=== PATIENT | female | born 1945 | race Caucasian/White ===

== ENCOUNTER → 2016-10-27 | Outpatient (CLI) | payer MEDICARE, OTHER ==
--- NOTE | 2016-10-27 09:18 | CT ---
EXAMINATION TYPE: CT brain wo/w con DATE OF EXAM: 10/27/2016 9:01 AM COMPARISON: NONE HISTORY: TIA CT DLP: 1999.6 mGycm, Automated exposure control for dose reduction was used. CONTRAST: Patient injected with 100 mL of Omnipaque 300. CT of the brain is performed utilizing 3 mm thick sections through the posterior fossa and 3 mm thick sections through the remaining calvarium. Study is performed within 24 hours of arrival to the hospital. No abnormal hyperdensity is present to suggest an acute intracranial hemorrhage. No mass lesion is evident. No acute infarcts are evident. Ventricles and sulci are appropriate for the patient age. No abnormal enhancement is evident. Paranasal sinuses and mastoid air cells within the [id number] are clear. IMPRESSIONS: 1. Normal pre and postcontrast CT brain.
--- NOTE | 2016-10-27 11:25 | US ---
EXAMINATION TYPE: US carotid duplex BILAT DATE OF EXAM: 10/27/2016 9:08 AM COMPARISON: NONE CLINICAL HISTORY: G45.9 TIA. Stiff neck, TIA, headache EXAM MEASUREMENTS: RIGHT: Peak Systolic Velocity (PSV) cm/sec ----- Right CCA: 97.3 ----- Right ICA: 110.4 ----- Right ECA: 92.9 ICA/CCA ratio: 1.1 RIGHT: End Diastole cm/sec ----- Right CCA: 33.3 ----- Right ICA: 52.2 ----- Right ECA: 12.9 LEFT: Peak Systolic Velocity (PSV) cm/sec ----- Left CCA: 83.8 ----- Left ICA: 121.0 ----- Left ECA: 82.7 ICA/CCA ratio: 1.4 LEFT: End Diastole cm/sec ----- Left CCA: 28.9 ----- Left ICA: 53.1 ----- Left ECA: 10.2 VERTEBRALS (direction of flow): Right Vertebral: Antegrade Left Vertebral: Antegrade No evidence of significant stenosis Grayscale images show no significant plaque at carotid bulb level bilaterally. Velocity measurements and ratios remain within normal limits in visualized portion of both internal carotid arteries. IMPRESSION: No hemodynamically significant stenosis is seen in either internal carotid artery.
== END | disposition home or self-care (01) ==
LOC: RADCTMAIN 08:07
PROVIDERS: ATTEND Family Medicine
DX: G45.9 Transient cerebral ischemic attack, unspecified (principal)
CPT/HCPCS: 93880; 70470; Q9967

== ENCOUNTER 2016-11-13 01:22 | Inpatient (IN) | payer MEDICARE, OTHER ==
--- NOTE | 2016-11-13 02:08 | XR ---
INDICATION: Dyspnea COMPARISON: CXR 12/20/14 FINDINGS: Single frontal view of the chest is provided. Heart size and pulmonary vascularity are normal. There are stable chronically increased interstitial lung markings most pronounced toward the lung bases. No confluent airspace consolidation, pleural effusion, or pneumothorax is evident. Limited skeletal evaluation demonstrates no acute findings. IMPRESSION: No radiographic evidence of acute cardiopulmonary disease.
[2016-11-13 02:10] LABS: Basophils % (A) 0 %; CH 32.5; CHCM 31.1; Eosinophils # (A) 0.1 k/uL (0-0.7); Eosinophils % (A) 1 %; HCT 42.5 % (34.0-46.0); HDW 2.92; HGB 13.5 gm/dL (11.4-16.0); Hypochromasia Moderate; Luc # (Auto) 0.15; Luc % (Auto) 1; Lymphocytes # (A) 1.3 k/uL (1.0-4.8); Lymphocytes % (A) 11 %; MCH 33.3 pg (25.0-35.0); MCHC 31.7 g/dL (31.0-37.0); MCV 105.2 fL (80.0-100.0); Macrocytosis Moderate; Mean Platelet Volume 6.8; Monocytes # (A) 0.7 k/uL (0-1.0); Monocytes % (A) 6 %; Neutrophils # (A) 9.5 k/uL (1.3-7.7); Neutrophils % (A) 80 %; RBC 4.04 m/uL (3.80-5.40); RDW 15.4 % (11.5-15.5); WBC 11.8 k/uL (3.8-10.6); WBC (Perox) 12.03
[2016-11-13 02:11] LABS: ALT 57 U/L (9-52); AST 47 U/L (14-36); Alkaline Phosphatase 56 U/L (38-126); Anion Gap 9 mmol/L; Blood Urea Nitrogen 23 mg/dL (7-17); Calcium 7.2 mg/dL (8.4-10.2); Carbon Dioxide 30 mmol/L (22-30); Chloride 104 mmol/L (98-107); Glucose 100 mg/dL (74-99); Non-African American GFR(MDRD) >60 (>60 ml/min/1.73 sqM); Sodium 143 mmol/L (137-145); Total Bilirubin 0.4 mg/dL (0.2-1.3); Total Protein 5.7 g/dL (6.3-8.2)
[2016-11-13 02:12] LABS: INR 1.3 (<1.1); Partial Thromboplastin Time 25.3 sec (22.0-30.0); Prothrombin Time 12.4 sec (9.0-12.0)
[2016-11-13] MEDS ORDERED: POTASSIUM BICARB-CITRIC ACID 25 MEQ TABLET.EFF PO STA (02:19)
[2016-11-13 02:20] LABS: Magnesium 0.9 mg/dL (1.6-2.3)
[2016-11-13 02:21] LABS: Creatine Kinase 116 U/L (30-135)
[2016-11-13] MEDS ORDERED: MAGNESIUM SULFATE-D5W PMX 1 GM in DEXTROSE/WATER 1 100ML.BAG IVPB ONE ×2 (02:24→03:28)
[2016-11-13 02:34] LABS: Troponin I <0.012 ng/mL (0.000-0.034)
[2016-11-13 02:50] LABS: Creatine Kinase MB 4.1 ng/mL (0.0-2.4)
--- NOTE | 2016-11-13 04:49 | ED ---
SOB HPI - General Chief Complaint: Shortness of Breath Stated Complaint: SOB Time Seen by Provider: 11/13/16 01:29 Source: patient Mode of arrival: EMS Limitations: no limitations - History of Present Illness Initial Comments: This woman is a 71-year-old with history of COPD coming by ambulance to be evaluated for shortness of breath. Patient states that this is been getting worse over the past few days. She has had a nonproductive cough, wheezing, and shortness of breath. The patient states that she is no longer having any relief from use of her home respiratory medications. She has been trying the home albuterol without relief. The patient is also on home oxygen and states that she feels short of breath even using that. She is denying fevers or chills. Patient denies chest pain, diaphoresis, nausea or vomiting. Patient denies pain or swelling of the legs. She has not had any change in bowel movements including no dark or tarry stools. MD Complaint: shortness of breath, cough -: days(s) Severity: severe Consistency: constant Improves With: oxygen, bronchodilators Worsens With: nothing Known History Of: COPD Treatments Prior to Arrival: oxygen, bronchodilator - Related Data Home Oxygen Therapy: Yes Home Oxygen Amount: 2 Liters Home Medications Medication Instructions Recorded Confirmed ALPRAZolam [Xanax] 0.25 mg PO TID 11/13/16 11/13/16 Albuterol Inhaler [Ventolin Hfa 2 puff INHALATION RT-Q4H PRN 11/13/16 11/13/16 Inhaler] Albuterol Nebulized [Ventolin 2.5 mg INHALATION RT-TID 11/13/16 11/13/16 Nebulized] Biotin 5,000 mcg PO DAILY 11/13/16 11/13/16 Furosemide [Lasix] 20 mg PO DAILY 11/13/16 11/13/16 Levothyroxine Sodium [Synthroid] 175 mcg PO DAILY 11/13/16 11/13/16 Olodaterol HCl [Striverdi Respimat] 2 puff INHALATION RT-DAILY 11/13/16 11/13/16 Tiotropium 18 Mcg/Puff [Spiriva] 1 cap INHALATION RT-DAILY 11/13/16 11/13/16 Previous Rx's Medication Instructions Recorded Doxycycline [Vibramycin] 100 mg PO BID #10 cap 11/15/16 Allergies Allergy/AdvReac Type Severity Reaction Status Date / Time codeine Allergy Swelling Verified 11/13/16 01:52 steroids Allergy Swelling Uncoded 11/13/16 06:16 Review of Systems ROS Statement: Those systems with pertinent positive or pertinent negative responses have been documented in the HPI. ROS Other: All systems not noted in ROS Statement are negative. Constitutional: Denies: fever, chills Respiratory: Reports: cough, dyspnea, wheezes. Denies: hemoptysis Cardiovascular: Denies: chest pain, palpitations, edema, syncope Endocrine: Denies: other Gastrointestinal: Denies: abdominal pain, vomiting, diarrhea, melena Genitourinary: Denies: dysuria Musculoskeletal: Denies: back pain Skin: Denies: rash Neurological: Denies: headache, weakness, numbness Past Medical History Past Medical History: COPD History of Any Multi-Drug Resistant Organisms: None Reported Past Surgical History: Appendectomy, Coronary Bypass/CABG, Hysterectomy Past Psychological History: No Psychological Hx Reported Smoking Status: Current every day smoker Past Alcohol Use History: None Reported Past Drug Use History: None Reported - Past Family History Mother History Unknown: Yes Family Medical History: Unable to Obtain General Exam Limitations: no limitations General appearance: alert, in distress, cachectic Head exam: Present: atraumatic, normocephalic Eye exam: Present: normal appearance. Absent: scleral icterus, conjunctival injection ENT exam: Present: normal oropharynx Neck exam: Present: normal inspection, full ROM Respiratory exam: Present: respiratory distress, wheezes, accessory muscle use, decreased breath sounds, prolonged expiratory. Absent: rales, rhonchi, stridor , chest wall tenderness Cardiovascular Exam: Present: regular rate, normal rhythm, normal heart sounds. Absent: systolic murmur, diastolic murmur, rubs, gallop GI/Abdominal exam: Present: soft. Absent: distended, tenderness, guarding, rebound, mass Extremities exam: Present: normal inspection, normal capillary refill. Absent: pedal edema, calf tenderness Back exam: Absent: CVA tenderness (R), CVA tenderness (L) Neurological exam: Present: alert Psychiatric exam: Present: anxious Skin exam: Present: warm, dry, intact, normal color. Absent: rash, diaphoretic , petechiae, pallor, mottled Course Vital Signs 11/13/16 11/13/1617 01:48 02:42 03:42 Temperature 97.2 F L Pulse Rate 79 74 65 Respiratory 18 18 18 Rate Blood Pressure 109/55 99/57 109/53 O2 Sat by Pulse 94 L 95 95 Oximetry 11/13/16 11/13/16 11/13/16 05:03 05:20 05:27 Temperature 97.6 F Pulse Rate 67 68 Respiratory 18 Rate Blood Pressure 99/53 O2 Sat by Pulse 95 91 L Oximetry 11/13/16 11/13/16 11/13/16 05:37 05:48 05:56 Temperature Pulse Rate 62 65 70 Respiratory Rate Blood Pressure O2 Sat by Pulse Oximetry 11/13/16 06:30 Temperature 97.1 F L Pulse Rate 68 Respiratory 20 Rate Blood Pressure 95/53 O2 Sat by Pulse 95 Oximetry Medical Decision Making - Medical Decision Making Patient states that she is ALLERGIC to steroids and is refusing dose of these. States that she has had "swelling" and that steroids would "kill me" The patient had 2 nebulized treatments here, and continue to have some dyspnea. Blood gas performed and shows patient retaining. The patient's O2 turned down to barely maintaining 90 and patient will be placed on BiPAP. Patient admitted to [facility] care after discussions with Dr. 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 - Lab Data Result diagrams: 11/14/16 06:53 11/14/16 06:53 Lab Results 11/13/16 11/13/16 11/13/16 Range/Units 01:40 01:40 01:40 WBC 11.8 H (3.8-10.6) k/uL RBC 4.04 (3.80-5.40) m/uL Hgb 13.5 (11.4-16.0) gm/dL Hct 42.5 (34.0-46.0) % MCV 105.2 H (80.0-100.0) fL MCH 33.3 (25.0-35.0) pg MCHC 31.7 (31.0-37.0) g/dL RDW 15.4 (11.5-15.5) % Plt Count 288 (150-450) k/uL Neutrophils % 80 % Lymphocytes % 11 % Monocytes % 6 % Eosinophils % 1 % Basophils % 0 % Neutrophils # 9.5 H (1.3-7.7) k/uL Lymphocytes # 1.3 (1.0-4.8) k/uL Monocytes # 0.7 (0-1.0) k/uL Eosinophils # 0.1 (0-0.7) k/uL Basophils # 0.0 (0-0.2) k/uL Hypochromasia Moderate Macrocytosis Moderate PT (9.0-12.0) sec INR (<1.1) APTT (22.0-30.0) sec D-Dimer (<0.60) mg/L FEU Sodium 143 (137-145) mmol/L Potassium 3.0 L* (3.5-5.1) mmol/L Chloride 104 (98-107) mmol/L Carbon Dioxide 30 (22-30) mmol/L Anion Gap 9 mmol/L BUN 23 H (7-17) mg/dL Creatinine 0.90 (0.52-1.04) mg/dL Est GFR (MDRD) Af Amer >60 (>60 ml/min/1.73 sqM) Est GFR (MDRD) Non-Af >60 (>60 ml/min/1.73 sqM) Glucose 100 H (74-99) mg/dL Calcium 7.2 L (8.4-10.2) mg/dL Magnesium 0.9 L* (1.6-2.3) mg/dL Total Bilirubin 0.4 (0.2-1.3) mg/dL AST 47 H (14-36) U/L ALT 57 H (9-52) U/L Alkaline Phosphatase 56 (38-126) U/L Total Creatine Kinase 116 (30-135) U/L CK-MB (CK-2) 4.1 H* (0.0-2.4) ng/mL CK-MB (CK-2) Rel Index 3.5 Troponin I <0.012 (0.000-0.034) ng/mL NT-Pro-B Natriuret Pep pg/mL Total Protein 5.7 L (6.3-8.2) g/dL Albumin 3.1 L (3.5-5.0) g/dL 11/13/16 11/13/16 Range/Units 01:40 01:40 WBC (3.8-10.6) k/uL RBC (3.80-5.40) m/uL Hgb (11.4-16.0) gm/dL Hct (34.0-46.0) % MCV (80.0-100.0) fL MCH (25.0-35.0) pg MCHC (31.0-37.0) g/dL RDW (11.5-15.5) % Plt Count (150-450) k/uL Neutrophils % % Lymphocytes % % Monocytes % % Eosinophils % % Basophils % % Neutrophils # (1.3-7.7) k/uL Lymphocytes # (1.0-4.8) k/uL Monocytes # (0-1.0) k/uL Eosinophils # (0-0.7) k/uL Basophils # (0-0.2) k/uL Hypochromasia Macrocytosis PT 12.4 H (9.0-12.0) sec INR 1.3 (<1.1) APTT 25.3 (22.0-30.0) sec D-Dimer 0.20 (<0.60) mg/L FEU Sodium (137-145) mmol/L Potassium (3.5-5.1) mmol/L Chloride (98-107) mmol/L Carbon Dioxide (22-30) mmol/L Anion Gap mmol/L BUN (7-17) mg/dL Creatinine (0.52-1.04) mg/dL Est GFR (MDRD) Af Amer (>60 ml/min/1.73 sqM) Est GFR (MDRD) Non-Af (>60 ml/min/1.73 sqM) Glucose (74-99) mg/dL Calcium (8.4-10.2) mg/dL Magnesium (1.6-2.3) mg/dL Total Bilirubin (0.2-1.3) mg/dL AST (14-36) U/L ALT (9-52) U/L Alkaline Phosphatase (38-126) U/L Total Creatine Kinase (30-135) U/L CK-MB (CK-2) (0.0-2.4) ng/mL CK-MB (CK-2) Rel Index Troponin I (0.000-0.034) ng/mL NT-Pro-B Natriuret Pep 3750 pg/mL Total Protein (6.3-8.2) g/dL Albumin (3.5-5.0) g/dL - EKG Data -: EKG Interpreted by Me EKG shows normal: sinus rhythm, axis (Normal), intervals (Normal) Rate: normal (80 bpm) Interpretation: nonspecific ST-T wave changes, other (Possible RVH) Critical Care Time Critical Care Time: Yes (35 minutes) Disposition Clinical Impression: COPD exacerbation, CHF exacerbation Disposition: ADMITTED IP TO THIS HOSP Condition: Poor
[2016-11-13 05:13] LABS: ABG PH 7.23 (7.35-7.45)
[2016-11-13 05:14] LABS: ABG Base Excess 3.9 mmol/L; ABG HCO3 31 mmol/L (21-25); ABG PCO2 77 mmHg (35-45); ABG PO2 121 mmHg (83-108); ABG TCO2 33 mmol/L (19-24)
[2016-11-13] MEDS ORDERED: ALBUTEROL NEBULIZED 2.5 MG/3 ML INHALATION STA ×2 (05:22→05:23)
[2016-11-13] MEDS: IPRATROPIUM-ALBUTEROL 3 ML NEB INHALATION SCH ×5 (05:27→20:06)
[2016-11-13 06:55] LABS: Glucose,Whole Blood 112 mg/dL (75-99)
[2016-11-13 10:28] LABS: Magnesium 1.3 mg/dL (1.6-2.3); Potassium 3.3 mmol/L (3.5-5.1)
[2016-11-13] MEDS ORDERED: Potassium Replacement Protocol 1 EACH MISC MISCELLANE PRN (10:43)
[2016-11-13] MEDS ORDERED: Magnesium Replacement Protocol 1 EACH MISC MISCELLANE PRN (10:43)
--- NOTE | 2016-11-13 10:53 | P.CNPUL ---
History of Present Illness Consult date: 11/13/16 Requesting physician: Adryan Lopez Reason for consult: dyspnea, COPD Chief complaint: Shortness of breath History of present illness: This is a very pleasant 71-year-old female patient who follows with Dr. Adryan Lopez is her primary care physician. She has a history of coronary artery disease with previous coronary artery bypass grafting and hypothyroidism. She also has a history of end-stage oxygen-dependent chronic obstructive pulmonary disease and follows with Dr. Nava in our office for the same. Unfortunately the patient does continue to smoke. She's been maintained on Spiriva and albuterol. She presented here last night with complaints of increasing shortness of breath requiring her to call EMS. Her arterial blood gases on arrival revealed a PaO2 of 121, pCO2 of 77 and a pH of 7.23. This was on 36% FiO2. She was placed on BiPAP at 12/5 and is currently in the intensive care unit as a selective care unit overflow. Her BNP level was 3750. Echocardiogram is pending. She was hypokalemic at 3.0 with hypo-magnesium at 0.9 both being replaced. D-dimer 0.20. She is awake and alert in no acute distress. Her chest x-ray revealed no acute cardiopulmonary process. She is reluctant to wear the BiPAP at this point. She is asking to go home. She denies any cough or congestion. No chills or night sweats. No chest pain. She 's been afebrile. Hemodynamically stable. Review of Systems 14 point review of system was conducted. All negative other than as mentioned in HPI. Past Medical History Past Medical History: COPD History of Any Multi-Drug Resistant Organisms: None Reported Past Surgical History: Appendectomy, Coronary Bypass/CABG, Hysterectomy Past Psychological History: No Psychological Hx Reported Smoking Status: Current every day smoker Past Alcohol Use History: None Reported Past Drug Use History: None Reported Medications and Allergies Home Medications Medication Instructions Recorded Confirmed Type Biotin 5,000 mcg PO DAILY 11/13/16 11/13/16 History Furosemide [Lasix] 20 mg PO DAILY 11/13/16 11/13/16 History Levothyroxine Sodium [Synthroid] 175 mcg PO DAILY 11/13/16 11/13/16 History Tiotropium 18 Mcg/Puff [Spiriva] 1 cap INHALATION DAILY 11/13/16 11/13/16 History Allergies Allergy/AdvReac Type Severity Reaction Status Date / Time codeine Allergy Swelling Verified 11/13/16 01:52 steroids Allergy Swelling Uncoded 11/13/16 06:16 Physical Exam Vitals: Vital Signs Temp Pulse Resp BP Pulse Ox 11/13/16 08:27 74 11/13/16 08:10 72 11/13/16 06:30 97.1 F L 68 20 95/53 95 11/13/16 05:56 70 11/13/16 05:48 65 11/13/16 05:37 62 11/13/16 05:27 68 11/13/16 05:20 91 L 11/13/16 05:03 97.6 F 67 18 99/53 95 11/13/16 03:42 65 18 109/53 95 11/13/16 02:42 74 18 99/57 95 11/13/16 01:48 97.2 F L 79 18 109/55 94 L Intake and Output 11/12/16 11/13/16 11/13/16 22:59 06:59 14:59 Output Total 0 Balance 0 Output: Urine 0 Other: Weight 50.349 kg GENERAL EXAM: Frail, cachectic. Anxious. HEAD: Normocephalic. EYES: Normal reaction of pupils, equal size. NOSE: Clear with pink turbinates. THROAT: No erythema or exudates. NECK: No masses, no JVD. CHEST: No chest wall deformity. LUNGS: Equal air entry with bilateral end expiratory wheeze. Diminished throughout. CVS: S1 and S2 normal with no audible murmur, regular rhythm. ABDOMEN: No hepatosplenomegaly, normal bowel sounds, no guarding or rigidity. SPINE: No scoliosis or deformity SKIN: No rashes CENTRAL NERVOUS SYSTEM: No focal deficits, tone is normal in all 4 extremities. Extremities: There is no peripheral edema. No clubbing, no cyanosis. Peripheral pulses are intact. Results - Laboratory Findings CBC and BMP: 11/13/16 01:40 11/13/16 10:10 ABG ABG pH 7.23 (7.35-7.45) L 11/13/16 05:00 ABG pCO2 77 mmHg (35-45) H* 11/13/16 05:00 ABG pO2 121 mmHg (83-108) H 11/13/16 05:00 ABG O2 Saturation 98.0 % (94-97) H 11/13/16 05:00 PT/INR, D-dimer PT 12.4 sec (9.0-12.0) H 11/13/16 01:40 INR 1.3 (<1.1) 11/13/16 01:40 D-Dimer 0.20 mg/L FEU (<0.60) 11/13/16 01:40 Abnormal lab findings: Abnormal Labs 11/13/16 11/13/16 11/13/16 01:40 01:40 01:40 WBC 11.8 H MCV 105.2 H Neutrophils # 9.5 H PT ABG pH ABG pCO2 ABG pO2 ABG HCO3 ABG Total CO2 ABG O2 Saturation Potassium 3.0 L* BUN 23 H Glucose 100 H POC Glucose (mg/dL) Calcium 7.2 L Magnesium 0.9 L* AST 47 H ALT 57 H CK-MB (CK-2) 4.1 H* Total Protein 5.7 L Albumin 3.1 L 11/13/16 11/13/16 11/13/16 01:40 05:00 06:53 WBC MCV Neutrophils # PT 12.4 H ABG pH 7.23 L ABG pCO2 77 H* ABG pO2 121 H ABG HCO3 31 H ABG Total CO2 33 H ABG O2 Saturation 98.0 H Potassium BUN Glucose POC Glucose (mg/dL) 112 H Calcium Magnesium AST ALT CK-MB (CK-2) Total Protein Albumin 11/13/16 10:10 WBC MCV Neutrophils # PT ABG pH ABG pCO2 ABG pO2 ABG HCO3 ABG Total CO2 ABG O2 Saturation Potassium 3.3 L BUN Glucose POC Glucose (mg/dL) Calcium Magnesium 1.3 L AST ALT CK-MB (CK-2) Total Protein Albumin - Diagnostic Findings Chest x-ray: image reviewed Assessment and Plan Plan: Impression: #1 Acute exacerbation of severe oxygen dependent chronic obstructive pulmonary disease. #2 Acute on chronic hypercapnic respiratory failure secondary to above. #3 Chronic and ongoing tobacco dependence. #4 History of coronary artery disease with previous coronary artery bypass grafting. #5 Hypothyroidism. #6 Anxiety. Plan: The patient was seen and evaluated by Dr. Ennis. Her chest x-ray, ABGs and labs were reviewed. The patient is quite reluctant to wear the BiPAP. We'll try her on a Ventimask. She is a DO NOT RESUSCITATE/DO NOT INTUBATE CODE STATUS. Will continue with her current medications. The patient refuses steroids. She is again educated regarding the importance of complete smoking cessation. She was counseled for 5 minutes. We will continue to follow and make further recommendations based on her clinical status. Time with Patient: Greater than 30
[2016-11-13] MEDS: MAGNESIUM SULFATE-D5W PMX 1 GM in DEXTROSE/WATER 1 100ML.BAG IVPB SCH ×3 (11:30→14:18)
[2016-11-13] MEDS: POTASSIUM CHLORIDE ER 20 MEQ TAB.ER PO SCH ×2 (11:30→13:04)
--- NOTE | 2016-11-13 12:46 | ECHOF ---
Referral Reason:CHF exacerbation MEASUREMENTS -------- HEIGHT: 157.5 cm WEIGHT: 50.3 kg BP: 83/52 RVIDd: 4.3 cm (< 3.3) IVSd: 0.6 cm (0.6 - 1.1) LVIDd: 4.2 cm (3.9 - 5.3) LVPWd: 1.0 cm (0.6 - 1.1) IVSs: 1.1 cm LVIDs: 2.5 cm LVPWs: 1.2 cm Ao Diam: 3.2 cm (2.0 - 3.7) MV EXCURSION: 19.436 mm (> 18.000) MV EF SLOPE: 67 mm/s (70 - 150) EPSS: 0.3 cm MV E Scott: 0.72 m/s MV DecT: 319 ms MV A Scott: 0.84 m/s MV E/A Ratio: 0.86 RAP: 5.00 mmHg RVSP: 18.66 mmHg FINDINGS -------- Sinus rhythm. This was a technically adequate study. Left ventricular wall thickness is normal. Overall left ventricular systolic function is low-normal with, an EF between 50 - 55 %. The right ventricle is moderately enlarged. The left atrial size is normal. The right atrial size is normal. There is mild aortic valve sclerosis. There is no evidence of aortic regurgitation. Mild mitral annular calcification present. Mild mitral regurgitation is present. Mild tricuspid regurgitation present. There is no evidence of pulmonary hypertension. The right ventricular systolic pressure, as measured by Doppler, is 18.66mmHg. There is no pulmonic regurgitation present. The aortic root size is normal. There is no pericardial effusion. CONCLUSIONS -------- 1. Left ventricular wall thickness is normal. 2. There is no pericardial effusion. 3. Overall left ventricular systolic function is low-normal with, an EF between 50 - 55 %. 4. The right ventricle is moderately enlarged. 5. There is mild aortic valve sclerosis. 6. Mild mitral annular calcification present. 7. Mild mitral regurgitation is present. 8. Mild tricuspid regurgitation present. 9. There is no evidence of pulmonary hypertension. 10. The right ventricular systolic pressure, as measured by Doppler, is 18.66mmHg. INTENSIVE CARE UNIT REGISTERED NURSE: July Fuller RDCS
[2016-11-13 13:29] VITALS: BMI 16.8
[2016-11-13] MEDS: FAMOTIDINE 20 MG/2 ML VIAL IV SCH ×2 (14:18→21:02)
[2016-11-13] MEDS: HEPARIN SODIUM,PORCINE 5,000 UNIT/ML 1 ML VIAL SQ SCH ×2 (14:18→21:01)
[2016-11-13] MEDS: DOXYCYCLINE 50 MG CAP PO SCH ×2 (14:18→21:01)
[2016-11-13] MEDS: ALPRAZolam 0.25 MG TAB PO PRN (21:01)
--- NOTE | 2016-11-13 22:50 | HP ---
DATE OF ADMISSION: 11/13/2016 CHIEF COMPLAINT: Shortness of breath. HISTORY OF PRESENT ILLNESS: This is a 71-year-old female with history of chronic obstructive pulmonary disease. Ongoing tobacco use. CAD with a diagnosis of end stage COPD, who follows with Dr. Nava comes in the hospital with progressive worsening of dyspnea over the last 24 hours prior to admission. Patient stated that she usually uses nebulizers at home and is able to salvage her breathing. Patient apparently is unable to tolerate steroids, has had anaphylactic reaction according to her. Patient hypoxic chronically; however, has refused home O2 in the past. Patient was seen in the emergency room and was noted to have an acute on chronic hypercapnic hypoxic respiratory failure, was started on BiPAP initially and improved. Patient was seen in the ICU today. Refused to wear BiPAP. Has been currently on 3 liters of supplemental oxygen. States that her breathing is slightly improved since admission. Currently; however, has complains of significant vomiting. Patient states to have a description of what appears to be a ANJELICA from a previous evaluation. Fourteen point review of system was done; none pertinent other than what was mentioned above. Past medical history includes: 1. Chronic obstructive pulmonary disease. 2. Coronary artery disease. Surgical history includes appendectomy, hysterectomy and EGD and again, dilated esophagus with ANJELICA. SOCIAL HISTORY: Ongoing tobacco use and denies illicit drug use or alcohol use. Home medications include: 1. Lasix. 2. Synthroid. 3. Tiotropium. Doses were reviewed and appropriately reconciled. ALLERGIES: CODEINE AND STEROIDS. PHYSICAL EXAMINATION VITALS: Temperature 97.1, heart rate 74, respiratory rate 18, blood pressure 99/52. Saturating 95% on 3 liters supplemental oxygen. GENERAL APPEARANCE: Cachectic appears to be in distress. HEAD: Atraumatic, normocephalic. Pupils are equal, round, and reactive to light and accommodation. Neck is supple. No JVD. LUNGS: Air movement is appreciated. No significant wheezing, rhonchi or crackles; however, diminished diffusely. HEART EXAM: S1, S2 heard. No murmurs appreciated. Regular rate and rhythm. ABDOMEN: Soft, nontender, no organomegaly. LOWER EXTREMITIES: No edema noted. NEUROLOGICAL: No focal motor or sensory deficits noted. Cranial nerves 2 thru 12 grossly intact. Laboratory data include: Hemoglobin 13.1, hematocrit 42.5. White count 11.8, platelets 288, INR as discussed above. Sodium 143, potassium 3, chloride 104, bicarb 30, BUN 20, creatinine 0.90, magnesium of 0.9. ASSESSMENT AND PLAN: 1. Acute exacerbation of severe chronic obstructive pulmonary disease due to acute bronchitis. 2. Acute on chronic hypoxic hypercapnic respiratory failure secondary to above. 3. Hypokalemia. 4. Hypomagnesemia. 5. Severe protein calorie malnutrition with bitemporal wasting. 6. Hypothyroidism. 7. Ongoing tobacco use. 8. Advanced chronic obstructive pulmonary disease. 9. Coronary artery disease. 10. Gastroesophageal reflux disease. PLAN: Continue ongoing care. Patient is on breathing treatments. He is not able to tolerate steroids. Start the patient on Pepcid 20 mg IV q.12 hours. Will start patient on Vibramycin 100 mg p.o. b.i.d. as well. Magnesium and potassium have been appropriately replaced. The patient can be triaged out of the ICU. We will follow the patient on the floor. Appears to show some improvement. Is awake. Is refusing BiPAP at this time as well.
[2016-11-14] MEDS: IPRATROPIUM-ALBUTEROL 3 ML NEB INHALATION SCH ×7 (00:02→23:34)
[2016-11-14 08:05] LABS: Basophils % (A) 0 %; CHCM 29.7; Eosinophils # (A) 0.1 k/uL (0-0.7); Eosinophils % (A) 1 %; HCT 42.7 % (34.0-46.0); HDW 2.79; Hypochromasia Marked; Luc % (Auto) 1; Lymphocytes # (A) 0.8 k/uL (1.0-4.8); Lymphocytes % (A) 9 %; MCHC 30.4 g/dL (31.0-37.0); MCV 108.6 fL (80.0-100.0); Macrocytosis Marked; Mean Platelet Volume 6.8; Monocytes # (A) 0.5 k/uL (0-1.0); Monocytes % (A) 5 %; Neutrophils # (A) 7.6 k/uL (1.3-7.7); Neutrophils % (A) 84 %; RBC 3.93 m/uL (3.80-5.40); WBC (Perox) 9.37
[2016-11-14 08:14] LABS: ALT 55 U/L (9-52); AST 31 U/L (14-36); Alkaline Phosphatase 61 U/L (38-126); Anion Gap 8 mmol/L; Blood Urea Nitrogen 20 mg/dL (7-17); Calcium 7.5 mg/dL (8.4-10.2); Carbon Dioxide 32 mmol/L (22-30); Chloride 103 mmol/L (98-107); Glucose 92 mg/dL (74-99); Non-African American GFR(MDRD) >60 (>60 ml/min/1.73 sqM); Potassium 4.2 mmol/L (3.5-5.1); Sodium 143 mmol/L (137-145); Total Bilirubin 0.5 mg/dL (0.2-1.3); Total Protein 5.7 g/dL (6.3-8.2)
[2016-11-14] MEDS: DOXYCYCLINE 50 MG CAP PO SCH ×2 (09:01→21:49)
[2016-11-14] MEDS: FAMOTIDINE 20 MG/2 ML VIAL IV SCH ×2 (09:02→21:49)
[2016-11-14] MEDS: HEPARIN SODIUM,PORCINE 5,000 UNIT/ML 1 ML VIAL SQ SCH ×2 (09:02→21:49)
[2016-11-14 09:23] LABS: Manual Review Performed
--- NOTE | 2016-11-14 15:31 | PN ---
This is a 71-year-old female who was seen by our team yesterday in consultation. She sees Dr. Lopez as her primary doctor. She was actually seen by my nurse practitioner and myself. She presented with shortness of breath. She has a history of underlying CAD with previous bypass grafting as well as hypothyroidism. 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 She sees Dr. Nava in the office. She does continue to smoke. The patient presented to the emergency room complaining of increasing shortness of breath. EMS was called. Blood gases initially showed a pO2 121, pCO2 of 77, pH of 0.23. Placed on BiPAP. She was admitted to the ICU. Her BNP was 3750. The patient did not want to wear BiPAP. She was asking to go home. She made herself a DNR. She just did not want anything to be done at this point. Currently resting relatively comfortably on the floor. She was started on updrafts and other medications. A little lethargic. She does arouse. Certainly much less short of breath than she was yesterday here in the ICU. Current vital signs include a temperature which is 99.8, heart rate which is 84, respiratory rate 18, blood pressure, which is 93/51, mean 65 and at 3 liters saturation 92%. Appears in no acute distress. HEENT- examination is grossly unremarkable. Mucous membranes are moist. No oral lesions. Neck is supple. Full range of motion. No adenopathy or thyromegaly. Cardiovascular examination reveals regular rhythm and rate. S1, S2 normal. No S3, S4 or murmur. Lungs reveal diminished breath sounds. A few scattered rhonchi and wheezes. Breath sounds are diminished. They are equal, though. Slight prolongation. ABDOMEN: Soft. Bowel sounds are heard. EXTREMITIES: Intact. Mild peripheral edema. Skin without rash. NEUROLOGICAL: Difficult to perform, but appears to be nonfocal. She moves all 4 extremities. Labs are reviewed. White count 9, hemoglobin 13, hematocrit 42.7, platelet count 267,000. Sodium, potassium and chloride normal. CO2 of 32, BUN and creatinine were 20 and 0.74. The rest of her labs are reviewed. Chest x-ray from November 13 shows no evidence of cardiopulmonary disease. There is evidence of COPD. Microbiology is all negative. Medications are reviewed. From the pulmonary standpoint she is on: 1. Albuterol updrafts. 2. Doxycycline. 3. She refused all other treatments. 4. She is getting, DuoNeb as well. 5. She actually refuses corticosteroids. ASSESSMENT: 1. Chronic obstructive pulmonary disease exacerbation. 2. Acute hypoxemic respiratory failure. 3. Chronic hypercapnia. 4. Chronic and ongoing tobacco use. 5. History of coronary artery disease and previous bypass grafting. 6. Hypothyroidism. 7. Anxiety. PLAN: The patient refuses the BiPAP. She refuses steroids. She does not want to be intubated. She did not want to be resuscitated. She was moved out of the unit. She seemed to stabilize with a bit. No additional recommendations are made. Prognosis is poor, though.
--- NOTE | 2016-11-14 17:43 | P.PN ---
Subjective HISTORY OF PRESENT ILLNESS: This is a 71-year-old female with history of chronic obstructive pulmonary disease. Ongoing tobacco use. CAD with a diagnosis of end stage COPD, who follows with Dr. Nava comes in the hospital with progressive worsening of dyspnea over the last 24 hours prior to admission. Patient stated that she usually uses nebulizers at home and is able to salvage her breathing. Patient apparently is unable to tolerate steroids, has had anaphylactic reaction according to her. Patient hypoxic chronically; however, has refused home O2 in the past. Patient was seen in the emergency room and was noted to have an acute on chronic hypercapnic hypoxic respiratory failure, was started on BiPAP initially and improved. Patient was seen in the ICU today. Refused to wear BiPAP. Has been currently on 3 liters of supplemental oxygen. States that her breathing is slightly improved since admission. Currently; however, has complains of significant vomiting. Patient states to have a description of what appears to be a ANJELICA from a previous evaluation. Fourteen point review of system was done; none pertinent other than what was mentioned above. 11/14/16 states to be doing well off o2 during my eval SOB after short ambulation PHYSICAL EXAMINATION GENERAL APPEARANCE: Cachectic appears to be in distress. HEAD: Atraumatic, normocephalic. Pupils are equal, round, and reactive to light and accommodation. Neck is supple. No JVD. LUNGS: Air movement is appreciated. No significant wheezing, rhonchi or crackles; however, diminished diffusely. HEART EXAM: S1, S2 heard. No murmurs appreciated. Regular rate and rhythm. ABDOMEN: Soft, nontender, no organomegaly. LOWER EXTREMITIES: No edema noted. NEUROLOGICAL: No focal motor or sensory deficits noted. Cranial nerves 2 thru 12 grossly intact. Objective - Vital Signs Vital signs: Vital Signs Temp 98.7 F 11/14/16 15:00 Pulse 82 11/14/16 16:00 Resp 18 11/14/16 16:00 BP 90/52 11/14/16 15:00 Pulse Ox 91 L 11/14/16 15:00 Intake & Output 11/13/16 11/14/16 11/14/16 18:59 06:59 18:59 Intake Total 300 360 960 Output Total 450 Balance -150 360 960 Weight 50.3 kg Intake: Intake, IV Titration 300 Amount Magnesium Sulfate-D5w Pmx 300 1 gm In Dextrose/Water 1 100ml.bag @ 100 mls/hr IVPB Q1H [facility] Rx#: [id number] Oral 360 960 Output: Urine 450 Other: Voiding Method Bedpan Bedside Commode Bedside Commode # Voids 1 3 # Bowel Movements 1 - Labs CBC & Chem 7: 11/14/16 06:53 11/14/16 06:53 Labs: Abnormal Lab Results - Last 24 Hours (Table) 11/14/16 11/14/16 Range/Units 06:53 06:53 MCV 108.6 H (80.0-100.0) fL MCHC 30.4 L (31.0-37.0) g/dL Lymphocytes # 0.8 L (1.0-4.8) k/uL Carbon Dioxide 32 H (22-30) mmol/L BUN 20 H (7-17) mg/dL Calcium 7.5 L (8.4-10.2) mg/dL ALT 55 H (9-52) U/L Total Protein 5.7 L (6.3-8.2) g/dL Albumin 2.9 L (3.5-5.0) g/dL Assessment and Plan Plan: ASSESSMENT AND PLAN: 1. Acute exacerbation of severe chronic obstructive pulmonary disease due to acute bronchitis. 2. Acute on chronic hypoxic hypercapnic respiratory failure secondary to above. 3. Hypokalemia. 4. Hypomagnesemia. 5. Severe protein calorie malnutrition with bitemporal wasting. 6. Hypothyroidism. 7. Ongoing tobacco use. 8. Advanced chronic obstructive pulmonary disease. 9. Coronary artery disease. 10. Gastroesophageal reflux disease. PLAN: Continue ongoing care. Patient is on breathing treatments. He is not able to tolerate steroids. Pepcid 20 mg IV q.12 hours. Vibramycin 100 mg p.o. b.i.d. No code dc home levi with home o2 failed o2 saturation test hypoxic around 75 on room air with ambualtion.
[2016-11-14] MEDS: ALPRAZolam 0.25 MG TAB PO PRN (22:00)
[2016-11-15] MEDS: IPRATROPIUM-ALBUTEROL 3 ML NEB INHALATION SCH ×4 (03:22→15:54)
[2016-11-15] MEDS: ALPRAZolam 0.25 MG TAB PO PRN (06:11)
[2016-11-15] MEDS: HEPARIN SODIUM,PORCINE 5,000 UNIT/ML 1 ML VIAL SQ SCH (08:08)
[2016-11-15] MEDS: FAMOTIDINE 20 MG/2 ML VIAL IV SCH (08:08)
[2016-11-15] MEDS: DOXYCYCLINE 50 MG CAP PO SCH (08:09)
[2016-11-15 15:23] VITALS: BP 91/52; RESP 18; TEMP 97.8
[2016-11-15 16:05] VITALS: PULSE 96
--- NOTE | 2016-11-15 16:35 | P.PN ---
Subjective This is a very pleasant 71-year-old female patient who follows with Dr. Adryan Lopez is her primary care physician. She has a history of coronary artery disease with previous coronary artery bypass grafting and hypothyroidism. She also has a history of end-stage oxygen-dependent chronic obstructive pulmonary disease and follows with Dr. Nava in our office for the same. Unfortunately the patient does continue to smoke. She's been maintained on Spiriva and albuterol. She presented here last night with complaints of increasing shortness of breath requiring her to call EMS. Her arterial blood gases on arrival revealed a PaO2 of 121, pCO2 of 77 and a pH of 7.23. This was on 36% FiO2. She was placed on BiPAP at 12/ and is currently in the intensive care unit as a selective care unit overflow. Her BNP level was 3750. Echocardiogram is pending. She was hypokalemic at 3.0 with hypo-magnesium at 0.9 both being replaced. D-dimer 0.20. She is awake and alert in no acute distress. Her chest x-ray revealed no acute cardiopulmonary process. She is reluctant to wear the BiPAP at this point. She is asking to go home. She denies any cough or congestion. No chills or night sweats. No chest pain. She 's been afebrile. Hemodynamically stable. On 11/15/2016 the patient is being seen in follow-up. The patient is feeling better pH is less short of breath. No significant respiratory distress at this point. Chest that is so wheezing improved. The patient was initially utilizing the BiPAP and currently she is off the BiPAP for now and she is breathing comfortably. No chest pain. No sputum production. No hemoptysis. No other complaints otherwise for now. Objective - Vital Signs Vital signs: Vital Signs Temp 97.8 F 11/15/16 15:00 Pulse 96 11/15/16 16:05 Resp 18 11/15/16 15:00 BP 91/52 11/15/16 15:00 Pulse Ox 90 L 11/15/16 15:00 Intake & Output 11/14/16 11/15/16 11/15/16 18:59 06:59 18:59 Intake Total 960 250 480 Output Total 450 Balance 960 250 30 Intake: Oral 960 250 480 Output: Urine 450 Other: Voiding Method Bedside Commode Toilet Toilet # Voids 3 2 2 - Exam GENERAL EXAM: Frail, cachectic. The patient is not in acute respiratory distress and the patient is moving air without any limitation. HEAD: Normocephalic. EYES: Normal reaction of pupils, equal size. NOSE: Clear with pink turbinates. THROAT: No erythema or exudates. NECK: No masses, no JVD. CHEST: No chest wall deformity. LUNGS: Equal air entry with bilateral end expiratory wheeze. Diminished throughout. CVS: S1 and S2 normal with no audible murmur, regular rhythm. ABDOMEN: No hepatosplenomegaly, normal bowel sounds, no guarding or rigidity. SPINE: No scoliosis or deformity SKIN: No rashes CENTRAL NERVOUS SYSTEM: No focal deficits, tone is normal in all 4 extremities. Extremities: There is no peripheral edema. No clubbing, no cyanosis. Peripheral pulses are intact. - Labs CBC & Chem 7: 11/14/16 06:53 11/14/16 06:53 Assessment and Plan Plan: Impression: #1 Acute exacerbation of severe oxygen dependent chronic obstructive pulmonary disease, improving #2 Acute on chronic hypercapnic respiratory failure secondary to above. #3 Chronic and ongoing tobacco dependence. #4 History of coronary artery disease with previous coronary artery bypass grafting. #5 Hypothyroidism. #6 Anxiety. Plan Continue doxycycline. Prednisone burst taper. DuoNeb nebulized treatments [id number]. Discharge planning is in progress. Assess oxygenation on room air rest and with activity. We'll follow
--- NOTE | 2016-11-15 20:16 | P.DS ---
Providers Date of admission: 11/13/16 04:40 Attending physician: Adryan Lopez Consults: 11/13/16 04:40 Consult Physician Routine Consulting Provider: Narda Nava Consult Reason/Comments: COPD exacerbation. Do you want consulting provider notified?: Already Contacted Primary care physician: Adryan Lopez [facility] Course: HISTORY OF PRESENT ILLNESS: This is a 71-year-old female with history of chronic obstructive pulmonary disease. Ongoing tobacco use. CAD with a diagnosis of end stage COPD, who follows with Dr. Nava comes in the hospital with progressive worsening of dyspnea over the last 24 hours prior to admission. Patient stated that she usually uses nebulizers at home and is able to salvage her breathing. Patient apparently is unable to tolerate steroids, has had anaphylactic reaction according to her. Patient hypoxic chronically; however, has refused home O2 in the past. Patient was seen in the emergency room and was noted to have an acute on chronic hypercapnic hypoxic respiratory failure, was started on BiPAP initially and improved. Patient was seen in the ICU today. Refused to wear BiPAP. Has been currently on 3 liters of supplemental oxygen. States that her breathing is slightly improved since admission. Currently; however, has complains of significant vomiting. Patient states to have a description of what appears to be a ANJELICA from a previous evaluation. Fourteen point review of system was done; none pertinent other than what was mentioned above. 11/14/16 states to be doing well off o2 during my eval SOB after short ambulation 11/15/16 states to have cough, non productive no fevers, chills,nausea, vomiting PHYSICAL EXAMINATION GENERAL APPEARANCE: Cachectic appears to be in distress. HEAD: Atraumatic, normocephalic. Pupils are equal, round, and reactive to light and accommodation. Neck is supple. No JVD. LUNGS: Air movement is appreciated. No significant wheezing, rhonchi or crackles; however, diminished diffusely. HEART EXAM: S1, S2 heard. No murmurs appreciated. Regular rate and rhythm. ABDOMEN: Soft, nontender, no organomegaly. LOWER EXTREMITIES: No edema noted. NEUROLOGICAL: No focal motor or sensory deficits noted. Cranial nerves 2 thru 12 grossly intact. Diagnosis 1. Acute exacerbation of severe chronic obstructive pulmonary disease due to acute bronchitis. 2. Acute on chronic hypoxic hypercapnic respiratory failure secondary to above. 3. Hypokalemia. 4. Hypomagnesemia. 5. Severe protein calorie malnutrition with bitemporal wasting. 6. Hypothyroidism. 7. Ongoing tobacco use. 8. Advanced chronic obstructive pulmonary disease. 9. Coronary artery disease. 10. Gastroesophageal reflux disease. continue breathing tx Vibramycin 100 mg p.o. b.i.d. Home o2 Patient Condition at Discharge: Poor Plan - Discharge Summary New Discharge Prescriptions: New Doxycycline [Vibramycin] 100 mg PO BID #10 cap Continue Levothyroxine Sodium [Synthroid] 175 mcg PO DAILY Furosemide [Lasix] 20 mg PO DAILY Biotin 5,000 mcg PO DAILY Tiotropium 18 Mcg/Puff [Spiriva] 1 cap INHALATION RT-DAILY Albuterol Nebulized [Ventolin Nebulized] 2.5 mg INHALATION RT-TID Albuterol Inhaler [Ventolin Hfa Inhaler] 2 puff INHALATION RT-Q4H PRN PRN Reason: Shortness Of Breath Olodaterol HCl [Striverdi Respimat] 2 puff INHALATION RT-DAILY ALPRAZolam [Xanax] 0.25 mg PO TID Discharge Medication List ALPRAZolam [Xanax] 0.25 mg PO TID 11/13/16 [History] Albuterol Inhaler [Ventolin Hfa Inhaler] 2 puff INHALATION RT-Q4H PRN 11/13/16 [ History] Albuterol Nebulized [Ventolin Nebulized] 2.5 mg INHALATION RT-TID 11/13/16 [ History] Biotin 5,000 mcg PO DAILY 11/13/16 [History] Furosemide [Lasix] 20 mg PO DAILY 11/13/16 [History] Levothyroxine Sodium [Synthroid] 175 mcg PO DAILY 11/13/16 [History] Olodaterol HCl [Striverdi Respimat] 2 puff INHALATION RT-DAILY 11/13/16 [History ] Tiotropium 18 Mcg/Puff [Spiriva] 1 cap INHALATION RT-DAILY 11/13/16 [History] Doxycycline [Vibramycin] 100 mg PO BID #10 cap 11/15/16 [Rx] Follow up Appointment(s)/Referral(s): Adryan Lopez MD [Primary Care Provider] - 11/18/16 11:40 am Narda Nava MD [STAFF PHYSICIAN] - 11/29/16 10:30 am Patient Instructions/Handouts: Doxycycline (By mouth), COPD (Chronic Obstructive Pulmonary Disease) (DC) Activity/Diet/Wound Care/Special Instructions: Home oxygen 2L/min via n/c from [facility] Discharge Disposition: HOME SELF-CARE
[2016-11-15] MEDS ORDERED: FAMOTIDINE 20 MG TAB PO SCH (21:00)
== END 2016-11-15 17:21 | disposition home or self-care (01) | DRG 190 ==
LOC: EC 01:22 → 5MS5E 04:40 → 6ICU 06:13 → 5MS5E 15:39
PROVIDERS: ADMIT Internal Medicine; ATTEND Family Medicine
DX: J44.0 Chronic obstructive pulmonary disease with (acute) lower respiratory infection (principal); J96.21 Acute and chronic respiratory failure with hypoxia; E43 Unspecified severe protein-calorie malnutrition; J96.22 Acute and chronic respiratory failure with hypercapnia; J20.9 Acute bronchitis, unspecified; E83.42 Hypomagnesemia; J44.1 Chronic obstructive pulmonary disease with (acute) exacerbation; Z66 Do not resuscitate; F41.9 Anxiety disorder, unspecified; E87.6 Hypokalemia; E03.9 Hypothyroidism, unspecified; I25.10 Atherosclerotic heart disease of native coronary artery without angina pectoris; K21.9 Gastro-esophageal reflux disease without esophagitis; F17.200 Nicotine dependence, unspecified, uncomplicated; Z53.20 Procedure and treatment not carried out because of patient's decision for unspecified reasons; Z90.710 Acquired absence of both cervix and uterus; Z88.5 Allergy status to narcotic agent; Z95.1 Presence of aortocoronary bypass graft; Z88.8 Allergy status to other drugs, medicaments and biological substances; Z79.899 Other long term (current) drug therapy
CPT/HCPCS: 36415; 36600; 71010; 80053; 82550; 82553; 82805; 83735; 83880; 84132; 84484; 85025; 85379; 85610; 85730; 93005; 93306; 94640; 94660; 94760; 96365; 99285

== ENCOUNTER → 2017-08-08 | Outpatient (CLI) | payer MEDICARE, OTHER ==
--- NOTE | 2017-08-09 11:47 | ECHOF ---
Referral Reason:I10 Hypertension MEASUREMENTS -------- HEIGHT: 175.3 cm WEIGHT: 56.2 kg BP: 120/71 RVIDd: 3.3 cm (< 3.3) IVSd: 1.1 cm (0.6 - 1.1) LVIDd: 3.9 cm (3.9 - 5.3) LVPWd: 1.1 cm (0.6 - 1.1) IVSs: 1.3 cm LVIDs: 2.5 cm LVPWs: 1.4 cm LAESV Index (A-L): 8.36 ml/m Ao Diam: 2.9 cm (2.0 - 3.7) AV Cusp: 1.6 cm (1.5 - 2.6) LA Diam: 1.9 cm (2.7 - 3.8) MV E Scott: 0.57 m/s MV DecT: 310 ms MV A Scott: 0.85 m/s MV E/A Ratio: 0.67 RAP: 5.00 mmHg RVSP: 24.52 mmHg FINDINGS -------- Sinus rhythm. This was a technically adequate study. The left ventricular size is normal. There is borderline concentric left ventricular hypertrophy. Overall left ventricular systolic function is normal with, an EF between 55 - 60 %. The right ventricle is mildly enlarged. Normal LA size by volume 22+/-6 ml/m2. The right atrium is normal in size. Aortic valve is trileaflet and is mildly thickened. There is no evidence of aortic regurgitation. There is no evidence of aortic stenosis. The mitral valve leaflets are mildly thickened. There is trace mitral regurgitation. Trace tricuspid regurgitation present. Right ventricular systolic pressure is normal at < 35 mmHg. There is no evidence of pulmonary hypertension. The pulmonic valve is normal. The aortic root size is normal. Normal inferior vena cava with normal inspiratory collapse consistent with estimated right atrial pre ssure of 5 mmHg. The pericardium is normal. There is a trivial pericardial effusion present. CONCLUSIONS -------- 1. Sinus rhythm. 2. This was a technically adequate study. 3. The left ventricular size is normal. 4. There is borderline concentric left ventricular hypertrophy. 5. Overall left ventricular systolic function is normal with, an EF between 55 - 60 %. 6. The right ventricle is mildly enlarged. 7. Normal LA size by volume 22+/-6 ml/m2. 8. Aortic valve is trileaflet and is mildly thickened. 9. The mitral valve leaflets are mildly thickened. 10. There is trace mitral regurgitation. 11. Trace tricuspid regurgitation present. 12. Right ventricular systolic pressure is normal at < 35 mmHg. 13. There is no evidence of pulmonary hypertension. 14. The aortic root size is normal. 15. There is a trivial pericardial effusion present. IMMUNOLOGIST: Rico Mcnally RDCS
== END | disposition home or self-care (01) ==
LOC: RADECHMAIN 15:17
PROVIDERS: ATTEND Family Medicine
DX: I08.0 Rheumatic disorders of both mitral and aortic valves (principal)
CPT/HCPCS: 93306

== ENCOUNTER 2017-08-10 20:51 | Inpatient (IN) | payer MEDICARE, OTHER ==
--- NOTE | 2017-08-10 21:09 | ED ---
General Adult HPI - General Chief complaint: Recheck/Abnormal Lab/Rx Stated complaint: abnormal labs Time Seen by Provider: 08/10/17 21:03 Source: patient, family, RN notes reviewed, old records reviewed Mode of arrival: ambulatory Limitations: no limitations - History of Present Illness Initial comments: This is a 71-year-old female the ER for evaluation of weakness. Patient's family doctor's office for further evaluation and management. History of severe COPD. No recent change in medications. Patient outpatient lab tests that were very abnormal. Patient states she still feels weak denies nausea vomiting or diarrhea. States her appetite has been decreased - Related Data Home Medications Medication Instructions Recorded Confirmed Albuterol Inhaler [Ventolin Hfa 2 puff INHALATION RT-Q4H PRN 11/13/16 08/10/17 Inhaler] Albuterol Nebulized [Ventolin 2.5 mg INHALATION RT-TID 11/13/16 08/10/17 Nebulized] Biotin 5,000 mcg PO DAILY 11/13/16 08/10/17 Furosemide [Lasix] 20 mg PO DAILY 11/13/16 08/10/17 Levothyroxine Sodium [Synthroid] 175 mcg PO DAILY 11/13/16 08/10/17 Ascorbic Acid [Vitamin C] 1,000 mg PO DAILY 08/10/17 08/10/17 Cholecalciferol [Vitamin D3] 5,000 unit PO WE 08/10/17 08/10/17 Cyanocobalamin [Vitamin B-12 1,000 mcg SQ WEEKLY 08/10/17 08/10/17 Injection] Glycopyrrolate/Formoterol Fum 2 puff INHALATION RT-BID 08/10/17 08/10/17 [Bevespi Aerosphere Inhaler] Levofloxacin [Levaquin] 500 mg PO DAILY 08/10/17 08/10/17 Potassium Chloride [Klor-Con 20] 20 meq PO DAILY 08/10/17 08/10/17 diphenhydrAMINE [Benadryl] 50 mg PO QAM 08/10/17 08/10/17 Allergies Allergy/AdvReac Type Severity Reaction Status Date / Time acetaminophen [From Tylenol] Allergy Swelling Verified 08/10/17 21:55 aspirin Allergy Swelling Verified 08/10/17 21:55 codeine Allergy Swelling Verified 08/10/17 21:55 hydrocodone [From Vicodin] Allergy Swelling Verified 08/10/17 21:55 steroids Allergy Swelling Uncoded 08/10/17 21:01 Review of Systems ROS Statement: Those systems with pertinent positive or pertinent negative responses have been documented in the HPI. ROS Other: All systems not noted in ROS Statement are negative. Past Medical History Past Medical History: COPD Additional Past Medical History / Comment(s): Hypothyroidism History of Any Multi-Drug Resistant Organisms: None Reported Past Surgical History: Appendectomy, Bowel Resection, Coronary Bypass/CABG, Hysterectomy Additional Past Surgical History / Comment(s): Prolapsed bowel with colostomy and reversal. Past Anesthesia/Blood Transfusion Reactions: No Reported Reaction Past Psychological History: No Psychological Hx Reported Smoking Status: Current every day smoker Past Alcohol Use History: None Reported Past Drug Use History: None Reported - Past Family History Mother History Unknown: Yes Family Medical History: Unable to Obtain General Exam Limitations: no limitations General appearance: alert, in no apparent distress Head exam: Present: atraumatic, normocephalic, normal inspection Eye exam: Present: normal appearance, PERRL, EOMI. Absent: scleral icterus, conjunctival injection, periorbital swelling ENT exam: Present: normal exam, mucous membranes moist Neck exam: Present: normal inspection. Absent: tenderness, meningismus, lymphadenopathy Respiratory exam: Present: normal lung sounds bilaterally. Absent: respiratory distress, wheezes, rales, rhonchi, stridor Cardiovascular Exam: Present: regular rate, normal rhythm, normal heart sounds. Absent: systolic murmur, diastolic murmur, rubs, gallop, clicks GI/Abdominal exam: Present: soft, normal bowel sounds. Absent: distended, tenderness, guarding, rebound, rigid Extremities exam: Present: normal inspection, full ROM, normal capillary refill. Absent: tenderness, pedal edema, joint swelling, calf tenderness Back exam: Present: normal inspection Neurological exam: Present: alert, oriented X3, CN II-XII intact Psychiatric exam: Present: normal affect, normal mood Skin exam: Present: warm, dry, intact, normal color. Absent: rash Course Vital Signs 08/10/17 08/10/17 08/10/17 20:56 21:30 21:34 Temperature 97.9 F Pulse Rate 89 86 Respiratory 20 20 20 Rate Blood Pressure 114/58 122/58 O2 Sat by Pulse 94 L 95 Oximetry - Reevaluation(s) Reevaluation #1: 08/10/17 22:12 Patient still clinically feeling weak, not well EKG Findings - EKG Comments: EKG Findings:: EKG shows normal sinus rhythm rate of 72, [place] 176, QRS 86, QTc 409 Medical Decision Making - Medical Decision Making 67 female the ER for evaluation. Patient has shortened tested secondary to multiple surgeries, significant electrolyte or male is, will be admitted for electronically replacement - Lab Data Result diagrams: 08/10/17 21:25 08/10/17 21:25 Lab Results 08/10/17 08/10/17 08/10/17 Range/Units 21:25 21:25 21:43 WBC 11.6 H (3.8-10.6) k/uL RBC 3.76 L (3.80-5.40) m/uL Hgb 11.8 (11.4-16.0) gm/dL Hct 37.9 (34.0-46.0) % MCV 100.7 H (80.0-100.0) fL MCH 31.4 (25.0-35.0) pg MCHC 31.2 (31.0-37.0) g/dL RDW 13.9 (11.5-15.5) % Plt Count 316 (150-450) k/uL Neutrophils % 74 % Lymphocytes % 18 % Monocytes % 5 % Eosinophils % 2 % Basophils % 0 % Neutrophils # 8.7 H (1.3-7.7) k/uL Lymphocytes # 2.0 (1.0-4.8) k/uL Monocytes # 0.6 (0-1.0) k/uL Eosinophils # 0.2 (0-0.7) k/uL Basophils # 0.0 (0-0.2) k/uL Hypochromasia Slight Macrocytosis Slight Sodium 142 (137-145) mmol/L Potassium 2.7 L* (3.5-5.1) mmol/L Chloride 103 (98-107) mmol/L Carbon Dioxide 28 (22-30) mmol/L Anion Gap 11 mmol/L BUN 23 H (7-17) mg/dL Creatinine 0.93 (0.52-1.04) mg/dL Est GFR (MDRD) Af Amer >60 (>60 ml/min/1.73 sqM) Est GFR (MDRD) Non-Af 60 (>60 ml/min/1.73 sqM) Glucose 94 (74-99) mg/dL Calcium 7.5 L (8.4-10.2) mg/dL Phosphorus 2.5 (2.5-4.5) mg/dL Magnesium 0.7 L* (1.6-2.3) mg/dL Total Bilirubin 0.4 (0.2-1.3) mg/dL AST 23 (14-36) U/L ALT 38 (9-52) U/L Alkaline Phosphatase 86 (38-126) U/L Total Protein 6.1 L (6.3-8.2) g/dL Albumin 3.6 (3.5-5.0) g/dL Urine Color Yellow Urine Appearance Clear (Clear) Urine pH 6.5 (5.0-8.0) Ur Specific [place] 1.014 (1.001-1.035) Urine Protein Trace H (Negative) Urine Glucose (UA) Negative (Negative) Urine Ketones Negative (Negative) Urine Blood Negative (Negative) Urine Nitrite Negative (Negative) Urine Bilirubin Negative (Negative) Urine Urobilinogen <2.0 (<2.0) mg/dL Ur Leukocyte Esterase Trace H (Negative) Urine RBC 1 (0-5) /hpf Urine WBC 1 (0-5) /hpf Ur Squamous Epith Cells 4 (0-4) /hpf Urine Mucus Rare H (None) /hpf Disposition Clinical Impression: Hypokalemia, Weakness, Hypomagnesemia Disposition: ADMITTED IP TO THIS [facility] Condition: Fair Referrals: Adryan Lopez MD [Primary Care Provider] - 1-2 days
[2017-08-10] MEDS ORDERED: SODIUM CHLORIDE 0.9% 1,000 ML IV STA (21:10)
[2017-08-10 21:38] LABS: Basophils % (A) 0 %; Eosinophils # (A) 0.2 k/uL (0-0.7); Eosinophils % (A) 2 %; HCT 37.9 % (34.0-46.0); HGB 11.8 gm/dL (11.4-16.0); Hypochromasia Slight; Lymphocytes % (A) 18 %; MCH 31.4 pg (25.0-35.0); MCHC 31.2 g/dL (31.0-37.0); MCV 100.7 fL (80.0-100.0); Macrocytosis Slight; Mean Platelet Volume 7.1; Monocytes # (A) 0.6 k/uL (0-1.0); Monocytes % (A) 5 %; Neutrophils # (A) 8.7 k/uL (1.3-7.7); Neutrophils % (A) 74 %; Platelet Count 316 k/uL (150-450); RBC 3.76 m/uL (3.80-5.40); RDW 13.9 % (11.5-15.5); WBC 11.6 k/uL (3.8-10.6)
[2017-08-10 21:50] LABS: ALT 38 U/L (9-52); AST 23 U/L (14-36); Albumin 3.6 g/dL (3.5-5.0); Alkaline Phosphatase 86 U/L (38-126); Anion Gap 11 mmol/L; Blood Urea Nitrogen 23 mg/dL (7-17); Calcium 7.5 mg/dL (8.4-10.2); Carbon Dioxide 28 mmol/L (22-30); Chloride 103 mmol/L (98-107); Glucose 94 mg/dL (74-99); Phosphorus 2.5 mg/dL (2.5-4.5); Sodium 142 mmol/L (137-145); Total Bilirubin 0.4 mg/dL (0.2-1.3); Total Protein 6.1 g/dL (6.3-8.2)
[2017-08-10 21:54] LABS: Potassium 2.7 mmol/L (3.5-5.1)
[2017-08-10 22:03] LABS: Appearance,Urine Clear (Clear); Bilirubin,Urine Negative (Negative); Blood,Urine Negative (Negative); Color,Urine Yellow; Glucose,Urine (UA) Negative (Negative); Ketones,Urine Negative (Negative); Leukocyte Esterase,Urine Trace (Negative); Mucus,Urine Rare /hpf; PH, Urine 6.5 (5.0-8.0); Protein,Urine Trace (Negative); RBC,Urine 1 /hpf (0-5); Specific Gravity,Urine 1.014 (1.001-1.035); Squamous Epithelial Cell,Urine 4 /hpf (0-4); Urobilinogen,Urine <2.0 mg/dL (<2.0); WBC,Urine 1 /hpf (0-5)
[2017-08-10] MEDS: MAGNESIUM SULFATE-D5W PMX 1 GM in DEXTROSE/WATER 1 100ML.BAG IVPB SCH (22:38)
[2017-08-10 22:47] VITALS: RESP 18
[2017-08-10] MEDS: POTASSIUM CHLORIDE 10 MEQ in WATER FOR INJECTION 1 100ML.BAG IVPB SCH (23:24)
[2017-08-10] MEDS ORDERED: ALPRAZolam 0.25 MG TAB PO STA (23:34)
[2017-08-11] MEDS ORDERED: POTASSIUM CHLORIDE 20 MEQ in WATER FOR INJECTION 1 100ML.BAG IVPB SCH
[2017-08-11 00:38] VITALS: BMI 19.9
[2017-08-11] MEDS: MAGNESIUM SULFATE-D5W PMX 1 GM in DEXTROSE/WATER 1 100ML.BAG IVPB SCH ×3 (01:00→05:04)
[2017-08-11] MEDS: POTASSIUM CHLORIDE 10 MEQ in WATER FOR INJECTION 1 100ML.BAG IVPB SCH ×3 (01:29→05:04)
[2017-08-11 07:35] LABS: Basophils % (A) 0 %; Eosinophils # (A) 0.2 k/uL (0-0.7); Eosinophils % (A) 2 %; HCT 36.7 % (34.0-46.0); HGB 10.6 gm/dL (11.4-16.0); Hypochromasia Moderate; Lymphocytes # (A) 1.6 k/uL (1.0-4.8); Lymphocytes % (A) 18 %; MCH 30.7 pg (25.0-35.0); MCHC 28.9 g/dL (31.0-37.0); Macrocytosis Moderate; Mean Platelet Volume 7.1; Monocytes # (A) 0.6 k/uL (0-1.0); Monocytes % (A) 7 %; Neutrophils # (A) 6.1 k/uL (1.3-7.7); Neutrophils % (A) 71 %; Platelet Count 304 k/uL (150-450); RBC 3.46 m/uL (3.80-5.40); RDW 13.8 % (11.5-15.5); WBC 8.6 k/uL (3.8-10.6)
[2017-08-11 07:38] LABS: Anion Gap 10 mmol/L; Blood Urea Nitrogen 21 mg/dL (7-17); Calcium 6.9 mg/dL (8.4-10.2); Carbon Dioxide 25 mmol/L (22-30); Chloride 109 mmol/L (98-107); Glucose 90 mg/dL (74-99); Sodium 144 mmol/L (137-145)
[2017-08-11 07:39] LABS: MCV 106.2 fL (80.0-100.0)
[2017-08-11 07:49] LABS: Potassium 2.9 mmol/L (3.5-5.1)
[2017-08-11] MEDS ORDERED: ALBUTEROL NEBULIZED 2.5 MG/3 ML INHALATION PRN (08:33)
[2017-08-11] MEDS: ASCORBIC ACID 500 MG TAB PO SCH ×2 (10:24→10:25)
[2017-08-11] MEDS: LEVOTHYROXINE 100 MCG TAB PO SCH (10:25)
[2017-08-11] MEDS: LEVOTHYROXINE 75 MCG TAB PO SCH (10:25)
[2017-08-11] MEDS: THIAMINE 100 MG/ML 2 ML VIAL IVP SCH (10:26)
[2017-08-11] MEDS ORDERED: Potassium Replacement Protocol 1 EACH MISC MISCELLANE PRN (10:39)
--- NOTE | 2017-08-11 11:01 | P.HPIM ---
History of Present Illness 71-year-old female was discovered to have low magnesium low potassium with routine labs. Labs were repeated and found to be continued a critical level. Patient sent to the emergency room for admission. Patient is severe COPD stable at this time. Patient states she's only been intermittently taking her potassium with the her Lasix Review of Systems Constitutional: Reports weakness Respiratory: Reports dyspnea Past Medical History Past Medical History: COPD Additional Past Medical History / Comment(s): Hypothyroidism History of Any Multi-Drug Resistant Organisms: None Reported Past Surgical History: Appendectomy, Bowel Resection, Hysterectomy Additional Past Surgical History / Comment(s): Prolapsed bowel with colostomy and reversal. Past Anesthesia/Blood Transfusion Reactions: No Reported Reaction Past Psychological History: No Psychological Hx Reported Smoking Status: Current every day smoker Past Alcohol Use History: None Reported Past Drug Use History: None Reported - Past Family History Mother History Unknown: Yes Family Medical History: Unable to Obtain Medications and Allergies Home Medications Medication Instructions Recorded Confirmed Type Albuterol Inhaler [Ventolin Hfa 2 puff INHALATION RT-Q4H PRN 11/13/16 08/10/17 History Inhaler] Albuterol Nebulized [Ventolin 2.5 mg INHALATION RT-TID 11/13/16 08/10/17 History Nebulized] Biotin 5,000 mcg PO DAILY 11/13/16 08/10/17 History Furosemide [Lasix] 20 mg PO DAILY 11/13/16 08/10/17 History Levothyroxine Sodium [Synthroid] 175 mcg PO DAILY 11/13/16 08/10/17 History Ascorbic Acid [Vitamin C] 1,000 mg PO DAILY 08/10/17 08/10/17 History Cholecalciferol [Vitamin D3] 5,000 unit PO WE 08/10/17 08/10/17 History Cyanocobalamin [Vitamin B-12 1,000 mcg SQ WEEKLY 08/10/17 08/10/17 History Injection] Glycopyrrolate/Formoterol Fum 2 puff INHALATION RT-BID 08/10/17 08/10/17 History [Bevespi Aerosphere Inhaler] Levofloxacin [Levaquin] 500 mg PO DAILY 08/10/17 08/10/17 History Potassium Chloride [Klor-Con 20] 20 meq PO DAILY 08/10/17 08/10/17 History diphenhydrAMINE [Benadryl] 50 mg PO QAM 08/10/17 08/10/17 History Allergies Allergy/AdvReac Type Severity Reaction Status Date / Time acetaminophen [From Tylenol] Allergy Swelling Verified 08/10/17 21:55 aspirin Allergy Swelling Verified 08/10/17 21:55 codeine Allergy Swelling Verified 08/10/17 21:55 hydrocodone [From Vicodin] Allergy Swelling Verified 08/10/17 21:55 steroids Allergy Swelling Uncoded 08/10/17 21:01 Physical Exam Vitals: Vital Signs Temp Pulse Pulse Resp BP BP Pulse Ox 08/11/17 10:11 78 08/11/17 10:04 78 08/11/17 07:00 98.3 F 78 18 136/78 93 L 08/10/17 23:53 98.1 F 75 18 108/54 90 L 08/10/17 23:26 97.3 F L 68 18 96/55 95 08/10/17 22:46 70 18 94/57 93 L 08/10/17 21:34 86 20 122/58 95 08/10/17 21:30 20 08/10/17 20:56 97.9 F 89 20 114/58 94 L Intake and Output 08/10/17 08/11/17 08/11/17 22:59 06:59 14:59 Other: Voiding Method Toilet # Voids 1 Weight 56.245 kg 59.5 kg - Constitutional General appearance: thin - EENT Eyes: PERRLA Ears: bilateral: normal - Neck Neck: normal ROM - Respiratory Respiratory: bilateral: diminished - Cardiovascular Rhythm: regular - Gastrointestinal General gastrointestinal: soft - Integumentary Integumentary: normal - Neurologic Neurologic: CNII-XII intact - Musculoskeletal Musculoskeletal: gait normal - Psychiatric Very anxious Psychiatric: A&O x's 3, appropriate affect, intact judgment & insight Results CBC & Chem 7: 08/11/17 06:53 08/11/17 09:03 Labs: Abnormal Lab Results - Last 24 Hours (Table) 08/10/17 08/10/17 08/10/17 Range/Units 21:25 21:25 21:43 WBC 11.6 H (3.8-10.6) k/uL RBC 3.76 L (3.80-5.40) m/uL Hgb (11.4-16.0) gm/dL MCV 100.7 H (80.0-100.0) fL MCHC (31.0-37.0) g/dL Neutrophils # 8.7 H (1.3-7.7) k/uL Potassium 2.7 L* (3.5-5.1) mmol/L Chloride (98-107) mmol/L BUN 23 H (7-17) mg/dL Calcium 7.5 L (8.4-10.2) mg/dL Magnesium 0.7 L* (1.6-2.3) mg/dL Total Protein 6.1 L (6.3-8.2) g/dL Urine Protein Trace H (Negative) Ur Leukocyte Esterase Trace H (Negative) Urine Mucus Rare H (None) /hpf 08/11/17 08/11/17 08/11/17 Range/Units 06:53 06:53 06:53 WBC (3.8-10.6) k/uL RBC 3.46 L (3.80-5.40) m/uL Hgb 10.6 L (11.4-16.0) gm/dL MCV 106.2 H D (80.0-100.0) fL MCHC 28.9 L (31.0-37.0) g/dL Neutrophils # (1.3-7.7) k/uL Potassium 2.9 L* (3.5-5.1) mmol/L Chloride 109 H (98-107) mmol/L BUN 21 H (7-17) mg/dL Calcium 6.9 L (8.4-10.2) mg/dL Magnesium 2.5 H (1.6-2.3) mg/dL Total Protein (6.3-8.2) g/dL Urine Protein (Negative) Ur Leukocyte Esterase (Negative) Urine Mucus (None) /hpf 08/11/17 Range/Units 09:03 WBC (3.8-10.6) k/uL RBC (3.80-5.40) m/uL Hgb (11.4-16.0) gm/dL MCV (80.0-100.0) fL MCHC (31.0-37.0) g/dL Neutrophils # (1.3-7.7) k/uL Potassium 2.7 L* (3.5-5.1) mmol/L Chloride (98-107) mmol/L BUN (7-17) mg/dL Calcium (8.4-10.2) mg/dL Magnesium (1.6-2.3) mg/dL Total Protein (6.3-8.2) g/dL Urine Protein (Negative) Ur Leukocyte Esterase (Negative) Urine Mucus (None) /hpf Microbiology - Last 24 Hours (Table) 08/10/17 21:43 Urine Culture - Preliminary Urine,Voided Thrombosis Risk Factor Assmnt - Choose All That Apply Any of the Below Risk Factors Present?: Yes Each Factor Represents 1 point: Abnormal pulmonary function (COPD) Other Risk Factors: Yes Each Risk Factor Represents 2 Points: Age 61-74 years Other congenital or acquired thrombophilia - If yes, enter type in comment: No Thrombosis Risk Factor Assessment Total Risk Factor Score: 3 Thrombosis Risk Factor Assessment Level: Moderate Risk Assessment and Plan Plan: Assessment Hypokalemia weakness Hypo-magnesium corrected Hypothyroidism TSH stable COPD severe and nicotine dependent baseline coronary disease with history of CABG Plan Continued potassium replacement
[2017-08-11] MEDS: POTASSIUM CHLORIDE ER 20 MEQ TAB.ER PO SCH ×6 (11:32→23:46)
[2017-08-11] MEDS: ALBUTEROL NEBULIZED 2.5 MG/3 ML INHALATION SCH ×2 (14:23→19:12)
[2017-08-11] MEDS ORDERED: ALPRAZolam 0.25 MG TAB PO PRN (22:28)
[2017-08-12] MEDS: BEVESPI INHALER INHALATION SCH ×2 (00:31→08:11)
[2017-08-12] MEDS: POTASSIUM CHLORIDE 10 MEQ in WATER FOR INJECTION 1 100ML.BAG IVPB SCH ×2 (02:35→04:57)
[2017-08-12] MEDS: LEVOTHYROXINE 100 MCG TAB PO SCH (06:05)
[2017-08-12] MEDS: LEVOTHYROXINE 75 MCG TAB PO SCH (06:05)
[2017-08-12] MEDS: THIAMINE 100 MG/ML 2 ML VIAL IVP SCH (08:14)
[2017-08-12 08:28] VITALS: BP 85/49; TEMP 97.9
[2017-08-12] MEDS: ALBUTEROL NEBULIZED 2.5 MG/3 ML INHALATION SCH ×2 (10:30→11:00)
[2017-08-12 11:14] VITALS: PULSE 65
--- NOTE | 2017-08-13 07:36 | DS ---
DISCHARGE SUMMARY DATE OF SERVICE: 08/12/2017. FINAL DIAGNOSES: 1. Hypokalemia and weakness. 2. Hypomagnesemia. 3. Hypothyroidism. 4. Chronic obstructive pulmonary disease, severe. 5. History of nicotine dependence. 6. History of coronary artery disease/coronary artery bypass grafting. DISCHARGE DISPOSITION: Patient is being discharged in stable condition with guarded prognosis. HISTORY OF PRESENT ILLNESS: This 71-year-old woman with a past medical history of multiple medical problems being followed by Dr. Adryan Lopez in the outpatient setting with severe hypomagnesemia and hypokalemia which was corrected. The patient improved significantly. On exam, vital signs are stable. Cardiovascular: S1, S2. Abdomen soft. Nervous system: No focal deficits. DISCHARGE ADVICE AND MEDICATIONS: 1. Diet is cardiac diet. 2. Activity limited until followup. 3. Follow up with Dr. Adryan Lopez in 2-3 days. 4. CBC and BMP. MEDICATIONS ARE: 1. Albuterol 2 puffs q.i.d. 2. Albuterol nebulized 2.5 q.i.d. and p.r.n. 3. Vitamin C 1000 mg daily. 4. Biotin 500 mcg p.o. daily. 5. Vitamin D3 5000 daily. 6. Vitamin B12 1000 mg daily. 7. Benadryl 50 mg. 8. Lasix 20 mg daily. 9. Glycopyrrolate 2 puffs b.i.d. 10.Synthroid 100 mcg p.o. daily. 11.Klor-Con 40 mEq p.o. daily. 12.Potassium dose was increased. . MMODL / IJN: [id number] /
[2017-08-17] MEDS ORDERED: CHOLECALCIFEROL 1,000 UNIT TAB PO SCH (09:00)
== END 2017-08-12 13:30 | disposition home or self-care (01) | DRG 641 ==
LOC: EC 20:51 → 5MS5E 22:43
PROVIDERS: ADMIT Family Medicine; ATTEND Family Medicine
DX: E87.6 Hypokalemia (principal); E83.42 Hypomagnesemia; J44.9 Chronic obstructive pulmonary disease, unspecified; E03.9 Hypothyroidism, unspecified; F17.200 Nicotine dependence, unspecified, uncomplicated; Z90.710 Acquired absence of both cervix and uterus; Z95.1 Presence of aortocoronary bypass graft; Z90.49 Acquired absence of other specified parts of digestive tract; Z79.899 Other long term (current) drug therapy; Z88.6 Allergy status to analgesic agent; Z88.5 Allergy status to narcotic agent
CPT/HCPCS: 36415; 80048; 80053; 81001; 82330; 83735; 83970; 84100; 84132; 85025; 87086; 93005; 93306; 94640; 94760; 96360; 96361; 96365; 99285

== ENCOUNTER 2017-09-02 19:11 | Emergency (ER) | payer MEDICARE, OTHER ==
[2017-09-02 19:29] VITALS: TEMP 99.4
[2017-09-02] MEDS ORDERED: fentaNYL (PF) 50 MCG/ML 2 ML AMP IV PRN ×2 (20:07→20:09)
[2017-09-02] MEDS ORDERED: SODIUM CHLORIDE 0.9% 1,000 ML IV STA (20:08)
[2017-09-02 20:26] LABS: Basophils % (A) 0 %; Eosinophils # (A) 0.1 k/uL (0-0.7); Eosinophils % (A) 1 %; HCT 40.2 % (34.0-46.0); HGB 12.7 gm/dL (11.4-16.0); Lymphocytes # (A) 0.8 k/uL (1.0-4.8); Lymphocytes % (A) 9 %; MCH 32.5 pg (25.0-35.0); MCHC 31.6 g/dL (31.0-37.0); MCV 102.8 fL (80.0-100.0); Macrocytosis Slight; Mean Platelet Volume 6.6; Monocytes # (A) 0.7 k/uL (0-1.0); Monocytes % (A) 7 %; Neutrophils % (A) 82 %; Platelet Count 368 k/uL (150-450); RBC 3.91 m/uL (3.80-5.40); RDW 13.5 % (11.5-15.5); WBC 9.9 k/uL (3.8-10.6)
--- NOTE | 2017-09-02 20:35 | ED ---
Extremity Problem HPI - General Source: EMS Mode of arrival: EMS Limitations: physical limitation <Octavio Maldonado - Last Filed: 09/02/17 21:20> <Soren Joiner - Last Filed: 09/03/17 00:16> - General Chief complaint: Extremity Problem,Nontraumatic Stated complaint: Groin pain Time Seen by Provider: 09/02/17 19:43 - History of Present Illness Initial comments: 71 years O female presents to the right leg pain and she said she has been on the Levaquin for a long time and it's causing her pain in her ligaments she is complaining about pain in the right groin area as well as right hip and then whole leg is very painful and 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 She does have a fever no chills no headache no neck stiffness no chest pain she does have a chronic shortness of breath she has a history of COPD review of system is unremarkable otherwise (Octavio Maldonado) - Related Data Home Medications Medication Instructions Recorded Confirmed Albuterol Inhaler [Ventolin Hfa 2 puff INHALATION RT-Q4H PRN 11/13/16 09/02/17 Inhaler] Albuterol Nebulized [Ventolin 2.5 mg INHALATION RT-TID 11/13/16 09/02/17 Nebulized] Biotin 5,000 mcg PO DAILY 11/13/16 09/02/17 Furosemide [Lasix] 20 mg PO DAILY 11/13/16 09/02/17 Levothyroxine Sodium [Synthroid] 175 mcg PO DAILY 11/13/16 09/02/17 Ascorbic Acid [Vitamin C] 1,000 mg PO DAILY 08/10/17 09/02/17 Cholecalciferol [Vitamin D3] 5,000 unit PO TUWE 08/10/17 09/02/17 Cyanocobalamin [Vitamin B-12 1,000 mcg SQ WE 08/10/17 09/02/17 Injection] Glycopyrrolate/Formoterol Fum 2 puff INHALATION RT-BID 08/10/17 09/02/17 [Bevespi Aerosphere Inhaler] diphenhydrAMINE [Benadryl] 50 mg PO QAM 08/10/17 09/02/17 ALPRAZolam [Xanax] 0.25 mg PO DAILY PRN 09/02/17 09/02/17 buPROPion HCL [Wellbutrin SR] 150 mg PO BID 09/02/17 09/02/17 Previous Rx's Medication Instructions Recorded Potassium Chloride [Klor-Con 20] 40 meq PO DAILY #60 tab.er.prt 08/12/17 traMADol HCl [Ultram] 50 mg PO Q6H PRN #20 tab 09/03/17 Allergies Allergy/AdvReac Type Severity Reaction Status Date / Time acetaminophen [From Tylenol] Allergy Swelling Verified 09/02/17 19:30 aspirin Allergy Swelling Verified 09/02/17 19:30 codeine Allergy Swelling Verified 09/02/17 19:30 hydrocodone [From Vicodin] Allergy Swelling Verified 09/02/17 19:30 steroids Allergy Swelling Uncoded 08/10/17 21:01 Review of Systems ROS Other: All systems not noted in ROS Statement are negative. <Octavio Maldonado - Last Filed: 09/02/17 21:20> ROS Other: All systems not noted in ROS Statement are negative. <Soren Joiner - Last Filed: 09/03/17 00:16> ROS Statement: Those systems with pertinent positive or pertinent negative responses have been documented in the HPI. Past Medical History Past Medical History: COPD Additional Past Medical History / Comment(s): Hypothyroidism History of Any Multi-Drug Resistant Organisms: None Reported Past Surgical History: Appendectomy, Bowel Resection, Hysterectomy Additional Past Surgical History / Comment(s): Prolapsed bowel with colostomy and reversal, intestinal bypass Past Anesthesia/Blood Transfusion Reactions: No Reported Reaction Past Psychological History: No Psychological Hx Reported Smoking Status: Current every day smoker Past Alcohol Use History: None Reported Past Drug Use History: None Reported - Past Family History Mother History Unknown: Yes Family Medical History: Unable to Obtain <Octavio Maldonado - Last Filed: 09/02/17 21:20> General Exam Limitations: physical limitation <Octavio Maldonado - Last Filed: 09/02/17 21:20> <Soren Joiner - Last Filed: 09/03/17 00:16> - General Exam Comments Initial Comments: General: The patient is awake and alert, in severe distress because of the right leg pain Skin: Skin is warm and dry and no rashes or lesions are noted. Eye: Pupils are equal, round and reactive to light, extra-ocular movements are intact; there is normal conjunctiva bilaterally. Ears, nose, mouth and throat: There are moist mucous membranes and no oral lesions. Neck: The neck is supple, there is no tenderness or JVD. Cardiovascular: There is a regular rate and rhythm. No murmur, rub or gallop is appreciated. Respiratory: To auscultation bilateral, no wheezing no rhonchi no distress respiratory healy noticed Gastrointestinal: Soft, non-distended, non-tender abdomen without masses or organomegaly noted. There is no rebound or guarding present. Bowel sounds are unremarkable. Back: There is no tenderness to palpation in the midline. There is no obvious deformity. Musculoskeletal: Normal ROM, no tenderness, There is no pedal edema. There is no calf tenderness or swelling. No cords were appreciated. Neurological: CN II-XII intact, Cranial nerves III through XII are intact. There are no obvious motor or sensory deficits. Coordination appears grossly intact. Speech is normal. Psychiatric: Cooperative, appropriate mood & affect, normal judgment. (Octavio Maldonado) Course <Octavio Maldonado - Last Filed: 09/02/17 21:20> <Soren Joiner - Last Filed: 09/03/17 00:16> Vital Signs 09/02/17 19:24 Temperature 99.4 F Pulse Rate 74 Respiratory 20 Rate Blood Pressure 119/55 O2 Sat by Pulse 95 Oximetry Patient endorsed to Dr Fisher at 2100 for further evaluation and management ( Octavio Maldonado) Medical Decision Making - Lab Data Result diagrams: 09/02/17 19:46 09/02/17 19:46 <Octavio Maldonado - Last Filed: 09/02/17 21:20> - Lab Data Result diagrams: 09/02/17 19:46 09/02/17 19:46 <Soren Joiner - Last Filed: 09/03/17 00:16> - Lab Data Lab Results 09/02/17 09/02/17 09/02/17 Range/Units 19:46 19:46 23:20 WBC 9.9 (3.8-10.6) k/uL RBC 3.91 (3.80-5.40) m/uL Hgb 12.7 (11.4-16.0) gm/dL Hct 40.2 (34.0-46.0) % MCV 102.8 H (80.0-100.0) fL MCH 32.5 (25.0-35.0) pg MCHC 31.6 (31.0-37.0) g/dL RDW 13.5 (11.5-15.5) % Plt Count 368 (150-450) k/uL Neutrophils % 82 % Lymphocytes % 9 % Monocytes % 7 % Eosinophils % 1 % Basophils % 0 % Neutrophils # 8.0 H (1.3-7.7) k/uL Lymphocytes # 0.8 L (1.0-4.8) k/uL Monocytes # 0.7 (0-1.0) k/uL Eosinophils # 0.1 (0-0.7) k/uL Basophils # 0.0 (0-0.2) k/uL Macrocytosis Slight Sodium 142 (137-145) mmol/L Potassium 3.8 (3.5-5.1) mmol/L Chloride 101 (98-107) mmol/L Carbon Dioxide 28 (22-30) mmol/L Anion Gap 13 mmol/L BUN 19 H (7-17) mg/dL Creatinine 0.70 (0.52-1.04) mg/dL Est GFR (CKD-EPI)AfAm >90 (>60 ml/min/1.73 sqM) Est GFR (CKD-EPI)NonAf 89 (>60 ml/min/1.73 sqM) Glucose 103 H (74-99) mg/dL Calcium 9.0 (8.4-10.2) mg/dL Total Bilirubin 0.6 (0.2-1.3) mg/dL AST 26 (14-36) U/L ALT 40 (9-52) U/L Alkaline Phosphatase 96 (38-126) U/L Total Protein 6.7 (6.3-8.2) g/dL Albumin 4.1 (3.5-5.0) g/dL Urine Color Yellow Urine Appearance Clear (Clear) Urine pH 6.0 (5.0-8.0) Ur Specific [place] 1.018 (1.001-1.035) Urine Protein Negative (Negative) Urine Glucose (UA) Negative (Negative) Urine Ketones Negative (Negative) Urine Blood Negative (Negative) Urine Nitrite Negative (Negative) Urine Bilirubin Negative (Negative) Urine Urobilinogen <2.0 (<2.0) mg/dL Ur Leukocyte Esterase Trace H (Negative) Urine RBC 1 (0-5) /hpf Urine WBC 1 (0-5) /hpf Ur Squamous Epith Cells 1 (0-4) /hpf Calcium Oxalate Crystal Occasional H (None) /hpf Urine Bacteria Rare H (None) /hpf Urine Mucus Rare H (None) /hpf Disposition <Octavio Maldonado - Last Filed: 09/02/17 21:20> <Soren Joiner - Last Filed: 09/03/17 00:16> Clinical Impression: Right leg pain Disposition: HOME SELF-CARE Condition: Good Instructions: Leg Pain (ED) Prescriptions: traMADol HCl [Ultram] 50 mg PO Q6H PRN #20 tab PRN Reason: Pain Referrals: Adryan Lopez MD [Primary Care Provider] - 1-2 days
[2017-09-02 20:40] LABS: ALT 40 U/L (9-52); AST 26 U/L (14-36); Albumin 4.1 g/dL (3.5-5.0); Alkaline Phosphatase 96 U/L (38-126); Blood Urea Nitrogen 19 mg/dL (7-17); Carbon Dioxide 28 mmol/L (22-30); Glucose 103 mg/dL (74-99); Potassium 3.8 mmol/L (3.5-5.1); Sodium 142 mmol/L (137-145); Total Protein 6.7 g/dL (6.3-8.2)
[2017-09-02 20:42] LABS: Anion Gap 13 mmol/L; Chloride 101 mmol/L (98-107); Total Bilirubin 0.6 mg/dL (0.2-1.3)
--- NOTE | 2017-09-02 21:18 | XR ---
PROCEDURE: XR Hip Complete RT - 2V DATE AND TIME: 09/02/2017 9:00 PM REFERRING PHYSICIAN: Octavio Maldonado MD CLINICAL INDICATION: PHH, Pain TECHNIQUE: Department protocol. COMPARISON: None FINDINGS: There is no fracture or malalignment. The soft tissues are unremarkable. IMPRESSION: NO ACUTE PROCESS.
[2017-09-02] MEDS ORDERED: fentaNYL (PF) 50 MCG/ML 2 ML AMP IV STA (21:27)
--- NOTE | 2017-09-02 22:20 | US ---
EXAMINATION TYPE: US venous doppler duplex LE RT DATE OF EXAM: 09/02/2017 10:11 PM COMPARISON: NONE CLINICAL HISTORY: Pain. Right leg pain x 1 day SIDE PERFORMED: Right TECHNIQUE: The lower extremity deep venous system is examined utilizing real time linear array sonog xavier with graded compression, doppler sonography and color-flow sonography. VESSELS IMAGED: External Iliac Vein (EIV) Common Femoral Vein Deep Femoral Vein Greater Saphenous Vein * Femoral Vein Popliteal Vein Small Saphenous Vein * Proximal Calf Veins (* superficial vessels) Right Leg: Appears negative for DVT IMPRESSION: Negative exam. No evidence of deep venous thrombosis in the right leg.
[2017-09-02] MEDS ORDERED: MORPHINE SULFATE/PF 10MG/10ML VL ONE (22:42)
[2017-09-02] MEDS: MORPHINE SULFATE/PF 10MG/10ML VL IVP STA ×5 (22:50→23:03)
[2017-09-02 23:31] LABS: Appearance,Urine Clear (Clear); Bacteria,Urine Rare /hpf; Bilirubin,Urine Negative (Negative); Blood,Urine Negative (Negative); Calcium Oxalate Crystals,Urine Occasional /hpf; Color,Urine Yellow; Glucose,Urine (UA) Negative (Negative); Ketones,Urine Negative (Negative); Leukocyte Esterase,Urine Trace (Negative); Mucus,Urine Rare /hpf; Nitrite,Urine Negative (Negative); Protein,Urine Negative (Negative); RBC,Urine 1 /hpf (0-5); Specific Gravity,Urine 1.018 (1.001-1.035); Squamous Epithelial Cell,Urine 1 /hpf (0-4); Urobilinogen,Urine <2.0 mg/dL (<2.0); WBC,Urine 1 /hpf (0-5)
[2017-09-03] MEDS ORDERED: MORPHINE SULFATE 4 MG/ML SYRINGE IV STA (00:14)
[2017-09-03] MEDS ORDERED: MORPHINE SULFATE/PF 10MG/10ML VL IV STA (00:19)
[2017-09-03 01:40] VITALS: BP 110/57; RESP 18
[2017-09-03 02:41] VITALS: PULSE 72
== END 2017-09-03 03:00 | disposition home or self-care (01) ==
LOC: EC 19:11
DX: M79.604 Pain in right leg (principal); R10.31 Right lower quadrant pain; R50.9 Fever, unspecified; J44.9 Chronic obstructive pulmonary disease, unspecified; E03.9 Hypothyroidism, unspecified; F17.200 Nicotine dependence, unspecified, uncomplicated; Z79.899 Other long term (current) drug therapy; Z88.5 Allergy status to narcotic agent; Z88.6 Allergy status to analgesic agent; Z88.8 Allergy status to other drugs, medicaments and biological substances; Z90.49 Acquired absence of other specified parts of digestive tract
CPT/HCPCS: 99285; 96374; 96375; 96376 ×2; 36415; 80053; 85025; 81001; 73502; 93971; J3010; J2270 ×2

== ENCOUNTER → 2017-11-23 | Outpatient (CLI) | payer MEDICARE, OTHER ==
--- NOTE | 2017-11-23 14:46 | US ---
EXAMINATION TYPE: US venous doppler duplex LE LT DATE OF EXAM: 11/23/2017 2:33 PM COMPARISON: NONE CLINICAL HISTORY: I82.532 DVT. Patient fell in September. Left calf pain SIDE PERFORMED: Left TECHNIQUE: The lower extremity deep venous system is examined utilizing real time linear array sonog xavier with graded compression, doppler sonography and color-flow sonography. VESSELS IMAGED: External Iliac Vein (EIV) Common Femoral Vein Deep Femoral Vein Greater Saphenous Vein * Femoral Vein Popliteal Vein Small Saphenous Vein * Proximal Calf Veins (* superficial vessels) Grayscale, color doppler, spectral doppler imaging performed of the deep veins of the left lower extr emity. There is normal flow, compressibility, vascular waveforms of the deep venous system. Left Leg: Negative for DVT. Positive for SVT in the Small saphenous vein behind the left knee. IMPRESSION: 1. Superficial venous thrombosis within the small saphenous vein. 2. No sonographic evidence of deep venous thrombosis within the left lower extremity.
== END | disposition home or self-care (01) ==
LOC: RADUSWWP 14:09
PROVIDERS: ATTEND Podiatrist Foot & Ankle Surgery
DX: I82.812 Embolism and thrombosis of superficial veins of left lower extremity (principal)

== ENCOUNTER → 2018-09-13 | Outpatient (CLI) | payer MEDICARE, OTHER ==
[2018-09-13 10:44] LABS: Blood Urea Nitrogen 22 mg/dL (7-17)
--- NOTE | 2018-09-13 10:53 | US ---
EXAMINATION TYPE: US duplex aorta DATE OF EXAM: 09/13/2018 COMPARISON: NONE CLINICAL HISTORY: Z01.818 encounter for screening. Screening EXAM MEASUREMENTS: Abdominal Aorta: Proximal: 2.3 x 2.2cm Mid: 1.8 x 1.6cm Distal: 1.7 x 1.4cm Bifurcation: RT: 0.8 x 0.8cm LT: 0.9 x 0.8cm No evidence of AAA at this time within visualized portions. Technical limitations due to large amount of overlying bowel content Aorta tapers normally through its visualized course. IMPRESSION: 1. Screening ultrasound negative for aneurysm of the aorta.
--- NOTE | 2018-09-13 12:44 | CT ---
"EXAMINATION TYPE: CT chest w con DATE OF EXAM: 09/13/2018 COMPARISON: Prior chest CT dated 04/22/2015 and chest x-ray 09/01/2017 HISTORY: Shortness of breath CT DLP: 164.3 mGycm Automated exposure control for dose reduction was used. CONTRAST: CT scan of the chest is performed with IV Contrast, patient injected with 80 mL of Isovue 300. FINDINGS: LUNGS: Emphysematous changes are present within the lungs. There is a soft tissue mass present within the left upper lobe medially which is pleural-based and extends to the level anterior to the heart a nd anterior epicardial fat. Lesion measures approximately 2.8 x 2.1 x 4.7 cm in greatest dimension an d shows lobular contour. There are also interstitial changes within the lungs. Some minimal subpleura l nodularity is present bilaterally. MEDIASTINUM: There are no greater than 1 cm hilar or mediastinal lymph nodes. No pericardial effusi on is seen. Pulmonary arteries enlarged, correlate for pulmonary artery hypertension. AORTA: No additional significant abnormality is seen. OTHER: Patient is post cholecystectomy. Colon somewhat distended, there is retained fecal material. Old right-sided rib fracture is present at right 10th rib IMPRESSION: Abnormal soft tissue density in the left upper lobe as described, bronchogenic carcinoma is within the differential diagnostic considerations. Correlate for pulmonary artery hypertension. E mphysema. Postop changes. Additional findings above. Consider pulmonary consult. A Yellow level critical message alert has been initiated for Adryan Lopez MD via the [facility] 0 | Critical Results System on 09/13/2018 12:41 PM. This message alert has been sent to Adryan Lopez MD via the preferences provided by the clinician for the receipt of Radiology Critical Findings. [facility] ID [id number]."
--- NOTE | 2018-09-14 13:33 | MM ---
Reason for exam: screening (asymptomatic). Last mammogram was performed 3 years and 9 months ago. History: Patient is postmenopausal. Family history of breast cancer in sister. Physical Findings: A clinical breast exam by your physician is recommended on an annual basis and results should be correlated with mammographic findings. MG 3D Screening Mammo W/Cad Bilateral CC and MLO view(s) were taken. Prior study comparison: December 20, 2014, bilateral MG screening mammo w CAD. October 23, 2008, mammogram, performed at [facility]. There are scattered fibroglandular densities. There is no discrete abnormality. ASSESSMENT: Negative, BI-RAD 1 RECOMMENDATION: Routine screening mammogram of both breasts in 1 year.
== END | disposition home or self-care (01) ==
LOC: RADCTMAIN 09:44
PROVIDERS: ATTEND Family Medicine
DX: Z12.31 Encounter for screening mammogram for malignant neoplasm of breast (principal); Z13.89 Encounter for screening for other disorder; R91.8 Other nonspecific abnormal finding of lung field; Z78.0 Asymptomatic menopausal state; J43.9 Emphysema, unspecified
CPT/HCPCS: 82565; 84520; 77067; 77063; 93979; 71260; Q9967

== ENCOUNTER → 2018-12-13 | Outpatient (CLI) | payer MEDICARE, OTHER | END | disposition home or self-care (01) | DX: I27.20 Pulmonary hypertension, unspecified (principal); I38 Endocarditis, valve unspecified; I05.9 Rheumatic mitral valve disease, unspecified ==

== ENCOUNTER → 2019-01-10 | Outpatient (CLI) | payer MEDICARE, OTHER ==
--- NOTE | 2019-01-10 16:30 | XR ---
EXAMINATION TYPE: XR chest 2V DATE OF EXAM: 01/10/2019 COMPARISON: 12/10/2016, 12/15/2018 HISTORY: 73-year-old female COPD, shortness of breath TECHNIQUE: Frontal and lateral views FINDINGS: Heart normal size. Aorta within normal limits. Hyperinflation. Bilateral hilar prominence similar. Th ere is nodular density left infrahilar region. Strandy atelectasis left base. Chronic ovoid density p erform right base. Post surgical changes right upper quadrant. IMPRESSION: 1. COPD with pulmonary arterial hypertension. 2. Persistent lingular mass. Lung cancer not excluded. Appropriate evaluation and management recommen ded.
== END | disposition home or self-care (01) ==
LOC: RADXRMAIN 12:53
PROVIDERS: ATTEND Family Medicine
DX: J44.9 Chronic obstructive pulmonary disease, unspecified (principal); I27.21 Secondary pulmonary arterial hypertension
CPT/HCPCS: 71046

== ENCOUNTER 2019-01-24 08:52 | Day surgery (SDC) | payer MEDICARE, OTHER ==
[2019-01-24 09:14] VITALS: TEMP 97.9
[2019-01-24 09:46] LABS: Platelet Count 288 k/uL (150-450)
[2019-01-24 10:01] LABS: INR 0.9 (<1.2)
--- NOTE | 2019-01-24 11:31 | XR ---
EXAMINATION TYPE: XR chest 1V portable DATE OF EXAM: 01/24/2019 COMPARISON: NONE HISTORY: Left lung biopsy TECHNIQUE: Single frontal view of the chest is obtained. FINDINGS: There is a nodule in the left upper lobe lingular segment and prominence of the left hilum suggestive of adenopathy. Underlying COPD noted subsegmental consolidation. There is a tiny approxim ately 5% left pneumothorax. Surgical clips in the right upper quadrant noted. IMPRESSION: 1. Approximate 5% left-sided pneumothorax. Underlying COPD and bibasilar consolidation noted.
--- NOTE | 2019-01-24 12:10 | CT ---
EXAMINATION TYPE: CT biopsy lung LT DATE OF EXAM: 01/24/2019 COMPARISON: 09/13/2018 HISTORY: Left upper lobe lung mass FINDINGS: The procedure is discussed with the patient, the risks, complications, benefits and alternatives, wer e discussed and any questions were answered. Informed consent was obtained. The patient is placed s upine on the CT table, prepped and draped in the usual sterile fashion. Utilizing a 22-gauge Chiba needle access into the left upper lobe lobe mass was achieved with a singl e FNA sample and a single 18-gauge core sample obtained. Pathology pending. All elements of maximal barrier and sterile technique were utilized. The patient remained stable throughout the procedure w ith no immediate postprocedural complication. IMPRESSION: 1. Successful CT guided fine needle aspiration and core biopsy of a left upper lobe lung mass
[2019-01-24 13:04] VITALS: BP 102/54
--- NOTE | 2019-01-24 13:48 | XR ---
EXAMINATION TYPE: XR chest 1V portable DATE OF EXAM: 01/24/2019 COMPARISON: 01/24/2019 HISTORY: Post left lung biopsy TECHNIQUE: Single frontal view of the chest is obtained. FINDINGS: Prominent pulmonary artery suggests pulmonary arterial hypertension there is a left sided lung mass which is stable. No sizable pneumothorax. Underlying COPD. No overt failure. IMPRESSION: No pneumothorax.
--- NOTE | 2019-01-24 15:34 | XR ---
EXAMINATION TYPE: XR chest 1V portable DATE OF EXAM: 01/24/2019 COMPARISON: Multiple exams of the same date HISTORY: Status post left-sided pneumothorax. TECHNIQUE: Single frontal view of the chest is obtained. FINDINGS: Left infrahilar lung mass and postbiopsy change are again seen. The previously seen pneumo thorax and apparent loculated on the exam earlier the same date has resolved, also resolved on the pr ior 1:19 PM. Strand-like bibasilar atelectasis is seen with underlying COPD and pulmonary hyperinflat ion. Cardiomediastinal silhouette is within normal limits. Postsurgical change of the upper abdomen. IMPRESSION: The previously seen left basilar loculated pleural effusion, status post left lung biops y has resolved. Postbiopsy change and known lung metastases are seen in the infrahilar region.
[2019-01-24 16:11] VITALS: PULSE 90; RESP 18
== END 2019-01-24 16:15 | disposition home or self-care (01) ==
LOC: RADPROMAIN 08:52
PROVIDERS: ATTEND Internal Medicine
DX: C34.12 Malignant neoplasm of upper lobe, left bronchus or lung (principal); J44.9 Chronic obstructive pulmonary disease, unspecified; J90 Pleural effusion, not elsewhere classified
CPT/HCPCS: 10010; 36415; 71045; 77012; 85049; 85610; 88173; 88305; 88341; 88342; 88360

== ENCOUNTER → 2019-02-10 | Outpatient (CLI) | payer MEDICARE, OTHER ==
--- NOTE | 2019-02-12 09:58 | PE ---
EXAMINATION TYPE: PET CT fusion skull to thigh DATE OF EXAM: 02/10/2019 COMPARISON: CT lung biopsy dated 01/24/2019, CT chest dated 09/13/2018, and CT chest abdomen pelvis date d 04/22/2015. HISTORY: Left lung biopsy on 02/02/2019 yielding a pathologic results of squamous cell lung cancer wit h oxygen dependent end-stage COPD and plan for radiation currently. TECHNIQUE: Following the intravenous administration of 12.873 mCi of F-18 FDG, whole body images are performed from the skull base to the midthigh. Images are reviewed on the computer in the coronal, axial, and sagittal planes. Reconstructed rotating images are created on independent workstation and reviewed on the computer. A localization and attenuation correction CT is performed in conjunction with the PET scan. SCAN: Initial staging FINDINGS: Mediastinal background: 1.8 Abdominal background: 2.29 SKULL BASE AND NECK: Slightly asymmetric uptake in the palatine tonsils, right greater than left alt neil this is of low suspicion. Focal hypermetabolic uptake is seen within the upper esophagus and po sterior pharynx at the level of the false focal cords with a maximum SUV of 3.45. Endoscopy is recomm ended. CHEST, MEDIASTINUM, AND HILAR REGION: The previously described soft tissue mass within the left upper lobe medially appearing pleural base extending to the mediastinum measured approximately 2.8 x 2.1 x 4.[address] dated 09/13/2018 and currently measures approximately 3.1 x 3.2 x 4.8 cm. This demons trates a maximum SUV of 11.62. This is known to represent biopsy-proven squamous cell lung carcinoma. Although this abuts the mediastinum there is no clear invasion into the epicardium. Surrounding hypo metabolic subsegmental atelectasis is seen. There are no clearly enlarged hypermetabolic lymph nodes seen. Some patchy uptake of the right hilum has a maximum SUV of 2.0 but may be vascular. No measurable lymph node is seen in the right hilum to correspond to this finding. A right paratracheal lymph node that is upper limits of normal size measu ring 1.0 cm in short axis on series 3 image 81 is hypometabolic with a maximum SUV of 1.26. ABDOMEN AND PELVIS: Although there is hypermetabolic multifocal uptake throughout the bowel, partiall y physiologic and related to excretion, there is most focal uptake within the ascending colon, cecum, and terminal ileum with a maximum SUV up to 7.3, a concerning finding. Endoscopy is recommended. OSSEOUS STRUCTURES: Old right rib fracture of the right 10th rib is noted. No suspicious hypermetabol ic uptake. OTHER CT: The main pulmonary artery is enlarged measuring 4.0 cm suggestive of underlying pulmonary a rterial hypertension. Mild atheromatous changes of the aorta and its branches. Very small hiatal adalgisa ia is seen. Punctate coronary artery calcifications are evident. Paranasal sinuses and mastoid air ce lls are well aerated. Mild degenerative changes of the spine. Cystic change of the left femur is like ly degenerative and is hypometabolic. There is air seen within the urinary bladder and urinary bladder is displaced to the right however a rounded lucent area within the urinary bladder is seen that has decreased uptake in comparison to the surrounding urinary bladder and catheter placement is possible although no radiopaque catheter tubin g is seen. Air could be attributable to this. Surgical clips are seen throughout the gallbladder lou a, right upper quadrant, pelvis, and ventral subcutaneous tissues. There are multiple nonobstructing punctate left renal calculi. Advanced emphysematous changes of the lungs are seen. Bibasilar subsegmental dependent atelectasis. N odular densities within the medial right middle lobe have a maximum SUV of 0.8 and may be infectious. Punctate sub-4 mm scattered pulmonary nodules are below the threshold of PET CT. IMPRESSION: 1. The approximately 4.8 cm mass of the medial left upper lobe compatible with biopsy-proven squamous cell carcinoma has hypermetabolic uptake with a maximum SUV currently 11.62. No enhancing pathologic mediastinal adenopathy nor supraclavicular adenopathy or infradiaphragmatic metastasis at this time. Although this mass abuts the mediastinum and is not clearly invade the mediastinum nor thickening of the pericardium. 2. Focal avid uptake of the ascending colon, cecum and terminal ileum with a maximum SUV of 7.3, conc erning for neoplasm. Colonoscopy is recommended. 3. Advanced emphysematous changes of the lungs with scattered sub-4 mm nodules that are below the thr eshold of PET CT. 4. What appears to be the urinary bladder is displaced to the right and contains air as well as a rou nded nodular density. Correlate with surgical history or nonradiopaque catheter placement. Otherwise cystoscopy and urinalysis would be recommended. 5. Enlargement main pulmonary artery suggesting pulmonary arterial hypertension. 6. Focal uptake within the proximal esophagus at the level of the false vocal cords. Esophagitis or n eoplasm are possible and upper endoscopy could be considered.
== END | disposition home or self-care (01) ==
LOC: RADPETMAIN 10:14
PROVIDERS: ATTEND Internal Medicine
DX: R93.3 Abnormal findings on diagnostic imaging of other parts of digestive tract (principal); R91.1 Solitary pulmonary nodule; I77.89 Other specified disorders of arteries and arterioles; I28.8 Other diseases of pulmonary vessels
CPT/HCPCS: 78815; A9552

== ENCOUNTER 2019-04-02 15:43 | Inpatient (IN) | payer MEDICARE, OTHER ==
[2019-04-02] MEDS ORDERED: IPRATROPIUM 0.5 MG/2.5 ML NEBU INHALATION STA (17:01)
[2019-04-02] MEDS ORDERED: ALBUTEROL NEBULIZED 2.5 MG/3 ML INHALATION STA (17:01)
--- NOTE | 2019-04-02 17:06 | ED ---
General Adult HPI - General Chief complaint: Shortness of Breath Stated complaint: SOB Time Seen by Provider: 04/02/19 16:00 Source: patient, RN notes reviewed Mode of arrival: ambulatory Limitations: no limitations - History of Present Illness Initial comments: This is a 73-year-old female presents emergency Department with a past medical history significant for anxiety and lung cancer. Patient states she received her last radiation treatment 2 weeks ago. Patient states over the last couple days she's had a harder time breathing coughing a lot more and more short of breath. Patient states she also has had some pain on the left lateral chest wa ll radiating around to her sternum. Patient denies any palpitations. Patient denies any fever chills. Patient states she does have more sputum production than normal. Patient denies any lightheadedness or dizziness. Patient denies numbness or weakness. Patient denies any vomiting or diarrhea. Patient states she has had swelling in her legs but it much improved today compared to Tuesday. - Related Data Home Medications Medication Instructions Recorded Confirmed Albuterol Inhaler [Ventolin Hfa 2 puff INHALATION RT-Q4H PRN 11/13/16 04/02/19 Inhaler] Albuterol Nebulized [Ventolin 2.5 mg INHALATION RT-TID 11/13/16 04/02/19 Nebulized] Biotin 5,000 mcg PO DAILY@29911/13/16 04/02/19 Furosemide [Lasix] 20 mg PO DAILY@29911/13/16 04/02/19 Levothyroxine Sodium [Synthroid] 175 mcg PO DAILY@29911/13/16 04/02/19 Cyanocobalamin [Vitamin B-12 1,000 mcg SQ TH 08/10/17 04/02/19 Injection] Glycopyrrolate/Formoterol Fum 2 puff INHALATION RT-BID@0500,1700 08/10/17 04/02/19 [Bevespi Aerosphere Inhaler] diphenhydrAMINE [Benadryl] 50 mg PO DAILY@29908/10/17 04/02/19 Ascorbic Acid [Vitamin C with Tarsha 500 mg PO DAILY@0300 04/02/19 04/02/19 Hips] Cholecalciferol (Vitamin D3) 6,000 unit PO WE 04/02/19 04/02/19 [Vitamin D3] Potassium Chloride [Klor-Con 20] 20 meq PO DAILY@0300 04/02/19 04/02/19 Allergies Allergy/AdvReac Type Severity Reaction Status Date / Time acetaminophen [From Tylenol] Allergy Swelling Verified 04/02/19 17:12 amoxicillin Allergy Swelling Verified 04/02/19 17:12 aspirin Allergy Swelling Verified 04/02/19 17:12 codeine Allergy Anaphylaxis Verified 04/02/19 17:12 hydrocodone [From Vicodin] Allergy Anaphylaxis Verified 04/02/19 17:12 Penicillins Allergy Swelling Verified 04/02/19 17:12 sulfamethoxazole Allergy Swelling Verified 04/02/19 17:12 [From Bactrim] trimethoprim [From Bactrim] Allergy Swelling Verified 04/02/19 17:12 tramadol AdvReac DOES NOT Verified 04/02/19 17:12 WORK steroids Allergy Swelling Uncoded 04/02/19 16:00 Review of Systems ROS Statement: Those systems with pertinent positive or pertinent negative responses have been documented in the HPI. ROS Other: All systems not noted in ROS Statement are negative. Past Medical History Past Medical History: COPD, Renal Disease Additional Past Medical History / Comment(s): Hypothyroidism, lung mass, patient has condition that she developes adhesions very easily. "kidney stones" lung cx. History of Any Multi-Drug Resistant Organisms: None Reported Past Surgical History: Appendectomy, Bariatric Surgery, Bowel Resection, Hysterectomy Additional Past Surgical History / Comment(s): Prolapsed bowel with colostomy and reversal, bariatric surgery Past Anesthesia/Blood Transfusion Reactions: No Reported Reaction Past Psychological History: No Psychological Hx Reported Smoking Status: Current every day smoker Past Alcohol Use History: None Reported Past Drug Use History: None Reported - Past Family History Mother History Unknown: Yes Family Medical History: Unable to Obtain General Exam - General Exam Comments Initial Comments: GENERAL: Patient is well-developed and well-nourished. Patient is nontoxic and well- hydrated and is in mild distress. ENT: Neck is soft and supple. No significant lymphadenopathy is noted. Oropharynx is clear. Moist mucous membranes. Neck has full range of motion without eliciting any pain. EYES: The sclera were anicteric and conjunctiva were pink and moist. Extraocular movements were intact and pupils were equal round and reactive to light. Eyelids were unremarkable. PULMONARY: Patient has expiratory wheezing. CARDIOVASCULAR: There is a regular rate and rhythm without any murmurs gallops or rubs. ABDOMEN: Soft and nontender with normal bowel sounds. No palpable organomegaly was noted. There is no palpable pulsatile mass. SKIN: Skin is clear with no lesions or rashes and otherwise unremarkable. NEUROLOGIC: Patient is alert and oriented x3. Cranial nerves II through XII are grossly intact. Motor and sensory are also intact. Normal speech, volume and content. Symmetrical smile. MUSCULOSKELETAL: Normal extremities with adequate strength and full range of motion. No lower extremity swelling or edema. No calf tenderness. LYMPHATICS: No significant lymphadenopathy is noted PSYCHIATRIC: Normal psychiatric evaluation. Limitations: no limitations Course Vital Signs 04/02/19 04/02/19 04/02/19 15:56 16:39 17:00 Temperature 99.5 F Pulse Rate 91 87 Respiratory 88 H 22 Rate Blood Pressure 77/49 103/67 O2 Sat by Pulse 89 L 89 L 96 Oximetry 04/02/19 04/02/19 04/02/19 17:30 17:49 18:00 Temperature Pulse Rate 78 80 79 Respiratory 8 L 20 16 Rate Blood Pressure 99/79 88/49 88/52 O2 Sat by Pulse 97 98 95 Oximetry 04/02/19 04/02/19 04/02/19 18:14 18:26 18:30 Temperature Pulse Rate 79 75 80 Respiratory 20 18 21 Rate Blood Pressure 95/58 O2 Sat by Pulse 98 Oximetry 04/02/19 19:00 Temperature Pulse Rate 78 Respiratory 26 H Rate Blood Pressure 87/72 O2 Sat by Pulse 94 L Oximetry Medical Decision Making - Medical Decision Making EKG shows sinus rhythm with occasional PAC at 89 bpm AR interval 240 QRS is 96 QT interval 352 QTC is 428. Patient's EKG shows no ST segment elevation or depression or T wave abnormalities are noted. Chest x-ray shows no acute abnormality. After the breathing. Patient did sound better she did get Solu-Medrol but she did not feel good enough to go home. I spoke with Dr. Lopez and he agreed to admit the patient admitted the patient wrote admitting orders. Consulted pulmonology - Lab Data Result diagrams: 04/02/19 17:53 04/02/19 17:53 Lab Results 04/02/19 04/02/19 04/02/19 Range/Units 17:53 17:53 17:53 WBC 9.2 (3.8-10.6) k/uL RBC 3.32 L (3.80-5.40) m/uL Hgb 10.4 L (11.4-16.0) gm/dL Hct 35.6 (34.0-46.0) % MCV 107.2 H (80.0-100.0) fL MCH 31.3 (25.0-35.0) pg MCHC 29.2 L (31.0-37.0) g/dL RDW 13.5 (11.5-15.5) % Plt Count 247 (150-450) k/uL Neutrophils % 82 % Lymphocytes % 10 % Monocytes % 5 % Eosinophils % 1 % Basophils % 1 % Neutrophils # 7.5 (1.3-7.7) k/uL Lymphocytes # 1.0 (1.0-4.8) k/uL Monocytes # 0.4 (0-1.0) k/uL Eosinophils # 0.1 (0-0.7) k/uL Basophils # 0.1 (0-0.2) k/uL Hypochromasia Moderate Macrocytosis Moderate PT 10.4 (9.0-12.0) sec INR 1.0 (<1.2) APTT 23.3 (22.0-30.0) sec D-Dimer 0.26 (<0.60) mg/L FEU Sodium 143 (137-145) mmol/L Potassium 3.3 L (3.5-5.1) mmol/L Chloride 102 (98-107) mmol/L Carbon Dioxide 36 H (22-30) mmol/L Anion Gap 5 mmol/L BUN 15 (7-17) mg/dL Creatinine 0.63 (0.52-1.04) mg/dL Est GFR (CKD-EPI)AfAm >90 (>60 ml/min/1.73 sqM) Est GFR (CKD-EPI)NonAf >90 (>60 ml/min/1.73 sqM) Glucose 91 (74-99) mg/dL Calcium 8.1 L (8.4-10.2) mg/dL Magnesium 0.7 L* (1.6-2.3) mg/dL Total Bilirubin 0.3 (0.2-1.3) mg/dL AST 19 (14-36) U/L ALT 48 (9-52) U/L Alkaline Phosphatase 48 (38-126) U/L Troponin I (0.000-0.034) ng/mL NT-Pro-B Natriuret Pep pg/mL Total Protein 5.7 L (6.3-8.2) g/dL Albumin 3.3 L (3.5-5.0) g/dL 04/02/19 04/02/19 Range/Units 17:53 17:53 WBC (3.8-10.6) k/uL RBC (3.80-5.40) m/uL Hgb (11.4-16.0) gm/dL Hct (34.0-46.0) % MCV (80.0-100.0) fL MCH (25.0-35.0) pg MCHC (31.0-37.0) g/dL RDW (11.5-15.5) % Plt Count (150-450) k/uL Neutrophils % % Lymphocytes % % Monocytes % % Eosinophils % % Basophils % % Neutrophils # (1.3-7.7) k/uL Lymphocytes # (1.0-4.8) k/uL Monocytes # (0-1.0) k/uL Eosinophils # (0-0.7) k/uL Basophils # (0-0.2) k/uL Hypochromasia Macrocytosis PT (9.0-12.0) sec INR (<1.2) APTT (22.0-30.0) sec D-Dimer (<0.60) mg/L FEU Sodium (137-145) mmol/L Potassium (3.5-5.1) mmol/L Chloride (98-107) mmol/L Carbon Dioxide (22-30) mmol/L Anion Gap mmol/L BUN (7-17) mg/dL Creatinine (0.52-1.04) mg/dL Est GFR (CKD-EPI)AfAm (>60 ml/min/1.73 sqM) Est GFR (CKD-EPI)NonAf (>60 ml/min/1.73 sqM) Glucose (74-99) mg/dL Calcium (8.4-10.2) mg/dL Magnesium (1.6-2.3) mg/dL Total Bilirubin (0.2-1.3) mg/dL AST (14-36) U/L ALT (9-52) U/L Alkaline Phosphatase (38-126) U/L Troponin I <0.012 (0.000-0.034) ng/mL NT-Pro-B Natriuret Pep 164 pg/mL Total Protein (6.3-8.2) g/dL Albumin (3.5-5.0) g/dL Disposition Clinical Impression: Hypomagnesemia, COPD exacerbation Disposition: ADMITTED IP TO THIS HOSP Referrals: Adryan Lopez MD [Primary Care Provider] - 1-2 days Time of Disposition: 20:36
[2019-04-02 18:06] LABS: Basophils # (A) 0.1 k/uL (0-0.2); Basophils % (A) 1 %; Eosinophils # (A) 0.1 k/uL (0-0.7); Eosinophils % (A) 1 %; HCT 35.6 % (34.0-46.0); HGB 10.4 gm/dL (11.4-16.0); Hypochromasia Moderate; Lymphocytes % (A) 10 %; MCH 31.3 pg (25.0-35.0); MCHC 29.2 g/dL (31.0-37.0); MCV 107.2 fL (80.0-100.0); Macrocytosis Moderate; Mean Platelet Volume 6.9; Monocytes # (A) 0.4 k/uL (0-1.0); Monocytes % (A) 5 %; Neutrophils # (A) 7.5 k/uL (1.3-7.7); Neutrophils % (A) 82 %; Platelet Count 247 k/uL (150-450); RBC 3.32 m/uL (3.80-5.40); RDW 13.5 % (11.5-15.5); WBC 9.2 k/uL (3.8-10.6)
[2019-04-02 18:23] LABS: D-Dimer 0.26 mg/L FEU (<0.60); Partial Thromboplastin Time 23.3 sec (22.0-30.0); Prothrombin Time 10.4 sec (9.0-12.0)
[2019-04-02 18:24] LABS: ALT 48 U/L (9-52); AST 19 U/L (14-36); African American GFR (CKD) >90 (>60 ml/min/1.73 sqM); Albumin 3.3 g/dL (3.5-5.0); Alkaline Phosphatase 48 U/L (38-126); Anion Gap 5 mmol/L; Blood Urea Nitrogen 15 mg/dL (7-17); Calcium 8.1 mg/dL (8.4-10.2); Carbon Dioxide 36 mmol/L (22-30); Chloride 102 mmol/L (98-107); Glucose 91 mg/dL (74-99); Potassium 3.3 mmol/L (3.5-5.1); Sodium 143 mmol/L (137-145); Total Bilirubin 0.3 mg/dL (0.2-1.3); Total Protein 5.7 g/dL (6.3-8.2)
[2019-04-02 18:43] LABS: Magnesium 0.7 mg/dL (1.6-2.3)
[2019-04-02] MEDS ORDERED: SODIUM CHLORIDE 0.9% 500 ML 500 ML IV ONE (19:01)
[2019-04-02] MEDS ORDERED: HYDROmorphone 0.5 MG/0.5 ML SYRINGE IVP STA (19:13)
--- NOTE | 2019-04-02 19:23 | XR ---
EXAMINATION TYPE: XR chest 2V DATE OF EXAM: 04/02/2019 COMPARISON: 01/24/2019 INDICATION: Difficulty breathing short of breath chest pain TECHNIQUE: Frontal and lateral views of the chest are obtained. FINDINGS: The heart size is normal. The pulmonary vasculature is normal. Some mild linear opacities at the left base. Correlate for atelectasis. Some mild blunting the right costophrenic angle is present. Correlate for small right pleural effusion. IMPRESSION: 1. Small right pleural effusion. 2. Mild plate atelectasis left base.
[2019-04-02] MEDS: MAGNESIUM SULFATE-D5W PMX 1 GM in DEXTROSE/WATER 1 100ML.BAG IVPB SCH ×2 (19:37→21:23)
[2019-04-02] MEDS ORDERED: methylPREDNISolone SOD SUCCI 125 MG/2 ML VIAL IV STA (20:36)
[2019-04-03] MEDS: methylPREDNISolone SOD SUCCI 125 MG/2 ML VIAL IV SCH ×3 (01:50→13:18)
[2019-04-03] MEDS ORDERED: ALPRAZolam 0.25 MG TAB PO STA (01:51)
[2019-04-03] MEDS: IPRATROPIUM-ALBUTEROL 3 ML NEB INHALATION SCH ×4 (07:49→21:01)
[2019-04-03] MEDS ORDERED: Magnesium Replacement Protocol 1 EACH MISC MISCELLANE PRN (09:26)
[2019-04-03] MEDS ORDERED: Potassium Replacement Protocol 1 EACH MISC MISCELLANE PRN (09:26)
[2019-04-03] MEDS: POTASSIUM CHLORIDE ER 20 MEQ TAB.ER PO SCH ×2 (10:28→11:35)
[2019-04-03] MEDS: MAGNESIUM SULFATE-D5W PMX 1 GM in DEXTROSE/WATER 1 100ML.BAG IVPB SCH ×3 (10:28→13:17)
--- NOTE | 2019-04-03 11:43 | P.HPIM ---
History of Present Illness 73-year-old admitted to the emergency room with complaints of difficulty breathing for 2 weeks. History of radiation treatment 2 weeks ago. Anxious and wanting to go home. Counseled on the electrolyte replacement Review of Systems Constitutional: Reports fatigue Respiratory: Reports dyspnea Musculoskeletal: Reports low back pain Past Medical History Past Medical History: COPD, Renal Disease Additional Past Medical History / Comment(s): Hypothyroidism, lung mass, patient has condition that she developes adhesions very easily. "kidney stones" lung cx. History of Any Multi-Drug Resistant Organisms: None Reported Past Surgical History: Appendectomy, Bariatric Surgery, Bowel Resection, Hysterectomy, Orthopedic Surgery Additional Past Surgical History / Comment(s): Prolapsed bowel with colostomy and reversal, bariatric surgery; broke bilateral legs with repair Past Anesthesia/Blood Transfusion Reactions: No Reported Reaction Past Psychological History: No Psychological Hx Reported Smoking Status: Current every day smoker Past Alcohol Use History: None Reported Additional Past Alcohol Use History / Comment(s): trying to quit at this time - down to 2 a day Past Drug Use History: None Reported - Past Family History Mother History Unknown: Yes Family Medical History: Unable to Obtain Medications and Allergies Home Medications Medication Instructions Recorded Confirmed Type Albuterol Inhaler [Ventolin Hfa 2 puff INHALATION RT-Q4H PRN 11/13/16 04/02/19 History Inhaler] Albuterol Nebulized [Ventolin 2.5 mg INHALATION RT-TID 11/13/16 04/02/19 History Nebulized] Biotin 5,000 mcg PO DAILY@29911/13/16 04/02/19 History Furosemide [Lasix] 20 mg PO DAILY@29911/13/16 04/02/19 History Levothyroxine Sodium [Synthroid] 175 mcg PO DAILY@29911/13/16 04/02/19 History Cyanocobalamin [Vitamin B-12 1,000 mcg SQ TH 08/10/17 04/02/19 History Injection] Glycopyrrolate/Formoterol Fum 2 puff INHALATION RT-BID@0500,1700 08/10/17 04/02/19 History [Bevespi Aerosphere Inhaler] diphenhydrAMINE [Benadryl] 50 mg PO DAILY@29908/10/17 04/02/19 History Ascorbic Acid [Vitamin C with Tarsha 500 mg PO DAILY@0300 04/02/19 04/02/19 History Hips] Cholecalciferol (Vitamin D3) 6,000 unit PO WE 04/02/19 04/02/19 History [Vitamin D3] Potassium Chloride [Klor-Con 20] 20 meq PO DAILY@0300 04/02/19 04/02/19 History Allergies Allergy/AdvReac Type Severity Reaction Status Date / Time acetaminophen [From Tylenol] Allergy Swelling Verified 04/02/19 17:12 amoxicillin Allergy Swelling Verified 04/02/19 17:12 aspirin Allergy Swelling Verified 04/02/19 17:12 codeine Allergy Anaphylaxis Verified 04/02/19 17:12 hydrocodone [From Vicodin] Allergy Anaphylaxis Verified 04/02/19 17:12 Penicillins Allergy Swelling Verified 04/02/19 17:12 sulfamethoxazole Allergy Swelling Verified 04/02/19 17:12 [From Bactrim] trimethoprim [From Bactrim] Allergy Swelling Verified 04/02/19 17:12 tramadol AdvReac DOES NOT Verified 04/02/19 17:12 WORK steroids Allergy Swelling Uncoded 04/02/19 16:00 Physical Exam Vitals: Vital Signs Temp Pulse Pulse Resp BP BP Pulse Ox 04/03/19 10:29 66 04/03/19 10:18 65 04/03/19 08:08 69 04/03/19 08:00 97.0 F L 69 20 89/50 95 04/03/19 07:50 66 94 L 04/03/19 04:00 97.7 F 75 20 101/55 98 04/03/19 01:45 73 18 109/61 93 L 04/02/19 19:00 78 26 H 87/72 94 L 04/02/19 18:30 80 21 95/58 98 04/02/19 18:26 75 18 04/02/19 18:14 79 20 04/02/19 18:00 79 16 88/52 95 04/02/19 17:49 80 20 88/49 98 04/02/19 17:30 78 8 L 99/79 97 04/02/19 17:00 87 22 103/67 96 04/02/19 16:39 89 L 04/02/19 15:56 99.5 F 91 88 H 77/49 89 L Intake and Output 04/02/19 04/03/19 04/03/19 22:59 06:59 14:59 Intake Total 120 Balance 120 Intake: Oral 120 Other: # Voids 1 # Bowel Movements 1 Weight 56.245 kg - Constitutional General appearance: mild distress - EENT Eyes: PERRLA - Respiratory Respiratory: bilateral: diminished, wheezing - Cardiovascular Rhythm: regular - Gastrointestinal General gastrointestinal: soft - Integumentary Erythema coccyx area - Musculoskeletal Musculoskeletal: generalized weakness - Psychiatric Psychiatric: A&O x's 3, appropriate affect, intact judgment & insight Results CBC & Chem 7: 04/02/19 17:53 04/02/19 17:53 Labs: Abnormal Lab Results - Last 24 Hours (Table) 04/02/19 04/02/19 04/03/19 Range/Units 17:53 17:53 08:00 RBC 3.32 L (3.80-5.40) m/uL Hgb 10.4 L (11.4-16.0) gm/dL MCV 107.2 H (80.0-100.0) fL MCHC 29.2 L (31.0-37.0) g/dL Potassium 3.3 L (3.5-5.1) mmol/L Carbon Dioxide 36 H (22-30) mmol/L Calcium 8.1 L (8.4-10.2) mg/dL Magnesium 0.7 L* 1.4 L (1.6-2.3) mg/dL Total Protein 5.7 L (6.3-8.2) g/dL Albumin 3.3 L (3.5-5.0) g/dL Abdominal x-ray: report reviewed Thrombosis Risk Factor Assmnt - Choose All That Apply Each Factor Represents 1 point: Abnormal pulmonary function (COPD) Each Risk Factor Represents 2 Points: Age 61-74 years Thrombosis Risk Factor Assessment Total Risk Factor Score: 3 Thrombosis Risk Factor Assessment Level: Moderate Risk Assessment and Plan Plan: Assessment COPD exacerbation Lung mass post radiation therapy Small pleural effusion Hypo-magnesium hypokalemia Renal disease Plan Pulmonology consultation Oncology Dr. Naik patient wanting discuss results of therapy
[2019-04-03] MEDS: HYDROmorphone 0.5 MG/0.5 ML SYRINGE IVP PRN ×2 (11:49→17:47)
--- NOTE | 2019-04-03 12:53 | P.CNPUL ---
History of Present Illness Consult date: 04/03/19 Requesting physician: Adryan Lopez Reason for consult: dyspnea Chief complaint: Dyspnea, nausea History of present illness: This is a 73-year-old white female patient of Dr. Lopez, who also sees Dr. 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 Patient was not a surgical candidate, she did have a PET scan done in February 2019 which showed increased uptake in the left upper lobe as well as descending colon. Patient is currently undergoing radiation treatments with Dr. Naik, last treatment was on 03/14/2019. On 04/02/2019 patient came into the emergency department for evaluation of difficulty breathing, coughing, pain along the left lateral chest wall along the rib margin, radiating around to her sternum, he denied any fever or chills, patient states she had been nauseous, she has not been able to eat much, at times she feels like she has difficulty swallowing. She has been spitting up a lot of phlegm. She states she has diarrhea on the regular basis, related to her history of gastric bypass in 1975 which has not significantly changed. Chest x- ray in emergency departments showed small right pleural effusion, and mild plate atelectasis at the left base. Labs did not show signs of leukocytosis, white blood cell count of 9.2, hemoglobin is 10.4, d-dimer was 0.26, and aggressive correlation profile was within normal limits, potassium was found to be low at 3.3, and magnesium was at 0.7, renal profile was within normal limits with BUN of 15 and creatinine is 0.63. Troponin is negative 1, proBNP is 164. Patient has been afebrile, she is borderline hypotensive this morning, with a blood pressure of 89/50, but clinically is asymptomatic, she is currently on 3 L of oxygen with a pulse ox of 95%, she was hypoxemic with a pulse ox of 89 on presentation on her usual 3 L of oxygen. She has a congested cough, and physical examination reveals diffuse rhonchi throughout with fremitus. She has been started on IV steroids, we will add antibiotics, breathing treatments. Review of Systems All systems: negative Constitutional: Reports weakness, Denies chills, Denies fever Eyes: denies blurred vision, denies pain Ears, nose, mouth and throat: Denies headache, Denies sore throat Cardiovascular: Denies chest pain, Denies shortness of breath Respiratory: Reports congestion, Reports cough, Reports cough with sputum, Reports dyspnea, Reports home oxygen, Reports pain, Reports pain on inspiration, Reports respiratory infections Gastrointestinal: Denies abdominal pain, Denies diarrhea, Denies nausea, Denies vomiting Genitourinary: Denies dysuria, Denies hematuria Musculoskeletal: Denies myalgias Integumentary: Denies pruritus, Denies rash Neurological: Denies numbness, Denies weakness Psychiatric: Denies anxiety, Denies depression Endocrine: Denies fatigue, Denies weight change Past Medical History Past Medical History: COPD, Renal Disease Additional Past Medical History / Comment(s): Hypothyroidism, lung mass, patient has condition that she developes adhesions very easily. "kidney stones" lung cx. History of Any Multi-Drug Resistant Organisms: None Reported Past Surgical History: Appendectomy, Bariatric Surgery, Bowel Resection, Hysterectomy, Orthopedic Surgery Additional Past Surgical History / Comment(s): Prolapsed bowel with colostomy and reversal, bariatric surgery; broke bilateral legs with repair Past Anesthesia/Blood Transfusion Reactions: No Reported Reaction Past Psychological History: No Psychological Hx Reported Smoking Status: Current every day smoker Past Alcohol Use History: None Reported Additional Past Alcohol Use History / Comment(s): trying to quit at this time - down to 2 a day Past Drug Use History: None Reported - Past Family History Mother History Unknown: Yes Family Medical History: Unable to Obtain Medications and Allergies Home Medications Medication Instructions Recorded Confirmed Type Albuterol Inhaler [Ventolin Hfa 2 puff INHALATION RT-Q4H PRN 11/13/16 04/02/19 History Inhaler] Albuterol Nebulized [Ventolin 2.5 mg INHALATION RT-TID 11/13/16 04/02/19 History Nebulized] Biotin 5,000 mcg PO DAILY@29911/13/16 04/02/19 History Furosemide [Lasix] 20 mg PO DAILY@29911/13/16 04/02/19 History Levothyroxine Sodium [Synthroid] 175 mcg PO DAILY@299 11/13/16 04/02/19 History Cyanocobalamin [Vitamin B-12 1,000 mcg SQ TH 08/10/17 04/02/19 History Injection] Glycopyrrolate/Formoterol Fum 2 puff INHALATION RT-BID@0500,1700 08/10/17 04/02/19 History [Bevespi Aerosphere Inhaler] diphenhydrAMINE [Benadryl] 50 mg PO DAILY@0300 08/10/17 04/02/19 History Ascorbic Acid [Vitamin C with Tarsha 500 mg PO DAILY@0300 04/02/19 04/02/19 History Hips] Cholecalciferol (Vitamin D3) 6,000 unit PO WE 04/02/19 04/02/19 History [Vitamin D3] Potassium Chloride [Klor-Con 20] 20 meq PO DAILY@0300 04/02/19 04/02/19 History Allergies Allergy/AdvReac Type Severity Reaction Status Date / Time acetaminophen [From Tylenol] Allergy Swelling Verified 04/02/19 17:12 amoxicillin Allergy Swelling Verified 04/02/19 17:12 aspirin Allergy Swelling Verified 04/02/19 17:12 codeine Allergy Anaphylaxis Verified 04/02/19 17:12 hydrocodone [From Vicodin] Allergy Anaphylaxis Verified 04/02/19 17:12 Penicillins Allergy Swelling Verified 04/02/19 17:12 sulfamethoxazole Allergy Swelling Verified 04/02/19 17:12 [From Bactrim] trimethoprim [From Bactrim] Allergy Swelling Verified 04/02/19 17:12 tramadol AdvReac DOES NOT Verified 04/02/19 17:12 WORK steroids Allergy Swelling Uncoded 04/02/19 16:00 Physical Exam Vitals: Vital Signs Temp Pulse Pulse Resp BP BP Pulse Ox 04/03/19 10:29 66 04/03/19 10:18 65 04/03/19 08:08 69 04/03/19 08:00 97.0 F L 69 20 89/50 95 04/03/19 07:50 66 94 L 04/03/19 04:00 97.7 F 75 20 101/55 98 04/03/19 01:45 73 18 109/61 93 L 04/02/19 19:00 78 26 H 87/72 94 L 04/02/19 18:30 80 21 95/58 98 04/02/19 18:26 75 18 04/02/19 18:14 79 20 04/02/19 18:00 79 16 88/52 95 04/02/19 17:49 80 20 88/49 98 04/02/19 17:30 78 8 L 99/79 97 04/02/19 17:00 87 22 103/67 96 04/02/19 16:39 89 L 04/02/19 15:56 99.5 F 91 88 H 77/49 89 L Intake and Output 04/02/19 04/03/19 04/03/19 22:59 06:59 14:59 Intake Total 120 Balance 120 Intake: Oral 120 Other: # Voids 1 # Bowel Movements 1 Weight 56.245 kg GENERAL EXAM: Alert, pleasant, 73-year-old white female patient on 3 L of oxygen, comfortable in no apparent distress. HEAD: Normocephalic/atraumatic. EYES: Normal reaction of pupils, equal size. Conjunctiva pink, sclera white. NOSE: Clear with pink turbinates. THROAT: No erythema or exudates. NECK: No masses, no JVD, no thyroid enlargement, no adenopathy. CHEST: No chest wall deformity. Symmetrical expansion. LUNGS: Equal air entry with diffuse rhonchi throughout the lung simon, and f remitus CVS: Regular rate and rhythm, normal S1 and S2, no gallops, no murmurs, no rubs ABDOMEN: Soft, nontender. No hepatosplenomegaly, normal bowel sounds, no guarding or rigidity. EXTREMITIES: No clubbing, no edema, no cyanosis, 2+ pulses and upper and lower extremities. MUSCULOSKELETAL: Muscle strength and tone normal. SPINE: No scoliosis or deformity SKIN: No rashes CENTRAL NERVOUS SYSTEM: Alert and oriented -3. No focal deficits, tone is normal in all 4 extremities. PSYCHIATRIC: Alert and oriented -3. Appropriate affect. Intact judgment and insight. Results - Laboratory Findings CBC and BMP: 04/02/19 17:53 04/02/19 17:53 PT/INR, D-dimer PT 10.4 sec (9.0-12.0) 04/02/19 17:53 INR 1.0 (<1.2) 04/02/19 17:53 D-Dimer 0.26 mg/L FEU (<0.60) 04/02/19 17:53 Abnormal lab findings: Abnormal Labs 04/02/19 04/02/19 04/03/19 17:53 17:53 08:00 RBC 3.32 L Hgb 10.4 L MCV 107.2 H MCHC 29.2 L Potassium 3.3 L Carbon Dioxide 36 H Calcium 8.1 L Magnesium 0.7 L* 1.4 L Total Protein 5.7 L Albumin 3.3 L - Diagnostic Findings Chest x-ray: report reviewed, image reviewed Additional studies: EKG reviewed Assessment and Plan Plan: Assessment: #1. Acute on chronic hypoxemic respiratory failure secondary to exacerbation of COPD, with tracheobronchitis #2. Squamous cell carcinoma of the left upper lobe, diagnosed in January 2019, and outpatient PET scan also showed increased uptake in the ascending colon, currently undergoing radiation treatments, last treatment was on 03/14/2019 #3. Advanced COPD stage IV, with baseline FEV1 of 0.86 L or 32% of predicted, and diffusion capacity of 17% #4. Weakness, shortness of breath, nausea, related to the above #5. Hypokalemia and hypomagnesemia #6. History of hypothyroidism #7. History of smoking, currently in remission #8. Gastric bypass in 1975 #9. History of bowel resection related to adhesions, with reversal #10. Chronic diarrhea #11. Chronic anemia Plan: Continue with current medical treatment, continue IV steroids, nebulized bronchodilators, we will add Levaquin, collect a sputum culture. The nausea has improved, patient states she is feeling hungry, she would like to eat, no episodes of vomiting, patient does have chest congestion, and wheezing, but no acute distress, she has been fluid resuscitated, encourage oral intake. Chest x-ray has been reviewed showing no clear evidence of pneumonia, we'll treat the patient for acute COPD exacerbation. I performed a history & physical examination of the patient and discussed their management with my nurse practitioner, Kandice Thomas. I reviewed the nurse practitioner's note and agree with the documented findings and plan of care. Lung sounds are positive for diffuse rhonchi. The findings and the impression was discussed with the patient. I attest to the documentation by the nurse practitioner. Time with Patient: Greater than 30
[2019-04-03] MEDS ORDERED: ALBUTEROL NEBULIZED 2.5 MG/3 ML INHALATION SCH (13:00)
[2019-04-03] MEDS: traMADol 50 MG TAB PO SCH ×2 (15:17→17:46)
[2019-04-03] MEDS: LEVOFLOXACIN 500MG-D5W PMX 500 MG in DEXTROSE/WATER 1 100ML.BAG IVPB SCH (15:30)
[2019-04-03] MEDS: ALBUTEROL NEBULIZED 2.5 MG/3 ML INHALATION PRN (20:54)
[2019-04-03] MEDS: FORMOTEROL FUMARATE 20 MCG/2 ML NEBU INHALATION SCH (21:01)
[2019-04-04] MEDS: methylPREDNISolone SOD SUCCI 40 MG/ML 1 ML VIAL IV SCH ×3 (00:17→20:33)
[2019-04-04] MEDS: traMADol 50 MG TAB PO SCH ×3 (00:17→10:03)
[2019-04-04] MEDS ORDERED: Magnesium Replacement Protocol 1 EACH MISC MISCELLANE PRN (01:30)
[2019-04-04] MEDS: MAGNESIUM SULFATE-D5W PMX 1 GM in DEXTROSE/WATER 1 100ML.BAG IVPB SCH ×2 (01:36→03:37)
[2019-04-04] MEDS ORDERED: ASCORBIC ACID 500 MG TAB PO SCH (03:00)
[2019-04-04] MEDS ORDERED: LEVOTHYROXINE 75 MCG TAB PO SCH (03:00)
[2019-04-04] MEDS ORDERED: FUROSEMIDE 20 MG TAB PO SCH (03:00)
[2019-04-04] MEDS ORDERED: NON FORMULARY DRUG (Biotin [Biotin] 5,000 MCG) PO SCH (03:00)
[2019-04-04] MEDS ORDERED: LEVOTHYROXINE 100 MCG TAB PO SCH (03:00)
[2019-04-04] MEDS: LEVOTHYROXINE 75 MCG TAB PO SCH (06:31)
[2019-04-04] MEDS: LEVOTHYROXINE 100 MCG TAB PO SCH (06:31)
[2019-04-04] MEDS: ALBUTEROL NEBULIZED 2.5 MG/3 ML INHALATION PRN (07:26)
[2019-04-04] MEDS: FORMOTEROL FUMARATE 20 MCG/2 ML NEBU INHALATION SCH ×2 (07:26→20:31)
[2019-04-04] MEDS: IPRATROPIUM-ALBUTEROL 3 ML NEB INHALATION SCH ×4 (07:26→20:27)
[2019-04-04 07:43] LABS: HCT 33.6 % (34.0-46.0); Hypochromasia Marked; MCHC 29.7 g/dL (31.0-37.0); Macrocytosis Marked; Mean Platelet Volume 6.4; Platelet Count 214 k/uL (150-450); RBC 3.03 m/uL (3.80-5.40); RDW 13.2 % (11.5-15.5); WBC 8.9 k/uL (3.8-10.6)
[2019-04-04 07:44] LABS: MCV 110.9 fL (80.0-100.0)
[2019-04-04 07:54] LABS: African American GFR (CKD) >90 (>60 ml/min/1.73 sqM); Anion Gap 3 mmol/L; Blood Urea Nitrogen 16 mg/dL (7-17); Calcium 7.5 mg/dL (8.4-10.2); Carbon Dioxide 35 mmol/L (22-30); Chloride 103 mmol/L (98-107); Glucose 84 mg/dL (74-99); Magnesium 2.4 mg/dL (1.6-2.3); Sodium 141 mmol/L (137-145)
[2019-04-04] MEDS ORDERED: CHOLECALCIFEROL 1,000 UNIT TAB PO SCH (09:00)
[2019-04-04] MEDS: ASCORBIC ACID 500 MG TAB PO SCH (10:00)
[2019-04-04] MEDS: FUROSEMIDE 20 MG TAB PO SCH (10:01)
[2019-04-04] MEDS ORDERED: ONDANSETRON 4 MG/2 ML VIAL IVP PRN (10:34)
[2019-04-04] MEDS: HYDROmorphone 0.5 MG/0.5 ML SYRINGE IVP PRN ×2 (11:07→18:04)
[2019-04-04 12:05] LABS: Glucose,Whole Blood 100 mg/dL (75-99)
[2019-04-04] MEDS: LEVOFLOXACIN 500MG-D5W PMX 500 MG in DEXTROSE/WATER 1 100ML.BAG IVPB SCH (12:10)
[2019-04-04] MEDS: INSULIN ASPART (NovoLOG) 100 UNIT/ML VIAL SQ SCH ×3 (12:27→20:38)
--- NOTE | 2019-04-04 12:43 | P.PN ---
Subjective Progress Note Date: 04/04/19 Principal diagnosis: This is a 73-year-old white female patient of Dr. Lopez, who also sees Dr. 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 Patient was not a surgical candidate, she did have a PET scan done in February 2019 which showed increased uptake in the left upper lobe as well as descending colon. Patient is currently undergoing radiation treatments with Dr. Naik, last treatment was on 03/14/2019. On 04/02/2019 patient came into the emergency department for evaluation of difficulty breathing, coughing, pain along the left lateral chest wall along the rib margin, radiating around to her sternum, he denied any fever or chills, patient states she had been nauseous, she has not been able to eat much, at times she feels like she has difficulty swallowing. She has been spitting up a lot of phlegm. She states she has diarrhea on the regular basis, related to her history of gastric bypass in 1975 which has not significantly changed. Chest x- ray in emergency departments showed small right pleural effusion, and mild plate atelectasis at the left base. Labs did not show signs of leukocytosis, white blood cell count of 9.2, hemoglobin is 10.4, d-dimer was 0.26, and aggressive correlation profile was within normal limits, potassium was found to be low at 3.3, and magnesium was at 0.7, renal profile was within normal limits with BUN of 15 and creatinine is 0.63. Troponin is negative 1, proBNP is 164. Patient has been afebrile, she is borderline hypotensive this morning, with a blood pressure of 89/50, but clinically is asymptomatic, she is currently on 3 L of oxygen with a pulse ox of 95%, she was hypoxemic with a pulse ox of 89 on presentation on her usual 3 L of oxygen. She has a congested cough, and physical examination reveals diffuse rhonchi throughout with fremitus. She has been started on IV steroids, we will add antibiotics, breathing treatments. On 04/04/2019 patient seen in follow-up on selective care unit. She is awake and alert, she states she is still coughing up some light colored green sputum, but denies any worsening shortness of breath, she still reports some nausea, but no vomiting, and she has been tolerating some oral intake. She has been having increased pain in her back, and lower abdomen, she has been receiving Tramadol, and IV Dilaudid. She has chronic diarrhea, which has not increased, she remains on supplemental oxygen, currently on 4 L, her pulse ox is 80-92%, she has been afebrile, she has been borderline IPO tensive last night, but clinically asymptomatic, this morning's blood pressures 142/53, no tachycardia. Appears to be fairly comfortable, occasional cough, she is on Levaquin for empiric antibiotic coverage, blood cultures are negative thus far, sputum culture has been collected and sent, pending at this time. Objective - Vital Signs Vital signs: Vital Signs Temp 98.2 F 04/04/19 08:30 Pulse 90 04/04/19 12:10 Resp 18 04/04/19 12:10 BP 142/53 04/04/19 12:10 Pulse Ox 88 L 04/04/19 12:10 Intake & Output 04/03/19 04/04/19 04/04/19 18:59 06:59 18:59 Intake Total 180 Output Total 700 500 Balance -700 -320 Weight 56.245 kg 57.6 kg Intake: Oral 180 Output: Urine 700 500 Other: Voiding Method Toilet # Voids 0 - Exam GENERAL EXAM: Alert, pleasant, 73-year-old white female patient on 4 L of oxygen, comfortable in no apparent distress. HEAD: Normocephalic/atraumatic. EYES: Normal reaction of pupils, equal size. Conjunctiva pink, sclera white. NOSE: Clear with pink turbinates. THROAT: No erythema or exudates. NECK: No masses, no JVD, no thyroid enlargement, no adenopathy. CHEST: No chest wall deformity. Symmetrical expansion. LUNGS: Equal air entry with diffuse rhonchi throughout the lung simon, and fremitus CVS: Regular rate and rhythm, normal S1 and S2, no gallops, no murmurs, no rubs ABDOMEN: Soft, nontender. No hepatosplenomegaly, normal bowel sounds, no guarding or rigidity. EXTREMITIES: No clubbing, no edema, no cyanosis, 2+ pulses and upper and lower extremities. MUSCULOSKELETAL: Muscle strength and tone normal. SPINE: No scoliosis or deformity SKIN: No rashes CENTRAL NERVOUS SYSTEM: Alert and oriented -3. No focal deficits, tone is normal in all 4 extremities. PSYCHIATRIC: Alert and oriented -3. Appropriate affect. Intact judgment and insight. - Labs CBC & Chem 7: 04/04/19 07:20 04/04/19 07:20 Labs: Abnormal Lab Results - Last 24 Hours (Table) 04/04/19 04/04/19 04/04/19 Range/Units 07:20 07:20 12:04 RBC 3.03 L (3.80-5.40) m/uL Hgb 10.0 L (11.4-16.0) gm/dL Hct 33.6 L (34.0-46.0) % MCV 110.9 H (80.0-100.0) fL MCHC 29.7 L (31.0-37.0) g/dL Macrocytosis Marked A Carbon Dioxide 35 H (22-30) mmol/L POC Glucose (mg/dL) 100 H (75-99) mg/dL Calcium 7.5 L (8.4-10.2) mg/dL Magnesium 2.4 H (1.6-2.3) mg/dL Microbiology - Last 24 Hours (Table) 04/02/19 17:53 Blood Culture - Preliminary Blood No Growth after 24 hours Assessment and Plan Plan: Assessment: #1. Acute on chronic hypoxemic respiratory failure secondary to exacerbation of COPD, with tracheobronchitis #2. Squamous cell carcinoma of the left upper lobe, diagnosed in January 2019, and outpatient PET scan also showed increased uptake in the ascending colon, currently undergoing radiation treatments, last treatment was on 03/14/2019 #3. Advanced COPD stage IV, with baseline FEV1 of 0.86 L or 32% of predicted, and diffusion capacity of 17% #4. Weakness, shortness of breath, nausea, related to the above #5. Hypokalemia and hypomagnesemia #6. History of hypothyroidism #7. History of smoking, currently in remission #8. Gastric bypass in 1975 #9. History of bowel resection related to adhesions, with reversal #10. Chronic diarrhea #11. Chronic anemia Plan: Continue with current medical treatment, continue IV steroids, antibiotics, breathing treatments. Sputum culture is pending, there has been no fever or chills, patient is tolerating oral intake, although she still has some nausea, we'll add Zofran. We'll continue to follow. I performed a history & physical examination of the patient and discussed their management with my nurse practitioner, Kandice Thomas. I reviewed the nurse practitioner's note and agree with the documented findings and plan of care. Lung sounds are positive for diffuse rhonchi. The findings and the impression was discussed with the patient. I attest to the documentation by the nurse practitioner. Time with Patient: Less than 30
--- NOTE | 2019-04-04 12:53 | P.PN ---
Subjective Patient resting in bed some improvement noted from admission. On potassium magnesium replaced had consultation with pulmonology. Awaiting for input from oncology Objective - Vital Signs Vital signs: Vital Signs Temp 98.2 F 04/04/19 08:30 Pulse 90 04/04/19 12:10 Resp 18 04/04/19 12:10 BP 142/53 04/04/19 12:10 Pulse Ox 88 L 04/04/19 12:10 Intake & Output 04/03/19 04/04/19 04/04/19 18:59 06:59 18:59 Intake Total 180 Output Total 700 500 Balance -700 -320 Weight 56.245 kg 57.6 kg Intake: Oral 180 Output: Urine 700 500 Other: Voiding Method Toilet # Voids 0 - Constitutional General appearance: Present: mild distress - EENT Eyes: Present: PERRLA Ears: bilateral: normal - Neck Neck: Present: normal ROM - Respiratory Respiratory: bilateral: rhonchi, wheezing - Gastrointestinal General gastrointestinal: Present: soft - Integumentary Integumentary: Present: normal - Neurologic Neurologic: Present: CNII-XII intact - Musculoskeletal Musculoskeletal: Present: generalized weakness - Psychiatric Psychiatric: Present: A&O x's 3, appropriate affect, intact judgment & insight - Labs CBC & Chem 7: 04/04/19 07:20 04/04/19 07:20 Labs: Abnormal Lab Results - Last 24 Hours (Table) 04/04/19 04/04/19 04/04/19 Range/Units 07:20 07:20 12:04 RBC 3.03 L (3.80-5.40) m/uL Hgb 10.0 L (11.4-16.0) gm/dL Hct 33.6 L (34.0-46.0) % MCV 110.9 H (80.0-100.0) fL MCHC 29.7 L (31.0-37.0) g/dL Macrocytosis Marked A Carbon Dioxide 35 H (22-30) mmol/L POC Glucose (mg/dL) 100 H (75-99) mg/dL Calcium 7.5 L (8.4-10.2) mg/dL Magnesium 2.4 H (1.6-2.3) mg/dL Microbiology - Last 24 Hours (Table) 04/02/19 17:53 Blood Culture - Preliminary Blood No Growth after 24 hours - Imaging and Cardiology Chest x-ray: report reviewed Assessment and Plan Plan: Assessment Acute on chronic hypoxic respiratory failure secondary to lung cancer COPD exacerbation And tracheobronchitis with pleural effusion Chronic 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
[2019-04-04 17:05] LABS: Glucose,Whole Blood 121 mg/dL (75-99)
[2019-04-04] MEDS: POTASSIUM CHLORIDE ER 20 MEQ TAB.ER PO SCH (18:05)
[2019-04-04 20:17] LABS: Glucose,Whole Blood 188 mg/dL (75-99)
[2019-04-04] MEDS: BUDESONIDE 1 MG/2 ML NEBU INHALATION SCH (20:27)
[2019-04-04] MEDS: ALPRAZolam 0.25 MG TAB PO PRN (21:38)
[2019-04-05] MEDS: HYDROmorphone 0.5 MG/0.5 ML SYRINGE IVP PRN ×4 (01:42→21:55)
[2019-04-05] MEDS: LEVOTHYROXINE 100 MCG TAB PO SCH (06:12)
[2019-04-05] MEDS: LEVOTHYROXINE 75 MCG TAB PO SCH (06:12)
[2019-04-05] MEDS: INSULIN ASPART (NovoLOG) 100 UNIT/ML VIAL SQ SCH ×4 (06:13→22:17)
[2019-04-05 06:17] LABS: Glucose,Whole Blood 125 mg/dL (75-99)
[2019-04-05] MEDS: IPRATROPIUM-ALBUTEROL 3 ML NEB INHALATION SCH ×4 (08:34→20:54)
[2019-04-05] MEDS: BUDESONIDE 1 MG/2 ML NEBU INHALATION SCH ×2 (08:34→20:51)
[2019-04-05] MEDS: FORMOTEROL FUMARATE 20 MCG/2 ML NEBU INHALATION SCH ×2 (08:34→20:54)
[2019-04-05] MEDS: POTASSIUM CHLORIDE ER 20 MEQ TAB.ER PO SCH (08:54)
[2019-04-05] MEDS: methylPREDNISolone SOD SUCCI 40 MG/ML 1 ML VIAL IV SCH ×2 (08:55→21:40)
[2019-04-05] MEDS: ASCORBIC ACID 500 MG TAB PO SCH (08:55)
[2019-04-05] MEDS: FUROSEMIDE 20 MG TAB PO SCH (08:55)
[2019-04-05] MEDS ORDERED: CYANOCOBALAMIN 1,000 MCG/ML 1 ML VIAL SQ SCH (09:00)
--- NOTE | 2019-04-05 11:21 | P.PN ---
Subjective Progress Note Date: 04/04/19 Principal diagnosis: COPD exacerbation The patient is a 73-year-old female with a history of oxygen dependent COPD presenting with a recently diagnosed stage IIA (cT2b, cN0, M0) 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 She underwent SBRT as definitive therapy finishing on 03/13/2019. The patient reports that she had no initial difficulty after radiotherapy. However, on April 02 she presented to the ER secondary to 2 days of increasing dyspnea and cough. She was admitted secondary to COPD exacerbation with tracheobronchitis. She notes her breathing has improved since her hospitalization, as she has been treated with steroids and bronchodilators. She does note having some left-sided chest wall pain that seems to originate in the axilla and radiating to the sternum. She does note that this is also been less severe since her hospital stay. Despite increased cough with sputum, the patient reports no hemoptysis. Objective - Vital Signs Vital signs: Vital Signs Temp 98.1 F 04/05/19 09:03 Pulse 75 04/05/19 09:03 Resp 20 04/05/19 09:03 BP 90/50 04/05/19 09:03 Pulse Ox 96 04/05/19 09:03 Intake & Output 04/04/19 04/05/19 04/05/19 18:59 06:59 18:59 Intake Total 402 600 Output Total 500 450 Balance -98 -450 600 Weight 58.6 kg Intake: Oral 402 600 Output: Urine 500 450 Other: Voiding Method Toilet Toilet Toilet # Voids 1 - Constitutional General appearance: Present: no acute distress - EENT Eyes: Present: EOMI, PERRLA Ears: bilateral: normal - Neck Neck: Absent: lymphadenopathy - Respiratory Respiratory: bilateral: diminished (non-focal exam) - Cardiovascular Rhythm: regular - Gastrointestinal General gastrointestinal: Absent: distended, tenderness - Integumentary Integumentary: Absent: calor, cellulitis - Neurologic Neurologic: Present: CNII-XII intact - Psychiatric Psychiatric: Present: A&O x's 3, appropriate affect - Labs CBC & Chem 7: 04/04/19 07:20 04/04/19 07:20 Labs: Abnormal Lab Results - Last 24 Hours (Table) 04/04/19 04/04/19 04/04/19 Range/Units 12:04 16:57 20:16 POC Glucose (mg/dL) 100 H 121 H 188 H (75-99) mg/dL 04/05/19 Range/Units 06:12 POC Glucose (mg/dL) 125 H (75-99) mg/dL Microbiology - Last 24 Hours (Table) 04/04/19 07:40 Gram Stain - Preliminary Sputum 04/02/19 17:53 Blood Culture - Preliminary Blood No Growth after 48 hours Assessment and Plan Plan: The patient is a 73-year-old female with a history of oxygen dependent COPD presenting with a recently diagnosed stage IIA (cT2b, cN0, M0) 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 She finished SBRT as definitive therapy on 03/13/19. She has subsequently been hospitalized secondary to COPD exacerbation. 1. COPD exacerbation: Continue medical management. Considering the patient finished radiation 3 weeks ago, highly doubt any component of radiation pneumonitis. Chest x-ray was unremarkable. If patient fails to clinically improve, would consider CT scan. 2. Left upper lobe neoplasm: The patient completed her definitive radiotherapy earlier this month. She'll return to our clinic in approximately 1 month, and will undergo an outpatient CT scan prior to that visit. Time with Patient: Less than 30
--- NOTE | 2019-04-05 11:47 | P.PN ---
Subjective Progress Note Date: 04/05/19 Principal diagnosis: This is a 73-year-old white female patient of Dr. Lopez, who also sees Dr. 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 Patient was not a surgical candidate, she did have a PET scan done in February 2019 which showed increased uptake in the left upper lobe as well as descending colon. Patient is currently undergoing radiation treatments with Dr. Naik, last treatment was on 03/14/2019. On 04/02/2019 patient came into the emergency department for evaluation of difficulty breathing, coughing, pain along the left lateral chest wall along the rib margin, radiating around to her sternum, he denied any fever or chills, patient states she had been nauseous, she has not been able to eat much, at times she feels like she has difficulty swallowing. She has been spitting up a lot of phlegm. She states she has diarrhea on the regular basis, related to her history of gastric bypass in 1975 which has not significantly changed. Chest x- ray in emergency departments showed small right pleural effusion, and mild plate atelectasis at the left base. Labs did not show signs of leukocytosis, white blood cell count of 9.2, hemoglobin is 10.4, d-dimer was 0.26, and aggressive correlation profile was within normal limits, potassium was found to be low at 3.3, and magnesium was at 0.7, renal profile was within normal limits with BUN of 15 and creatinine is 0.63. Troponin is negative 1, proBNP is 164. Patient has been afebrile, she is borderline hypotensive this morning, with a blood pressure of 89/50, but clinically is asymptomatic, she is currently on 3 L of oxygen with a pulse ox of 95%, she was hypoxemic with a pulse ox of 89 on presentation on her usual 3 L of oxygen. She has a congested cough, and physical examination reveals diffuse rhonchi throughout with fremitus. She has been started on IV steroids, we will add antibiotics, breathing treatments. On 04/04/2019 patient seen in follow-up on selective care unit. She is awake and alert, she states she is still coughing up some light colored green sputum, but denies any worsening shortness of breath, she still reports some nausea, but no vomiting, and she has been tolerating some oral intake. She has been having increased pain in her back, and lower abdomen, she has been receiving Tramadol, and IV Dilaudid. She has chronic diarrhea, which has not increased, she remains on supplemental oxygen, currently on 4 L, her pulse ox is 80-92%, she has been afebrile, she has been borderline IPO tensive last night, but clinically asymptomatic, this morning's blood pressures 142/53, no tachycardia. Appears to be fairly comfortable, occasional cough, she is on Levaquin for empiric antibiotic coverage, blood cultures are negative thus far, sputum culture has been collected and sent, pending at this time. On 04/05/2019 patient seen in follow-up on selective care unit. She appears to be more short of breath and bronchospastic on today's exam, but she states her nausea has improved, and there has been no further vomiting, she is tolerating oral intake, she is reluctant to take any steroids, currently she is on Solu-Medrol 40 mg every 12 hours, however she becomes quite agitated if increase in dose is suggested. She is concerned about her blood sugars being elevated although her blood sugars have been running in the range of 100-125, and there has been one sugar 188, and she has required intermittent coverage with insulin. She also states it gives her anxiety, and she feels like her "skin crawling" when she is on steroids, we will continue with nebulized bronchodilators, lung sounds positive for diffuse wheezes. She is afebrile, she remains on 3 L of oxygen with a pulse ox of 96%, she reports no hemoptysis. Her left-sided chest wall pain has significantly improved since admission. Objective - Vital Signs Vital signs: Vital Signs Temp 98.1 F 04/05/19 09:03 Pulse 75 04/05/19 09:03 Resp 20 04/05/19 09:03 BP 90/50 04/05/19 09:03 Pulse Ox 96 04/05/19 09:03 Intake & Output 04/04/19 04/05/19 04/05/19 18:59 06:59 18:59 Intake Total 402 600 Output Total 500 450 Balance -98 -450 600 Weight 58.6 kg Intake: Oral 402 600 Output: Urine 500 450 Other: Voiding Method Toilet Toilet Toilet # Voids 1 - Exam GENERAL EXAM: Alert, pleasant, 73-year-old white female patient on 4 L of oxygen, comfortable in no apparent distress. HEAD: Normocephalic/atraumatic. EYES: Normal reaction of pupils, equal size. Conjunctiva pink, sclera white. NOSE: Clear with pink turbinates. THROAT: No erythema or exudates. NECK: No masses, no JVD, no thyroid enlargement, no adenopathy. CHEST: No chest wall deformity. Symmetrical expansion. LUNGS: Equal air entry with diffuse wheezes and rhonchi throughout the lung simon CVS: Regular rate and rhythm, normal S1 and S2, no gallops, no murmurs, no rubs ABDOMEN: Soft, nontender. No hepatosplenomegaly, normal bowel sounds, no guarding or rigidity. EXTREMITIES: No clubbing, no edema, no cyanosis, 2+ pulses and upper and lower extremities. MUSCULOSKELETAL: Muscle strength and tone normal. SPINE: No scoliosis or deformity SKIN: No rashes CENTRAL NERVOUS SYSTEM: Alert and oriented -3. No focal deficits, tone is normal in all 4 extremities. PSYCHIATRIC: Alert and oriented -3. Appropriate affect. Intact judgment and insight. - Labs CBC & Chem 7: 04/04/19 07:20 04/04/19 07:20 Labs: Abnormal Lab Results - Last 24 Hours (Table) 04/04/19 04/04/19 04/04/19 Range/Units 12:04 16:57 20:16 POC Glucose (mg/dL) 100 H 121 H 188 H (75-99) mg/dL 04/05/19 Range/Units 06:12 POC Glucose (mg/dL) 125 H (75-99) mg/dL Microbiology - Last 24 Hours (Table) 04/04/19 07:40 Gram Stain - Preliminary Sputum 04/02/19 17:53 Blood Culture - Preliminary Blood No Growth after 48 hours Assessment and Plan Plan: Assessment: #1. Acute on chronic hypoxemic respiratory failure secondary to exacerbation of COPD, with tracheobronchitis #2. Squamous cell carcinoma of the left upper lobe, diagnosed in January 2019, and outpatient PET scan also showed increased uptake in the ascending colon, currently undergoing radiation treatments, last treatment was on 03/14/2019 #3. Advanced COPD stage IV, with baseline FEV1 of 0.86 L or 32% of predicted, and diffusion capacity of 17% #4. Weakness, shortness of breath, nausea, related to the above #5. Hypokalemia and hypomagnesemia #6. History of hypothyroidism #7. History of smoking, currently in remission #8. Gastric bypass in 1975 #9. History of bowel resection related to adhesions, with reversal #10. Chronic diarrhea #11. Chronic anemia Plan: We'll continue current medical treatment, patient more dyspneic and wheezy on today's exam, however she is quite resistant to steroid dose increase, will continue current dose of steroids, continue with nebulized bronchodilators, and antibiotics. Cultures have been negative thus far, no fever or chills, left- sided chest wall pain seems to have improved, and her nausea has improved I performed a history & physical examination of the patient and discussed their management with my nurse practitioner, Kandice Thomas. I reviewed the nurse practitioner's note and agree with the documented findings and plan of care. Lung sounds are positive for diffuse rhonchi. The findings and the impression was discussed with the patient. I attest to the documentation by the nurse practitioner. Time with Patient: Less than 30
[2019-04-05 12:10] LABS: Glucose,Whole Blood 101 mg/dL (75-99)
--- NOTE | 2019-04-05 12:17 | P.PN ---
Subjective Patient was evaluated with pulmonology and oncology. Oncology will follow-up with CAT scan of chest in 2 weeks. Continues treatment with pulmonology. Patient is chronic user of tobacco offered nicotine patch patient declined Objective - Vital Signs Vital signs: Vital Signs Temp 98.1 F 04/05/19 09:03 Pulse 78 04/05/19 12:11 Resp 20 04/05/19 09:03 BP 90/50 04/05/19 09:03 Pulse Ox 96 04/05/19 09:03 Intake & Output 04/04/19 04/05/19 04/05/19 18:59 06:59 18:59 Intake Total 402 600 Output Total 500 450 Balance -98 -450 600 Weight 58.6 kg Intake: Oral 402 600 Output: Urine 500 450 Other: Voiding Method Toilet Toilet Toilet # Voids 1 4 - Constitutional General appearance: Present: mild distress - EENT Eyes: Present: PERRLA Ears: bilateral: normal - Neck Neck: Present: normal ROM - Respiratory Respiratory: bilateral: rhonchi - Cardiovascular Rhythm: regular Abnormal Heart Sounds: Present: systolic murmur - Gastrointestinal General gastrointestinal: Present: soft - Integumentary Integumentary: Present: normal - Neurologic Neurologic: Present: CNII-XII intact - Musculoskeletal Musculoskeletal: Present: gait normal - Psychiatric Psychiatric: Present: A&O x's 3, appropriate affect, intact judgment & insight - Labs CBC & Chem 7: 04/04/19 07:20 04/04/19 07:20 Labs: Abnormal Lab Results - Last 24 Hours (Table) 04/04/19 04/04/19 04/05/19 Range/Units 16:57 20:16 06:12 POC Glucose (mg/dL) 121 H 188 H 125 H (75-99) mg/dL 04/05/19 Range/Units 11:50 POC Glucose (mg/dL) 101 H (75-99) mg/dL Microbiology - Last 24 Hours (Table) 04/04/19 07:40 Gram Stain - Preliminary Sputum 04/02/19 17:53 Blood Culture - Preliminary Blood No Growth after 48 hours Assessment and Plan Plan: Assessment Tracheobronchitis with pleural effusion Lung cancer squamous cell carcinoma recent radiation History of bariatric surgery 1976 with dumping syndrome chronic diarrhea Acute on chronic hypoxic respiratory failure secondary to COPD exacerbation Nicotine use Hypo-magnesium corrected hypokalemia corrected Plan Continue consultation with pulmonology Patient will follow-up with oncology as scheduled
[2019-04-05] MEDS: LEVOFLOXACIN 500 MG TAB PO SCH (13:24)
[2019-04-05 13:50] VITALS: BMI 19.6
[2019-04-05] MEDS ORDERED: methylPREDNISolone SOD SUCCI 125 MG/2 ML VIAL IV SCH (16:00)
[2019-04-05 17:09] LABS: Glucose,Whole Blood 136 mg/dL (75-99)
[2019-04-05] MEDS: ALPRAZolam 0.25 MG TAB PO PRN (19:58)
[2019-04-05 20:37] LABS: Glucose,Whole Blood 130 mg/dL (75-99)
[2019-04-06 06:12] LABS: Glucose,Whole Blood 125 mg/dL (75-99)
[2019-04-06] MEDS: LEVOTHYROXINE 75 MCG TAB PO SCH (06:17)
[2019-04-06] MEDS: HYDROmorphone 0.5 MG/0.5 ML SYRINGE IVP PRN ×3 (06:17→18:20)
[2019-04-06] MEDS: LEVOTHYROXINE 100 MCG TAB PO SCH (06:17)
[2019-04-06] MEDS: INSULIN ASPART (NovoLOG) 100 UNIT/ML VIAL SQ SCH ×3 (06:54→18:19)
[2019-04-06 07:35] LABS: HCT 31.8 % (34.0-46.0); HGB 9.3 gm/dL (11.4-16.0); Hypochromasia Marked; MCH 32.6 pg (25.0-35.0); MCHC 29.4 g/dL (31.0-37.0); MCV 111.1 fL (80.0-100.0); Macrocytosis Marked; Mean Platelet Volume 6.1; Platelet Count 241 k/uL (150-450); RBC 2.86 m/uL (3.80-5.40)
[2019-04-06 07:46] LABS: African American GFR (CKD) >90 (>60 ml/min/1.73 sqM); Anion Gap 6 mmol/L; Blood Urea Nitrogen 23 mg/dL (7-17); Calcium 8.1 mg/dL (8.4-10.2); Carbon Dioxide 29 mmol/L (22-30); Chloride 106 mmol/L (98-107); Glucose 108 mg/dL (74-99); Magnesium 1.7 mg/dL (1.6-2.3); Potassium 4.8 mmol/L (3.5-5.1); Sodium 141 mmol/L (137-145)
[2019-04-06] MEDS: POTASSIUM CHLORIDE ER 20 MEQ TAB.ER PO SCH (07:53)
[2019-04-06] MEDS: ASCORBIC ACID 500 MG TAB PO SCH (07:53)
[2019-04-06] MEDS: FUROSEMIDE 20 MG TAB PO SCH (07:53)
[2019-04-06] MEDS: methylPREDNISolone SOD SUCCI 40 MG/ML 1 ML VIAL IV SCH (07:53)
[2019-04-06] MEDS: IPRATROPIUM-ALBUTEROL 3 ML NEB INHALATION SCH ×3 (08:53→15:49)
[2019-04-06] MEDS: FORMOTEROL FUMARATE 20 MCG/2 ML NEBU INHALATION SCH ×2 (09:10→19:12)
[2019-04-06] MEDS: BUDESONIDE 1 MG/2 ML NEBU INHALATION SCH (09:10)
[2019-04-06 11:47] LABS: Glucose,Whole Blood 122 mg/dL (75-99)
[2019-04-06] MEDS: LEVOFLOXACIN 500 MG TAB PO SCH (11:57)
[2019-04-06 12:26] VITALS: BP 123/60; RESP 20; TEMP 97.8
--- NOTE | 2019-04-06 12:34 | P.PN ---
Subjective Progress Note Date: 04/06/19 Principal diagnosis: This is a 73-year-old white female patient of Dr. Lopez, who also sees Dr. 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 Patient was not a surgical candidate, she did have a PET scan done in February 2019 which showed increased uptake in the left upper lobe as well as descending colon. Patient is currently undergoing radiation treatments with Dr. Naik, last treatment was on 03/14/2019. On 04/02/2019 patient came into the emergency department for evaluation of difficulty breathing, coughing, pain along the left lateral chest wall along the rib margin, radiating around to her sternum, he denied any fever or chills, patient states she had been nauseous, she has not been able to eat much, at times she feels like she has difficulty swallowing. She has been spitting up a lot of phlegm. She states she has diarrhea on the regular basis, related to her history of gastric bypass in 1975 which has not significantly changed. Chest x- ray in emergency departments showed small right pleural effusion, and mild plate atelectasis at the left base. Labs did not show signs of leukocytosis, white blood cell count of 9.2, hemoglobin is 10.4, d-dimer was 0.26, and aggressive correlation profile was within normal limits, potassium was found to be low at 3.3, and magnesium was at 0.7, renal profile was within normal limits with BUN of 15 and creatinine is 0.63. Troponin is negative 1, proBNP is 164. Patient has been afebrile, she is borderline hypotensive this morning, with a blood pressure of 89/50, but clinically is asymptomatic, she is currently on 3 L of oxygen with a pulse ox of 95%, she was hypoxemic with a pulse ox of 89 on presentation on her usual 3 L of oxygen. She has a congested cough, and physical examination reveals diffuse rhonchi throughout with fremitus. She has been started on IV steroids, we will add antibiotics, breathing treatments. On 04/04/2019 patient seen in follow-up on selective care unit. She is awake and alert, she states she is still coughing up some light colored green sputum, but denies any worsening shortness of breath, she still reports some nausea, but no vomiting, and she has been tolerating some oral intake. She has been having increased pain in her back, and lower abdomen, she has been receiving Tramadol, and IV Dilaudid. She has chronic diarrhea, which has not increased, she remains on supplemental oxygen, currently on 4 L, her pulse ox is 80-92%, she has been afebrile, she has been borderline IPO tensive last night, but clinically asymptomatic, this morning's blood pressures 142/53, no tachycardia. Appears to be fairly comfortable, occasional cough, she is on Levaquin for empiric antibiotic coverage, blood cultures are negative thus far, sputum culture has been collected and sent, pending at this time. On 04/05/2019 patient seen in follow-up on selective care unit. She appears to be more short of breath and bronchospastic on today's exam, but she states her nausea has improved, and there has been no further vomiting, she is tolerating oral intake, she is reluctant to take any steroids, currently she is on Solu-Medrol 40 mg every 12 hours, however she becomes quite agitated if increase in dose is suggested. She is concerned about her blood sugars being elevated although her blood sugars have been running in the range of 100-125, and there has been one sugar 188, and she has required intermittent coverage with insulin. She also states it gives her anxiety, and she feels like her "skin crawling" when she is on steroids, we will continue with nebulized bronchodilators, lung sounds positive for diffuse wheezes. She is afebrile, she remains on 3 L of oxygen with a pulse ox of 96%, she reports no hemoptysis. Her left-sided chest wall pain has significantly improved since admission. On 04/06/2019 patient seen in follow-up on selective care unit, she is up on the couch, she remains on 3 L of oxygen with a pulse ox of 94%, she is afebrile, hemodynamically stable, denies any nausea or vomiting, she states last night she had increased pain in her left chest similar to the pain that brought her in, and he was extending across the sternum, and was worse with inspiration. Patient remains on IV Dilaudid for pain control, nebulized bronchodilators and empiric antibiotics, she has been very reluctant to take IV steroids, she is convinced that the steroids are causing her to itch, overall she sounds last bronchospastic, and we will reduce the current dose to 40 mg once daily, and patient can probably discharge home on Medrol Dosepak if she is willing to take it. No hemoptysis, occasional cough, with some sputum production, sputum and blood cultures have shown no growth so far. No fever or chills. His blood work has been reviewed, white blood cell count is 9.0, hemoglobin is 9.3, electrolytes are within normal limits, B1 is 23 creatinine 0.64 Objective - Vital Signs Vital signs: Vital Signs Temp 97.8 F 04/06/19 12:00 Pulse 84 04/06/19 12:19 Resp 20 04/06/19 12:00 BP 123/60 04/06/19 12:00 Pulse Ox 94 L 04/06/19 12:00 Intake & Output 04/05/19 04/06/19 04/06/19 18:59 06:59 18:59 Intake Total 1200 240 480 Balance 1200 240 480 Weight 58.6 kg 60 kg Intake: Oral 1200 240 480 Other: Voiding Method Toilet Toilet Toilet # Voids 4 2 1 - Exam GENERAL EXAM: Alert, pleasant, 73-year-old white female patient on 3 L of oxygen, comfortable in no apparent distress. HEAD: Normocephalic/atraumatic. EYES: Normal reaction of pupils, equal size. Conjunctiva pink, sclera white. NOSE: Clear with pink turbinates. THROAT: No erythema or exudates. NECK: No masses, no JVD, no thyroid enlargement, no adenopathy. CHEST: No chest wall deformity. Symmetrical expansion. LUNGS: Equal air entry with scattered wheezes bilaterally, no rales, no rhonchi CVS: Regular rate and rhythm, normal S1 and S2, no gallops, no murmurs, no rubs ABDOMEN: Soft, nontender. No hepatosplenomegaly, normal bowel sounds, no guarding or rigidity. EXTREMITIES: No clubbing, no edema, no cyanosis, 2+ pulses and upper and lower extremities. MUSCULOSKELETAL: Muscle strength and tone normal. SPINE: No scoliosis or deformity SKIN: No rashes CENTRAL NERVOUS SYSTEM: Alert and oriented -3. No focal deficits, tone is normal in all 4 extremities. PSYCHIATRIC: Alert and oriented -3. Appropriate affect. Intact judgment and insight. - Labs CBC & Chem 7: 04/06/19 06:53 04/06/19 06:53 Labs: Abnormal Lab Results - Last 24 Hours (Table) 04/05/19 04/05/19 04/06/19 Range/Units 17:05 20:36 06:11 RBC (3.80-5.40) m/uL Hgb (11.4-16.0) gm/dL Hct (34.0-46.0) % MCV (80.0-100.0) fL MCHC (31.0-37.0) g/dL Macrocytosis BUN (7-17) mg/dL Glucose (74-99) mg/dL POC Glucose (mg/dL) 136 H 130 H 125 H (75-99) mg/dL Calcium (8.4-10.2) mg/dL 04/06/19 04/06/19 04/06/19 Range/Units 06:53 06:53 11:42 RBC 2.86 L (3.80-5.40) m/uL Hgb 9.3 L (11.4-16.0) gm/dL Hct 31.8 L (34.0-46.0) % MCV 111.1 H (80.0-100.0) fL MCHC 29.4 L (31.0-37.0) g/dL Macrocytosis Marked A BUN 23 H (7-17) mg/dL Glucose 108 H (74-99) mg/dL POC Glucose (mg/dL) 122 H (75-99) mg/dL Calcium 8.1 L (8.4-10.2) mg/dL Microbiology - Last 24 Hours (Table) 04/04/19 07:40 Gram Stain - Final Sputum Sputum Culture - Final 04/02/19 17:53 Blood Culture - Preliminary Blood No Growth after 72 hours Assessment and Plan Plan: Assessment: #1. Acute on chronic hypoxemic respiratory failure secondary to exacerbation of COPD, with tracheobronchitis #2. Squamous cell carcinoma of the left upper lobe, diagnosed in January 2019, and outpatient PET scan also showed increased uptake in the ascending colon, currently undergoing radiation treatments, last treatment was on 03/14/2019 #3. Advanced COPD stage IV, with baseline FEV1 of 0.86 L or 32% of predicted, and diffusion capacity of 17% #4. Weakness, shortness of breath, nausea, related to the above #5. Hypokalemia and hypomagnesemia #6. History of hypothyroidism #7. History of smoking, currently in remission #8. Gastric bypass in 1975 #9. History of bowel resection related to adhesions, with reversal #10. Chronic diarrhea #11. Chronic anemia Plan: From pulmonary perspective patient could be considered for discharge home today on Medrol Dosepak if she is willing to take it, if she remains inpatient she can continue on 40 mg of Solu-Medrol daily, continue with nebulized bronchodilators, and antibiotics, sputum blood cultures have shown no growth, no fever or chills, patient reports an episode of increased left chest wall discomfort similar to the one that brought her in to the hospital, she remains on IV pain medications for pain control. No hemoptysis, overall she sounds last bronchospastic on today's exam. I performed a history & physical examination of the patient and discussed their management with my nurse practitioner, Kandice Thomas. I reviewed the nurse practitioner's note and agree with the documented findings and plan of care. Lung sounds are positive for diffuse rhonchi. The findings and the impression was discussed with the patient. I attest to the documentation by the nurse practitioner. Time with Patient: Less than 30
[2019-04-06] MEDS: ALPRAZolam 0.25 MG TAB PO PRN (15:11)
[2019-04-06 15:52] VITALS: PULSE 77
[2019-04-06 17:01] LABS: Glucose,Whole Blood 121 mg/dL (75-99)
[2019-04-06] MEDS ORDERED: FORMOTEROL FUMARATE 20 MCG/2 ML NEBU INHALATION SCH (20:00)
[2019-04-07] MEDS ORDERED: methylPREDNISolone SOD SUCCI 40 MG/ML 1 ML VIAL IV SCH (09:00)
--- NOTE | 2019-04-15 23:04 | P.DS ---
Providers Date of admission: 04/02/19 20:39 Expected date of discharge: 04/06/19 Attending physician: Adryan Lopez Consults: 04/02/19 20:36 Consult Physician Routine Consulting Provider: Sean Obrien Consult Reason/Comments: COPD, lung cancer Do you want consulting provider notified?: Yes 04/03/19 11:30 Consult Physician Urgent Consulting Provider: Arvind Naik Consult Reason/Comments: lung mass Do you want consulting provider notified?: Yes Primary care physician: Adryan Lopez Hospital Course: Acute on chronic hypoxemic respiratory failure secondary to exacerbation of COPD Tracheobronchitis with pleural effusion Lung cancer squamous cell carcinoma recent radiation History of bariatric surgery 1975 with dumping syndrome chronic diarrhea Acute on chronic hypoxic respiratory failure secondary to COPD exacerbation Nicotine use Hypo-magnesium corrected hypokalemia corrected This is a 73-year-old white female patient of Dr. Lopez, who also sees Dr. 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 Patient was not a surgical candidate, she did have a PET scan done in February 2019 which showed increased uptake in the left upper lobe as well as descending colon. Patient is currently undergoing radiation treatments with Dr. Naik, last treatment was on 03/14/2019. On 04/06/2019 Patient is currently saturating well on nasal cannula oxygen. Currently being continued on IV Dilaudid for pain management. Currently on bronchodilators and empiric antibiotics. Patient does have cough without sputum production. Cultures have been negative so far. Patient was seen by pulmonary and is currently at baseline clinical status. Patient wants to be discharged home. - Vital Signs Vital signs: Vital Signs Temp 97.8 F 04/06/19 12:00 Pulse 84 04/06/19 12:19 Resp 20 04/06/19 12:00 BP 123/60 04/06/19 12:00 Pulse Ox 94 L 04/06/19 12:00 Intake & Output 04/05/19 04/06/19 04/06/19 18:59 06:59 18:59 Intake Total 1200 240 480 Balance 1200 240 480 Weight 58.6 kg 60 kg Intake: Oral 1200 240 480 Other: Voiding Method Toilet Toilet Toilet # Voids 4 2 1 - Constitutional General appearance: Present: mild distress - EENT Eyes: Present: PERRLA Ears: bilateral: normal - Neck Neck: Present: normal ROM - Respiratory Respiratory: bilateral: rhonchi, slow air entry - Cardiovascular Rhythm: regular Abnormal Heart Sounds: Present: systolic murmur - Gastrointestinal General gastrointestinal: Present: soft - Integumentary Integumentary: Present: normal - Neurologic Neurologic: Present: CNII-XII intact - Musculoskeletal Musculoskeletal: Present: gait normal - Psychiatric Psychiatric: Present: A&O x's 3, appropriate affect, intact judgment & insight time taken>35min Patient Condition at Discharge: Fair Plan - Discharge Summary New Discharge Prescriptions: New Nicotine 21Mg/24Hr Patch [Habitrol] 1 each TRANSDERM DAILY #30 patch methylPREDNISolone Dose Pack [Medrol Dose Pack] 4 mg PO DIRECTED #21 package Continue Levothyroxine Sodium [Synthroid] 175 mcg PO DAILY@0300 Furosemide [Lasix] 20 mg PO DAILY@0300 Biotin 5,000 mcg PO DAILY@0300 Albuterol Nebulized [Ventolin Nebulized] 2.5 mg INHALATION RT-TID Albuterol Inhaler [Ventolin Hfa Inhaler] 2 puff INHALATION RT-Q4H PRN PRN Reason: Shortness Of Breath diphenhydrAMINE [Benadryl] 50 mg PO DAILY@0300 Cyanocobalamin [Vitamin B-12 Injection] 1,000 mcg SQ TH Glycopyrrolate/Formoterol Fum [Bevespi Aerosphere Inhaler] 2 puff INHALATION RT-BID@0500,1700 Ascorbic Acid [Vitamin C with Tarsha Hips] 500 mg PO DAILY@0300 Cholecalciferol (Vitamin D3) [Vitamin D3] 6,000 unit PO WE Potassium Chloride [Klor-Con 20] 20 meq PO DAILY@0300 Discharge Medication List Albuterol Inhaler [Ventolin Hfa Inhaler] 2 puff INHALATION RT-Q4H PRN 11/13/16 [History] Albuterol Nebulized [Ventolin Nebulized] 2.5 mg INHALATION RT-TID 11/13/16 [History] Biotin 5,000 mcg PO DAILY@0300 11/13/16 [History] Furosemide [Lasix] 20 mg PO DAILY@29911/13/16 [History] Levothyroxine Sodium [Synthroid] 175 mcg PO DAILY@29911/13/16 [History] Cyanocobalamin [Vitamin B-12 Injection] 1,000 mcg SQ TH 08/10/17 [History] Glycopyrrolate/Formoterol Fum [Bevespi Aerosphere Inhaler] 2 puff INHALATION RT- BID@0500,1700 08/10/17 [History] diphenhydrAMINE [Benadryl] 50 mg PO DAILY@29908/10/17 [History] Ascorbic Acid [Vitamin C with Tarsha Hips] 500 mg PO DAILY@29904/02/19 [History] Cholecalciferol (Vitamin D3) [Vitamin D3] 6,000 unit PO WE 04/02/19 [History] Potassium Chloride [Klor-Con 20] 20 meq PO DAILY@29904/02/19 [History] Nicotine 21Mg/24Hr Patch [Habitrol] 1 each TRANSDERM DAILY #30 patch 04/06/19 [Rx] methylPREDNISolone Dose Pack [Medrol Dose Pack] 4 mg PO DIRECTED #21 package 04/06/19 [Rx] Follow up Appointment(s)/Referral(s): Adryan Lopez MD [Primary Care Provider] - 04/13/19 11:30 am (Tuesday) Narda Nava MD [STAFF PHYSICIAN] - 1 Week (Office is closed. Please call to schedule appointment) Arvind Naik MD [STAFF PHYSICIAN] - 1 Week (CT Scan of Chest ordered for Thursday, May 09, 2019 at [facility] ARRIVAL Time is at 10:45am for Lab work and TEST Time is 12noon. Follow up Appt with Dr Naik is Thursday, May 16, 2019 at 11am) Patient Instructions/Handouts: COPD (Chronic Obstructive Pulmonary Disease) (DC) Activity/Diet/Wound Care/Special Instructions: CT Scan of Chest ordered for Thursday, May 09, 2019 at [facility]. Arrival time is 10:45am for blood work and Test time is 12noon Discharge Disposition: HOME SELF-CARE
== END 2019-04-06 19:22 | disposition home or self-care (01) | DRG 190 ==
LOC: EC 15:43 → 3SCARD 20:39
PROVIDERS: ADMIT Family Medicine; ATTEND Family Medicine
DX: J44.0 Chronic obstructive pulmonary disease with (acute) lower respiratory infection (principal); J96.21 Acute and chronic respiratory failure with hypoxia; C34.90 Malignant neoplasm of unspecified part of unspecified bronchus or lung; J20.9 Acute bronchitis, unspecified; J44.1 Chronic obstructive pulmonary disease with (acute) exacerbation; D64.9 Anemia, unspecified; E03.9 Hypothyroidism, unspecified; E83.42 Hypomagnesemia; E87.6 Hypokalemia; F17.200 Nicotine dependence, unspecified, uncomplicated; F41.9 Anxiety disorder, unspecified; K91.1 Postgastric surgery syndromes; N28.9 Disorder of kidney and ureter, unspecified; Z79.890 Hormone replacement therapy; Z79.899 Other long term (current) drug therapy; Z85.118 Personal history of other malignant neoplasm of bronchus and lung; Z87.442 Personal history of urinary calculi; Z90.49 Acquired absence of other specified parts of digestive tract; Z90.710 Acquired absence of both cervix and uterus; Z92.3 Personal history of irradiation; Z98.84 Bariatric surgery status; Z99.81 Dependence on supplemental oxygen; Z88.6 Allergy status to analgesic agent; Z88.5 Allergy status to narcotic agent; Z88.0 Allergy status to penicillin; Z88.2 Allergy status to sulfonamides; Z88.8 Allergy status to other drugs, medicaments and biological substances
CPT/HCPCS: 36415; 71046; 80048; 80053; 83735; 83880; 84484; 85025; 85027; 85379; 85610; 85730; 87040; 87070; 87205; 93005; 94640; 94760; 96365; 96366; 96368; 96375; 96376; 99285

== ENCOUNTER → 2019-05-22 | Outpatient (CLI) | payer MEDICARE, OTHER ==
[2019-05-22 16:24] LABS: African American GFR (CKD) >90 (>60 ml/min/1.73 sqM); Blood Urea Nitrogen 24 mg/dL (7-17); Non-African American GFR(CKD) 81 (>60 ml/min/1.73 sqM)
--- NOTE | 2019-05-22 21:40 | CT ---
EXAMINATION TYPE: CT chest wo/w con DATE OF EXAM: 05/22/2019 COMPARISON: January 24, 2019, PET/CT 02/10/2019 HISTORY: COPD, f/u lung ca CT DLP: 728 mGycm Automated exposure control for dose reduction was used. CONTRAST: CT scan of the chest is performed with IV Contrast, patient injected with 100 mL of Isovue 300. FINDINGS: LUNGS: Previously noted left upper lobe mass is much smaller in size on the current study with soft t issue currently noted to be pleural-based and measures 2.1 x 1.0 cm versus prior measurement of 2.8 x 2.1 x 4.7 cm. No new masses are identified. No new nodules are seen. Hyperinflation compatible with COPD. Scattered subpleural fibrosis noted within both lung simon. MEDIASTINUM: There are no greater than 1 cm hilar or mediastinal lymph nodes. No pericardial effusi on is seen. Thoracic aorta is of normal caliber. The heart is not enlarged. UPPER ABDOMEN: Partially imaged left-sided nephrolithiasis. Cholecystectomy clips in place. OTHER: No additional significant abnormality is seen. IMPRESSION: 1. Previously noted left upper lobe mass is significantly smaller in size with small area of pleural- based soft tissue noted currently measuring 2.1 x 1.0 cm whereas previous mass measured 2.8 x 2.1 x 4 .7 cm. 2. COPD with underlying subpleural fibrosis and emphysematous changes.
== END | disposition home or self-care (01) ==
LOC: RADCTMAIN 15:40
PROVIDERS: ATTEND Radiology Radiation Oncology
DX: J43.9 Emphysema, unspecified (principal); J94.1 Fibrothorax; C34.12 Malignant neoplasm of upper lobe, left bronchus or lung; F17.210 Nicotine dependence, cigarettes, uncomplicated
CPT/HCPCS: 82565; 84520; 71270; 36415; Q9967

== ENCOUNTER 2019-11-15 12:35 | Inpatient (IN) | payer MEDICARE, OTHER ==
--- NOTE | 2019-11-15 14:08 | XR ---
EXAMINATION TYPE: XR chest 2V DATE OF EXAM: 11/15/2019 COMPARISON: 04/02/2019 TECHNIQUE: PA and lateral views submitted. HISTORY: Difficulty breathing FINDINGS: The lungs are clear and there is no pneumothorax, pleural effusion, or focal pneumonia. Hyperinflat ion noted. There is coarsened interstitium suggestive of chronic interstitial lung disease. There is a large mass in the left hilum. Measures 5.3 cm. Surgical clips in the abdomen noted. Correlate for c hronic interstitial lung disease. IMPRESSION: 1. Large left hilar mass measuring 5.3 cm. 2. COPD correlate for chronic interstitial lung disease..
[2019-11-15 14:10] LABS: ALT 30 U/L (4-34); AST 33 U/L (14-36); African American GFR (CKD) >90 (>60 ml/min/1.73 sqM); Albumin 3.5 g/dL (3.5-5.0); Alkaline Phosphatase 62 U/L (38-126); Anion Gap 5 mmol/L; Blood Urea Nitrogen 23 mg/dL (7-17); Calcium 7.8 mg/dL (8.4-10.2); Carbon Dioxide 38 mmol/L (22-30); Chloride 97 mmol/L (98-107); Glucose 99 mg/dL (74-99); Non-African American GFR(CKD) 85 (>60 ml/min/1.73 sqM); Phosphorus 3.2 mg/dL (2.5-4.5); Potassium 3.9 mmol/L (3.5-5.1); Sodium 140 mmol/L (137-145); Total Bilirubin 0.3 mg/dL (0.2-1.3); Total Protein 6.2 g/dL (6.3-8.2)
[2019-11-15 14:18] LABS: D-Dimer 0.36 mg/L FEU (<0.60); Partial Thromboplastin Time 23.3 sec (22.0-30.0); Prothrombin Time 10.4 sec (9.0-12.0)
[2019-11-15 14:20] LABS: Magnesium 0.8 mg/dL (1.6-2.3)
[2019-11-15] MEDS ORDERED: SODIUM CHLORIDE 0.9% 500 ML 500 ML IV ONE (14:21)
[2019-11-15] MEDS ORDERED: methylPREDNISolone SOD SUCCI 125 MG/2 ML VIAL IV STA (14:21)
[2019-11-15] MEDS ORDERED: MAGNESIUM SULFATE-D5W PMX 1 GM in DEXTROSE/WATER 1 100ML.BAG IVPB ONE ×2 (14:21→15:30)
[2019-11-15 14:30] LABS: Basophils % (A) 0 %; Eosinophils # (A) 0.2 k/uL (0-0.7); Eosinophils % (A) 3 %; HCT 33.7 % (34.0-46.0); HGB 10.1 gm/dL (11.4-16.0); Hypochromasia Marked; Lymphocytes # (A) 1.2 k/uL (1.0-4.8); Lymphocytes % (A) 14 %; MCH 33.1 pg (25.0-35.0); MCHC 30.1 g/dL (31.0-37.0); Macrocytosis Marked; Mean Platelet Volume 7.4; Monocytes # (A) 0.5 k/uL (0-1.0); Monocytes % (A) 6 %; Neutrophils # (A) 6.3 k/uL (1.3-7.7); Neutrophils % (A) 76 %; Platelet Count 323 k/uL (150-450); RBC 3.06 m/uL (3.80-5.40); RDW 12.8 % (11.5-15.5); WBC 8.3 k/uL (3.8-10.6)
[2019-11-15 15:10] LABS: Anisocytosis (M) Present; Poikilocytosis (M) Present
--- NOTE | 2019-11-15 15:12 | US ---
EXAMINATION TYPE: US venous doppler duplex LE DATE OF EXAM: 11/15/2019 3:03 PM COMPARISON: CLINICAL HISTORY: pain , swelling . Patient states having a blood clots behind left knee x years ago SIDE PERFORMED: Bilateral TECHNIQUE: The lower extremity deep venous system is examined utilizing real time linear array sonog xavier with graded compression, doppler sonography and color-flow sonography. VESSELS IMAGED: External Iliac Vein (EIV) Common Femoral Vein Deep Femoral Vein Greater Saphenous Vein * Femoral Vein Popliteal Vein Small Saphenous Vein * Proximal Calf Veins (* superficial vessels) Grayscale, color doppler, spectral doppler imaging performed of the deep veins of the lower extremiti es. There is normal flow, compressibility, vascular waveforms. Right Leg: Negative for DVT Left Leg: Negative for DVT IMPRESSION: No sonographic evidence of deep venous thrombosis in the visualized portions of the bila teral lower extremities.
--- NOTE | 2019-11-15 16:09 | ED ---
General Adult HPI - General Chief complaint: Shortness of Breath Stated complaint: SOB Time Seen by Provider: 11/15/19 12:37 Source: EMS, RN notes reviewed, old records reviewed Mode of arrival: EMS Limitations: no limitations - History of Present Illness Initial comments: 74-year-old female patient past history significant for lung cancer which was treated with external beam radiation COPD, hypomagnesemia presents to ED chief complaint of sore shortness of breath last 2 days. Patient does report that over the last 2 days she had some pleuritic chest pain. Described in the left parasternal region. Denies any pain at this time. Patient also reports that both her legs have been swollen for the last week. Denies any other complaints. Systemic: Pt denies fatigue, fever/chills, rash. Pt denies weakness, night sweats, weight loss. Neuro: Pt denies headache, visual disturbances, syncope or pre-syncope. HEENT: Pt denies ocular discharge or irritation, otalgia, rhinorrhea, pharyngitis or notable lymphadenopathy. Cardiopulmonary: Pt denies chest pain, heart palpitations, dyspnea on exertion. Abdominal/GI: Pt denies abdominal pain, n/v/d. : Pt denies dysuria, burning w/ urination, frequency/urgency. Denies new onset urinary or bowel incontinence. MSK: Pt denies myalgia, loss of strength or function in extremities. Neuro: Pt denies new onset weakness, paresthesias. - Related Data Home Medications Medication Instructions Recorded Confirmed Biotin 5,000 mcg PO DAILY@0300 11/13/16 11/15/19 Furosemide [Lasix] 20 mg PO DAILY@29911/13/16 11/15/19 Levothyroxine Sodium [Synthroid] 175 mcg PO DAILY@0300 11/13/16 11/15/19 Cyanocobalamin [Vitamin B-12 1,000 mcg SQ TH 08/10/17 11/15/19 Injection] Glycopyrrolate/Formoterol Fum 2 puff INHALATION RT-BID@0300,1600 08/10/17 [Bevespi Aerosphere Inhaler] diphenhydrAMINE [Benadryl] 50 mg PO DAILY@2300 08/10/17 11/15/19 Potassium Chloride [Klor-Con 20] 20 meq PO DAILY@0300 04/02/1920 ALPRAZolam [Xanax] 0.25 mg PO TID PRN 11/15/19 11/15/19 Albuterol Sulfate [Accuneb] 1.25 mg INHALATION RT-TID PRN 11/15/19 11/15/19 Albuterol Sulfate [Ventolin HFA] 2 puff INHALATION RT-Q4H PRN 11/15/19 11/15/19 Ascorbic Acid [Vitamin C] 1,000 mg PO DAILY@29911/15/19 11/15/19 Cholecalciferol (Vitamin D3) 125 mcg PO DAILY@29911/15/19 11/15/19 [Vitamin D3] Levofloxacin [Levaquin] 500 mg PO DAILY 11/15/19 11/15/19 Allergies Allergy/AdvReac Type Severity Reaction Status Date / Time acetaminophen [From Tylenol] Allergy Swelling Verified 11/15/19 16:09 amoxicillin Allergy Swelling Verified 11/15/19 16:09 aspirin Allergy Swelling Verified 11/15/19 16:09 codeine Allergy Anaphylaxis Verified 11/15/19 16:09 hydrocodone [From Vicodin] Allergy Anaphylaxis Verified 11/15/19 16:09 Penicillins Allergy Swelling Verified 11/15/19 16:09 sulfamethoxazole Allergy Swelling Verified 11/15/19 16:09 [From Bactrim] trimethoprim [From Bactrim] Allergy Swelling Verified 11/15/19 16:09 tramadol AdvReac DOES NOT Verified 11/15/19 16:09 WORK steroids Allergy Swelling Uncoded 04/02/19 16:00 Review of Systems ROS Statement: Those systems with pertinent positive or pertinent negative responses have been documented in the HPI. ROS Other: All systems not noted in ROS Statement are negative. Past Medical History Past Medical History: COPD, Renal Disease Additional Past Medical History / Comment(s): Hypothyroidism, lung mass, patient has condition that she developes adhesions very easily. "kidney stones" lung cx. History of Any Multi-Drug Resistant Organisms: None Reported Past Surgical History: Appendectomy, Bariatric Surgery, Bowel Resection, Hys terectomy, Orthopedic Surgery Additional Past Surgical History / Comment(s): Prolapsed bowel with colostomy and reversal, bariatric surgery; broke bilateral legs with repair Past Anesthesia/Blood Transfusion Reactions: No Reported Reaction Past Psychological History: No Psychological Hx Reported Smoking Status: Current every day smoker Past Alcohol Use History: None Reported Past Drug Use History: None Reported - Past Family History Mother History Unknown: Yes Family Medical History: Unable to Obtain General Exam - General Exam Comments Initial Comments: Constitutional: NAD, AOX3, Pt has pleasant affect. HEENT: NC/AT, trachea midline, neck supple, no lymphadenopathy. Posterior pha rynx non erythematous, without exudates. External ears appear normal, without discharge. Mucous membranes moist. Eyes PERRLA, EOM intact. There is no scleral icterus. No pallor noted. Cardiopulmonary: RRR, no murmurs, rubs or gallops, no JVD noted. Diminished breath sounds noted bilaterally. +1 peripheral edema. Abdominal exam: Abdomen soft and non-distended. Abdomen non-tender to palpation in all 4 quadrants. Bowel sounds active in LLQ. No hepatosplenomegaly. No ecchymosis Neuro: CN II-XII grossly intact. No nuchal rigidity. No raccon eyes, no ramires sign, no hemotympanum. No cervical spinal tenderness. MSK: No posterior calf tenderness bilaterally, homans sign negative bilaterally. Posterior tibialis and radial pulse +2 bilaterally. Sensation intact in upper and lower extremities. Full active ROM in upper and lower extremities, 5/5 stregnth. Limitations: no limitations Course Vital Signs 11/15/19 11/15/19 11/15/19 12:51 12:53 13:46 Temperature 98.1 F Pulse Rate 80 72 Respiratory 22 22 16 Rate Blood Pressure 80/56 94/54 O2 Sat by Pulse 98 98 Oximetry 11/15/19 11/15/19 11/15/19 15:30 16:37 16:44 Temperature Pulse Rate 82 79 83 Respiratory 20 Rate Blood Pressure 102/64 O2 Sat by Pulse 98 Oximetry Medical Decision Making - Medical Decision Making 74-year-old female patient past history significant for lung cancer which was treated with external beam radiation COPD, hypomagnesemia presents to ED chief complaint of sore shortness of breath last 2 days. Patient does report that over the last 2 days she had some pleuritic chest pain. Described in the left parasternal region. Denies any pain at this time. Denies any other complaints. Pt VSS, afebrile. Physical exam displayed +1 peripheral edema, diminished breath sounds. Left MSK she obtained significant for hypomagnesemia. This was supplemented. Troponin negative. D-dimer negative. Ultrasound negative for DVT. Chest x-ray displayed a large left hilar mass measuring 5.3 cm. COPD. EKG did not display acute pathology. Patient does wear 4 L oxygen at home. Patient will be initiated on steroids, breathing treatments for COPD exacerbation will be admitted for further evaluation. troponins will continue to be trended. Case discussed with Dr. Kamara. - Lab Data Result diagrams: 11/15/19 12:52 11/15/19 12:52 Lab Results 11/15/19 11/15/19 11/15/19 Range/Units 12:52 12:52 12:52 WBC 8.3 (3.8-10.6) k/uL RBC 3.06 L (3.80-5.40) m/uL Hgb 10.1 L (11.4-16.0) gm/dL Hct 33.7 L (34.0-46.0) % MCV 110.0 H D (80.0-100.0) fL MCH 33.1 (25.0-35.0) pg MCHC 30.1 L (31.0-37.0) g/dL RDW 12.8 (11.5-15.5) % Plt Count 323 (150-450) k/uL Neutrophils % 76 % Lymphocytes % 14 % Monocytes % 6 % Eosinophils % 3 % Basophils % 0 % Neutrophils # 6.3 (1.3-7.7) k/uL Lymphocytes # 1.2 (1.0-4.8) k/uL Monocytes # 0.5 (0-1.0) k/uL Eosinophils # 0.2 (0-0.7) k/uL Basophils # 0.0 (0-0.2) k/uL Manual Slide Review Performed Hypochromasia Marked Poikilocytosis (manual Present Anisocytosis (manual) Present Macrocytosis Marked A PT 10.4 (9.0-12.0) sec INR 1.0 (<1.2) APTT 23.3 (22.0-30.0) sec D-Dimer 0.36 (<0.60) mg/L FEU Sodium 140 (137-145) mmol/L Potassium 3.9 (3.5-5.1) mmol/L Chloride 97 L (98-107) mmol/L Carbon Dioxide 38 H (22-30) mmol/L Anion Gap 5 mmol/L BUN 23 H (7-17) mg/dL Creatinine 0.72 (0.52-1.04) mg/dL Est GFR (CKD-EPI)AfAm >90 (>60 ml/min/1.73 sqM) Est GFR (CKD-EPI)NonAf 85 (>60 ml/min/1.73 sqM) Glucose 99 (74-99) mg/dL Plasma Lactic Acid Samuel (0.7-2.0) mmol/L Calcium 7.8 L (8.4-10.2) mg/dL Phosphorus 3.2 (2.5-4.5) mg/dL Magnesium 0.8 L* (1.6-2.3) mg/dL Total Bilirubin 0.3 (0.2-1.3) mg/dL AST 33 (14-36) U/L ALT 30 (4-34) U/L Alkaline Phosphatase 62 (38-126) U/L Troponin I (0.000-0.034) ng/mL NT-Pro-B Natriuret Pep pg/mL Total Protein 6.2 L (6.3-8.2) g/dL Albumin 3.5 (3.5-5.0) g/dL 11/15/19 11/15/19 11/15/19 Range/Units 12:52 12:52 12:52 WBC (3.8-10.6) k/uL RBC (3.80-5.40) m/uL Hgb (11.4-16.0) gm/dL Hct (34.0-46.0) % MCV (80.0-100.0) fL MCH (25.0-35.0) pg MCHC (31.0-37.0) g/dL RDW (11.5-15.5) % Plt Count (150-450) k/uL Neutrophils % % Lymphocytes % % Monocytes % % Eosinophils % % Basophils % % Neutrophils # (1.3-7.7) k/uL Lymphocytes # (1.0-4.8) k/uL Monocytes # (0-1.0) k/uL Eosinophils # (0-0.7) k/uL Basophils # (0-0.2) k/uL Manual Slide Review Hypochromasia Poikilocytosis (manual Anisocytosis (manual) Macrocytosis PT (9.0-12.0) sec INR (<1.2) APTT (22.0-30.0) sec D-Dimer (<0.60) mg/L FEU Sodium (137-145) mmol/L Potassium (3.5-5.1) mmol/L Chloride (98-107) mmol/L Carbon Dioxide (22-30) mmol/L Anion Gap mmol/L BUN (7-17) mg/dL Creatinine (0.52-1.04) mg/dL Est GFR (CKD-EPI)AfAm (>60 ml/min/1.73 sqM) Est GFR (CKD-EPI)NonAf (>60 ml/min/1.73 sqM) Glucose (74-99) mg/dL Plasma Lactic Acid Samuel 1.0 (0.7-2.0) mmol/L Calcium (8.4-10.2) mg/dL Phosphorus (2.5-4.5) mg/dL Magnesium (1.6-2.3) mg/dL Total Bilirubin (0.2-1.3) mg/dL AST (14-36) U/L ALT (4-34) U/L Alkaline Phosphatase (38-126) U/L Troponin I <0.012 (0.000-0.034) ng/mL NT-Pro-B Natriuret Pep 143 pg/mL Total Protein (6.3-8.2) g/dL Albumin (3.5-5.0) g/dL - EKG Data -: EKG Interpreted by Me (and Dr. Kamara ) EKG Comments: Ventricular rate 65, peripheral and 70, QRS 84, QT/QTC 308/413. Normal sinus rhythm, Robaxin, septal infarct age interment. Abnormal EKG. Disposition Clinical Impression: COPD exacerbation, Lung mass, Hypomagnesemia Disposition: ADMITTED IP TO THIS HOSP Condition: Serious Is patient prescribed a controlled substance at d/c from ED?: No
[2019-11-15] MEDS: IPRATROPIUM-ALBUTEROL 3 ML NEB INHALATION STA ×2 (16:25→16:30)
[2019-11-15] MEDS ORDERED: ALBUTEROL NEBULIZED 2.5 MG/3 ML INHALATION STA (16:32)
[2019-11-15] MEDS ORDERED: IPRATROPIUM-ALBUTEROL 3 ML NEB INHALATION PRN (17:14)
--- NOTE | 2019-11-15 17:55 | P.HPIM ---
History of Present Illness 72-year-old the female with advanced COPD lung cancer and multiple other comminuted medical issues including majority of bowel removal came in after she was sent in from [facility] clinic for hypomagnesemia patient was having shortness of breath significant wheezing on exam because of which patient is being admitted and patient is found to have a mass in the hilum which she is 5 cm. Patient to was receivingradiation therapy for her lung mass and patient is supposed to get follow-up chest CT as a part ofposterior lung cancer radiation workup which she never and she never did because of her Covid 19 pandemic.patient was fully dysfunction at home presently on 4 L with significant wheezing on exam.chest x- ray did not show any pneumonia patient denied any significant cough with sputum production Review of Systems REVIEW OF SYSTEMS: CONSTITUTIONAL: No fever, no malaise, no fatigue. HEENT: No recent visual problems or hearing problems. Denied any sore throat. CARDIOVASCULAR: No chest pain, orthopnea, PND, no palpitations, no syncope. PULMONARY: no hemoptysis. GASTROINTESTINAL: No diarrhea, no nausea, no vomiting, no abdominal pain. NEUROLOGICAL: No headaches, no weakness, no numbness. HEMATOLOGICAL: Denies any bleeding or petechiae. GENITOURINARY: Denies any burning micturition, frequency, or urgency. MUSCULOSKELETAL/RHEUMATOLOGICAL: Denies any joint pain, swelling, or any muscle pain. ENDOCRINE: Denies any polyuria or polydipsia. The rest of the 14-point review of systems is negative. Past Medical History Past Medical History: COPD, Renal Disease Additional Past Medical History / Comment(s): Hypothyroidism, lung mass, patient has condition that she developes adhesions very easily. "kidney stones" lung cx. History of Any Multi-Drug Resistant Organisms: None Reported Past Surgical History: Appendectomy, Bariatric Surgery, Bowel Resection, Hysterectomy, Orthopedic Surgery Additional Past Surgical History / Comment(s): Prolapsed bowel with colostomy and reversal, bariatric surgery; broke bilateral legs with repair Past Anesthesia/Blood Transfusion Reactions: No Reported Reaction Past Psychological History: No Psychological Hx Reported Smoking Status: Current every day smoker Past Alcohol Use History: None Reported Past Drug Use History: None Reported - Past Family History Mother History Unknown: Yes Family Medical History: Unable to Obtain Medications and Allergies Home Medications Medication Instructions Recorded Confirmed Type Biotin 5,000 mcg PO DAILY@0300 11/13/16 11/15/19 History Furosemide [Lasix] 20 mg PO DAILY@29911/13/16 11/15/19 History Levothyroxine Sodium [Synthroid] 175 mcg PO DAILY@29911/13/16 11/15/19 History Cyanocobalamin [Vitamin B-12 1,000 mcg SQ TH 08/10/17 11/15/19 History Injection] Glycopyrrolate/Formoterol Fum 2 puff INHALATION RT-BID@0300,1600 08/10/17 11/15/19 History [Bevespi Aerosphere Inhaler] diphenhydrAMINE [Benadryl] 50 mg PO DAILY@2300 08/10/17 11/15/19 History Potassium Chloride [Klor-Con 20] 20 meq PO DAILY@29904/02/19 11/15/19 History ALPRAZolam [Xanax] 0.25 mg PO TID PRN 11/15/19 11/15/19 History Albuterol Sulfate [Accuneb] 1.25 mg INHALATION RT-TID PRN 11/15/19 11/15/19 History Albuterol Sulfate [Ventolin HFA] 2 puff INHALATION RT-Q4H PRN 11/15/19 11/15/19 History Ascorbic Acid [Vitamin C] 1,000 mg PO DAILY@29911/15/19 11/15/19 History Cholecalciferol (Vitamin D3) 125 mcg PO DAILY@29911/15/19 11/15/19 History [Vitamin D3] Levofloxacin [Levaquin] 500 mg PO DAILY 11/15/19 11/15/19 History Allergies Allergy/AdvReac Type Severity Reaction Status Date / Time acetaminophen [From Tylenol] Allergy Swelling Verified 11/15/19 16:09 amoxicillin Allergy Swelling Verified 11/15/19 16:09 aspirin Allergy Swelling Verified 11/15/19 16:09 codeine Allergy Anaphylaxis Verified 11/15/19 16:09 hydrocodone [From Vicodin] Allergy Anaphylaxis Verified 11/15/19 16:09 Penicillins Allergy Swelling Verified 11/15/19 16:09 sulfamethoxazole Allergy Swelling Verified 11/15/19 16:09 [From Bactrim] trimethoprim [From Bactrim] Allergy Swelling Verified 11/15/19 16:09 tramadol AdvReac DOES NOT Verified 11/15/19 16:09 WORK steroids Allergy Swelling Uncoded 04/02/19 16:00 Physical Exam Vitals: Vital Signs Temp Pulse Pulse Resp BP BP Pulse Ox 11/15/19 17:48 98.2 F 73 16 107/51 98 11/15/19 17:05 69 20 107/69 98 11/15/19 16:44 83 11/15/19 16:37 79 11/15/19 15:30 82 20 102/64 98 11/15/19 13:46 72 16 94/54 98 11/15/19 12:53 22 11/15/19 12:51 98.1 F 80 22 80/56 98 Intake and Output 11/15/19 11/15/19 11/15/19 06:59 14:59 22:59 Other: Weight 60.328 kg PHYSICAL EXAMINATION: GENERAL: The patient is alert and oriented x3, not in any acute distress. thin built female HEENT: Pupils are round and equally reacting to light. EOMI. No scleral icterus. No conjunctival pallor. Normocephalic, atraumatic. No pharyngeal erythema. No t hyromegaly. CARDIOVASCULAR: S1 and S2 present. No murmurs, rubs, or gallops. PULMONARY: Wheezing on exam no crackles decreased air entry into bilateral lung simon ABDOMEN: Soft, nontender, nondistended, normoactive bowel sounds. No palpable organomegaly. MUSCULOSKELETAL: No joint swelling or deformity. EXTREMITIES: No cyanosis, clubbing, or pedal edema. NEUROLOGICAL: Gross neurological examination did not reveal any focal deficits. SKIN: No rashes. Results CBC & Chem 7: 11/15/19 12:52 11/15/19 12:52 Labs: Abnormal Lab Results - Last 24 Hours (Table) 11/15/19 11/15/19 Range/Units 12:52 12:52 RBC 3.06 L (3.80-5.40) m/uL Hgb 10.1 L (11.4-16.0) gm/dL Hct 33.7 L (34.0-46.0) % MCV 110.0 H D (80.0-100.0) fL MCHC 30.1 L (31.0-37.0) g/dL Macrocytosis Marked A Chloride 97 L (98-107) mmol/L Carbon Dioxide 38 H (22-30) mmol/L BUN 23 H (7-17) mg/dL Calcium 7.8 L (8.4-10.2) mg/dL Magnesium 0.8 L* (1.6-2.3) mg/dL Total Protein 6.2 L (6.3-8.2) g/dL Assessment and Plan Plan: Chronic Hypercapnic Respiratory Failure: Secondary to COPD Exacerbation Patient Is ALLERGIC to systemic steroids. We will just try inhalational treatments with albuterol and ipratropium pulmonary will be consulted. Patient says we can use steroids if needed but need to be careful has for her. -hypomagnesemia: Probably due to decreased absorption due to absence of majority of small bowel. Magnesium will be replaced. Magnesium tomorrow -chronic macrocytic anemia probably secondary to B12 and folate deficiencydue to decreased absorption will order B12 levels. -Lung cancer receiving radiation therapy completed radiation therapy with a new mass will do a CAT scan with and without contrast will also consult radiation oncology -hypothyroidism -DVT prophylaxis with subcutaneous heparinand GI prophylaxis with Pepcid
[2019-11-15] MEDS ORDERED: MAGNESIUM SULFATE-D5W PMX 1 GM in DEXTROSE/WATER 1 100ML.BAG IVPB SCH (18:00)
[2019-11-15] MEDS: MAGNESIUM SULFATE-D5W PMX 1 GM in DEXTROSE/WATER 1 100ML.BAG IVPB SCH ×4 (19:10→22:19)
[2019-11-15] MEDS ORDERED: ALBUTEROL NEBULIZED 2.5 MG/3 ML INHALATION SCH (20:00)
[2019-11-15] MEDS ORDERED: IPRATROPIUM 0.5 MG/2.5 ML NEBU INHALATION SCH (20:00)
[2019-11-15] MEDS ORDERED: IPRATROPIUM-ALBUTEROL 3 ML NEB INHALATION SCH (20:00)
[2019-11-15] MEDS: IPRATROPIUM-ALBUTEROL 3 ML NEB INHALATION SCH (20:04)
[2019-11-15] MEDS: FORMOTEROL FUMARATE 20 MCG/2 ML NEBU INHALATION SCH (20:04)
[2019-11-15] MEDS: HEPARIN SODIUM,PORCINE 5,000 UNIT/ML 1 ML VIAL SQ SCH (20:25)
--- NOTE | 2019-11-15 22:38 | CT ---
EXAMINATION TYPE: CT chest wo/w con DATE OF EXAM: 11/15/2019 COMPARISON: 05/22/2019 HISTORY: Shortness of breath. History of lung cancer. CT DLP: 494.2 mGycm Automated exposure control for dose reduction was used. CONTRAST: Performed without and with IV Contrast, patient injected with 100 mL of Isovue 300. There is pulmonary emphysema. There are multiple masslike densities extending from the left pulmonary hilum anteriorly in the left upper lobe that measure up to 5.5 cm. There is some coarse interstitial density at the posterior lung bases with subsegmental atelectasis. There is no pleural effusion. The re is no pericardial effusion. There is no pneumothorax. There is coarse reticular infiltrate surroun ding the pulmonary masses on the left anterior chest wall. Heart size is normal. There is a 5 cm mass at the anterior aspect of the left pulmonary hilum encasin g the left upper lobe pulmonary artery. There is some narrowing of the left upper lobe bronchus. Ther e is no evidence of aortic aneurysm or dissection. I see no filling defects in the pulmonary arteries . Thoracic spine is intact. There is no compression fracture. I see no bony destructive process. Ther e are clips from cholecystectomy. Upper abdominal soft tissues are intact. There are some dilated gas -filled loops of large bowel in the upper abdomen. Stomach is large. There are clips from cholecystec espinoza. I see no focal bone destruction. IMPRESSION: Multicentric masslike densities in the left upper lobe anteriorly extending from the pleura to the le ft pulmonary hilum with encasement of the left upper lobe pulmonary artery and narrowing of the lumen . This is consistent with malignancy and is a change compared to last exam of 05/22/2019. There is a irregular 2 cm triangle shaped infiltrate adjacent to the pleura in the left upper lobe anteriorly on the old CT scan in the area now measuring 3.5 cm. This is consistent with recurrent tumor. Distended bowel in the upper abdomen probably related to ileus.
[2019-11-15] MEDS ORDERED: diphenhydrAMINE 50 MG CAP PO SCH (23:00)
[2019-11-16] MEDS: LEVOTHYROXINE 100 MCG TAB PO SCH (06:12)
[2019-11-16] MEDS: LEVOTHYROXINE 75 MCG TAB PO SCH (06:12)
[2019-11-16 07:33] LABS: HCT 32.8 % (34.0-46.0); HGB 9.5 gm/dL (11.4-16.0); Hypochromasia Marked; MCHC 29.1 g/dL (31.0-37.0); MCV 113.5 fL (80.0-100.0); Macrocytosis Marked; Mean Platelet Volume 6.9; Platelet Count 313 k/uL (150-450); RBC 2.89 m/uL (3.80-5.40); RDW 12.8 % (11.5-15.5); WBC 9.4 k/uL (3.8-10.6)
[2019-11-16 07:42] LABS: African American GFR (CKD) >90 (>60 ml/min/1.73 sqM); Blood Urea Nitrogen 19 mg/dL (7-17); Calcium 7.1 mg/dL (8.4-10.2); Chloride 98 mmol/L (98-107); Glucose 93 mg/dL (74-99); Magnesium 2.7 mg/dL (1.6-2.3); Non-African American GFR(CKD) 87 (>60 ml/min/1.73 sqM); Potassium 4.7 mmol/L (3.5-5.1); Sodium 140 mmol/L (137-145)
[2019-11-16 07:49] LABS: Anion Gap 1 mmol/L
[2019-11-16 07:56] LABS: Carbon Dioxide 41 mmol/L (22-30)
[2019-11-16] MEDS: FORMOTEROL FUMARATE 20 MCG/2 ML NEBU INHALATION SCH (08:42)
[2019-11-16] MEDS: IPRATROPIUM-ALBUTEROL 3 ML NEB INHALATION SCH ×3 (08:42→17:39)
[2019-11-16] MEDS: HEPARIN SODIUM,PORCINE 5,000 UNIT/ML 1 ML VIAL SQ SCH ×2 (10:04→22:33)
--- NOTE | 2019-11-16 11:52 | P.CNPUL ---
History of Present Illness Consult date: 11/16/19 Requesting physician: Mirella Melgar Reason for consult: dyspnea, chest pain, abnormal CXR/CT Chief complaint: Shortness of breath, pleuritic chest pain, lower extremity edema History of present illness: This is a very pleasant 74-year-old female patient who follows with Dr. Adryan Lopez as her primary care provider. She has a history of hypothyroidism, chronic tobacco dependence. She follows with Dr. Nava in our office for severe COPD with an FEV1 value 32% of predicted. 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 A PET scan in February 2019 revealed uptake in the left upper lobe as well as the descending colon. She had subsequent undergone radiation treatments by Dr. Naik last treated in March 2019. She presented here to the emergency room yesterday with 3 day history of increasing shortness of breath, pleuritic-type chest pain and increased edema of the lower extremities. Dopplers of the lower extremity were negative for DVT. EKG revealed normal sinus rhythm with no ST or T wave abnormalities. Computed tomography scan of the chest revealed multicentric masslike densities in the left upper lobe anteriorly extending from the pleura to the left pulmonary hilum with encasement of the left upper lobe pulmonary artery and narrowing of the lumen. This is consistent with malignancy and is a change compared to 05/22/2019. There was an irregular 2 cm triangle-shaped infiltrate adjacent to the pleura the left upper lobe anteriorly that is increased in size to 3.5 cm. She is seen today in consultation on the selective care unit. She is currently resting fairly comfortably in bed. She is on 6 L nasal cannula to maintain O2 saturation in the 90s. She's been afebrile. Still dyspneic with exertion. Hemodynamically stable. White count 9.4. Hemoglobin 9.5. Sodium 140. Potassium 4.7. Bicarb 41. Creatinine 0.69. Calcium 7.1. Troponins negative 3. ProBNP 143. Isbell virus not detected. She is currently on DuoNeb inhalations. Magnesium has been replaced initially 0.8. Current level 2.7. Review of Systems REVIEW OF SYSTEMS: CONSTITUTIONAL: Denies any recent significant weight loss or weight gain. EYES: Denies change in vision. EARS, NOSE, MOUTH, THROAT: Denies headaches, denies sore throat. CARDIOVASCULAR: Pleuritic type chest pain chest pain, denies palpitations or syncopal episodes. RESPIRATORY: Positive for shortness of breath, cough, congestion no hemoptysis. GASTROINTESTINAL: Denies change in appetite, denies abdominal pain GENITOURINARY: Denies hematuria, denies infections. MUSKULOSKELETAL: Increased swelling of lower extremities. INTEGUMENTARY: Denies rash, denies eczema. NEUROLOGICAL: Denies recent memory loss, no recent seizure activity. PSYCHIATRIC: Denies anxiety, denies depression. HEMATOLOGIC/LYMPHATIC: Denies anemia, denies enlarged lymph nodes. Past Medical History Past Medical History: COPD, Renal Disease Additional Past Medical History / Comment(s): Hypothyroidism, lung mass, patient has condition that she developes adhesions very easily. "kidney stones" lung cx. History of Any Multi-Drug Resistant Organisms: None Reported Past Surgical History: Appendectomy, Bariatric Surgery, Bowel Resection, Hysterectomy, Orthopedic Surgery Additional Past Surgical History / Comment(s): Prolapsed bowel with colostomy and reversal, bariatric surgery; broke bilateral legs with repair Past Anesthesia/Blood Transfusion Reactions: No Reported Reaction Past Psychological History: No Psychological Hx Reported Smoking Status: Current every day smoker Past Alcohol Use History: None Reported Past Drug Use History: None Reported - Past Family History Mother History Unknown: Yes Family Medical History: Unable to Obtain Additional Family Medical History / Comment(s): The patient is unaware of any significant family history Medications and Allergies Home Medications Medication Instructions Recorded Confirmed Type Biotin 5,000 mcg PO DAILY@29911/13/16 11/15/19 History Furosemide [Lasix] 20 mg PO DAILY@29911/13/16 11/15/19 History Levothyroxine Sodium [Synthroid] 175 mcg PO DAILY@29911/13/16 11/15/19 History Cyanocobalamin [Vitamin B-12 1,000 mcg SQ TH 08/10/17 11/15/19 History Injection] Glycopyrrolate/Formoterol Fum 2 puff INHALATION RT-BID@0300,1600 08/10/17 11/15/19 History [Bevespi Aerosphere Inhaler] diphenhydrAMINE [Benadryl] 50 mg PO DAILY@2300 08/10/17 11/15/19 History Potassium Chloride [Klor-Con 20] 20 meq PO DAILY@0300 04/02/19 11/15/19 History ALPRAZolam [Xanax] 0.25 mg PO TID PRN 11/15/19 11/15/19 History Albuterol Sulfate [Accuneb] 1.25 mg INHALATION RT-TID PRN 11/15/19 11/15/19 History Albuterol Sulfate [Ventolin HFA] 2 puff INHALATION RT-Q4H PRN 11/15/19 11/15/19 History Ascorbic Acid [Vitamin C] 1,000 mg PO DAILY@29911/15/19 11/15/19 History Cholecalciferol (Vitamin D3) 125 mcg PO DAILY@29911/15/19 11/15/19 History [Vitamin D3] Levofloxacin [Levaquin] 500 mg PO DAILY 11/15/19 11/15/19 History Allergies Allergy/AdvReac Type Severity Reaction Status Date / Time acetaminophen [From Tylenol] Allergy Swelling Verified 11/15/19 16:09 amoxicillin Allergy Swelling Verified 11/15/19 16:09 aspirin Allergy Swelling Verified 11/15/19 16:09 codeine Allergy Anaphylaxis Verified 11/15/19 16:09 hydrocodone [From Vicodin] Allergy Anaphylaxis Verified 11/15/19 16:09 Penicillins Allergy Swelling Verified 11/15/19 16:09 sulfamethoxazole Allergy Swelling Verified 11/15/19 16:09 [From Bactrim] trimethoprim [From Bactrim] Allergy Swelling Verified 11/15/19 16:09 tramadol AdvReac DOES NOT Verified 11/15/19 16:09 WORK steroids Allergy Swelling Uncoded 04/02/19 16:00 Physical Exam Vitals: Vital Signs Temp Pulse Pulse Resp BP BP Pulse Ox 11/16/19 09:27 97.6 F 75 16 103/52 97 11/16/19 09:03 80 11/16/19 08:53 78 11/16/19 08:42 78 11/16/19 04:00 61 16 129/76 97 11/16/19 00:20 69 18 101/51 95 11/16/19 00:00 75 20 11/15/19 20:22 80 11/15/19 20:13 76 11/15/19 20:12 76 11/15/19 20:04 73 11/15/19 20:00 84 20 113/57 94 L 11/15/19 18:16 73 16 11/15/19 17:48 98.2 F 73 16 107/51 98 11/15/19 17:05 69 20 107/69 98 11/15/19 16:44 83 11/15/19 16:37 79 11/15/19 15:30 82 20 102/64 98 11/15/19 13:46 72 16 94/54 98 11/15/19 12:53 22 11/15/19 12:51 98.1 F 80 22 80/56 98 Intake and Output 11/15/19 11/16/19 11/16/19 22:59 06:59 14:59 Intake Total 300 880 700 Balance 300 880 700 Intake: Intake, IV Titration 400 Amount Magnesium Sulfate-D5w Pmx 100 1 gm In Dextrose/Water 1 100ml.bag @ 100 mls/hr IVPB ONCE ONE Rx#: [id number] Magnesium Sulfate-D5w Pmx 100 1 gm In Dextrose/Water 1 100ml.bag @ 100 mls/hr IVPB ONCE ONE Rx#: [id number] Magnesium Sulfate-D5w Pmx 100 1 gm In Dextrose/Water 1 100ml.bag @ 100 mls/hr IVPB Q1H [facility] Rx#: [id number] Magnesium Sulfate-D5w Pmx 100 1 gm In Dextrose/Water 1 100ml.bag @ 100 mls/hr IVPB Q1H [facility] Rx#: [id number] Oral 300 480 700 Other: # Voids 1 # Bowel Movements 1 Weight 61 kg 64.8 kg GENERAL EXAM: Alert, pleasant 74-year-old female patient, on 6 L nasal cannula, fairly comfortable in no apparent distress. HEAD: Normocephalic. EYES: Normal reaction of pupils, equal size. NOSE: Clear with pink turbinates. THROAT: No erythema or exudates. NECK: No masses, no JVD. CHEST: No chest wall deformity. LUNGS: Equal air entry with bilateral end expiratory wheeze, diminished. CVS: S1 and S2 normal with no audible murmur, regular rhythm. ABDOMEN: No hepatosplenomegaly, normal bowel sounds, no guarding or rigidity. SPINE: No scoliosis or deformity SKIN: No rashes CENTRAL NERVOUS SYSTEM: No focal deficits, tone is normal in all 4 extremities. EXTREMITIES: There is 1-2+ peripheral edema. No clubbing, no cyanosis. Peripheral pulses are intact. Results - Laboratory Findings CBC and BMP: 11/16/19 07:07 11/16/19 07:07 PT/INR, D-dimer PT 10.4 sec (9.0-12.0) 11/15/19 12:52 INR 1.0 (<1.2) 11/15/19 12:52 D-Dimer 0.36 mg/L FEU (<0.60) 11/15/19 12:52 Abnormal lab findings: Abnormal Labs 11/15/19 11/15/19 11/16/19 12:52 12:52 07:07 RBC 3.06 L 2.89 L Hgb 10.1 L 9.5 L Hct 33.7 L 32.8 L MCV 110.0 H D 113.5 H MCHC 30.1 L 29.1 L Macrocytosis Marked A Marked A Chloride 97 L Carbon Dioxide 38 H BUN 23 H Calcium 7.8 L Magnesium 0.8 L* Total Protein 6.2 L 11/16/19 07:07 RBC Hgb Hct MCV MCHC Macrocytosis Chloride Carbon Dioxide 41 H* BUN 19 H Calcium 7.1 L Magnesium 2.7 H Total Protein - Diagnostic Findings Chest x-ray: image reviewed CT scan - chest: image reviewed Assessment and Plan Assessment: 1 Acute on chronic hypoxic/hypercapnic respiratory failure secondary to an acute exacerbation of exacerbation of chronic obstructive pulmonary disease. Her COPD is Gold stage III/IV with an FEV1 value 32% of predicted 2 Pleuritic chest pain 3 History of non-small cell lung cancer, squamous cell, status post radiation therapy. Yesterday's computed tomography scan of the chest reveals enlarging multicentric masslike density in the left upper lobe anteriorly extending from the pleura to the left pulmonary hilum with encasement of the left upper lobe pulmonary artery and narrowing of the lumen. There is also an increasing triangle shape infiltrate adjacent to the pleura on the left upper lobe increased from 2 cm to 3.5 cm. 4 Hypomagnesemia status post replacement initially 0.8 now 2.7 5 Anemia current hemoglobin 9.5 6 History of chronic tobacco dependence 7 Hypothyroidism. 8 History of bowel resection with colostomy and subsequent reversal Plan: The patient was seen and evaluated by Dr. Obrien Chest x-ray, CAT scan and labs reviewed Radiation oncology consulted Continue bronchodilators The patient has a steroid ALLERGY Titrate down the FiO2 as tolerated Will continue to follow and make further recommendations based on her clinical status. I, the cosigning physician, performed a history & physical examination of the patient. Lungs sounds with bilateral end expiratory wheeze, diminished. Maintaining good O2 saturations in the 90s on 6 L/m per nasal cannula. I discussed the assessment and plan of care with my nurse practitioner, Megan Rdz. I attest to the above consultation as dictated by her. Time with Patient: Greater than 30
[2019-11-16] MEDS: ALPRAZolam 0.25 MG TAB PO PRN (14:32)
--- NOTE | 2019-11-16 15:54 | P.PN ---
Subjective Progress Note Date: 11/16/19 Principal diagnosis: 72-year-old the female with advanced COPD lung cancer and multiple other comminuted medical issues including majority of bowel removal came in after she was sent in from [facility] clinic for hypomagnesemia patient was having shortness of breath significant wheezing on exam because of which patient is being admitted and patient is found to have a mass in the hilum which she is 5 cm. Patient to was receivingradiation therapy for her lung mass and patient is supposed to get follow-up chest CT as a part ofposterior lung cancer radiation workup which she never and she never did because of her Covid 19 pandemic.patient was fully dysfunction at home presently on 4 L with significant wheezing on exam.chest x- ray did not show any pneumonia patient denied any significant cough with sputum production 11/16/2019 Patient is seen and evaluated and follow-up and continues to be severely dyspneic with exertion. Patient currently on 4 L of oxygen via nasal cannula and states she normally wears 3 L of oxygen at home. Pulmonary following recommending continued breathing treatments and awaiting radiation oncology consult for CT findings. Patient has an ALLERGY to steroids and will avoid. Currently no reports of chest pain or palpitations. Patient is afebrile. No reports of nausea or vomiting and patient is tolerating diet. Patient's magnesium was replaced and is currently 2.7 today. Objective - Vital Signs Vital signs: Vital Signs Temp 98.6 F 11/16/19 15:30 Pulse 74 11/16/19 15:33 Resp 18 11/16/19 15:33 BP 104/59 11/16/19 15:30 Pulse Ox 94 L 11/16/19 15:30 Intake & Output 11/15/19 11/16/19 11/16/19 18:59 06:59 18:59 Intake Total 830 718 3091 Balance 420 415 9579 Weight 61 kg 64.8 kg Intake: Intake, IV Titration 400 Amount Magnesium Sulfate-D5w Pmx 100 1 gm In Dextrose/Water 1 100ml.bag @ 100 mls/hr IVPB ONCE ONE Rx#: [id number] Magnesium Sulfate-D5w Pmx 100 1 gm In Dextrose/Water 1 100ml.bag @ 100 mls/hr IVPB ONCE ONE Rx#: [id number] Magnesium Sulfate-D5w Pmx 100 1 gm In Dextrose/Water 1 100ml.bag @ 100 mls/hr IVPB Q1H [facility] Rx#: [id number] Magnesium Sulfate-D5w Pmx 100 1 gm In Dextrose/Water 1 100ml.bag @ 100 mls/hr IVPB Q1H [facility] Rx#: [id number] Oral [phone] Other: # Voids 1 # Bowel Movements 1 - Exam GENERAL: The patient is alert and oriented x3, not in any acute distress. thin built female HEENT: Pupils are round and equally reacting to light. EOMI. No scleral icterus. No conjunctival pallor. Normocephalic, atraumatic. No pharyngeal erythema. No thyromegaly. CARDIOVASCULAR: S1 and S2 present. No murmurs, rubs, or gallops. PULMONARY: Expiratory Wheezing noted on exam no crackles decreased air entry into bilateral lung simon ABDOMEN: Soft, nontender, nondistended, normoactive bowel sounds. No palpable organomegaly. MUSCULOSKELETAL: No joint swelling or deformity. EXTREMITIES: No cyanosis, clubbing, or pedal edema. NEUROLOGICAL: Gross neurological examination did not reveal any focal deficits. SKIN: No rashes. - Labs CBC & Chem 7: 11/16/19 07:07 11/16/19 07:07 Labs: Abnormal Lab Results - Last 24 Hours (Table) 11/16/19 11/16/19 Range/Units 07:07 07:07 RBC 2.89 L (3.80-5.40) m/uL Hgb 9.5 L (11.4-16.0) gm/dL Hct 32.8 L (34.0-46.0) % MCV 113.5 H (80.0-100.0) fL MCHC 29.1 L (31.0-37.0) g/dL Macrocytosis Marked A Carbon Dioxide 41 H* (22-30) mmol/L BUN 19 H (7-17) mg/dL Calcium 7.1 L (8.4-10.2) mg/dL Magnesium 2.7 H (1.6-2.3) mg/dL Assessment and Plan Assessment: -Chronic Hypercapnic Respiratory Failure: Secondary to COPD Exacerbation Patient Is ALLERGIC to systemic steroids. We will just try inhalational treatments with albuterol and ipratropium. Pulmonary following -hypomagnesemia: Probably due to decreased absorption due to absence of majority of small bowel. Magnesium will be replaced. Magnesium today improved is 2.7 -chronic macrocytic anemia probably secondary to B12 and folate deficiency due to decreased absorption will order B12 levels. B12 is 851 -Lung cancer received radiation therapy completed radiation therapy, CT of the chest shows multicentric masslike densities in the left upper lobe anteriorly extending from the pleura to the left pulmonary hilum with encasement of the left upper lobe pulmonary Artery and narrowing of the lumen, consistent with malignancy and is a change from previous scan in May. Also an irregular 2 cm triangle shaped infiltrate adjacent to the pleura measuring 3.5 cm. Currently awaiting radiation oncology consult -hypothyroidism -DVT prophylaxis with subcutaneous heparin -GI prophylaxis with Pepcid -Covid 19 ruled out, testing was negative
[2019-11-16] MEDS ORDERED: ALBUTEROL NEBULIZED 2.5 MG/3 ML INHALATION PRN (16:20)
[2019-11-16] MEDS ORDERED: ALBUTEROL NEBULIZED 2.5 MG/3 ML INHALATION ONE (16:22)
[2019-11-16] MEDS: BEVESPI AEROSPHERE PO SCH ×2 (16:52→20:16)
--- NOTE | 2019-11-16 16:56 | P.CONS ---
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 She was medically inoperable and underwent SBRT finishing on 03/13/2019. She now presents with evidence of lobar recurrence with hilar adenopathy. The patient presented to the emergency room on November 14 complaining of dyspnea and left-sided pleuritic chest pain. A chest x-ray performed revealed a 5 cm left hilar mass, and therefore CT scan was recommended. CT scan of the chest when compared with her last imaging May revealed new bulky left hilar adenopathy, as well as a left upper lobe lesion up against the chest-wall immediately superior to her previously treated mass. These new areas of disease were not previously appreciated. There is no elsewhere metastasis seen on the CT of the chest. The patient reports that she has had consistent difficulty with chest and back pain. She states this has been ongoing since her radiation last fall. She notes this discomfort radiates between her shoulder blades and around to her left chest wall. She states it is worse with taking deep breaths. She also admits that she has had worsening of her chronic COPD recently. She still lives independently, but states she gets dyspneic simply walking from her kitchen to the bathroom. Review of Systems Constitutional: Denies chills, Denies fever Eyes: denies blurred vision Ears, nose, mouth and throat: Denies headache Cardiovascular: Reports chest pain, Denies palpitations Respiratory: Reports cough, Reports dyspnea, Reports home oxygen, Reports pain on inspiration, Denies hemoptysis Genitourinary: Denies flank pain Musculoskeletal: Denies low back pain, Denies neck pain Integumentary: Denies rash Neurological: Denies change in speech, Denies confusion Psychiatric: Denies anxiety Past Medical History Past Medical History: COPD, Renal Disease Additional Past Medical History / Comment(s): Hypothyroidism, lung mass, patient has condition that she developes adhesions very easily. "kidney stones" lung cx. History of Any Multi-Drug Resistant Organisms: None Reported Past Surgical History: Appendectomy, Bariatric Surgery, Bowel Resection, Hysterectomy, Orthopedic Surgery Additional Past Surgical History / Comment(s): Prolapsed bowel with colostomy and reversal, bariatric surgery; broke bilateral legs with repair Past Anesthesia/Blood Transfusion Reactions: No Reported Reaction Past Psychological History: No Psychological Hx Reported Smoking Status: Current every day smoker Past Alcohol Use History: None Reported Past Drug Use History: None Reported - Past Family History Mother History Unknown: Yes Family Medical History: Unable to Obtain Additional Family Medical History / Comment(s): The patient is unaware of any significant family history Medications and Allergies Home Medications Medication Instructions Recorded Confirmed Type Biotin 5,000 mcg PO DAILY@29911/13/16 11/15/19 History Furosemide [Lasix] 20 mg PO DAILY@29911/13/16 11/15/19 History Levothyroxine Sodium [Synthroid] 175 mcg PO DAILY@29911/13/16 11/15/19 History Cyanocobalamin [Vitamin B-12 1,000 mcg SQ TH 08/10/17 11/15/19 History Injection] Glycopyrrolate/Formoterol Fum 2 puff INHALATION RT-BID@030,1600 08/10/17 11/15/19 History [Bevespi Aerosphere Inhaler] diphenhydrAMINE [Benadryl] 50 mg PO DAILY@0 08/10/17 11/15/19 History Potassium Chloride [Klor-Con 20] 20 meq PO DAILY@29904/02/19 11/15/19 History ALPRAZolam [Xanax] 0.25 mg PO TID PRN 11/15/19 11/15/19 History Albuterol Sulfate [Accuneb] 1.25 mg INHALATION RT-TID PRN 11/15/19 11/15/19 History Albuterol Sulfate [Ventolin HFA] 2 puff INHALATION RT-Q4H PRN 11/15/19 11/15/19 History Ascorbic Acid [Vitamin C] 1,000 mg PO DAILY@29911/15/19 11/15/19 History Cholecalciferol (Vitamin D3) 125 mcg PO DAILY@29911/15/19 11/15/19 History [Vitamin D3] Levofloxacin [Levaquin] 500 mg PO DAILY 11/15/19 11/15/19 History Allergies Allergy/AdvReac Type Severity Reaction Status Date / Time acetaminophen [From Tylenol] Allergy Swelling Verified 11/15/19 16:09 amoxicillin Allergy Swelling Verified 11/15/19 16:09 aspirin Allergy Swelling Verified 11/15/19 16:09 codeine Allergy Anaphylaxis Verified 11/15/19 16:09 hydrocodone [From Vicodin] Allergy Anaphylaxis Verified 11/15/19 16:09 Penicillins Allergy Swelling Verified 11/15/19 16:09 sulfamethoxazole Allergy Swelling Verified 11/15/19 16:09 [From Bactrim] trimethoprim [From Bactrim] Allergy Swelling Verified 11/15/19 16:09 tramadol AdvReac DOES NOT Verified 11/15/19 16:09 WORK steroids Allergy Swelling Uncoded 04/02/19 16:00 Physical Exam Vitals: Vital Signs Temp Pulse Pulse Resp BP BP Pulse Ox 11/16/19 15:33 74 18 11/16/19 15:30 98.6 F 74 18 104/59 94 L 11/16/19 12:12 76 11/16/19 11:56 72 11/16/19 11:37 98.6 F 70 18 101/57 100 11/16/19 09:27 97.6 F 75 16 103/52 97 11/16/19 09:03 80 11/16/19 08:53 78 11/16/19 08:42 78 11/16/19 04:00 61 16 129/76 97 11/16/19 00:20 69 18 101/51 95 11/16/19 00:00 75 20 11/15/19 20:22 80 11/15/19 20:13 76 11/15/19 20:12 76 11/15/19 20:04 73 11/15/19 20:00 84 20 113/57 94 L 11/15/19 18:16 73 16 11/15/19 17:48 98.2 F 73 16 107/51 98 11/15/19 17:05 69 20 107/69 98 11/15/19 16:44 83 Intake and Output 11/16/19 11/16/19 11/16/19 06:59 14:59 22:59 Intake Total 880 1060 600 Balance 880 1060 600 Intake: Intake, IV Titration 400 Amount Magnesium Sulfate-D5w Pmx 100 1 gm In Dextrose/Water 1 100ml.bag @ 100 mls/hr IVPB ONCE ONE Rx#: [id number] Magnesium Sulfate-D5w Pmx 100 1 gm In Dextrose/Water 1 100ml.bag @ 100 mls/hr IVPB ONCE ONE Rx#: [id number] Magnesium Sulfate-D5w Pmx 100 1 gm In Dextrose/Water 1 100ml.bag @ 100 mls/hr IVPB Q1H [facility] Rx#: [id number] Magnesium Sulfate-D5w Pmx 100 1 gm In Dextrose/Water 1 100ml.bag @ 100 mls/hr IVPB Q1H [facility] Rx#: [id number] Oral 480 1060 600 Other: # Voids 1 # Bowel Movements 1 Weight 64.8 kg - Constitutional General appearance: thin - EENT Eyes: EOMI, PERRLA ENT: NA/AT - Neck Neck: no lymphadenopathy - Respiratory Respiratory: bilateral: diminished - Cardiovascular Rhythm: regular - Gastrointestinal General gastrointestinal: no distended, no tenderness - Integumentary Integumentary: no calor, no cellulitis - Neurologic Neurologic: CNII-XII intact - Musculoskeletal Musculoskeletal: generalized weakness - Psychiatric Psychiatric: A&O x's 3, appropriate affect, intact judgment & insight Results CBC & Chem 7: 11/16/19 07:07 11/16/19 07:07 Labs: Abnormal Lab Results - Last 24 Hours (Table) 11/16/19 11/16/19 Range/Units 07:07 07:07 RBC 2.89 L (3.80-5.40) m/uL Hgb 9.5 L (11.4-16.0) gm/dL Hct 32.8 L (34.0-46.0) % MCV 113.5 H (80.0-100.0) fL MCHC 29.1 L (31.0-37.0) g/dL Macrocytosis Marked A Carbon Dioxide 41 H* (22-30) mmol/L BUN 19 H (7-17) mg/dL Calcium 7.1 L (8.4-10.2) mg/dL Magnesium 2.7 H (1.6-2.3) mg/dL CT scan - chest: report reviewed, image reviewed Assessment and Plan Plan: The patient is a 74-year-old female with a history of oxygen dependent COPD presenting with a stage IIA (cT2b, cN0, M0) 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 She was medically inoperable and underwent SBRT finishing on 03/13/2019. She now presents with evidence of lobar recurrence with hilar adenopathy. 1. New left upper lobe mass/Left hilar adenopathy: These areas are highly suspicious for recurrent disease. The previously treated lesion in the patient's left upper lung was immediately inferior to this area of disease, which indicates likely lobar recurrence of her squamous cell cancer. I discussed with the patient that I would recommend a PET/CT to rule out distant progression (upon discharge). I would also recommend the patient undergo a CT of the brain (unable to tolerate MRI Per patient) to rule out INTENSIVE CARE UNIT REGISTERED NURSE disease. I would recommend the patient have consultation with medical oncology. Considering the patient is currently in ECOG 3 with advanced COPD, she is likely to not be a good candidate for chemotherapy. Her previously biopsy showed PDL1 negative as well, so it is uncertain if she will have many treatment options for this disease progression. Further radiotherapy may be possible for local disease, but first distant progression should be ruled out. 2. COPD Exacerbation: Will continue to follow along; the patient does have relatively frequent exacerbations of her COPD. Will see if her performance status improves along with her dyspnea. Time with Patient: Greater than 30
[2019-11-16] MEDS ORDERED: MORPHINE SULFATE 2 MG/ML SYRINGE IVP PRN (17:12)
[2019-11-16] MEDS: ALBUTEROL NEBULIZED 2.5 MG/3 ML INHALATION SCH (20:15)
--- NOTE | 2019-11-16 22:01 | CT ---
EXAMINATION TYPE: CT brain wo/w con DATE OF EXAM: 11/16/2019 COMPARISON: 10/27/2016 INDICATION: weakness. History of lung cancer. DLP: 2180.4 mGycm, Automated exposure control for dose reduction was used. CONTRAST: None CT of the brain is performed utilizing 3 mm thick sections through the posterior fossa and 3 mm thick sections through the remaining calvarium. Study is performed within 24 hours of arrival to the hosp ital. No abnormal hyperdensity is present to suggest an acute intracranial hemorrhage. No mass lesion is evident. No acute infarcts are evident. Ventricles and sulci are appropriate for the patient age. Paranasal sinuses and mastoid air cells within the [id number] are clear. IMPRESSIONS: 1. Normal pre and postcontrast CT brain
[2019-11-16] MEDS: diphenhydrAMINE 25 MG CAP PO SCH (22:33)
[2019-11-17] MEDS ORDERED: ONDANSETRON 4 MG/2 ML VIAL IVP STA (02:53)
[2019-11-17] MEDS ORDERED: ONDANSETRON 4 MG/2 ML VIAL ONE (02:55)
[2019-11-17] MEDS: ALBUTEROL NEBULIZED 2.5 MG/3 ML INHALATION SCH ×4 (08:31→20:57)
[2019-11-17] MEDS: BEVESPI AEROSPHERE PO SCH ×3 (08:33→21:01)
[2019-11-17] MEDS: LEVOTHYROXINE 100 MCG TAB PO SCH (08:51)
[2019-11-17] MEDS: LEVOTHYROXINE 75 MCG TAB PO SCH (08:51)
[2019-11-17] MEDS: HEPARIN SODIUM,PORCINE 5,000 UNIT/ML 1 ML VIAL SQ SCH ×2 (08:51→22:27)
[2019-11-17 09:50] LABS: ABG Base Excess 9.8 mmol/L; ABG HCO3 36 mmol/L (21-25); ABG Oxygen Saturation 96.3 % (94-97); ABG PO2 166 mmHg (83-108); ABG TCO2 38 mmol/L (19-24); Allen Test Performed? Yes
[2019-11-17 09:54] LABS: ABG PCO2 73 mmHg (35-45)
[2019-11-17] MEDS ORDERED: NALOXONE 0.4 MG/ML 1 ML VIAL ONE (10:58)
[2019-11-17] MEDS ORDERED: MORPHINE SULFATE 2 MG/ML SYRINGE IVP PRN (11:48)
--- NOTE | 2019-11-17 11:49 | P.PN ---
Subjective Progress Note Date: 11/17/19 Principal diagnosis: Acute on chronic hypoxic/hypercapnic respiratory failure secondary to an acute exacerbation of chronic obstructive pulmonary disease. This is a very pleasant 74-year-old female patient who follows with Dr. Adryan Lopez as her primary care provider. She has a history of hypothyroidism, chronic tobacco dependence. She follows with Dr. Nava in our office for severe COPD with an FEV1 value 32% of predicted. 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 A PET scan in February 2019 revealed uptake in the left upper lobe as well as the descending colon. She had subsequent undergone radiation treatments by Dr. Naik last treated in March 2019. She presented here to the emergency room yesterday with 3 day history of increasing shortness of breath, pleuritic-type chest pain and increased edema of the lower extremities. Dopplers of the lower extremity were negative for DVT. EKG revealed normal sinus rhythm with no ST or T wave abnormalities. Computed tomography scan of the chest revealed multicentric masslike densities in the lef t upper lobe anteriorly extending from the pleura to the left pulmonary hilum with encasement of the left upper lobe pulmonary artery and narrowing of the lumen. This is consistent with malignancy and is a change compared to 05/22/2019. There was an irregular 2 cm triangle-shaped infiltrate adjacent to the pleura the left upper lobe anteriorly that is increased in size to 3.5 cm. She is seen today in consultation on the selective care unit. She is currently resting fairly comfortably in bed. She is on 6 L nasal cannula to maintain O2 saturation in the 90s. She's been afebrile. Still dyspneic with exertion. Hemodynamically stable. White count 9.4. Hemoglobin 9.5. Sodium 140. Potas sium 4.7. Bicarb 41. Creatinine 0.69. Calcium 7.1. Troponins negative 3. ProBNP 143. Isbell virus not detected. She is currently on DuoNeb inhalations. Magnesium has been replaced initially 0.8. Current level 2.7. The patient is seen today 11/17/2019 in follow-up on the selective care unit. She is currently quite drowsy and sedated. She is complaining of right sided chest wall pain and was given morphine and Benadryl proximally 3 AM this morning. She was difficult to arouse. The patient was given Narcan without much improvement. She is maintaining O2 saturations in the low 90s on 6 L/m per nasal cannula. She's been afebrile. Arterial blood gases reveal a P O2 of 166, pCO2 of 73 and a pH of 7.30 and 44% FiO2. Computed tomography scan of the brain or concerns with metastasis revealed no acute intracranial abnormalities. She had been seen and evaluated by radiation oncology regarding her computed tomography scan of the chest which is revealing lobar recurrence with hilar adenopathy. Further radiotherapy made be possible for local disease but is requesting distant progression be ruled out first. Objective - Vital Signs Vital signs: Vital Signs Temp 98.6 F 11/17/19 11:25 Pulse 77 11/17/19 11:27 Resp 21 11/17/19 11:30 BP 98/51 11/17/19 11:25 Pulse Ox 97 11/17/19 11:30 Intake & Output 11/16/19 11/17/19 11/17/19 18:59 06:59 18:59 Intake Total 1760 30 Balance 1760 30 Weight 60 kg Intake: IV 30 Invasive Line 2 30 Oral 1760 Other: # Voids 1 0 # Bowel Movements 1 - Exam GENERAL EXAM: Drowsy, sedated 74-year-old female patient, on 6 L nasal cannula, fairly comfortable in no apparent distress. HEAD: Normocephalic. EYES: Normal reaction of pupils, equal size. NOSE: Clear with pink turbinates. THROAT: No erythema or exudates. NECK: No masses, no JVD. CHEST: No chest wall deformity. LUNGS: Equal air entry with bilateral end expiratory wheeze, diminished. CVS: S1 and S2 normal with no audible murmur, regular rhythm. ABDOMEN: No hepatosplenomegaly, normal bowel sounds, no guarding or rigidity. SPINE: No scoliosis or deformity SKIN: No rashes CENTRAL NERVOUS SYSTEM: No focal deficits, tone is normal in all 4 extremities. EXTREMITIES: There is 1-2+ peripheral edema. No clubbing, no cyanosis. Peripheral pulses are intact. - Labs CBC & Chem 7: 11/16/19 07:07 11/16/19 07:07 Labs: Abnormal Lab Results - Last 24 Hours (Table) 11/17/19 Range/Units 09:48 ABG pH 7.30 L (7.35-7.45) ABG pCO2 73 H* (35-45) mmHg ABG pO2 166 H (83-108) mmHg ABG HCO3 36 H (21-25) mmol/L ABG Total CO2 38 H (19-24) mmol/L Assessment and Plan Assessment: 1 Acute on chronic hypoxic/hypercapnic respiratory failure secondary to an acute exacerbation of exacerbation of chronic obstructive pulmonary disease. Her COPD is Gold stage III/IV with an FEV1 value 32% of predicted. He was given morphine earlier this morning is quite sedate. Arterial blood gases revealed pO2 166, pCO2 73, pH 7.30. 2 Pleuritic chest pain 3 History of non-small cell lung cancer, squamous cell, status post radiation therapy. Yesterday's computed tomography scan of the chest reveals enlarging multicentric masslike density in the left upper lobe anteriorly extending from the pleura to the left pulmonary hilum with encasement of the left upper lobe pulmonary artery and narrowing of the lumen. There is also an increasing triangle shape infiltrate adjacent to the pleura on the left upper lobe increased from 2 cm to 3.5 cm. 4 Hypomagnesemia status post replacement initially 0.8 now 2.7 5 Anemia current hemoglobin 9.5 6 History of chronic tobacco dependence 7 Hypothyroidism. 8 History of bowel resection with colostomy and subsequent reversal Plan: The patient was seen and evaluated by Dr. Obrien ABGs were obtained and reviewed The patient did require BiPAP 12/5 on 40% FiO2 Avoid narcotics Radiation oncology consult appreciated Continue bronchodilators The patient has a steroid ALLERGY Continue the patient's home Bevespi Prognosis guarded Will continue to follow and make further recommendations based on her clinical status. I, the cosigning physician, performed a history & physical examination of the patient. Lungs sounds with bilateral end expiratory wheeze, diminished. Maintaining good O2 saturations in the 90s on 6 L/m per nasal cannula. I discussed the assessment and plan of care with my nurse practitioner, Megan Rdz . I attest to the above note as dictated by her.
--- NOTE | 2019-11-17 14:16 | P.CONS ---
History of Present Illness - Reason for Consult Consult date: 11/17/19 Recurrent squamous cell lung cancer Requesting physician: Mirella Melgar - Chief Complaint Shortness of breath - History of Present Illness Mrs. Ramsey is a very pleasant his 74-year-old female patient with a history of squamous cell lung cancer, treated with external beam radiation therapy only, completing treatment March 2019. Her scans in May did not show evidence of recurrence. Patient is on a BiPAP when seen, she is able to shake her head yes and no to questions. She has lost between 10-20lbs recently, she is SOB, feels ok with the Bi-pap on. No new or unusual pain. Review of Systems difficult to obtain due to BiPAP, patient is mildly lethargic Past Medical History Past Medical History: Cancer, COPD, Renal Disease Additional Past Medical History / Comment(s): Hypothyroidism, lung mass, patient has condition that she developes adhesions very easily. "kidney stones" lung cx. History of Any Multi-Drug Resistant Organisms: None Reported Past Surgical History: Appendectomy, Bariatric Surgery, Bowel Resection, Hysterectomy, Orthopedic Surgery Additional Past Surgical History / Comment(s): Prolapsed bowel with colostomy and reversal, bariatric surgery; broke bilateral legs with repair Past Anesthesia/Blood Transfusion Reactions: No Reported Reaction Past Psychological History: No Psychological Hx Reported Smoking Status: Current every day smoker Past Alcohol Use History: None Reported Past Drug Use History: None Reported - Past Family History Mother History Unknown: Yes Family Medical History: Unable to Obtain Additional Family Medical History / Comment(s): The patient is unaware of any significant family history Medications and Allergies Home Medications Medication Instructions Recorded Confirmed Type Biotin 5,000 mcg PO DAILY@29911/13/16 11/15/19 History Furosemide [Lasix] 20 mg PO DAILY@29911/13/16 11/15/19 History Levothyroxine Sodium [Synthroid] 175 mcg PO DAILY@29911/13/16 11/15/19 History Cyanocobalamin [Vitamin B-12 1,000 mcg SQ TH 08/10/17 11/15/19 History Injection] Glycopyrrolate/Formoterol Fum 2 puff INHALATION RT-BID@0300,1600 08/10/17 11/15/19 History [Bevespi Aerosphere Inhaler] diphenhydrAMINE [Benadryl] 50 mg PO DAILY@2300 08/10/17 11/15/19 History Potassium Chloride [Klor-Con 20] 20 meq PO DAILY@03004/02/19 11/15/19 History ALPRAZolam [Xanax] 0.25 mg PO TID PRN 11/15/19 11/15/19 History Albuterol Sulfate [Accuneb] 1.25 mg INHALATION RT-TID PRN 11/15/19 11/15/19 History Albuterol Sulfate [Ventolin HFA] 2 puff INHALATION RT-Q4H PRN 11/15/19 11/15/19 History Ascorbic Acid [Vitamin C] 1,000 mg PO DAILY@29911/15/19 11/15/19 History Cholecalciferol (Vitamin D3) 125 mcg PO DAILY@29911/15/19 11/15/19 History [Vitamin D3] Levofloxacin [Levaquin] 500 mg PO DAILY 11/15/19 11/15/19 History Allergies Allergy/AdvReac Type Severity Reaction Status Date / Time acetaminophen [From Tylenol] Allergy Swelling Verified 11/15/19 16:09 amoxicillin Allergy Swelling Verified 11/15/19 16:09 aspirin Allergy Swelling Verified 11/15/19 16:09 codeine Allergy Anaphylaxis Verified 11/15/19 16:09 hydrocodone [From Vicodin] Allergy Anaphylaxis Verified 11/15/19 16:09 Penicillins Allergy Swelling Verified 11/15/19 16:09 sulfamethoxazole Allergy Swelling Verified 11/15/19 16:09 [From Bactrim] trimethoprim [From Bactrim] Allergy Swelling Verified 11/15/19 16:09 tramadol AdvReac DOES NOT Verified 11/15/19 16:09 WORK steroids Allergy Swelling Uncoded 04/02/19 16:00 Physical Exam Vitals: Vital Signs Temp Pulse Pulse Resp BP Pulse Ox 11/17/19 11:57 69 11/17/19 11:46 74 11/17/19 11:30 21 97 11/17/19 11:27 77 18 11/17/19 11:25 98.6 F 77 18 98/51 95 11/17/19 11:12 18 92 L 11/17/19 11:01 14 11/17/19 11:00 14 85 L 11/17/19 10:09 14 96 11/17/19 08:49 86 18 112/62 92 L 11/17/19 08:43 93 11/17/19 08:33 89 97 11/17/19 04:00 69 18 107/52 100 11/17/19 00:00 83 18 94 L 11/16/19 20:25 74 11/16/19 20:16 73 11/16/19 20:00 73 20 107/56 96 11/16/19 17:04 75 11/16/19 16:53 72 94 L 11/16/19 15:33 74 18 11/16/19 15:30 98.6 F 74 18 104/59 94 L Intake and Output 11/16/19 11/17/19 11/17/19 22:59 06:59 14:59 Intake Total 700 30 Balance 700 30 Intake: IV 30 Invasive Line 2 30 Oral 700 Other: # Voids 1 0 # Bowel Movements 1 Weight 60 kg - Constitutional General appearance: cooperative, mild distress, thin - EENT Eyes: anicteric sclerae, EOMI ENT: hearing grossly normal - Neck Neck: no lymphadenopathy - Respiratory Respiratory: bilateral: diminished - Cardiovascular Rhythm: regular Heart sounds: normal: S1, S2 Abnormal Heart Sounds: no systolic murmur, no diastolic murmur, no rub, no S3 Gallop, no S4 Gallop, no click, no other - Musculoskeletal Musculoskeletal: generalized weakness - Psychiatric Psychiatric: appropriate affect, intact judgment & insight Results CBC & Chem 7: 11/16/19 07:07 11/16/19 07:07 Labs: Abnormal Lab Results - Last 24 Hours (Table) 11/17/19 Range/Units 09:48 ABG pH 7.30 L (7.35-7.45) ABG pCO2 73 H* (35-45) mmHg ABG pO2 166 H (83-108) mmHg ABG HCO3 36 H (21-25) mmol/L ABG Total CO2 38 H (19-24) mmol/L CT scan - chest: report reviewed (Left upper lobe mass, suspect local recurrence) CT Scan - head: report reviewed (No evidence of metastasis) Venous US: report reviewed (Bilateral lower extremities negative for DVT) Assessment and Plan (1) Squamous cell lung cancer Narrative/Plan: Hx of sq cell, treated with EBRT only. We have been asked to see the patient to determine if there are any potential treatment options that would be appropriate for the patient. Exam of patient it is very obvious that she is of poor performance status. See radiation oncology documented PDL negativity, I'm unsure if there was any next generation sequencing done. We will request that to evaluate for any possible non-chemo treatment options. As for traditional chemotherapy in the metastatic setting currently this patient would not be a candidate due to performance status at this time. Will f/u on Tuesday Current Visit: Yes Status: Chronic Priority: High Code(s): C34.90 - MALIGNANT NEOPLASM OF UNSP PART OF UNSP BRONCHUS OR LUNG SNOMED Code(s): 643503100 Plan: Discussed with pt negative brain CT and that she has not have DVT in her legs
--- NOTE | 2019-11-17 15:48 | P.PN ---
Subjective 72-year-old the female with advanced COPD lung cancer and multiple other comminuted medical issues including majority of bowel removal came in after she was sent in from [facility] clinic for hypomagnesemia patient was having shortness of breath significant wheezing on exam because of which patient is being admitted and patient is found to have a mass in the hilum which she is 5 cm. Patient to was receivingradiation therapy for her lung mass and patient is supposed to get follow-up chest CT as a part ofposterior lung cancer radiation workup which she never and she never did because of her Covid 19 pandemic.patient was fully dysfunction at home presently on 4 L with significant wheezing on exam.chest x- ray did not show any pneumonia patient denied any significant cough with sputum production 11/16/2019 Patient is seen and evaluated and follow-up and continues to be severely dyspneic with exertion. Patient currently on 4 L of oxygen via nasal cannula and states she normally wears 3 L of oxygen at home. Pulmonary following recommending continued breathing treatments and awaiting radiation oncology consult for CT findings. Patient has an ALLERGY to steroids and will avoid. Currently no reports of chest pain or palpitations. Patient is afebrile. No reports of nausea or vomiting and patient is tolerating diet. Patient's magnesium was replaced and is currently 2.7 today. 11/17/2019 Patient had a computed tomography scan of the head which did not show any metastatic disease. Patient went into respiratory failure wearing BiPAP morphine was discontinued. Patient has significant wheezing on exam. Review of systems: Unable to obtain as patient is on BiPAP All inpatient medications were reviewed and appropriate changes in these medications as dictated in the interval history and assessment and plan. Objective - Vital Signs Vital signs: Vital Signs Temp 97.6 F 11/17/19 15:30 Pulse 79 11/17/19 15:33 Resp 18 11/17/19 15:33 BP 92/52 11/17/19 15:30 Pulse Ox 92 L 11/17/19 15:30 Intake & Output 11/16/19 11/17/19 11/17/19 18:59 06:59 18:59 Intake Total 1760 340 Output Total 600 Balance 1760 -260 Weight 60 kg Intake: IV 40 Invasive Line 2 40 Oral 1760 300 Output: Urine 600 Other: # Voids 1 0 # Bowel Movements 1 - Exam GENERAL: Patient is on BiPAP. thin built female HEENT: Pupils are round and equally reacting to light. EOMI. No scleral icterus. No conjunctival pallor. Normocephalic, atraumatic. No pharyngeal erythema. No thyromegaly. CARDIOVASCULAR: S1 and S2 present. No murmurs, rubs, or gallops. PULMONARY: Expiratory Wheezing significant on exam ABDOMEN: Soft, nontender, nondistended, normoactive bowel sounds. No palpable organomegaly. MUSCULOSKELETAL: No joint swelling or deformity. EXTREMITIES: No cyanosis, clubbing, or pedal edema. NEUROLOGICAL: Arousable on BiPAP SKIN: No rashes. - Labs CBC & Chem 7: 11/16/19 07:07 11/16/19 07:07 Labs: Abnormal Lab Results - Last 24 Hours (Table) 11/17/19 Range/Units 09:48 ABG pH 7.30 L (7.35-7.45) ABG pCO2 73 H* (35-45) mmHg ABG pO2 166 H (83-108) mmHg ABG HCO3 36 H (21-25) mmol/L ABG Total CO2 38 H (19-24) mmol/L Assessment and Plan Plan: Acute on Chronic Hypercapnic Respiratory Failure: Secondary to COPD Exac erbation Patient Is ALLERGIC to systemic steroids. Patient is presently and albuterol inhalational, on BiPAP. -hypomagnesemia: Probably due to decreased absorption due to absence of majority of small bowel. Magnesium normalize now. -chronic macrocytic anemia probably secondary to B12 and folate deficiencydue to decreased absorption will order B12 levels. -Lung cancer receiving radiation therapy completed radiation, patient doesn't have any metastatic disease to brain radiation oncology and oncology evaluated the patient isn't is not a good candidate for chemotherapy -hypothyroidism -DVT prophylaxis with subcutaneous heparinand GI prophylaxis with Pepcid -Ruled out COVID 19
[2019-11-17] MEDS: diphenhydrAMINE 25 MG CAP PO SCH (22:26)
[2019-11-18] MEDS: LEVOTHYROXINE 100 MCG TAB PO SCH (06:56)
[2019-11-18] MEDS: LEVOTHYROXINE 75 MCG TAB PO SCH (06:56)
[2019-11-18] MEDS: HEPARIN SODIUM,PORCINE 5,000 UNIT/ML 1 ML VIAL SQ SCH ×2 (08:06→21:19)
[2019-11-18] MEDS: ALBUTEROL NEBULIZED 2.5 MG/3 ML INHALATION SCH ×4 (09:05→19:40)
[2019-11-18] MEDS: BEVESPI AEROSPHERE PO SCH ×2 (09:21→19:49)
--- NOTE | 2019-11-18 12:19 | P.PN ---
Subjective Progress Note Date: 11/18/19 Principal diagnosis: Acute on chronic hypoxic/hypercapnic respiratory failure secondary to an acute exacerbation of chronic obstructive pulmonary disease. This is a very pleasant 74-year-old female patient who follows with Dr. Adryan Lopez as her primary care provider. She has a history of hypothyroidism, chronic tobacco dependence. She follows with Dr. Nava in our office for severe COPD with an FEV1 value 32% of predicted. 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 A PET scan in February 2019 revealed uptake in the left upper lobe as well as the descending colon. She had subsequent undergone radiation treatments by Dr. Naik last treated in March 2019. She presented here to the emergency room yesterday with 3 day history of increasing shortness of breath, pleuritic-type chest pain and increased edema of the lower extremities. Dopplers of the lower extremity were negative for DVT. EKG revealed normal sinus rhythm with no ST or T wave abnormalities. Computed tomography scan of the chest revealed multicentric masslike densities in the lef t upper lobe anteriorly extending from the pleura to the left pulmonary hilum with encasement of the left upper lobe pulmonary artery and narrowing of the lumen. This is consistent with malignancy and is a change compared to 05/22/2019. There was an irregular 2 cm triangle-shaped infiltrate adjacent to the pleura the left upper lobe anteriorly that is increased in size to 3.5 cm. She is seen today in consultation on the selective care unit. She is currently resting fairly comfortably in bed. She is on 6 L nasal cannula to maintain O2 saturation in the 90s. She's been afebrile. Still dyspneic with exertion. Hemodynamically stable. White count 9.4. Hemoglobin 9.5. Sodium 140. Potas sium 4.7. Bicarb 41. Creatinine 0.69. Calcium 7.1. Troponins negative 3. ProBNP 143. Isbell virus not detected. She is currently on DuoNeb inhalations. Magnesium has been replaced initially 0.8. Current level 2.7. The patient is seen today 11/17/2019 in follow-up on the selective care unit. She is currently quite drowsy and sedated. She is complaining of right sided chest wall pain and was given morphine and Benadryl proximally 3 AM this morning. She was difficult to arouse. The patient was given Narcan without much improvement. She is maintaining O2 saturations in the low 90s on 6 L/m per nasal cannula. She's been afebrile. Arterial blood gases reveal a P O2 of 166, pCO2 of 73 and a pH of 7.30 and 44% FiO2. Computed tomography scan of the brain or concerns with metastasis revealed no acute intracranial abnormalities. She had been seen and evaluated by radiation oncology regarding her computed tomography scan of the chest which is revealing lobar recurrence with hilar adenopathy. Further radiotherapy made be possible for local disease but is requesting distant progression be ruled out first. The patient is seen today 11/18/2019 in follow-up on the selective care unit. She is much more awake and alert today compared to yesterday. Maintaining O2 saturation in the mid 90s on 4 L/m per nasal cannula. She's been afebrile. She is maintained on her Bevaspi along with albuterol. She is still dyspneic with minimal exertion. She is quite adamant about going home however. Objective - Vital Signs Vital signs: Vital Signs Temp 97.3 F L 11/18/19 08:04 Pulse 72 11/18/19 09:20 Resp 18 11/18/19 08:05 BP 98/52 11/18/19 08:04 Pulse Ox 95 11/18/19 08:04 Intake & Output 11/17/19 11/18/19 11/18/19 18:59 06:59 18:59 Intake Total 460 510 310 Output Total 600 2100 Balance -140 -1590 310 Weight 61.5 kg Intake: IV 40 30 10 Invasive Line 2 40 30 10 Oral 420 480 300 Output: Urine 600 2100 Other: # Voids 0 2 0 # Bowel Movements 1 - Exam GENERAL EXAM: Awake, alert pleasant 74-year-old female patient, on 4 L nasal cannula, fairly comfortable in no apparent distress. HEAD: Normocephalic. EYES: Normal reaction of pupils, equal size. NOSE: Clear with pink turbinates. THROAT: No erythema or exudates. NECK: No masses, no JVD. CHEST: No chest wall deformity. LUNGS: Equal air entry with bilateral end expiratory wheeze, diminished. CVS: S1 and S2 normal with no audible murmur, regular rhythm. ABDOMEN: No hepatosplenomegaly, normal bowel sounds, no guarding or rigidity. SPINE: No scoliosis or deformity SKIN: No rashes CENTRAL NERVOUS SYSTEM: No focal deficits, tone is normal in all 4 extremities. EXTREMITIES: There is 1-2+ peripheral edema. No clubbing, no cyanosis. Peripheral pulses are intact. - Labs CBC & Chem 7: 11/16/19 07:07 11/16/19 07:07 Assessment and Plan Assessment: 1 Acute on chronic hypoxic/hypercapnic respiratory failure secondary to an acute exacerbation of exacerbation of chronic obstructive pulmonary disease. Her COPD is Gold stage III/IV with an FEV1 value 32% of predicted. 2 Pleuritic chest pain 3 History of non-small cell lung cancer, squamous cell, status post radiation therapy. Yesterday's computed tomography scan of the chest reveals enlarging multicentric masslike density in the left upper lobe anteriorly extending from the pleura to the left pulmonary hilum with encasement of the left upper lobe pulmonary artery and narrowing of the lumen. There is also an increasing triangle shape infiltrate adjacent to the pleura on the left upper lobe increased from 2 cm to 3.5 cm. 4 Hypomagnesemia status post replacement initially 0.8 now 2.7 5 Anemia current hemoglobin 9.5 6 History of chronic tobacco dependence 7 Hypothyroidism. 8 History of bowel resection with colostomy and subsequent reversal Plan: The patient was seen and evaluated by Dr. Obrien She is improved today compared to yesterday Continue the patient's home Bevespi and albuterol Overall prognosis is quite guarded Will continue to follow and make further recommendations based on her clinical status. I, the cosigning physician, performed a history & physical examination of the patient. Lungs sounds with bilateral end expiratory wheeze, diminished. Philiptai keith good O2 saturations in the 90s on 4 L/m per nasal cannula. I discussed the assessment and plan of care with my nurse practitioner, Megan Rdz. I attest to the above note as dictated by her.
--- NOTE | 2019-11-18 12:31 | P.DS ---
Providers Date of admission: 11/15/19 15:27 Attending physician: Mirella Melgar Consults: 11/15/19 16:10 Consult Physician Stat Consulting Provider: Sean Obrien Consult Reason/Comments: COPD exacerbation, new lung mass Do you want consulting provider notified?: Yes 11/15/19 17:51 Consult Physician Routine Consulting Provider: Arvind Naik Consult Reason/Comments: Lung mass Do you want consulting provider notified?: Yes 11/16/19 17:04 Consult Physician Routine Consulting Provider: Inocente Crowell Consult Reason/Comments: Lung Mass Do you want consulting provider notified?: Yes Primary care physician: Adryan Lopez Hospital Course: 72-year-old the female with advanced COPD lung cancer and multiple other comminuted medical issues including majority of bowel removal came in after she was sent in from [facility] clinic for hypomagnesemia patient was having shortness of breath significant wheezing on exam because of which patient is being admitted and patient is found to have a mass in the hilum which she is 5 cm. Patient to was receivingradiation therapy for her lung mass and patient is supposed to get follow-up chest CT as a part ofposterior lung cancer radiation workup which she never and she never did because of her Covid 19 pandemic.patient was fully dysfunction at home presently on 4 L with significant wheezing on exam.chest x- ray did not show any pneumonia patient denied any significant cough with sputum production 11/16/2019 Patient is seen and evaluated and follow-up and continues to be severely dyspneic with exertion. Patient currently on 4 L of oxygen via nasal cannula and states she normally wears 3 L of oxygen at home. Pulmonary following recommending continued breathing treatments and awaiting radiation oncology consult for CT findings. Patient has an ALLERGY to steroids and will avoid. Currently no reports of chest pain or palpitations. Patient is afebrile. No reports of nausea or vomiting and patient is tolerating diet. Patient's magnesium was replaced and is currently 2.7 today. 11/17/2019 Patient had a computed tomography scan of the head which did not show any metastatic disease. Patient went into respiratory failure wearing BiPAP morphine was discontinued. Patient has significant wheezing on exam. PHYSICAL EXAMINATION: GENERAL: The patient is alert and oriented x3, not in any acute distress. Well developed, well nourished. HEENT: Pupils are round and equally reacting to light. EOMI. No scleral icterus. No conjunctival pallor. Normocephalic, atraumatic. No pharyngeal erythema. No thyromegaly. CARDIOVASCULAR: S1 and S2 present. No murmurs, rubs, or gallops. PULMONARY: Wheezing significantly improved decreased air entry. ABDOMEN: Soft, nontender, nondistended, normoactive bowel sounds. No palpable organomegaly. MUSCULOSKELETAL: No joint swelling or deformity. EXTREMITIES: No cyanosis, clubbing, or pedal edema. NEUROLOGICAL: Gross neurological examination did not reveal any focal deficits. SKIN: No rashes. Assessment and Plan Plan: Acute on Chronic Hypercapnic Respiratory Failure: Secondary to COPD Exacerbation Patient Is ALLERGIC to systemic steroids. Patient is feeling much better today BiPAP patient is on 4 L apart from her baseline patient will be discharged today -hypomagnesemia: Probably due to decreased absorption due to absence of majority of small bowel. Magnesium is within normal limits now. -chronic macrocytic anemia with a levels are within normal limits this is probably secondary to bone marrow suppression -Lung cancer receiving radiation therapy completed radiation, patient will follow with the radiation oncology and oncology regarding the lung mass. She appears to a squamous cell lung cancer -hypothyroidism -Ruled out COVID 19 Patient Condition at Discharge: Serious Plan - Discharge Summary Discharge Rx Participant: No New Discharge Prescriptions: Continue Levothyroxine Sodium [Synthroid] 175 mcg PO DAILY@0300 Biotin 5,000 mcg PO DAILY@0300 diphenhydrAMINE [Benadryl] 50 mg PO DAILY@2300 Cyanocobalamin [Vitamin B-12 Injection] 1,000 mcg SQ TH Glycopyrrolate/Formoterol Fum [Bevespi Aerosphere Inhaler] 2 puff INHALATION RT-BID@0300,1600 Albuterol Sulfate [Ventolin HFA] 2 puff INHALATION RT-Q4H PRN PRN Reason: Shortness Of Breath Ascorbic Acid [Vitamin C] 1,000 mg PO DAILY@0300 Cholecalciferol (Vitamin D3) [Vitamin D3] 125 mcg PO DAILY@0300 ALPRAZolam [Xanax] 0.25 mg PO TID PRN PRN Reason: Anxiety Albuterol Sulfate [Accuneb] 1.25 mg INHALATION RT-TID PRN PRN Reason: Shortness Of Breath Discontinued Furosemide [Lasix] 20 mg PO DAILY@0300 Potassium Chloride [Klor-Con 20] 20 meq PO DAILY@299 Levofloxacin [Levaquin] 500 mg PO DAILY Discharge Medication List Biotin 5,000 mcg PO DAILY@29911/13/16 [History] Levothyroxine Sodium [Synthroid] 175 mcg PO DAILY@29911/13/16 [History] Cyanocobalamin [Vitamin B-12 Injection] 1,000 mcg SQ TH 08/10/17 [History] Glycopyrrolate/Formoterol Fum [Bevespi Aerosphere Inhaler] 2 puff INHALATION RT- BID@0300,1600 08/10/17 [History] diphenhydrAMINE [Benadryl] 50 mg PO DAILY@2300 08/10/17 [History] ALPRAZolam [Xanax] 0.25 mg PO TID PRN 11/15/19 [History] Albuterol Sulfate [Accuneb] 1.25 mg INHALATION RT-TID PRN 11/15/19 [History] Albuterol Sulfate [Ventolin HFA] 2 puff INHALATION RT-Q4H PRN 11/15/19 [History] Ascorbic Acid [Vitamin C] 1,000 mg PO DAILY@29911/15/19 [History] Cholecalciferol (Vitamin D3) [Vitamin D3] 125 mcg PO DAILY@29911/15/19 [History] Follow up Appointment(s)/Referral(s): Adryan Lopez MD [Primary Care Provider] - 3 Days Inocente Crowell MD [STAFF PHYSICIAN] - 1 Week Arvind Naik MD [STAFF PHYSICIAN] - 1 Week Discharge Disposition: HOME SELF-CARE
[2019-11-18] MEDS: ALPRAZolam 0.25 MG TAB PO PRN (20:45)
[2019-11-19] MEDS: diphenhydrAMINE 25 MG CAP PO SCH (00:23)
[2019-11-19 00:37] VITALS: RESP 20
[2019-11-19] MEDS: LEVOTHYROXINE 100 MCG TAB PO SCH (06:44)
[2019-11-19] MEDS: LEVOTHYROXINE 75 MCG TAB PO SCH (06:44)
[2019-11-19] MEDS: ALBUTEROL NEBULIZED 2.5 MG/3 ML INHALATION SCH ×3 (07:34→15:42)
[2019-11-19] MEDS: BEVESPI AEROSPHERE PO SCH (07:46)
[2019-11-19 10:09] VITALS: BP 101/51; TEMP 98.4
[2019-11-19] MEDS: HEPARIN SODIUM,PORCINE 5,000 UNIT/ML 1 ML VIAL SQ SCH (10:10)
[2019-11-19 11:40] VITALS: PULSE 76
[2019-11-19] MEDS: ALPRAZolam 0.25 MG TAB PO PRN (11:42)
--- NOTE | 2019-11-19 13:52 | P.DS ---
Providers Date of admission: 11/15/19 15:27 Attending physician: Mirella Melgar Consults: 11/15/19 16:10 Consult Physician Stat Consulting Provider: Sean Obrien Consult Reason/Comments: COPD exacerbation, new lung mass Do you want consulting provider notified?: Yes 11/15/19 17:51 Consult Physician Routine Consulting Provider: Arvind Naik Consult Reason/Comments: Lung mass Do you want consulting provider notified?: Yes 11/16/19 17:04 Consult Physician Routine Consulting Provider: Inocente Crowell Consult Reason/Comments: Lung Mass Do you want consulting provider notified?: Yes Primary care physician: Adryan Lopez Hospital Course: Patient shortness of breath is better wanted to go home today. PHYSICAL EXAMINATION: GENERAL: The patient is alert and oriented x3, not in any acute distress. Well developed, well nourished. HEENT: Pupils are round and equally reacting to light. EOMI. No scleral icterus. No conjunctival pallor. Normocephalic, atraumatic. No pharyngeal erythema. No thyromegaly. CARDIOVASCULAR: S1 and S2 present. No murmurs, rubs, or gallops. PULMONARY: Wheezing significantly improved decreased air entry. ABDOMEN: Soft, nontender, nondistended, normoactive bowel sounds. No palpable organomegaly. MUSCULOSKELETAL: No joint swelling or deformity. EXTREMITIES: No cyanosis, clubbing, or pedal edema. NEUROLOGICAL: Gross neurological examination did not reveal any focal deficits. SKIN: No rashes. Please refer to my discharge summary from yesterday Patient Condition at Discharge: Serious Plan - Discharge Summary Discharge Rx Participant: No New Discharge Prescriptions: Continue Levothyroxine Sodium [Synthroid] 175 mcg PO DAILY@0300 Biotin 5,000 mcg PO DAILY@0300 diphenhydrAMINE [Benadryl] 50 mg PO DAILY@2300 Cyanocobalamin [Vitamin B-12 Injection] 1,000 mcg SQ TH Glycopyrrolate/Formoterol Fum [Bevespi Aerosphere Inhaler] 2 puff INHALATION RT-BID@0300,1600 Albuterol Sulfate [Ventolin HFA] 2 puff INHALATION RT-Q4H PRN PRN Reason: Shortness Of Breath Ascorbic Acid [Vitamin C] 1,000 mg PO DAILY@0300 Cholecalciferol (Vitamin D3) [Vitamin D3] 125 mcg PO DAILY@030 ALPRAZolam [Xanax] 0.25 mg PO TID PRN PRN Reason: Anxiety Albuterol Sulfate [Accuneb] 1.25 mg INHALATION RT-TID PRN PRN Reason: Shortness Of Breath Discontinued Furosemide [Lasix] 20 mg PO DAILY@030 Potassium Chloride [Klor-Con 20] 20 meq PO DAILY@030 Levofloxacin [Levaquin] 500 mg PO DAILY Discharge Medication List Biotin 5,000 mcg PO DAILY@29911/13/16 [History] Levothyroxine Sodium [Synthroid] 175 mcg PO DAILY@29911/13/16 [History] Cyanocobalamin [Vitamin B-12 Injection] 1,000 mcg SQ TH 08/10/17 [History] Glycopyrrolate/Formoterol Fum [Bevespi Aerosphere Inhaler] 2 puff INHALATION RT- BID@0300,1600 08/10/17 [History] diphenhydrAMINE [Benadryl] 50 mg PO DAILY@2300 08/10/17 [History] ALPRAZolam [Xanax] 0.25 mg PO TID PRN 11/15/19 [History] Albuterol Sulfate [Accuneb] 1.25 mg INHALATION RT-TID PRN 11/15/19 [History] Albuterol Sulfate [Ventolin HFA] 2 puff INHALATION RT-Q4H PRN 11/15/19 [History] Ascorbic Acid [Vitamin C] 1,000 mg PO DAILY@29911/15/19 [History] Cholecalciferol (Vitamin D3) [Vitamin D3] 125 mcg PO DAILY@29911/15/19 [History] Follow up Appointment(s)/Referral(s): Adryan Lopez MD [Primary Care Provider] - 11/22/19 1:10 pm Narda Nava MD [STAFF PHYSICIAN] - 12/05/19 1:45 pm Inocente Crowell MD [STAFF PHYSICIAN] - 1 Week ('s office will call you with an appointment time.) Arvind Naik MD [STAFF PHYSICIAN] - 12/03/19 11:30 am (Dr. Naik's office will call you if this appointment time needs to be changed to an earlier date.) Patient Instructions/Handouts: Emphysema (ED), COPD (Chronic Obstructive Pulmonary Disease) (ED), How Your Lungs Work (ED) Discharge Disposition: HOME SELF-CARE
--- NOTE | 2019-11-19 13:59 | P.PN ---
Subjective Progress Note Date: 11/19/19 Principal diagnosis: acute on chronic hypoxic/hypercapnic respiratory failure secondary to an acute exacerbation of chronic obstructive pulmonary disease This is a very pleasant 74-year-old female patient who follows with Dr. Adryan Lopez as her primary care provider. She has a history of hypothyroidism, chronic tobacco dependence. She follows with Dr. Nava in our office for severe COPD with an FEV1 value 32% of predicted. 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 A PET scan in February 2019 revealed uptake in the left upper lobe as well as the descending colon. She had subsequent undergone radiation treatments by Dr. Naik last treated in March 2019. She presented here to the emergency room yesterday with 3 day history of increasing shortness of breath, pleuritic-type chest pain and increased edema of the lower extremities. Dopplers of the lower extremity were negative for DVT. EKG revealed normal sinus rhythm with no ST or T wave abnormalities. Computed tomography scan of the chest revealed multicentric masslike densities in the left upper lobe anteriorly extending from the pleura to the left pulmonary hilum with encasement of the left upper lobe pulmonary artery and narrowing of the lumen. This is consistent with malignancy and is a change compared to 05/22/2019. There was an irregular 2 cm triangle-shaped infiltrate adjacent to the pleura the left upper lobe anteriorly that is increased in size to 3.5 cm. She is seen today in consultation on the selective care unit. She is currently resting fairly comfortably in bed. She is on 6 L nasal cannula to maintain O2 saturation in the 90s. She's been afebrile. Still dyspneic with exertion. Hemodynamically stable. White count 9.4. Hemoglobin 9.5. Sodium 140. Potass ium 4.7. Bicarb 41. Creatinine 0.69. Calcium 7.1. Troponins negative 3. ProBNP 143. Isbell virus not detected. She is currently on DuoNeb inhalations. Magnesium has been replaced initially 0.8. Current level 2.7. The patient is seen today 11/17/2019 in follow-up on the selective care unit. She is currently quite drowsy and sedated. She is complaining of right sided chest wall pain and was given morphine and Benadryl proximally 3 AM this morning. She was difficult to arouse. The patient was given Narcan without much improvement. She is maintaining O2 saturations in the low 90s on 6 L/m per nasal cannula. She's been afebrile. Arterial blood gases reveal a P O2 of 166, pCO2 of 73 and a pH of 7.30 and 44% FiO2. Computed tomography scan of the brain or concerns with metastasis revealed no acute intracranial abnormalities. She had been seen and evaluated by radiation oncology regarding her computed tomography scan of the chest which is revealing lobar recurrence with hilar adenopathy. Further radiotherapy made be possible for local disease but is requesting distant progression be ruled out first. The patient is seen today 11/18/2019 in follow-up on the selective care unit. She is much more awake and alert today compared to yesterday. Maintaining O2 saturation in the mid 90s on 4 L/m per nasal cannula. She's been afebrile. She is maintained on her Bevaspi along with albuterol. She is still dyspneic with minimal exertion. She is quite adamant about going home however. On 11/19/2019 patient seen in follow-up on selective care unit. She is feeling better today, breathing easier, she is on 4 L of oxygen with a pulse ox of 98%, vital signs have been stable, she's been afebrile, normally patient wears 3-1/2 L at home. did not require BiPAP support last night. no new labs today. no new chest x-rays. her blood gas has been noted, and is consistent with acute on chronic hypercapnic respiratory failure, and patient would likely qualify for home BiPAP unit for advanced COPD however patient is refusing home BiPAP unit and states that she will not be able to wear it Objective - Vital Signs Vital signs: Vital Signs Temp 98.4 F 11/19/19 08:00 Pulse 76 11/19/19 11:39 Resp 20 11/19/19 08:00 BP 101/51 11/19/19 08:00 Pulse Ox 94 L 11/19/19 08:00 Intake & Output 11/18/19 11/19/19 11/19/19 18:59 06:59 18:59 Intake Total 560 118 360 Output Total 300 Balance 260 118 360 Weight 59.8 kg Intake: IV 20 Invasive Line 2 10 Invasive Line 4 10 Oral 540 118 360 Output: Urine 300 Other: Voiding Method Toilet # Voids 0 2 - Exam GENERAL EXAM: Alert, very pleasant, 74-year-old white female, on 4 L of oxygen with a pulse ox of 96% comfortable in no apparent distress. HEAD: Normocephalic/atraumatic. EYES: Normal reaction of pupils, equal size. Conjunctiva pink, sclera white. NOSE: Clear with pink turbinates. THROAT: No erythema or exudates. NECK: No masses, no JVD, no thyroid enlargement, no adenopathy. CHEST: No chest wall deformity. Symmetrical expansion. LUNGS: Equal air entry with no crackles, wheeze, rhonchi or dullness. CVS: Regular rate and rhythm, normal S1 and S2, no gallops, no murmurs, no rubs ABDOMEN: Soft, nontender. No hepatosplenomegaly, normal bowel sounds, no guarding or rigidity. EXTREMITIES: No clubbing, no edema, no cyanosis, 2+ pulses and upper and lower extremities. MUSCULOSKELETAL: Muscle strength and tone normal. SPINE: No scoliosis or deformity SKIN: No rashes CENTRAL NERVOUS SYSTEM: Alert and oriented -3. No focal deficits, tone is normal in all 4 extremities. PSYCHIATRIC: Alert and oriented -3. Appropriate affect. Intact judgment and insight. - Labs CBC & Chem 7: 11/16/19 07:07 11/16/19 07:07 Assessment and Plan Plan: 1 Acute on chronic hypoxic/hypercapnic respiratory failure secondary to an acute exacerbation of exacerbation of chronic obstructive pulmonary disease. Her COPD is Gold stage III/IV with an FEV1 value 32% of predicted. 2 Pleuritic chest pain 3 History of non-small cell lung cancer, squamous cell, status post radiation therapy. Yesterday's computed tomography scan of the chest reveals enlarging multicentric masslike density in the left upper lobe anteriorly extending from the pleura to the left pulmonary hilum with encasement of the left upper lobe pulmonary artery and narrowing of the lumen. There is also an increasing triangle shape infiltrate adjacent to the pleura on the left upper lobe increased from 2 cm to 3.5 cm. 4 Hypomagnesemia status post replacement initially 0.8 now 2.7 5 Anemia current hemoglobin 9.5 6 History of chronic tobacco dependence 7 Hypothyroidism. 8 History of bowel resection with colostomy and subsequent reversal Plan: Patient is being considered for discharge home today, she states her breathing is improving, we'll turn her FiO2 down to 3-1/2 L/m, she is maintaining stable O2 saturations, she is awake and alert, she does have advanced COPD, and based on her blood gas she could probably qualify for home BiPAP unit however she is refusing a home Bi-Pap and states that she would not wear it. Patient plan continue on her maintenance inhalers and nebulized treatments, with the combination of Bevespi and Albuterol. outpatient follow-up with Dr. Horne in the office in 7-10 days, and outpatient follow-up with radiation oncology Dr. Naik for possible recurrence of non-small cell lung cancer in the left upper lobe I performed a history & physical examination of the patient and discussed their management with my nurse practitioner, Kandice Thomas. I reviewed the nurse practitioner's note and agree with the documented findings and plan of care. Lung sounds are positive for diminished breath sounds. The findings and the impression was discussed with the patient. I attest to the documentation by the nurse practitioner. Time with Patient: Less than 30
--- NOTE | 2019-11-19 16:10 | P.PN ---
Subjective Progress Note Date: 11/19/19 Principal diagnosis: recurrent squamous cell lung cancer In follow-up today patient states her breathing is significantly improved from admission, she denies hemoptysis, nausea, vomiting, pain. Objective - Vital Signs Vital signs: Vital Signs Temp 98.4 F 11/19/19 08:00 Pulse 76 11/19/19 11:39 Resp 20 11/19/19 08:00 BP 101/51 11/19/19 08:00 Pulse Ox 94 L 11/19/19 08:00 Intake & Output 11/18/19 11/19/19 11/19/19 18:59 06:59 18:59 Intake Total 560 118 360 Output Total 300 Balance 260 118 360 Weight 59.8 kg Intake: IV 20 Invasive Line 2 10 Invasive Line 4 10 Oral 540 118 360 Output: Urine 300 Other: Voiding Method Toilet # Voids 0 2 - Constitutional General appearance: Present: cooperative, no acute distress, thin - EENT Eyes: Present: anicteric sclerae, EOMI ENT: Present: hearing grossly normal - Respiratory Respiratory: bilateral: diminished (significant) - Cardiovascular Heart sounds: normal: S1, S2 - Peripheral edema leg Peripheral Edema: bilateral: None - Gastrointestinal General gastrointestinal: Present: normal bowel sounds, soft. Absent: absent bowel sounds, decreased bowel sounds, distended, hepatomegaly, hyperactive bowel sounds, organomegaly, rigid, scaphoid, splenomegaly, tenderness, umbilical hernia, ventral hernia - Neurologic Neurologic: Present: CNII-XII intact - Musculoskeletal Musculoskeletal: Present: generalized weakness - Psychiatric Psychiatric: Present: A&O x's 3, appropriate affect, intact judgment & insight - Labs CBC & Chem 7: 11/16/19 07:07 11/16/19 07:07 Assessment and Plan (1) Squamous cell lung cancer Narrative/Plan: Hx of sq cell, treated with EBRT only. I reviewed with the patient today that her cancer has returned. She verbalized understanding. Patient knows that she is not a surgical candidate. Pt is not interested in chemotherapy. I agreed with her that she is not a good candidate for chemotherapy as it would likely affect her quality of life more than improve her quantity. I explained to the patient that I reviewed her tumor sequencing for non-chemo treatment options. Unfortunately, at this time, there are no targeted agents for the mutations her cancer expresses. 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 PD-L1 was <1%. Told patient we are available if she had questions or concerns. All of her questions were answered to her satisfaction Current Visit: Yes Status: Chronic Priority: High Code(s): C34.90 - MALIGNANT NEOPLASM OF UNSP PART OF UNSP BRONCHUS OR LUNG SNOMED Code(s): 841656236
== END 2019-11-19 15:00 | disposition home or self-care (01) | DRG 190 ==
LOC: EC 12:35 → 3SCARD 15:27
PROVIDERS: ADMIT Internal Medicine; ATTEND Internal Medicine
PROC: 5A09357 Assistance with Respiratory Ventilation, Less than 24 Consecutive Hours, Continuous Positive Airway Pressure (ICD-10-PCS; principal; 2019-11-17)
DX: J44.1 Chronic obstructive pulmonary disease with (acute) exacerbation (principal); J96.21 Acute and chronic respiratory failure with hypoxia; J96.22 Acute and chronic respiratory failure with hypercapnia; K91.2 Postsurgical malabsorption, not elsewhere classified; C77.1 Secondary and unspecified malignant neoplasm of intrathoracic lymph nodes; C34.12 Malignant neoplasm of upper lobe, left bronchus or lung; Z20.828 Contact with and (suspected) exposure to other viral communicable diseases; E83.42 Hypomagnesemia; E03.9 Hypothyroidism, unspecified; F17.200 Nicotine dependence, unspecified, uncomplicated; D63.0 Anemia in neoplastic disease; E53.8 Deficiency of other specified B group vitamins; Z79.890 Hormone replacement therapy; Z79.899 Other long term (current) drug therapy; Z85.118 Personal history of other malignant neoplasm of bronchus and lung; Z87.448 Personal history of other diseases of urinary system; Z87.442 Personal history of urinary calculi; Z90.710 Acquired absence of both cervix and uterus; Z98.84 Bariatric surgery status; Z90.49 Acquired absence of other specified parts of digestive tract; Z98.890 Other specified postprocedural states; Z87.81 Personal history of (healed) traumatic fracture; Z99.81 Dependence on supplemental oxygen; Z92.3 Personal history of irradiation; Z88.6 Allergy status to analgesic agent; Z88.5 Allergy status to narcotic agent; Z88.0 Allergy status to penicillin; Z88.2 Allergy status to sulfonamides; Z88.8 Allergy status to other drugs, medicaments and biological substances
CPT/HCPCS: 36415; 36600; 70470; 71046; 71270; 80048; 80053; 82607; 82805; 83605; 83735; 83880; 84100; 84484; 85025; 85027; 85379; 85610; 85730; 93005; 93970; 94640; 94660; 94760; 96365; 96375; 99285

== ENCOUNTER → 2019-11-30 | Outpatient (CLI) | payer MEDICARE, OTHER ==
--- NOTE | 2019-12-03 09:19 | PE ---
EXAMINATION TYPE: PET CT fusion skull to thigh DATE OF EXAM: 11/30/2019 COMPARISON: Prior PET/CT February 10, 2019. Prior chest CT November 15, 2019 and older CTs. HISTORY: Lung cancer progress study. Originally diagnosed on biopsy January 2019 with history of rad iation treatment through April 2019 TECHNIQUE: Following the intravenous administration of 10.23 mCi of F-18 FDG, whole body images are performed from the skull base to the midthigh. Images are reviewed on the computer in the coronal, a xial, and sagittal planes. Reconstructed rotating images are created on independent workstation and reviewed on the computer. A noncontrast CT is performed in conjunction with the PET scan. SCAN: Subsequent Scan FINDINGS: SKULL BASE AND NECK: No new areas of suspicious hypermetabolic uptake CHEST, MEDIASTINUM, AND HILAR REGION: Moderate to advanced underlying emphysematous changes redemonst rated. Previously described anterior pleural-based hypermetabolic mass redemonstrated now measures 3. 6 x 2.6 cm axial image 103 with max SUV of 6.9. Corresponding to most recent CT there is new larger l obulated hypermetabolic mass just posterior and superior to this measuring 5.0 x 3.1 cm axial image 9 8 with max SUV of 7.69. Just posterior and superior to this there is additional left suprahilar hyper metabolic mass measuring 4.6 x 3.3 cm axial image 95 with max SUV of 6.13. Probable additional slightly hypermetabolic anterior left hilar mass or adenopathy axial image 100 is now present, max SUV less than 2.5 but suspicious. Lung bases show moderate peripheral reticular and fibrotic changes. No right-sided or mediastinal hyp ermetabolic uptake is present. ABDOMEN AND PELVIS: Normal excretion in the right kidney. No suspicious hypermetabolic uptake. Mild r ight-sided bladder uptake. No new hypermetabolic adrenal masses. OSSEOUS STRUCTURES: No new suspicious hypermetabolic uptake. OTHER CT: Enlarged pulmonary arteries redemonstrated consistent with underlying pulmonary arterial hy pertension. Surgical clips are seen throughout the gallbladder fossa, right upper quadrant, pelvis, and ventral s ubcutaneous tissues. There are multiple nonobstructing punctate left renal calculi redemonstrated. Numerous surgical sutures throughout right lower abdominal and pelvic bowel loops are redemonstrated. S-shaped scoliosis with multilevel spurring throughout the spine. Some facet arthropathy lower lumba r levels. IMPRESSION: Interval localized progression from most recent PET/CT of known left-sided lung cancer is confirmed as detailed above.
== END | disposition home or self-care (01) ==
LOC: RADPETMAIN 13:31
PROVIDERS: ATTEND Internal Medicine
DX: C34.92 Malignant neoplasm of unspecified part of left bronchus or lung (principal); R91.1 Solitary pulmonary nodule
CPT/HCPCS: 78815; A9552

== ENCOUNTER 2020-01-11 19:35 | Inpatient (IN) | payer MEDICARE, OTHER ==
[2020-01-11 20:27] LABS: Basophils % (A) 0 %; Eosinophils # (A) 0.2 k/uL (0-0.7); Eosinophils % (A) 2 %; HCT 36.6 % (34.0-46.0); HGB 10.8 gm/dL (11.4-16.0); Hypochromasia Marked; Lymphocytes # (A) 0.6 k/uL (1.0-4.8); Lymphocytes % (A) 8 %; MCH 31.5 pg (25.0-35.0); MCHC 29.6 g/dL (31.0-37.0); MCV 106.4 fL (80.0-100.0); Macrocytosis Moderate; Mean Platelet Volume 7.6; Monocytes # (A) 0.4 k/uL (0-1.0); Monocytes % (A) 6 %; Neutrophils # (A) 6.1 k/uL (1.3-7.7); Neutrophils % (A) 83 %; Platelet Count 259 k/uL (150-450); RBC 3.44 m/uL (3.80-5.40); RDW 13.8 % (11.5-15.5); WBC 7.3 k/uL (3.8-10.6)
[2020-01-11 20:38] LABS: ALT 31 U/L (4-34); AST 31 U/L (14-36); African American GFR (CKD) >90 (>60 ml/min/1.73 sqM); Albumin 3.6 g/dL (3.5-5.0); Alkaline Phosphatase 61 U/L (38-126); Anion Gap 7 mmol/L; Blood Urea Nitrogen 26 mg/dL (7-17); Calcium 7.5 mg/dL (8.4-10.2); Carbon Dioxide 30 mmol/L (22-30); Chloride 101 mmol/L (98-107); Glucose 89 mg/dL (74-99); Non-African American GFR(CKD) 85 (>60 ml/min/1.73 sqM); Potassium 3.9 mmol/L (3.5-5.1); Sodium 138 mmol/L (137-145); Total Bilirubin 0.3 mg/dL (0.2-1.3); Total Protein 6.1 g/dL (6.3-8.2)
[2020-01-11 20:46] LABS: Magnesium 0.7 mg/dL (1.6-2.3)
--- NOTE | 2020-01-11 20:48 | ED ---
General Adult HPI - General Chief complaint: Recheck/Abnormal Lab/Rx Stated complaint: Abnormal Labs Time Seen by Provider: 01/11/20 19:45 Source: EMS Mode of arrival: EMS Limitations: no limitations - History of Present Illness Initial comments: Patient is a 74-year-old female with active lung cancer on radiation, COPD, chronic diarrhea with hypokalemia who presents emergency Department with reported abnormal labs. States that she had blood work done at Dr. Lopez's office yesterday. She was called tonight to say that her magnesium was critically low and she needed going to the emergency room for evaluation. Patient was told it was 0.8. Patient was hospitalized 2 months ago for similar complaint and states she required 8 bags of magnesium. She attempted to take magnesium supplements in the past however reports that she doesn't absorb it d oes not help to keep her magnesium levels. Patient denies any changes in her diarrhea. Denies any black or tarry stools. No fevers or chills. No recent medication changes. Does take Lasix for lower extremity edema. Patient is currently on 4 L of oxygen. Denies any worsening shortness of breath. No nausea or vomiting. No chest pain. No other alleviating, precipitating or modifying factors - Related Data Home Medications Medication Instructions Recorded Confirmed Biotin 5,000 mcg PO DAILY@29911/13/16 01/11/20 Levothyroxine Sodium [Synthroid] 175 mcg PO DAILY@29911/13/16 01/11/20 Cyanocobalamin [Vitamin B-12 1,000 mcg SQ TH 08/10/17 01/11/20 Injection] Glycopyrrolate/Formoterol Fum 2 puff INHALATION RT-BID@0300,1600 08/10/17 01/11/20 [Bevespi Aerosphere Inhaler] ALPRAZolam [Xanax] 0.25 mg PO TID PRN 11/15/19 01/11/20 Albuterol Sulfate [Ventolin HFA] 2 puff INHALATION RT-Q4H PRN 11/15/19 01/11/20 Ascorbic Acid [Vitamin C] 1,000 mg PO DAILY@0300 11/15/19 01/11/20 Albuterol Nebulized [Ventolin 2.5 mg INHALATION RT-TID PRN 01/11/20 01/11/20 Nebulized] Cholecalciferol [Vitamin D3 (25 1,000 unit PO DAILY@0300 01/11/20 01/11/20 Mcg = 1000 Iu)] Furosemide [Lasix] 20 mg PO DAILY@0300 01/11/20 01/11/20 Potassium Chloride ER [K-Dur 10] 10 meq PO DAILY@0300 01/11/20 01/11/20 Spironolactone 25 mg PO BID@0300,1600 01/11/20 01/11/20 diphenhydrAMINE [Benadryl] 25 mg PO DAILY@2300 01/11/20 01/11/20 Allergies Allergy/AdvReac Type Severity Reaction Status Date / Time acetaminophen [From Tylenol] Allergy Swelling Verified 01/11/20 21:25 amoxicillin Allergy Swelling Verified 01/11/20 21:25 aspirin Allergy Swelling Verified 01/11/20 21:25 codeine Allergy Anaphylaxis Verified 01/11/20 21:25 hydrocodone [From Vicodin] Allergy Anaphylaxis Verified 01/11/20 21:25 Penicillins Allergy Swelling Verified 01/11/20 21:25 sulfamethoxazole Allergy Swelling Verified 01/11/20 21:25 [From Bactrim] trimethoprim [From Bactrim] Allergy Swelling Verified 01/11/20 21:25 tramadol AdvReac DOES NOT Verified 01/11/20 21:25 WORK steroids Allergy Swelling Uncoded 01/11/20 21:25 Review of Systems ROS Statement: Those systems with pertinent positive or pertinent negative responses have been documented in the HPI. ROS Other: All systems not noted in ROS Statement are negative. Past Medical History Past Medical History: Cancer, COPD, Renal Disease Additional Past Medical History / Comment(s): Lung CA History of Any Multi-Drug Resistant Organisms: None Reported Past Surgical History: Appendectomy, Bariatric Surgery, Bowel Resection, Hysterectomy, Orthopedic Surgery Additional Past Surgical History / Comment(s): Prolapsed bowel with colostomy and reversal, bariatric surgery; broke bilateral legs with repair Past Anesthesia/Blood Transfusion Reactions: No Reported Reaction Past Psychological History: No Psychological Hx Reported Smoking Status: Former smoker Past Alcohol Use History: None Reported Past Drug Use History: None Reported - Past Family History Mother History Unknown: Yes Family Medical History: Unable to Obtain Additional Family Medical History / Comment(s): The patient is unaware of any significant family history General Exam Limitations: no limitations General appearance: alert, in no apparent distress Head exam: Present: atraumatic, normocephalic, normal inspection Eye exam: Present: normal appearance, PERRL, EOMI. Absent: scleral icterus, conjunctival injection, periorbital swelling ENT exam: Present: normal exam, mucous membranes moist Neck exam: Present: normal inspection. Absent: tenderness, meningismus, lymphadenopathy Respiratory exam: Present: normal lung sounds bilaterally. Absent: respiratory distress, wheezes, rales, rhonchi, stridor Cardiovascular Exam: Present: regular rate, normal rhythm, normal heart sounds. Absent: systolic murmur, diastolic murmur, rubs, gallop, clicks GI/Abdominal exam: Present: soft, normal bowel sounds. Absent: distended, tenderness, guarding, rebound, rigid Extremities exam: Present: normal inspection, full ROM, normal capillary refill. Absent: tenderness, pedal edema, joint swelling, calf tenderness Back exam: Present: normal inspection Neurological exam: Present: alert, oriented X3, CN II-XII intact Psychiatric exam: Present: normal affect, normal mood Skin exam: Present: warm, dry, intact, normal color. Absent: rash Course Vital Signs 01/11/20 01/11/20 19:43 20:11 Pulse Rate 89 Respiratory 20 18 Rate Blood Pressure 105/76 O2 Sat by Pulse 98 Oximetry Medical Decision Making - Medical Decision Making Upon arrival patient was placed into room 4. A thorough history and physical exam is performed. Patient presents stating that she had abnormal lab however otherwise feels well. Studies were obtained which demonstrates a magnesium 0.7. I did order 2 g of magnesium. I recommended hospital admission in order to recheck her levels morning. Patient agreed to this. Orders were placed. I did discuss case with Corina from [facility]. Patient is awaiting a bed on the floor - Lab Data Result diagrams: 01/13/20 06:55 01/13/20 06:55 Lab Results 01/11/20 01/11/20 Range/Units 20:16 20:16 WBC 7.3 (3.8-10.6) k/uL RBC 3.44 L (3.80-5.40) m/uL Hgb 10.8 L (11.4-16.0) gm/dL Hct 36.6 (34.0-46.0) % MCV 106.4 H (80.0-100.0) fL MCH 31.5 (25.0-35.0) pg MCHC 29.6 L (31.0-37.0) g/dL RDW 13.8 (11.5-15.5) % Plt Count 259 (150-450) k/uL Neutrophils % 83 % Lymphocytes % 8 % Monocytes % 6 % Eosinophils % 2 % Basophils % 0 % Neutrophils # 6.1 (1.3-7.7) k/uL Lymphocytes # 0.6 L (1.0-4.8) k/uL Monocytes # 0.4 (0-1.0) k/uL Eosinophils # 0.2 (0-0.7) k/uL Basophils # 0.0 (0-0.2) k/uL Hypochromasia Marked Macrocytosis Moderate Sodium 138 (137-145) mmol/L Potassium 3.9 (3.5-5.1) mmol/L Chloride 101 (98-107) mmol/L Carbon Dioxide 30 (22-30) mmol/L Anion Gap 7 mmol/L BUN 26 H (7-17) mg/dL Creatinine 0.72 (0.52-1.04) mg/dL Est GFR (CKD-EPI)AfAm >90 (>60 ml/min/1.73 sqM) Est GFR (CKD-EPI)NonAf 85 (>60 ml/min/1.73 sqM) Glucose 89 (74-99) mg/dL Calcium 7.5 L (8.4-10.2) mg/dL Magnesium 0.7 L* (1.6-2.3) mg/dL Total Bilirubin 0.3 (0.2-1.3) mg/dL AST 31 (14-36) U/L ALT 31 (4-34) U/L Alkaline Phosphatase 61 (38-126) U/L Total Protein 6.1 L (6.3-8.2) g/dL Albumin 3.6 (3.5-5.0) g/dL Disposition Clinical Impression: Hypomagnesemia Disposition: ADMITTED IP TO THIS [facility] Condition: Stable Is patient prescribed a controlled substance at d/c from ED?: No Decision to Admit Reason: Admit from EC Decision Date: 01/11/20 Decision Time: 21:06
[2020-01-11] MEDS: MAGNESIUM SULFATE-D5W PMX 1 GM in DEXTROSE/WATER 1 100ML.BAG IVPB SCH ×2 (21:10→23:21)
[2020-01-11] MEDS ORDERED: NALOXONE 0.4 MG/ML 1 ML VIAL IV PRN (21:16)
[2020-01-12 07:32] LABS: Basophils % (A) 0 %; Eosinophils # (A) 0.2 k/uL (0-0.7); Eosinophils % (A) 2 %; HCT 37.4 % (34.0-46.0); HGB 10.5 gm/dL (11.4-16.0); Hypochromasia Marked; Lymphocytes # (A) 0.5 k/uL (1.0-4.8); Lymphocytes % (A) 8 %; MCH 30.1 pg (25.0-35.0); MCHC 28.2 g/dL (31.0-37.0); Macrocytosis Moderate; Monocytes # (A) 0.4 k/uL (0-1.0); Monocytes % (A) 6 %; Neutrophils # (A) 5.4 k/uL (1.3-7.7); Neutrophils % (A) 82 %; Platelet Count 248 k/uL (150-450); RDW 13.8 % (11.5-15.5); WBC 6.6 k/uL (3.8-10.6)
[2020-01-12 07:35] LABS: African American GFR (CKD) >90 (>60 ml/min/1.73 sqM); Anion Gap 4 mmol/L; Blood Urea Nitrogen 24 mg/dL (7-17); Calcium 7.4 mg/dL (8.4-10.2); Carbon Dioxide 34 mmol/L (22-30); Chloride 102 mmol/L (98-107); Glucose 79 mg/dL (74-99); Non-African American GFR(CKD) 88 (>60 ml/min/1.73 sqM); Potassium 4.3 mmol/L (3.5-5.1); Sodium 140 mmol/L (137-145)
[2020-01-12] MEDS ORDERED: ALBUTEROL NEBULIZED 2.5 MG/3 ML INHALATION PRN (08:16)
[2020-01-12] MEDS ORDERED: diphenhydrAMINE 25 MG CAP PO PRN (08:16)
[2020-01-12] MEDS ORDERED: ALPRAZolam 0.25 MG TAB PO PRN (08:16)
[2020-01-12] MEDS ORDERED: Magnesium Replacement Protocol 1 EACH MISC MISCELLANE PRN (10:28)
[2020-01-12] MEDS: MAGNESIUM SULFATE-D5W PMX 1 GM in DEXTROSE/WATER 1 100ML.BAG IVPB SCH ×2 (10:28→11:42)
[2020-01-12] MEDS ORDERED: Potassium Replacement Protocol 1 EACH MISC MISCELLANE PRN (10:28)
[2020-01-12] MEDS: IPRATROPIUM 0.5 MG/2.5 ML NEBU INHALATION SCH ×3 (11:57→19:14)
[2020-01-12] MEDS: ALBUTEROL NEBULIZED 2.5 MG/3 ML INHALATION PRN ×2 (12:05→19:14)
[2020-01-12 12:52] VITALS: BMI 18.6
[2020-01-12] MEDS ORDERED: FUROSEMIDE 20 MG TAB PO STA (15:16)
[2020-01-12] MEDS ORDERED: SPIRONOLACTONE 25 MG TAB PO SCH (16:00)
[2020-01-12] MEDS: FORMOTEROL FUMARATE 20 MCG/2 ML NEBU INHALATION SCH (16:04)
--- NOTE | 2020-01-12 16:56 | HP ---
HISTORY AND PHYSICAL DATE OF SERVICE: 01/12/2020 CHIEF COMPLAINTS: Abnormal labs. Hypomagnesemia. HISTORY OF PRESENT ILLNESS: This is a 74-year-old woman with a past medical history of multiple medical problems, COPD, history of lung cancer, recent radiation, history of bariatric surgery with small incision and resection of only about a few centimeters, so a small incision on the left. Being followed by Dr. Adryan Lopez in the outpatient is complaining of weakness. The patient had magnesium evaluation done in the outpatient setting, which was very low and was sent to [facility] for further evaluation and treatment. Yesterday, after coming to the hospital, the potassium was found to be 3.1, magnesium was 0.7. The patient was admitted for further evaluation and treatment. There is no history of fever, rigors. No headache, loss of consciousness. Patient did have a long- standing history of hypomagnesemia, hypokalemia. PAST MEDICAL HISTORY: History of electrolyte imbalance, history of lung cancer, COPD, appendectomy, bariatric surgery. MEDICATIONS: Home medications are reviewed and include; 1. Benadryl 25 mg p.o. daily. 2. Vitamin B12 1000 mcg subcutaneously daily . 3. Xanax 0.25 t.i.d. p.r.n. 4. Aldactone 25 mg p.o. b.i.d. 5. Albuterol. 6. Vitamin D3 1000 daily. 7. Ventolin 2.5 t.i.d. p.r.n. 8. K-Dur 10 mEq p.o. daily. 9. Synthroid 175 mcg daily. 10.Lasix 20 mg p.o. daily. 11.Biotin 5000 mcg p.o. daily. 12.Vitamin C 1000 mg p.o. daily. ALLERGIES: TYLENOL, AMOXICILLIN, ASPIRIN, CODEINE, VICODIN, PENICILLIN, BACTRIM, ULTRAM, STEROIDS. FAMILY HISTORY: No history of heart disease or strokes in family. SOCIAL HISTORY: History of smoking. No history of alcohol intake. REVIEW OF SYSTEMS: ENT: No diminished hearing and diminished vision. CARDIOVASCULAR: No angina or palpitations. RESPIRATORY: As mentioned earlier. GI: No nausea, vomiting, diarrhea. : No dysuria. NERVOUS SYSTEM: No numbness or weakness. ALLERGY/IMMUNOLOGY: No asthma or hayfever. MUSCULOSKELETAL: As mentioned earlier. ENDOCRINE: No history of diabetes. CONSTITUTIONAL; As mentioned earlier. DERMATOLOGY: Negative. RHEUMATOLOGY: Negative. PSYCHIATRY: As mentioned earlier. PHYSICAL EXAMINATION: Patient is alert and oriented. Pulse 67, blood pressure 91/45, respiration 12, temperature 98 degrees, pulse ox 97% on 4 L. HEENT: Conjunctivae are normal. Oral mucosa moist. NECK: No jugular venous distention. No carotid bruits. No lymph node enlargement. CARDIOVASCULAR SYSTEMS: Breath sounds diminished in the bases, no rhonchi, no crackles. ABDOMEN: Soft, nontender, obese. LEGS: No edema, no swelling. NERVOUS SYSTEM: Higher functions as mentioned. Moves all no limbs. No focal motor or sensory deficits. LYMPHATICS: No lymph nodes in neck or axilla. SKIN: No rash. JOINTS: No active deforming arthropathy. LABS: WBC 7.3, hemoglobin 10.8. Magnesium is 0.7, previously had been low . Hemoglobin 10.8. ASSESSMENT: 1. Severe hypomagnesemia, multifactorial. 2. Hypocalcemia. 3. Anemia, macrocytic. 4. Chronic obstructive pulmonary disease. 5. History of lung cancer with radiation. 6. History of bariatric surgery. 7. History of bowel resection. 8. History of nicotine dependence. 9. FULL CODE. 10.Moderate protein calorie malnutrition with BMI of 18.6. RECOMMENDATIONS AND DISCUSSION: This is a 74-year-old woman who presented with multiple complex medical issues, we will monitor the patient closely. Continue the current management, symptomatic treatment and intravenous magnesium. Repeat magnesium. Follow the magnesium protocol and potassium protocol. Otherwise also recommended the patient to follow up with the dietitian regarding eating foods with high magnesium. Otherwise, prognosis guarded because of multiple complex medical problems. Further recommendations to follow. MMODL / IJN: [id number] / [id number]
[2020-01-12] MEDS: SPIRONOLACTONE 25 MG TAB PO SCH (17:10)
[2020-01-12] MEDS: HEPARIN SODIUM,PORCINE 5,000 UNIT/ML 1 ML VIAL SQ SCH (20:58)
[2020-01-12] MEDS ORDERED: ONDANSETRON 4 MG/2 ML VIAL IVP PRN (22:22)
[2020-01-13] MEDS ORDERED: POTASSIUM CHLORIDE ER 10 MEQ TAB.ER.PRT PO SCH (03:00)
[2020-01-13] MEDS: FUROSEMIDE 20 MG TAB PO SCH (04:11)
[2020-01-13] MEDS: ASCORBIC ACID 500 MG TAB PO SCH (04:11)
[2020-01-13] MEDS: CHOLECALCIFEROL 1,000 UNIT TAB PO SCH (04:11)
[2020-01-13] MEDS: NON FORMULARY DRUG (Biotin [Biotin] 5,000 MCG) PO SCH (04:17)
[2020-01-13] MEDS: LEVOTHYROXINE 100 MCG TAB PO SCH (04:17)
[2020-01-13] MEDS: FORMOTEROL FUMARATE 20 MCG/2 ML NEBU INHALATION SCH ×2 (05:32→15:16)
[2020-01-13] MEDS: IPRATROPIUM 0.5 MG/2.5 ML NEBU INHALATION SCH ×4 (07:16→19:14)
[2020-01-13 07:47] LABS: African American GFR (CKD) >90 (>60 ml/min/1.73 sqM); Anion Gap 2 mmol/L; Blood Urea Nitrogen 19 mg/dL (7-17); Calcium 7.1 mg/dL (8.4-10.2); Carbon Dioxide 34 mmol/L (22-30); Chloride 102 mmol/L (98-107); Glucose 76 mg/dL (74-99); Magnesium 1.8 mg/dL (1.6-2.3); Non-African American GFR(CKD) >90 (>60 ml/min/1.73 sqM); Potassium 4.1 mmol/L (3.5-5.1); Sodium 138 mmol/L (137-145)
[2020-01-13] MEDS: HEPARIN SODIUM,PORCINE 5,000 UNIT/ML 1 ML VIAL SQ SCH ×2 (07:49→22:12)
[2020-01-13] MEDS: PANTOPRAZOLE 40 MG TABLET PO SCH (07:49)
[2020-01-13] MEDS: SPIRONOLACTONE 25 MG TAB PO SCH (07:53)
[2020-01-13] MEDS ORDERED: SODIUM CHLORIDE 0.9% 500 ML 500 ML IV ONE ×2 (07:55→11:22)
[2020-01-13 08:10] LABS: HGB 10.6 gm/dL (11.4-16.0); Hypochromasia Marked; MCHC 29.5 g/dL (31.0-37.0); MCV 108.6 fL (80.0-100.0); Macrocytosis Marked; Mean Platelet Volume 7.4; Platelet Count 231 k/uL (150-450); RBC 3.31 m/uL (3.80-5.40); RDW 13.8 % (11.5-15.5)
[2020-01-13 08:49] LABS: Lymphocytes # (M) 0.48 k/uL (1.0-4.8); Monocytes # (M) 0.54 k/uL (0-1.0); Neutrophils # (M) 4.98 k/uL (1.3-7.7); Neutrophils % (M) 83 %; Nucleated Red Blood Cells 0 /100 WBC (0-0); Total Cells Counted 100
[2020-01-13] MEDS: ALBUTEROL NEBULIZED 2.5 MG/3 ML INHALATION PRN ×2 (11:32→21:35)
--- NOTE | 2020-01-13 13:10 | XR ---
EXAMINATION TYPE: XR chest 2V DATE OF EXAM: 01/13/2020 HISTORY: sob increased o2 need low bp. REFERENCE: Previous study dated 11/15/2019. FINDINGS: The lungs are overinflated. There is colonic interposition on the left. There are chronic i ncreased markings. There is some scarring at the left lung base. The heart is not enlarged. Pleural s paces are clear. IMPRESSION: COPD.
[2020-01-13] MEDS: SODIUM CHLORIDE 0.9% 1,000 ML IV SCH (13:32)
--- NOTE | 2020-01-13 17:00 | PN ---
PROGRESS NOTE DATE OF SERVICE: 01/13/2020 This 74-year-old woman who was admitted with severe hypomagnesemia, also had hypovolemia. Patient had some relative hypotension. The most recent chest x-ray was showing COPD. Patient being closely monitored. The patient appears to have some tiredness and weakness at this time. PAST MEDICAL HISTORY: Reviewed. REVIEW OF SYSTEMS: CARDIOVASCULAR SYSTEM: No angina or palpitations. RESPIRATIONS: No cough. GI: Mentioned earlier. : No dysuria. Nervous System as mentioned earlier. CURRENT MEDICATIONS: Reviewed and include: 1. Ventolin. 2. Xanax. 3. Vitamin C. 4. Vitamin D3. 5. Vitamin B12. 6. Benadryl. 7. Perforomist. 8. Lasix. 9. Heparin. 10.Atrovent protocols. 11.Magnesium protocol. 12.Protonix. PHYSICAL EXAM: Patient is alert, oriented. Pulse is 69. Blood pressure 84/40, respiration 17, temperature 97.2, pulse ox 98% on 3 L. HEENT is conjunctivae normal. Oral mucosa moist. NECK is no jugular venous distention. No carotid bruit. No lymph node enlargement. CARDIOVASCULAR: S1, S2 muffled. RESPIRATIONS: Breath sounds diminished in the bases. No rhonchi. No crackles. ABDOMEN: Soft, nontender. LEGS are no edema. No swelling. NERVOUS SYSTEM: No focal deficits. LABS: WBC 6, hemoglobin 10.6, sodium 138, potassium 4.1 and calcium is 7.1, magnesium 1.8. ASSESSMENT: 1. Severe hypomagnesemia multifactorial. 2. Hypocalcemia. 3. Dehydration. 4. Relative hypotension possibly secondary to hypovolemia. 5. Anemia, macrocytic. 6. Chronic obstructive pulmonary disease. 7. History of lung cancer with radiation. 8. History of bariatric surgery. 9. History of bowel resection. 10.History of nicotine dependence. 11.Moderate protein calorie malnutrition with BMI 18.6. 12.FULL CODE. RECOMMENDATIONS AND DISCUSSION: This 74-year-old woman who presented with multiple complex medical issues, we will monitor the patient closely, continue the current medications. Monitor lytes. Otherwise, continue with IV fluids. I would also recommend a 2D echo with Doppler and troponins to complete the workup. Otherwise, the patient is running relative low blood pressure at home. We will continue to monitor. Overall prognosis guarded. I would also order 8:00 am cortisol. Guarded prognosis. Further recommendations to follow. Supplement vitamins. MMODL / IJN: [id number] /
[2020-01-14] MEDS: FORMOTEROL FUMARATE 20 MCG/2 ML NEBU INHALATION SCH ×3 (02:19→23:41)
[2020-01-14] MEDS: CHOLECALCIFEROL 1,000 UNIT TAB PO SCH (03:31)
[2020-01-14] MEDS: LEVOTHYROXINE 100 MCG TAB PO SCH (03:31)
[2020-01-14] MEDS: FUROSEMIDE 20 MG TAB PO SCH (03:31)
[2020-01-14] MEDS: ASCORBIC ACID 500 MG TAB PO SCH (03:31)
[2020-01-14] MEDS: SODIUM CHLORIDE 0.9% 1,000 ML IV SCH ×2 (03:38→23:42)
[2020-01-14] MEDS: NON FORMULARY DRUG (Biotin [Biotin] 5,000 MCG) PO SCH (03:46)
[2020-01-14] MEDS: IPRATROPIUM 0.5 MG/2.5 ML NEBU INHALATION SCH ×4 (07:44→20:53)
[2020-01-14] MEDS: ALBUTEROL NEBULIZED 2.5 MG/3 ML INHALATION PRN ×4 (07:44→20:54)
[2020-01-14] MEDS: PANTOPRAZOLE 40 MG TABLET PO SCH (08:07)
[2020-01-14] MEDS: HEPARIN SODIUM,PORCINE 5,000 UNIT/ML 1 ML VIAL SQ SCH (08:08)
[2020-01-14] MEDS ORDERED: FLUDROCORTISONE 0.1 MG TAB PO SCH (09:00)
[2020-01-14 09:04] LABS: African American GFR (CKD) >90 (>60 ml/min/1.73 sqM); Anion Gap 6 mmol/L; Blood Urea Nitrogen 17 mg/dL (7-17); Calcium 7.4 mg/dL (8.4-10.2); Carbon Dioxide 33 mmol/L (22-30); Chloride 100 mmol/L (98-107); Glucose 138 mg/dL (74-99); Non-African American GFR(CKD) >90 (>60 ml/min/1.73 sqM); Potassium 3.5 mmol/L (3.5-5.1); Sodium 139 mmol/L (137-145)
[2020-01-14 09:16] LABS: Basophils % (A) 0 %; Eosinophils # (A) 0.1 k/uL (0-0.7); Eosinophils % (A) 2 %; HCT 33.9 % (34.0-46.0); HGB 9.8 gm/dL (11.4-16.0); Hypochromasia Marked; Lymphocytes # (A) 0.6 k/uL (1.0-4.8); Lymphocytes % (A) 8 %; MCH 31.5 pg (25.0-35.0); MCHC 28.9 g/dL (31.0-37.0); MCV 109.2 fL (80.0-100.0); Macrocytosis Marked; Mean Platelet Volume 7.4; Monocytes # (A) 0.4 k/uL (0-1.0); Monocytes % (A) 6 %; Neutrophils % (A) 84 %; Platelet Count 242 k/uL (150-450); RBC 3.11 m/uL (3.80-5.40); RDW 13.7 % (11.5-15.5); WBC 7.2 k/uL (3.8-10.6)
--- NOTE | 2020-01-14 09:41 | P.CRDCN ---
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 She denies prior history of coronary artery disease and does not follow in the office with a medicine technologist. We have been asked to see in consultation for hypotension. She presented to the hospital on advice of her PCP secondary to low magnesium. On arrival her level was 0.7, after replacement up to 1.8. She is seen and examined sitting up in bed in no acute distress. She states her blood pressure has run low for over 20 years. She denies chest pain, dizziness, palpitations, nausea, vomiting or diaphoresis. She states she has chronic shortness of breath with no worsening lately. She denies ever passing out or having dizziness with position changes. Blood pressure runs mostly in the 90's systolic. DIAGNOSTICS No EKG on admission. Chest xray reveals COPD, no acute process. Laboratory reviewed, WBC 7.2, hemoglobin 9.8, platelets 242, sodium 139, potassium 3.5, creatinine 0.59, magnesium 1.8, cardiac enzymes negative 2. Current cardiac medications include aldactone 25 mg BID, lasix 20 mg daily and potassium supplementation. Most recent echocardiogram obtained December 2018 reveals preserved LV systolic function with ejection fraction 55-60%. REVIEW OF SYSTEMS At the time of my exam: CONSTITUTIONAL: Denies fever or chills. CARDIOVASCULAR: Denies chest pain, shortness of breath, orthopnea, PND or palpitations. RESPIRATORY: Denies cough. GASTROINTESTINAL: Denies abdominal pain, diarrhea, constipation, nausea or vom iting. MUSCULOSKELETAL: Denies myalgias. NEUROLOGIC: Denies numbness, tingling or weakness. ENDOCRINE: Denies fatigue, weight change, polydipsia or polyurina. GENITOURINARY: Denies burning, hematuria or urgency with micturation. HEMATOLOGIC: Denies history of anemia or bleeding. PHYSICAL EXAMINATION Blood pressure 99/58 heart rate 76 afebrile and maintaining oxygen saturation on nasal cannula. CONSTITUTIONAL: No apparent distress. Frail. HEENT: Head is normocephalic. Pupils are equal, round. Sclerae anicteric. Mucous membranes of the mouth are moist. No JVD. No carotid bruit. CHEST EXAMINATION: Lungs are clear to auscultation. No chest wall tenderness is noted on palpation or with deep breathing. Diminished bilaterally. HEART EXAMINATION: Regular rate and rhythm. S1, S2 heard. No murmurs, gallops or rub. ABDOMEN: Soft, nontender. Positive bowel sounds. EXTREMITIES: 2+ peripheral pulses, no lower extremity edema and no calf tenderness. NEUROLOGIC EXAMINATION: Patient is awake, alert and oriented x3. ASSESSMENT Hypomagnesemia, replaced Hypotension, asymptomatic COPD Lung cancer s/p radiation Chronic nicotine dependence Frail, BMI 18 PLAN Hold lasix and continue aldactone at lower dose. Give daily magnesium supplementation. Blood pressure is on the low side however she is asymptomatic. Obtain 2D echocardiogram and doppler study to assess cardiac structure and function. Obtain baseline EKG. Ongoing medical management and treatment. Thank you kindly for this consultation. Nurse Practitioner note has been reviewed, I agree with a documented findings and plan of care. Patient was seen and examined. Past Medical History Past Medical History: Cancer, COPD, Renal Disease Additional Past Medical History / Comment(s): Lung CA History of Any Multi-Drug Resistant Organisms: None Reported Past Surgical History: Appendectomy, Bariatric Surgery, Bowel Resection, Hysterectomy, Orthopedic Surgery Additional Past Surgical History / Comment(s): Prolapsed bowel with colostomy and reversal, bariatric surgery; broke bilateral legs with repair Past Anesthesia/Blood Transfusion Reactions: No Reported Reaction Past Psychological History: No Psychological Hx Reported Smoking Status: Former smoker Past Alcohol Use History: None Reported Past Drug Use History: None Reported - Past Family History Mother History Unknown: Yes Family Medical History: Unable to Obtain Additional Family Medical History / Comment(s): The patient is unaware of any significant family history Medications and Allergies Home Medications Medication Instructions Recorded Confirmed Type Biotin 5,000 mcg PO DAILY@0300 11/13/16 01/11/20 History Levothyroxine Sodium [Synthroid] 175 mcg PO DAILY@0300 11/13/16 01/11/20 History Cyanocobalamin [Vitamin B-12 1,000 mcg SQ TH 08/10/17 01/11/20 History Injection] Glycopyrrolate/Formoterol Fum 2 puff INHALATION RT-BID@0300,1600 08/10/17 01/11/20 History [Bevespi Aerosphere Inhaler] ALPRAZolam [Xanax] 0.25 mg PO TID PRN 11/15/19 01/11/20 History Albuterol Sulfate [Ventolin HFA] 2 puff INHALATION RT-Q4H PRN 11/15/19 01/11/20 History Ascorbic Acid [Vitamin C] 1,000 mg PO DAILY@29911/15/19 01/11/20 History Albuterol Nebulized [Ventolin 2.5 mg INHALATION RT-TID PRN 01/11/20 01/11/20 History Nebulized] Cholecalciferol [Vitamin D3 (25 1,000 unit PO DAILY@29901/11/20 01/11/20 History Mcg = 1000 Iu)] Furosemide [Lasix] 20 mg PO DAILY@29901/11/20 01/11/20 History Potassium Chloride ER [K-Dur 10] 10 meq PO DAILY@29901/11/20 01/11/20 History Spironolactone 25 mg PO BID@0300,1600 01/11/20 01/11/20 History diphenhydrAMINE [Benadryl] 25 mg PO DAILY@2300 01/11/20 01/11/20 History Allergies Allergy/AdvReac Type Severity Reaction Status Date / Time acetaminophen [From Tylenol] Allergy Swelling Verified 01/11/20 21:25 amoxicillin Allergy Swelling Verified 01/11/20 21:25 aspirin Allergy Swelling Verified 01/11/20 21:25 codeine Allergy Anaphylaxis Verified 01/11/20 21:25 hydrocodone [From Vicodin] Allergy Anaphylaxis Verified 01/11/20 21:25 Penicillins Allergy Swelling Verified 01/11/20 21:25 sulfamethoxazole Allergy Swelling Verified 01/11/20 21:25 [From Bactrim] trimethoprim [From Bactrim] Allergy Swelling Verified 01/11/20 21:25 tramadol AdvReac DOES NOT Verified 01/11/20 21:25 WORK steroids Allergy Swelling Uncoded 01/11/20 21:25 Physical Exam Vitals: Vital Signs Temp Pulse Pulse Pulse Resp BP Pulse Ox 01/14/20 07:55 76 01/14/20 07:44 76 95 01/14/20 05:00 97.9 F 69 16 99/58 98 01/14/20 03:29 98.2 F 72 16 101/53 97 01/14/20 02:23 70 01/13/20 21:48 95/57 01/13/20 21:47 74 01/13/20 21:36 72 01/13/20 21:00 98.1 F 70 16 88/45 96 01/13/20 18:01 74 01/13/20 17:51 72 01/13/20 16:11 20 01/13/20 11:41 70 01/13/20 11:33 70 01/13/20 11:06 97.6 F 69 17 84/49 98 Intake and Output 01/13/20 01/14/20 01/14/20 22:59 06:59 14:59 Intake Total 1600 Output Total 1 1 Balance -1 1599 Intake: Oral 1600 Output: Urine 1 Stool 1 Other: Voiding Method Bedside Commode Bedside Commode # Voids 2 9 # Bowel Movements 1 9 Results 01/14/20 08:06 01/14/20 08:06 Cardiac Enzymes 01/13/20 01/13/20 Range/Units 06:55 12:58 Troponin I <0.012 <0.012 (0.000-0.034) ng/mL CBC 01/14/20 Range/Units 08:06 WBC 7.2 (3.8-10.6) k/uL RBC 3.11 L (3.80-5.40) m/uL Hgb 9.8 L (11.4-16.0) gm/dL Hct 33.9 L (34.0-46.0) % Plt Count 242 (150-450) k/uL Comprehensive Metabolic Panel 01/14/20 Range/Units 08:06 Sodium 139 (137-145) mmol/L Potassium 3.5 (3.5-5.1) mmol/L Chloride 100 (98-107) mmol/L Carbon Dioxide 33 H (22-30) mmol/L BUN 17 (7-17) mg/dL Creatinine 0.56 (0.52-1.04) mg/dL Glucose 138 H (74-99) mg/dL Calcium 7.4 L (8.4-10.2) mg/dL Current Medications Generic Name Dose Route Start Last Admin Trade Name Freq PRN Reason Stop Dose Admin Albuterol Sulfate 2.5 mg 01/12/20 08:16 01/14/20 07:44 Ventolin Nebulized INHALATION 2.5 mg RT-Q4H PRN Administration Shortness Of Breath Alprazolam 0.25 mg 01/12/20 08:16 Xanax PO TID PRN Anxiety Ascorbic Acid 1,000 mg 01/13/20 03:00 01/14/20 03:31 Vitamin C PO 1,000 mg DAILY@0300 [facility] Administration Cholecalciferol 1,000 unit 01/13/20 03:00 01/14/20 03:31 Vitamin D3 (25 Mcg = 1000 Iu) PO 1,000 unit DAILY@0300 [facility] Administration Cyanocobalamin 1,000 mcg 01/17/20 09:00 Vitamin B-12 SQ TH [facility] Diphenhydramine HCl 25 mg 01/12/20 08:16 01/13/20 23:57 Benadryl PO 25 mg DAILY@2300 PRN Administration Severe Anxiety Formoterol Fumarate 20 mcg 01/12/20 16:00 01/14/20 02:19 Perforomist INHALATION Not Given RT-BID@0300,1600 [facility] Heparin Sodium (Porcine) 5,000 unit 01/12/20 21:00 01/14/20 08:08 Heparin SQ 5,000 unit Q12HR [facility] Administration Sodium Chloride 1,000 mls @ 75 mls/hr 01/13/20 11:30 01/14/20 03:38 Saline 0.9% IV 75 mls/hr .[id number] [facility] Administration Ipratropium [place] 0.5 mg 01/12/20 12:00 01/14/20 07:44 Atrovent Nebulized INHALATION Not Given RT-QID [facility] Levothyroxine Sodium 100 mcg 01/13/20 03:00 01/14/20 03:31 Synthroid PO 100 mcg DAILY@0300 [facility] Administration Miscellaneous Information 1 each 01/12/20 10:28 Magnesium Per Protocol MISCELLANE DAILY PRN Per Protocol Protocol Miscellaneous Information 1 each 01/12/20 10:28 Potassium Per Protocol MISCELLANE DAILY PRN Per Protocol Protocol Naloxone HCl 0.2 mg 01/11/20 21:16 Narcan IV Q2M PRN Opioid Reversal Non-Formulary Medication 5,000 mcg 01/13/20 03:00 01/14/20 03:46 Biotin [Biotin] PO Not Given DAILY@0300 [facility] Ondansetron HCl 4 mg 01/12/20 22:22 01/12/20 23:06 Zofran IVP 4 mg Q6HR PRN Administration Nausea And Vomiting Pantoprazole Sodium 40 mg 01/13/20 07:30 01/14/20 08:07 Protonix PO 40 mg AC-BRKFST [facility] Administration Intake and Output 01/13/20 01/14/20 01/14/20 22:59 06:59 14:59 Intake Total 1600 Output Total 1 1 Balance -1 1599 Intake: Oral 1600 Output: Urine 1 Stool 1 Other: Voiding Method Bedside Commode Bedside Commode # Voids 2 9 # Bowel Movements 1 9 01/14/20 08:06 01/14/20 08:06
[2020-01-14] MEDS ORDERED: MAGNESIUM OXIDE 400 MG TAB PO SCH (09:45)
[2020-01-14] MEDS: SPIRONOLACTONE 25 MG TAB PO SCH (10:11)
[2020-01-14] MEDS: MAGNESIUM SULFATE-D5W PMX 1 GM in DEXTROSE/WATER 1 100ML.BAG IVPB SCH ×2 (12:07→14:54)
--- NOTE | 2020-01-14 13:58 | P.PN ---
Subjective Progress Note Date: 01/14/20 Principal diagnosis: This is a 74-year-old female who was recently admitted with severe hypomagnesemia along with hypovolemia and is being closely monitored. Patient had some hypotension as well and currently awaiting a 2-D echo. Cardiology following. Lasix discontinued and patient was started on Aldactone. To continue with magnesium replacement protocol and will repeat a.m. labs. Patient initiated on magnesium oxide oral as well. Patient is currently receiving radiation treatment at [facility] for lung cancer and is scheduled to receive radiation treatment today at 2 PM. Arrangements are being made to receive treatment during hospitalization. Patient is to receive her last dose of radiation tomorrow. Current magnesium is 1.3 today. A.m. cortisol level was 19. Troponins have remained negative. Review of systems: Constitutional: No reports of fevers or chills, no reports of fatigue Cardiovascular: No reports of chest pain or palpitations Respiratory: Reports shortness of breath, occasional cough GI: No reports of nausea, vomiting, or diarrhea : No reports of dysuria or retention Neurovascular: No reports of weakness or numbness Active Medications Albuterol Sulfate (Ventolin Nebulized) 2.5 mg INHALATION RT-Q4H PRN PRN Reason: Shortness Of Breath Last Admin: 01/14/20 10:59 Dose: 2.5 mg Documented by: Alprazolam (Xanax) 0.25 mg PO TID PRN PRN Reason: Anxiety Ascorbic Acid (Vitamin C) 1,000 mg PO DAILY@0300 COUNTS INCLUDE 234 BEDS AT THE [facility] Last Admin: 01/14/20 03:31 Dose: 1,000 mg Documented by: Cholecalciferol (Vitamin D3 (25 Mcg = 1000 Iu)) 1,000 unit PO DAILY@0300 COUNTS INCLUDE 234 BEDS AT THE [facility] Last Admin: 01/14/20 03:31 Dose: 1,000 unit Documented by: Cyanocobalamin (Vitamin B-12) 1,000 mcg SQ TH COUNTS INCLUDE 234 BEDS AT THE [facility] Diphenhydramine HCl (Benadryl) 25 mg PO DAILY@2300 PRN PRN Reason: Severe Anxiety Last Admin: 01/13/20 23:57 Dose: 25 mg Documented by: Formoterol Fumarate (Perforomist) 20 mcg INHALATION RT-BID@0300,1600 COUNTS INCLUDE 234 BEDS AT THE [facility] Last Admin: 01/14/20 02:19 Dose: Not Given Documented by: Heparin Sodium (Porcine) (Heparin) 5,000 unit SQ Q12HR COUNTS INCLUDE 234 BEDS AT THE [facility] Last Admin: 01/14/20 08:08 Dose: 5,000 unit Documented by: Sodium Chloride (Saline 0.9%) 1,000 mls @ 75 mls/hr IV .[id number] COUNTS INCLUDE 234 BEDS AT THE [facility] Last Admin: 01/14/20 03:38 Dose: 75 mls/hr Documented by: Magnesium Sulfate/Dextrose 1 (gm/ IV Solution) 100 mls @ 100 mls/hr IVPB Q1H COUNTS INCLUDE 234 BEDS AT THE [facility] Stop: 01/14/20 14:59 Last Admin: 01/14/20 12:07 Dose: 100 mls/hr Documented by: Ipratropium [place] (Atrovent Nebulized) 0.5 mg INHALATION RT-QID COUNTS INCLUDE 234 BEDS AT THE [facility] Last Admin: 01/14/20 10:59 Dose: Not Given Documented by: Levothyroxine Sodium (Synthroid) 100 mcg PO DAILY@0300 COUNTS INCLUDE 234 BEDS AT THE [facility] Last Admin: 01/14/20 03:31 Dose: 100 mcg Documented by: Magnesium Oxide (Mag-Ox) 400 mg PO DAILY COUNTS INCLUDE 234 BEDS AT THE [facility] Last Admin: 01/14/20 10:11 Dose: 400 mg Documented by: Miscellaneous Information (Magnesium Per Protocol) 1 each MISCELLANE DAILY PRN; Protocol PRN Reason: Per Protocol Miscellaneous Information (Potassium Per Protocol) 1 each MISCELLANE DAILY PRN; Protocol PRN Reason: Per Protocol Naloxone HCl (Narcan) 0.2 mg IV Q2M PRN PRN Reason: Opioid Reversal Non-Formulary Medication (Biotin [Biotin]) 5,000 mcg PO DAILY@0300 COUNTS INCLUDE 234 BEDS AT THE [facility] Last Admin: 01/14/20 03:46 Dose: Not Given Documented by: Ondansetron HCl (Zofran) 4 mg IVP Q6HR PRN PRN Reason: Nausea And Vomiting Last Admin: 01/12/20 23:06 Dose: 4 mg Documented by: Pantoprazole Sodium (Protonix) 40 mg PO AC-BRKFST COUNTS INCLUDE 234 BEDS AT THE [facility] Last Admin: 01/14/20 08:07 Dose: 40 mg Documented by: Spironolactone (Aldactone) 25 mg PO DAILY COUNTS INCLUDE 234 BEDS AT THE [facility] Last Admin: 01/14/20 10:11 Dose: 25 mg Documented by: Objective - Vital Signs Vital signs: Vital Signs Temp 97.9 F 01/14/20 05:00 Pulse 80 01/14/20 11:13 Resp 16 01/14/20 05:00 BP 99/58 01/14/20 05:00 Pulse Ox 95 01/14/20 07:44 Intake & Output 01/13/20 01/14/20 01/14/20 18:59 06:59 18:59 Intake Total 1750 1600 Output Total 2 Balance 1750 1598 Intake: Intake, IV Titration 1150 Amount Sodium Chloride 0.9% 1, 150 000 ml @ 75 mls/hr IV . [id number] [facility] Rx#:[id number] Sodium Chloride 0.9% 500 500 ml 500 ml @ 999 mls/hr IV .Q31M ONE Rx#:[id number] Sodium Chloride 0.9% 500 500 ml 500 ml @ 999 mls/hr IV .Q31M ONE Rx#:[id number] Oral 600 1600 Output: Urine 1 Stool 1 Other: Voiding Method Bedside Commode Bedside Commode # Voids 2 9 # Bowel Movements 9 - Exam Gen: This is a 74-year-old female sitting up in bed, awake, alert and oriented 3, well-developed, well-nourished. Temp is 97.9F, pulse is 69, respirations are 16, blood pressure is 99/58, oxygen saturation is 98% on 4 L via nasal cannula. HEENT: Head is atraumatic, normocephalic. Pupils equal, round. Sclerae is anic teric. NECK: Supple. No JVD. No lymphadenopathy. No thyromegaly. LUNGS: Breath sounds diminished bilaterally with no wheezing or rhonchi noted. No intercostal retractions. HEART: S1, S2 are muffled. ABDOMEN: Soft. Bowel sounds are present. No masses. No tenderness. EXTREMITIES: No pedal edema. No calf tenderness. NEUROLOGICAL: Patient is awake, alert and oriented x3. Cranial nerves 2 through 12 are grossly intact. - Labs CBC & Chem 7: 01/14/20 08:06 01/14/20 08:06 Labs: Abnormal Lab Results - Last 24 Hours (Table) 01/14/20 01/14/20 01/14/20 Range/Units 08:06 08:06 08:06 RBC 3.11 L (3.80-5.40) m/uL Hgb 9.8 L (11.4-16.0) gm/dL Hct 33.9 L (34.0-46.0) % MCV 109.2 H (80.0-100.0) fL MCHC 28.9 L (31.0-37.0) g/dL Lymphocytes # 0.6 L (1.0-4.8) k/uL Macrocytosis Marked A Carbon Dioxide 33 H (22-30) mmol/L Glucose 138 H (74-99) mg/dL Calcium 7.4 L (8.4-10.2) mg/dL Magnesium 1.3 L (1.6-2.3) mg/dL Assessment and Plan Assessment: Severe hypomagnesemia, multifactorial Hypocalcemia dehydration Relative hypotension possibly secondary to hypovolemia Anemia, macrocytic Chronic obstructive pulmonary disease History of lung cancer with radiation History of bariatric surgery history of bowel resection history of nicotine dependence Moderate protein calorie malnutrition with a BMI of 18.6 Full code Recommendations and discussion: Recommend to continue current medications, management, and symptomatic treatment. Magnesium was found to be low at 1.3 currently being replaced. Patient is also being placed on a magnesium 400 mg oral. Cardiology evaluated the patient and patient is undergoing a 2-D echo which is currently pending at this time. Patient is quite concerned about being discharged today as she has radiation at 2 PM and does not want to miss that appointment. Nursing staff is aware and patient will be transported for radiation treatment. States she has 2 more treatments left of radiation. Patient follows with oncology in the outpatient setting. Will repeat a.m. labs. Prognosis is guarded. Further recommendations to follow. Possible discharge in 24 hours.
--- NOTE | 2020-01-14 14:30 | ECHOF ---
Referral Reason:lung CA/status post radiation MEASUREMENTS -------- HEIGHT: 172.7 cm WEIGHT: 55.3 kg BP: 99/58 IVSd: 1.1 cm (0.6 - 1.1) LVIDd: 3.4 cm (3.9 - 5.3) LVPWd: 1.3 cm (0.6 - 1.1) IVSs: 1.9 cm LVIDs: 2.0 cm LVPWs: 1.1 cm RVIDd: 3.4 cm (< 3.3) LAESV Index (A-L): 19.34 ml/m Ao Diam: 3.1 cm (2.0 - 3.7) AV Cusp: 2.1 cm (1.5 - 2.6) EPSS: 0.3 cm MV E Scott: 0.74 m/s MV DecT: 218 ms MV A Scott: 1.02 m/s MV E/A Ratio: 0.72 RAP: 5.00 mmHg RVSP: 42.45 mmHg MV EF SLOPE: 36.42 mm/s (70 - 150) MV EXCURSION: 13.26 mm (> 18.000) FINDINGS -------- Sinus rhythm. This was a technically adequate study. The left ventricular size is normal. There is mild concentric left ventricular hypertrophy. Overa ll left ventricular systolic function is normal with, an EF between 55 - 60 %. The diastolic fillin g pattern is normal for the age of the patient 9.51. The right ventricle is mildly enlarged. Normal LA size by volume 22+/-6 ml/m2. The right atrial size is normal. Interatrial and interventricular septum intact. There is no evidence of aortic regurgitation. There is no evidence of aortic stenosis. No mitral regurgitation. [id number] tricuspid regurgitation present. There is mild to moderate pulmonary hypertension. The right ventricular systolic pressure, as measured by Doppler, is 42.45mmHg. The pulmonic valve was not well visualized. There is no pulmonic regurgitation present. The aortic root size is normal. Normal inferior vena cava with normal inspiratory collapse consistent with estimated right atrial pre ssure of 5 mmHg. There is no pericardial effusion. CONCLUSIONS -------- 1. The left ventricular size is normal. 2. There is mild concentric left ventricular hypertrophy. 3. Overall left ventricular systolic function is normal with, an EF between 55 - 60 %. 4. The diastolic filling pattern is normal for the age of the patient 9.51 5. The right ventricle is mildly enlarged. 6. [id number] tricuspid regurgitation present. 7. There is mild to moderate pulmonary hypertension. 8. The right ventricular systolic pressure, as measured by Doppler, is 42.45mmHg. RECORDS MANAGEMENT ENGINEER: Gayle Baldwin RDCS
[2020-01-14] MEDS ORDERED: POTASSIUM CHLORIDE ER 20 MEQ TAB.ER PO STA (14:54)
[2020-01-14] MEDS: MAGNESIUM OXIDE 400 MG TAB PO SCH (16:41)
[2020-01-15] MEDS: LEVOTHYROXINE 100 MCG TAB PO SCH (02:11)
[2020-01-15] MEDS: ASCORBIC ACID 500 MG TAB PO SCH (02:12)
[2020-01-15] MEDS: CHOLECALCIFEROL 1,000 UNIT TAB PO SCH (02:12)
[2020-01-15] MEDS: HEPARIN SODIUM,PORCINE 5,000 UNIT/ML 1 ML VIAL SQ SCH ×2 (02:12→10:04)
[2020-01-15] MEDS: MAGNESIUM OXIDE 400 MG TAB PO SCH ×2 (02:12→10:03)
[2020-01-15] MEDS: NON FORMULARY DRUG (Biotin [Biotin] 5,000 MCG) PO SCH (02:21)
[2020-01-15] MEDS: SODIUM CHLORIDE 0.9% 1,000 ML IV SCH ×2 (05:41→05:54)
[2020-01-15] MEDS: PANTOPRAZOLE 40 MG TABLET PO SCH (08:08)
[2020-01-15] MEDS: IPRATROPIUM 0.5 MG/2.5 ML NEBU INHALATION SCH ×2 (08:12→11:57)
[2020-01-15 09:13] LABS: African American GFR (CKD) >90 (>60 ml/min/1.73 sqM); Anion Gap 1 mmol/L; Blood Urea Nitrogen 14 mg/dL (7-17); Calcium 7.7 mg/dL (8.4-10.2); Carbon Dioxide 32 mmol/L (22-30); Chloride 105 mmol/L (98-107); Glucose 71 mg/dL (74-99); Magnesium 1.9 mg/dL (1.6-2.3); Non-African American GFR(CKD) >90 (>60 ml/min/1.73 sqM); Potassium 4.5 mmol/L (3.5-5.1); Sodium 138 mmol/L (137-145)
[2020-01-15 09:18] LABS: Basophils % (A) 0 %; Eosinophils # (A) 0.1 k/uL (0-0.7); Eosinophils % (A) 2 %; HCT 34.7 % (34.0-46.0); HGB 10.1 gm/dL (11.4-16.0); Hypochromasia Marked; Lymphocytes # (A) 0.5 k/uL (1.0-4.8); Lymphocytes % (A) 9 %; MCH 31.6 pg (25.0-35.0); MCV 108.8 fL (80.0-100.0); Macrocytosis Marked; Mean Platelet Volume 7.6; Monocytes # (A) 0.4 k/uL (0-1.0); Monocytes % (A) 6 %; Neutrophils % (A) 82 %; Platelet Count 242 k/uL (150-450); RBC 3.19 m/uL (3.80-5.40); RDW 13.9 % (11.5-15.5); WBC 6.1 k/uL (3.8-10.6)
[2020-01-15] MEDS: SPIRONOLACTONE 25 MG TAB PO SCH (10:03)
[2020-01-15 10:57] LABS: Anisocytosis (M) Present; Poikilocytosis (M) Present
[2020-01-15 11:49] VITALS: BP 92/45; RESP 20; TEMP 97.7
[2020-01-15] MEDS: ALBUTEROL NEBULIZED 2.5 MG/3 ML INHALATION PRN (11:57)
[2020-01-15 12:14] VITALS: PULSE 80
--- NOTE | 2020-01-15 16:16 | P.DS ---
Providers Date of admission: 01/11/20 21:16 Expected date of discharge: 01/15/20 Attending physician: Mona Ambriz Consults: 01/13/20 11:22 Consult Physician Routine Consulting Provider: Steve Falk Consult Reason/Comments: low blood pressures Do you want consulting provider notified?: Yes Primary care physician: Adryan Lopez Hospital Course: Final diagnosis Severe hypomagnesemia, multifactorial Hypocalcemia dehydration Relative hypotension possibly secondary to hypovolemia Anemia, macrocytic Chronic obstructive pulmonary disease History of lung cancer with radiation History of bariatric surgery history of bowel resection history of nicotine dependence Moderate protein calorie malnutrition with a BMI of 18.6 Full code Discharge disposition Patient is being discharged in a stable condition with guarded prognosis to home. Patient will follow-up with Dr. Lopez in the outpatient setting upon discharge. Patient also instructed to follow-up with radiation oncology in the outpatient setting this afternoon. Patient will continue with home care in the outpatient setting. Patient will continue with magnesium oxide 400 mg 3 times daily and a prescription was provided for repeat labs in a few days. Total time taken is greater than 35 minutes. History of present illness This is a 74-year-old male who was recently admitted with severe hypomagnesemia along with hypovolemia and was being closely monitored. Patient also found to have some hypotension. Cardiology following. Patient underwent a 2-D echo showing overall left ventricular systolic function is normal with an EF between 55 and 60% with some mild to moderate tricuspid regurgitation, and mild to moderate pulmonary hypertension present. Patient was seen and evaluated by cardiology and discontinued Lasix and patient was initiated on Aldactone at a lower dose. Patient was also replaced with magnesium and will continue with magnesium 400 mg 3 times daily in the outpatient setting. Patient received radiation yesterday and has her last dose of radiation today and will follow-up with oncology in the outpatient setting. Patient states she is feeling better and would like to go home today. Currently no reports of chest pain, shortness of breath, or palpitations. Patient is afebrile. No reports of nausea or vomiting and patient is tolerating diet. Patient will be discharged home today. Guarded prognosis On exam vital signs are stable. Temp is 97.7F, pulse is 73, respirations are 20, blood pressure is 92/45, oxygen saturation is 96% 4 L via nasal cannula. Cardio S1, S2 are muffled. Respiratory system shows diminished breath sounds at the bases with no wheezing or rhonchi noted. Abdomen is soft and nontender. Nervous system shows no focal deficits. Please refer to medication reconciliation sheet for a list of medications. Patient Condition at Discharge: Stable Plan - Discharge Summary Discharge Rx Participant: Yes New Discharge Prescriptions: New Magnesium Oxide [Mag-Ox] 400 mg PO TID 30 Days #90 tab Levothyroxine Sodium [Synthroid] 100 mcg PO DAILY@0300 30 Days #30 tab Continue Biotin 5,000 mcg PO DAILY@0300 Cyanocobalamin [Vitamin B-12 Injection] 1,000 mcg SQ TH Glycopyrrolate/Formoterol Fum [Bevespi Aerosphere Inhaler] 2 puff INHALATION RT-BID@030,1599 Albuterol Sulfate [Ventolin HFA] 2 puff INHALATION RT-Q4H PRN PRN Reason: Shortness Of Breath Ascorbic Acid [Vitamin C] 1,000 mg PO DAILY@0300 ALPRAZolam [Xanax] 0.25 mg PO TID PRN PRN Reason: Anxiety Cholecalciferol [Vitamin D3 (25 Mcg = 1000 Iu)] 1,000 unit PO DAILY@0300 diphenhydrAMINE [Benadryl] 25 mg PO DAILY@2300 Albuterol Nebulized [Ventolin Nebulized] 2.5 mg INHALATION RT-TID PRN PRN Reason: Shortness Of Breath Changed Spironolactone 25 mg PO DAILY #0 Discontinued Levothyroxine Sodium [Synthroid] 175 mcg PO DAILY@0300 Potassium Chloride ER [K-Dur 10] 10 meq PO DAILY@030 Furosemide [Lasix] 20 mg PO DAILY@030 Discharge Medication List Biotin 5,000 mcg PO DAILY@03011/13/16 [History] Cyanocobalamin [Vitamin B-12 Injection] 1,000 mcg SQ TH 08/10/17 [History] Glycopyrrolate/Formoterol Fum [Bevespi Aerosphere Inhaler] 2 puff INHALATION RT- BID@0300,1600 08/10/17 [History] ALPRAZolam [Xanax] 0.25 mg PO TID PRN 11/15/19 [History] Albuterol Sulfate [Ventolin HFA] 2 puff INHALATION RT-Q4H PRN 11/15/19 [History] Ascorbic Acid [Vitamin C] 1,000 mg PO DAILY@030 06/04/20 [History] Albuterol Nebulized [Ventolin Nebulized] 2.5 mg INHALATION RT-TID PRN 01/11/20 [History] Cholecalciferol [Vitamin D3 (25 Mcg = 1000 Iu)] 1,000 unit PO DAILY@29901/11/20 [History] diphenhydrAMINE [Benadryl] 25 mg PO DAILY@229901/11/20 [History] Levothyroxine Sodium [Synthroid] 100 mcg PO DAILY@299 30 Days #30 tab 01/15/20 [Rx] Magnesium Oxide [Mag-Ox] 400 mg PO TID 30 Days #90 tab 01/15/20 [Rx] Spironolactone 25 mg PO DAILY #0 01/15/20 [Rx] Follow up Appointment(s)/Referral(s): Adryan Lopez MD [Primary Care Provider] - 01/17/20 2:30 pm Arvind Naik MD [STAFF PHYSICIAN] - 02/13/20 2:00 pm [facility] Visiting Nurse, [NON-STAFF] - 1-2 Days Ambulatory/Diagnostic Orders: Basic Metabolic Panel [LAB.AMB] Time Frame: 2 Days, Location: None Selected Magnesium [LAB.AMB] Time Frame: 2 Days, Location: None Selected Patient Instructions/Handouts: Levothyroxine (By mouth), Magnesium (By mouth), COPD (Chronic Obstructive Pulmonary Disease) (DC), Hypomagnesemia (DC) Activity/Diet/Wound Care/Special Instructions: diet rich in magnesium Discharge Disposition: HOME WITH HOME HEALTH SERVICES
[2020-01-17] MEDS ORDERED: CYANOCOBALAMIN 1,000 MCG/ML 1 ML VIAL SQ SCH (09:00)
== END 2020-01-15 13:52 | disposition home health service (06) | DRG 641 ==
LOC: EC 19:35 → 5NMEDONC 21:16
PROVIDERS: ADMIT Hospitalist; ATTEND Hospitalist
DX: E83.42 Hypomagnesemia (principal); C34.92 Malignant neoplasm of unspecified part of left bronchus or lung; C78.5 Secondary malignant neoplasm of large intestine and rectum; E44.0 Moderate protein-calorie malnutrition; Z68.1 Body mass index [BMI] 19.9 or less, adult; E83.51 Hypocalcemia; E86.0 Dehydration; E86.1 Hypovolemia; Z87.891 Personal history of nicotine dependence; D53.9 Nutritional anemia, unspecified; E03.9 Hypothyroidism, unspecified; I07.1 Rheumatic tricuspid insufficiency; I27.20 Pulmonary hypertension, unspecified; I95.89 Other hypotension; J44.9 Chronic obstructive pulmonary disease, unspecified; K52.9 Noninfective gastroenteritis and colitis, unspecified; Z79.890 Hormone replacement therapy; Z79.899 Other long term (current) drug therapy; Z11.59 Encounter for screening for other viral diseases; Z90.49 Acquired absence of other specified parts of digestive tract; Z90.710 Acquired absence of both cervix and uterus; Z92.3 Personal history of irradiation; Z98.84 Bariatric surgery status; Z88.6 Allergy status to analgesic agent; Z88.5 Allergy status to narcotic agent; Z88.0 Allergy status to penicillin; Z88.2 Allergy status to sulfonamides; Z88.8 Allergy status to other drugs, medicaments and biological substances
CPT/HCPCS: 36415; 71046; 77386; 77427; 80048; 80053; 82533; 83735; 84484; 85025; 93005; 93306; 94640; 94760; 96365; 99284

== ENCOUNTER → 2020-03-10 | Outpatient (CLI) | payer MEDICARE, OTHER ==
[2020-03-10 14:34] LABS: African American GFR (CKD) >90 (>60 ml/min/1.73 sqM); Blood Urea Nitrogen 32 mg/dL (7-17); Non-African American GFR(CKD) 80 (>60 ml/min/1.73 sqM)
--- NOTE | 2020-03-10 15:27 | CT ---
EXAMINATION TYPE: CT chest wo/w con DATE OF EXAM: 03/10/2020 COMPARISON: Most recent PET/CT November 30, [address] and PET/CT studies HISTORY: Malignant neoplasm upper lobe LT bronchus/lung. Pt study ran as without, had to re-hayden for with study. Currently undergoing radiation treatment. CT DLP: 358.80 mGycm. Automated Exposure Control for Dose Reduction was Utilized. TECHNIQUE: CT scan of the thorax is performed following without and with IV Contrast, patient inject ed with 100 mL of Isovue 300. FINDINGS: LUNGS: Moderate to advanced underlying emphysematous change is redemonstrated. Persistent 2.9 x 2.3 c m left hilar mass anterior superior aspect axial image 29. Improved from recent PET/CT and chest CT. Anterior superior neoplastic extension also improved at 2.7 x 1.1 cm current study image 31. Scattere d areas of peripheral fibrosis and reticulation redemonstrated mid to lower lungs. No new nodules or masses. A few scattered small peripheral micronodules in the left upper to midlung redemonstrated. No pleural effusion or pneumothorax. MEDIASTINUM: There are no greater than 1 cm hilar or mediastinal lymph nodes. No pericardial effusi on is seen. Enlarged right and left lung with main pulmonary artery is redemonstrated. Findings con sistent with underlying pulmonary artery hypertension. OTHER: Cholecystectomy clips. Overlying horizontal cutaneous diomedes redemonstrated in the right uppe r abdomen. Gas prominent colonic loops again seen. IMPRESSION: Positive partial treatment response as detailed above. No new suspicious nodules or adeno dipesh.
== END | disposition home or self-care (01) ==
LOC: RADCTMAIN 13:34
PROVIDERS: ATTEND Radiology Radiation Oncology
DX: C34.12 Malignant neoplasm of upper lobe, left bronchus or lung (principal); Z92.3 Personal history of irradiation; F17.210 Nicotine dependence, cigarettes, uncomplicated
CPT/HCPCS: 82565; 84520; 71270; 36415; Q9967

== ENCOUNTER 2020-03-19 16:45 | Inpatient (IN) | payer MEDICARE, OTHER ==
[2020-03-19] MEDS ORDERED: MORPHINE SULFATE 4 MG/ML SYRINGE IV STA (17:09)
[2020-03-19] MEDS ORDERED: SODIUM CHLORIDE 0.9% 1,000 ML IV STA (17:09)
[2020-03-19] MEDS ORDERED: IPRATROPIUM-ALBUTEROL 3 ML NEB INHALATION STA ×2 (17:09→19:06)
--- NOTE | 2020-03-19 17:14 | ED ---
Headache HPI - General Chief Complaint: Headache Stated Complaint: REBEKA Time Seen by Provider: 03/19/20 16:54 Source: RN notes reviewed, old records reviewed Mode of arrival: ambulatory Limitations: no limitations - History of Present Illness Initial Comments: This is a 72-year-old female patient Dese for evaluation regards to severe headache shortness of breath cough and congestion. Patient has known lung cancer patient. Patient otherwise does not feel well, headache is increasing shortness of breath his been increasing as well as increased lower extremity edema and swelling MD Complaint: headache -: hour(s) Onset Description: gradual Location: left, frontal Severity: severe Severity scale (1-10): 10 Quality: aching, throbbing, sharp Consistency: constant Worsens With: none Associated Symptoms: nausea Other Symptoms: cough, SOB, other (Shortness of breath) Treatments Prior to Arrival: none - Related Data Home Medications Medication Instructions Recorded Confirmed Glycopyrrolate/Formoterol Fum 2 puff INHALATION RT-BID 08/10/17 03/19/20 [Bevespi Aerosphere Inhaler] Albuterol Sulfate [Ventolin HFA] 2 puff INHALATION RT-Q4H PRN 11/15/19 03/19/20 Albuterol Nebulized [Ventolin 2.5 mg INHALATION RT-TID PRN 01/11/20 03/19/20 Nebulized] Levothyroxine Sodium [Synthroid] 100 mcg PO DAILY 03/19/20 03/19/20 Previous Rx's Medication Instructions Recorded Magnesium Oxide [Mag-Ox] 400 mg PO TID 30 Days #90 tab 01/15/20 Spironolactone 25 mg PO DAILY #0 01/15/20 Allergies Allergy/AdvReac Type Severity Reaction Status Date / Time amoxicillin Allergy Swelling Verified 03/19/20 18:58 aspirin Allergy Swelling Verified 03/19/20 18:58 codeine Allergy Anaphylaxis Verified 03/19/20 18:58 hydrocodone [From Vicodin] Allergy Anaphylaxis Verified 03/19/20 18:58 Penicillins Allergy Swelling Verified 03/19/20 18:58 sulfamethoxazole Allergy Swelling Verified 03/19/20 18:58 [From Bactrim] tramadol AdvReac DOES NOT Verified 03/19/20 18:58 WORK steroids Allergy Swelling Uncoded 03/19/20 16:54 Review of Systems ROS Statement: Those systems with pertinent positive or pertinent negative responses have been documented in the HPI. ROS Other: All systems not noted in ROS Statement are negative. Past Medical History Past Medical History: Cancer, COPD, Renal Disease Additional Past Medical History / Comment(s): Lung CA History of Any Multi-Drug Resistant Organisms: None Reported Past Surgical History: Appendectomy, Bariatric Surgery, Bowel Resection, Hysterectomy, Orthopedic Surgery Additional Past Surgical History / Comment(s): Prolapsed bowel with colostomy and reversal, bariatric surgery; broke bilateral legs with repair Past Anesthesia/Blood Transfusion Reactions: No Reported Reaction Past Psychological History: No Psychological Hx Reported Smoking Status: Former smoker Past Alcohol Use History: None Reported Past Drug Use History: None Reported - Past Family History Mother History Unknown: Yes Family Medical History: Unable to Obtain Additional Family Medical History / Comment(s): The patient is unaware of any significant family history General Exam Limitations: no limitations General appearance: alert, in no apparent distress Head exam: Present: atraumatic, normocephalic, normal inspection Eye exam: Present: normal appearance, PERRL, EOMI. Absent: scleral icterus, conjunctival injection, periorbital swelling ENT exam: Present: normal exam, mucous membranes moist Neck exam: Present: normal inspection. Absent: tenderness, meningismus, lymphadenopathy Respiratory exam: Present: normal lung sounds bilaterally. Absent: respiratory distress, wheezes, rales, rhonchi, stridor Cardiovascular Exam: Present: regular rate, normal rhythm, normal heart sounds. Absent: systolic murmur, diastolic murmur, rubs, gallop, clicks GI/Abdominal exam: Present: soft, normal bowel sounds. Absent: distended, tenderness, guarding, rebound, rigid Extremities exam: Present: normal inspection, full ROM, normal capillary refill. Absent: tenderness, pedal edema, joint swelling, calf tenderness Back exam: Present: normal inspection Neurological exam: Present: alert, oriented X3, CN II-XII intact Psychiatric exam: Present: normal affect, normal mood Skin exam: Present: warm, dry, intact, normal color. Absent: rash Course Vital Signs 03/19/20 03/19/20 03/19/20 16:47 18:10 19:00 Temperature 97.7 F Pulse Rate 66 62 67 Respiratory 18 18 18 Rate Blood Pressure 100/55 92/55 97/55 O2 Sat by Pulse 100 90 L 98 Oximetry - Reevaluation(s) Reevaluation #1: 03/19/20 19:10 Attic record is reviewed Reevaluation #2: 03/19/20 19:10 Patient has improved headache control although very sleepy secondary to headache medications - Consultations Consultation #1: Spoke with , who is aware of this patient Consultation #2: Spoke with [facility] were agreeable to admit this patient Medical Decision Making - Medical Decision Making 74 female DF for evaluation patient with severe headache known history of lung cancer now brain metastasis. Patient given headache control here also with lower extremity cellulitis and lung cancer with COPD hypoxia. - Lab Data Result diagrams: 03/19/20 17:11 03/19/20 17:11 Lab Results 03/19/20 03/19/20 03/19/20 Range/Units 17:11 17:11 17:11 WBC 8.1 (3.8-10.6) k/uL RBC 3.10 L (3.80-5.40) m/uL Hgb 9.8 L (11.4-16.0) gm/dL Hct 32.8 L (34.0-46.0) % MCV 105.9 H (80.0-100.0) fL MCH 31.7 (25.0-35.0) pg MCHC 30.0 L (31.0-37.0) g/dL RDW 14.5 (11.5-15.5) % Plt Count 384 (150-450) k/uL Neutrophils % 82 % Lymphocytes % 10 % Monocytes % 5 % Eosinophils % 2 % Basophils % 0 % Neutrophils # 6.6 (1.3-7.7) k/uL Lymphocytes # 0.8 L (1.0-4.8) k/uL Monocytes # 0.4 (0-1.0) k/uL Eosinophils # 0.1 (0-0.7) k/uL Basophils # 0.0 (0-0.2) k/uL Hypochromasia Marked Macrocytosis Moderate PT 9.5 (9.0-12.0) sec INR 0.9 (<1.2) APTT 23.7 (22.0-30.0) sec Sodium 136 L (137-145) mmol/L Potassium 4.7 (3.5-5.1) mmol/L Chloride 96 L (98-107) mmol/L Carbon Dioxide 37 H (22-30) mmol/L Anion Gap 3 mmol/L BUN 31 H (7-17) mg/dL Creatinine 0.70 (0.52-1.04) mg/dL Est GFR (CKD-EPI)AfAm >90 (>60 ml/min/1.73 sqM) Est GFR (CKD-EPI)NonAf 87 (>60 ml/min/1.73 sqM) Glucose 82 (74-99) mg/dL Calcium 8.7 (8.4-10.2) mg/dL Phosphorus 3.0 (2.5-4.5) mg/dL Magnesium 1.8 (1.6-2.3) mg/dL Total Bilirubin 0.6 (0.2-1.3) mg/dL AST 27 (14-36) U/L ALT 16 (4-34) U/L Alkaline Phosphatase 89 (38-126) U/L Troponin I (0.000-0.034) ng/mL NT-Pro-B Natriuret Pep pg/mL Total Protein 6.6 (6.3-8.2) g/dL Albumin 3.7 (3.5-5.0) g/dL 03/19/20 03/19/20 Range/Units 17:11 17:11 WBC (3.8-10.6) k/uL RBC (3.80-5.40) m/uL Hgb (11.4-16.0) gm/dL Hct (34.0-46.0) % MCV (80.0-100.0) fL MCH (25.0-35.0) pg MCHC (31.0-37.0) g/dL RDW (11.5-15.5) % Plt Count (150-450) k/uL Neutrophils % % Lymphocytes % % Monocytes % % Eosinophils % % Basophils % % Neutrophils # (1.3-7.7) k/uL Lymphocytes # (1.0-4.8) k/uL Monocytes # (0-1.0) k/uL Eosinophils # (0-0.7) k/uL Basophils # (0-0.2) k/uL Hypochromasia Macrocytosis PT (9.0-12.0) sec INR (<1.2) APTT (22.0-30.0) sec Sodium (137-145) mmol/L Potassium (3.5-5.1) mmol/L Chloride (98-107) mmol/L Carbon Dioxide (22-30) mmol/L Anion Gap mmol/L BUN (7-17) mg/dL Creatinine (0.52-1.04) mg/dL Est GFR (CKD-EPI)AfAm (>60 ml/min/1.73 sqM) Est GFR (CKD-EPI)NonAf (>60 ml/min/1.73 sqM) Glucose (74-99) mg/dL Calcium (8.4-10.2) mg/dL Phosphorus (2.5-4.5) mg/dL Magnesium (1.6-2.3) mg/dL Total Bilirubin (0.2-1.3) mg/dL AST (14-36) U/L ALT (4-34) U/L Alkaline Phosphatase (38-126) U/L Troponin I <0.012 (0.000-0.034) ng/mL NT-Pro-B Natriuret Pep 138 pg/mL Total Protein (6.3-8.2) g/dL Albumin (3.5-5.0) g/dL - EKG Data -: EKG Interpreted by Me (EKG is sinus rhythm 67. UT 142 QRS 90 QTC 422) Disposition Clinical Impression: Weakness, Squamous cell lung cancer, Metastatic cancer to brain, COPD exacerbation, Hypoxia, Bilateral lower leg cellulitis Disposition: ADMITTED IP TO THIS HOSP Condition: Fair Is patient prescribed a controlled substance at d/c from ED?: No Referrals: Adryan Lopez MD [Primary Care Provider] - 1-2 days
[2020-03-19 17:20] LABS: Basophils % (A) 0 %; Eosinophils # (A) 0.1 k/uL (0-0.7); Eosinophils % (A) 2 %; HCT 32.8 % (34.0-46.0); HGB 9.8 gm/dL (11.4-16.0); Hypochromasia Marked; Lymphocytes # (A) 0.8 k/uL (1.0-4.8); Lymphocytes % (A) 10 %; MCH 31.7 pg (25.0-35.0); MCV 105.9 fL (80.0-100.0); Macrocytosis Moderate; Mean Platelet Volume 6.7; Monocytes # (A) 0.4 k/uL (0-1.0); Monocytes % (A) 5 %; Neutrophils # (A) 6.6 k/uL (1.3-7.7); Neutrophils % (A) 82 %; Platelet Count 384 k/uL (150-450); RDW 14.5 % (11.5-15.5); WBC 8.1 k/uL (3.8-10.6)
[2020-03-19 17:28] LABS: INR 0.9 (<1.2); Partial Thromboplastin Time 23.7 sec (22.0-30.0); Prothrombin Time 9.5 sec (9.0-12.0)
[2020-03-19 17:31] LABS: ALT 16 U/L (4-34); AST 27 U/L (14-36); African American GFR (CKD) >90 (>60 ml/min/1.73 sqM); Albumin 3.7 g/dL (3.5-5.0); Alkaline Phosphatase 89 U/L (38-126); Anion Gap 3 mmol/L; Blood Urea Nitrogen 31 mg/dL (7-17); Calcium 8.7 mg/dL (8.4-10.2); Carbon Dioxide 37 mmol/L (22-30); Chloride 96 mmol/L (98-107); Glucose 82 mg/dL (74-99); Magnesium 1.8 mg/dL (1.6-2.3); Non-African American GFR(CKD) 87 (>60 ml/min/1.73 sqM); Potassium 4.7 mmol/L (3.5-5.1); Sodium 136 mmol/L (137-145); Total Bilirubin 0.6 mg/dL (0.2-1.3); Total Protein 6.6 g/dL (6.3-8.2)
[2020-03-19] MEDS ORDERED: ONDANSETRON 4 MG/2 ML VIAL IVP STA (17:39)
[2020-03-19] MEDS ORDERED: HYDROmorphone 1 MG/ML 1 ML SYRINGE IVP STA (17:50)
--- NOTE | 2020-03-19 18:18 | XR ---
EXAMINATION TYPE: XR chest 2V DATE OF EXAM: 03/19/2020 CLINICAL HISTORY: Weakness, difficult in breathing, headache . History of left lung cancer. TECHNIQUE: Frontal and lateral views of the chest are obtained. COMPARISON: 01/13/[address] chest 03/02/2020. FINDINGS: Lungs are hyperexpanded with interstitial coarsening and flattening of the hemidiaphragms. There is redemonstrated left hilar and left upper lobe basilar masslike opacity, which is mildly dec reased at the left hilum versus 01/13/2020 chest radiograph. The cardiomediastinal silhouette is within normal limits for size. Pulmonary vasculature is normal. There is no new focal air space opacity, pl eural effusion, or pneumothorax seen. The osseous structures are intact. IMPRESSION: 1. Left upper lobe known perihilar lung mass, mildly decreased from 01/13/2020 chest radiograph, and l ikely similar to CT chest 03/02/2020 given differences in technique. 2. Emphysematous change.
[2020-03-19] MEDS ORDERED: DEXAMETHASONE SOD PHOSPHATE 10 MG/ML 1 ML VIAL IV STA (18:32)
--- NOTE | 2020-03-19 18:32 | CT ---
EXAMINATION TYPE: CT brain wo con DATE OF EXAM: 03/19/2020 HISTORY: weakness, nausea, headache. History of lung cancer. CT DLP: 1099.4 mGycm. Automated Exposure Control for Dose Reduction was Utilized. TECHNIQUE: CT scan of the head is performed without contrast. COMPARISON: CT brain 11/16/2019. PET/CT 11/30/2019. FINDINGS: There is significant newly demonstrated white matter vasogenic cerebral edema of the left parietal an d occipital lobe, with maintained guerra-white matter differentiation. There is no acute intracranial hemorrhage or midline shift. The ventricles, sulci, and cisterns are normal in size and configuration. No extra-axial fluid collection. Bones and extracranial soft tissues are intact. The globes are gross ly symmetric. Visualized sinuses and mastoid air cells are clear. IMPRESSION: 1. Significant new white matter vasogenic edema of the left parietal and occipital lobes. Given vasog enic edema and history of lung cancer, primary differential consideration is metastatic brain lesion. MRI examination of the brain would be helpful for further characterization. 2. No acute intracranial hemorrhage or midline shift. Dr. Laly Whitehead discussed findings with Ashley Morin on today at 6:25 PM, and results were acknowledged.
[2020-03-19] MEDS ORDERED: VANCOMYCIN IV PER PHARMACY 1 EACH MISC MISCELLANE PRN (19:21)
[2020-03-19] MEDS ORDERED: VANCOMYCIN 1,000 MG in SODIUM CHLORIDE 0.9% 250 ML IVPB ONE (19:30)
[2020-03-19] MEDS: SODIUM CHLORIDE 0.9% 1,000 ML IV SCH (21:40)
[2020-03-20 00:08] LABS: Appearance,Urine Clear (Clear); Bilirubin,Urine Negative (Negative); Blood,Urine Negative (Negative); Color,Urine Yellow; Glucose,Urine (UA) Negative (Negative); Ketones,Urine Negative (Negative); Leukocyte Esterase,Urine Negative (Negative); Nitrite,Urine Negative (Negative); PH, Urine 5.5 (5.0-8.0); Protein,Urine Negative (Negative); Specific Gravity,Urine 1.013 (1.001-1.035); Urobilinogen,Urine <2.0 mg/dL (<2.0)
[2020-03-20] MEDS: DEXAMETHASONE SOD PHOSPHATE 4 MG/ML 1 ML VIAL IV SCH ×4 (00:34→17:08)
[2020-03-20] MEDS: SODIUM CHLORIDE 0.9% 1,000 ML IV SCH (05:39)
[2020-03-20] MEDS ORDERED: VANCOMYCIN 1,000 MG in SODIUM CHLORIDE 0.9% 250 ML IVPB SCH (06:00)
[2020-03-20] MEDS ORDERED: KETOROLAC 15 MG/ML 1 ML VIAL IVP STA (06:26)
[2020-03-20] MEDS: ALBUTEROL NEBULIZED 2.5 MG/3 ML INHALATION SCH ×3 (07:25→15:25)
[2020-03-20] MEDS ORDERED: HYDROmorphone 0.5 MG/0.5 ML SYRINGE IVP PRN (07:54)
[2020-03-20] MEDS: ONDANSETRON 4 MG/2 ML VIAL IVP PRN (08:31)
[2020-03-20] MEDS ORDERED: PANTOPRAZOLE 40 MG/10 ML VIAL IVP SCH (09:00)
[2020-03-20] MEDS ORDERED: ALBUTEROL NEBULIZED 2.5 MG/3 ML INHALATION PRN (09:14)
--- NOTE | 2020-03-20 10:20 | P.HPIM ---
History of Present Illness 74-year-old female with known history of lung cancer as per the patient is in remission came in with comments of severe headache and shortness of breath cough. Patient chest x-ray did not show any pneumonia patient does have history of COPD usually uses 2 L of onset presently on 3 L. Does have some wheezing patient was also having severe 10/10 headache mostly in the left periapical area, CT of the head was obtained which showed significant vasogenic edema in the left parietal and occipital lobes. MRA is being obtained at this time and patient was started on Decadron. Patient is still complaining of severe pain and patient says she is ALLERGIC to codeine and doesn't want to take and this aids. Patient is also having some nausea and abdominal discomfort for which she she was started on Protonix and Zofran. Patient denied any significant visual problems or any focal neurological deficits at this time denied any vomiting Review of Systems REVIEW OF SYSTEMS: CONSTITUTIONAL: No fever, no malaise, no fatigue. HEENT: No recent visual problems or hearing problems. Denied any sore throat. CARDIOVASCULAR: No chest pain, orthopnea, PND, no palpitations, no syncope. PULMONARY: no hemoptysis. GASTROINTESTINAL: No diarrhea, no vomiting, no abdominal pain. NEUROLOGICAL: no weakness, no numbness. HEMATOLOGICAL: Denies any bleeding or petechiae. GENITOURINARY: Denies any burning micturition, frequency, or urgency. MUSCULOSKELETAL/RHEUMATOLOGICAL: Denies any joint pain, swelling, or any muscle pain. ENDOCRINE: Denies any polyuria or polydipsia. The rest of the 14-point review of systems is negative. Past Medical History Past Medical History: Cancer, COPD, Renal Disease Additional Past Medical History / Comment(s): Lung CA History of Any Multi-Drug Resistant Organisms: None Reported Past Surgical History: Appendectomy, Bariatric Surgery, Bowel Resection, Hysterectomy, Orthopedic Surgery Additional Past Surgical History / Comment(s): Prolapsed bowel with colostomy and reversal, bariatric surgery; broke bilateral legs with repair Past Anesthesia/Blood Transfusion Reactions: No Reported Reaction Past Psychological History: No Psychological Hx Reported Smoking Status: Former smoker Past Alcohol Use History: None Reported Additional Past Alcohol Use History / Comment(s): Quit Jul 08, 2019 Past Drug Use History: None Reported - Past Family History Mother History Unknown: Yes Family Medical History: Unable to Obtain Additional Family Medical History / Comment(s): The patient is unaware of any significant family history Medications and Allergies Home Medications Medication Instructions Recorded Confirmed Type Glycopyrrolate/Formoterol Fum 2 puff INHALATION RT-BID 08/10/17 03/19/20 History [Bevespi Aerosphere Inhaler] Albuterol Sulfate [Ventolin HFA] 2 puff INHALATION RT-Q4H PRN 11/15/19 03/19/20 History Albuterol Nebulized [Ventolin 2.5 mg INHALATION RT-TID PRN 01/11/20 03/19/20 History Nebulized] Magnesium Oxide [Mag-Ox] 400 mg PO TID 30 Days #90 tab 01/15/20 03/19/20 Rx Spironolactone 25 mg PO DAILY #0 01/15/20 03/19/20 Rx Levothyroxine Sodium [Synthroid] 100 mcg PO DAILY 03/19/20 03/19/20 History Allergies Allergy/AdvReac Type Severity Reaction Status Date / Time amoxicillin Allergy Swelling Verified 03/19/20 18:58 aspirin Allergy Swelling Verified 03/19/20 18:58 codeine Allergy Anaphylaxis Verified 03/19/20 18:58 hydrocodone [From Vicodin] Allergy Anaphylaxis Verified 03/19/20 18:58 Penicillins Allergy Swelling Verified 03/19/20 18:58 sulfamethoxazole Allergy Swelling Verified 03/19/20 18:58 [From Bactrim] tramadol AdvReac DOES NOT Verified 03/19/20 18:58 WORK steroids Allergy Swelling Uncoded 03/19/20 16:54 Physical Exam Vitals: Vital Signs Temp Pulse Pulse Resp BP BP Pulse Ox 03/20/20 07:00 97.8 F 73 22 101/55 98 03/20/20 02:35 98.0 F 66 16 90/52 97 03/20/20 00:00 65 16 03/19/20 21:45 97.8 F 65 16 93/52 97 03/19/20 20:46 64 03/19/20 20:38 61 03/19/20 20:29 67 22 102/61 98 03/19/20 20:20 65 16 03/19/20 19:00 67 18 97/55 98 03/19/20 18:10 62 18 92/55 90 L 03/19/20 16:47 97.7 F 66 18 100/55 100 Intake and Output 03/19/20 03/20/20 03/20/20 22:59 06:59 14:59 Intake Total 500 Balance 500 Intake: Intake, IV Titration 200 Amount Sodium Chloride 0.9% 1, 200 000 ml @ 100 mls/hr IV . Q10H VERÓNICA Rx#:[id number] Oral 300 Other: Voiding Method Toilet Toilet # Voids 3 Weight 56.245 kg PHYSICAL EXAMINATION: GENERAL: The patient is alert and oriented x3, not in any acute distress. Well developed, well nourished. HEENT: Pupils are round and equally reacting to light. EOMI. No scleral icterus. No conjunctival pallor. Normocephalic, atraumatic. No pharyngeal erythema. No thyromegaly. CARDIOVASCULAR: S1 and S2 present. No murmurs, rubs, or gallops. PULMONARY: Mild expiratory wheezing on exam ABDOMEN: Soft, nontender, nondistended, normoactive bowel sounds. No palpable organomegaly. MUSCULOSKELETAL: No joint swelling or deformity. EXTREMITIES: No cyanosis, clubbing, or pedal edema. NEUROLOGICAL: Gross neurological examination did not reveal any focal deficits. SKIN: No rashes. Results CBC & Chem 7: 03/19/20 17:11 03/19/20 17:11 Labs: Abnormal Lab Results - Last 24 Hours (Table) 03/19/20 03/19/20 Range/Units 17:11 17:11 RBC 3.10 L (3.80-5.40) m/uL Hgb 9.8 L (11.4-16.0) gm/dL Hct 32.8 L (34.0-46.0) % MCV 105.9 H (80.0-100.0) fL MCHC 30.0 L (31.0-37.0) g/dL Lymphocytes # 0.8 L (1.0-4.8) k/uL Sodium 136 L (137-145) mmol/L Chloride 96 L (98-107) mmol/L Carbon Dioxide 37 H (22-30) mmol/L BUN 31 H (7-17) mg/dL Thrombosis Risk Factor Assmnt - Choose All That Apply Each Risk Factor Represents 2 Points: Age 61-74 years Thrombosis Risk Factor Assessment Total Risk Factor Score: 2 Thrombosis Risk Factor Assessment Level: Low Risk Assessment and Plan Plan: -Headache: Secondary to possible metastatic disease to brain patient has primary lung cancer. Continue with Decadron oncology was consulted MRI is being o btained -Shortness of breath most probably secondary to mild COPD exacerbation patient is acute on chronic hypercapnic respiratory failure continue with inhalational treatments patient is already on systemic steroids for headache and vasogenic edema. -Nausea: Secondary to steroids are gases revealed reflux disease or brain metastasis symptomatically treatment along with GI prophylaxis -Lung cancer -Hypothyroidism DVT prophylaxis prophylaxis with Lovenox. Prophylaxis with Protonix
[2020-03-20] MEDS: ENOXAPARIN 40 MG/0.4 ML SYRINGE SQ SCH (10:34)
[2020-03-20] MEDS: HYDROmorphone 0.5 MG/0.5 ML SYRINGE IVP PRN ×2 (11:45→20:40)
[2020-03-20] MEDS: IPRATROPIUM 0.5 MG/2.5 ML NEBU INHALATION SCH ×2 (11:47→15:25)
[2020-03-20] MEDS ORDERED: LORazepam 2 MG/ML INJ IV PRN (12:43)
--- NOTE | 2020-03-20 13:09 | P.CNNES ---
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 According to patient she's been having the left frontal headache since yesterday morning upon waking up. She rates the headache 9-10 over 10, constant, it does radiate slightly to the temporal region the anterior temporal region. Headache is a throbbing. She did have nausea and one episode of vomiting. He did have some photophobia but denies any photophobia. Denies any associated weakness with this, numbness, visual disturbance or difficulty getting her words out. She denies of any fever. She denies any similar headache like this in the past. In the hospital the patient received Zofran 4 mg, Toradol 15 mg once in the ED and currently she feels that the headache is about a 7/10. Her work-up in the hospital consisted of: Initial vital signs: Blood pressure of 100/55, heart rate of 66, respiratory of 18, temperature of 97.7 Fahrenheit oral and pulse ox of [address] of the head which showed significant new white matter vasogenic edema over the left parietal and occipital lobes. Given the vasogenic edema and history of lung cancer, primary differential consideration is metastatic brain lesion. MRI examination the brain would be helpful for further characterization. No acute intracranial hemorrhage or midline shift. I personally reviewed the CT of the head and the there is an vasogenic edema over the left occipital region. There is a no acute ischemia, hemorrhage noted. There is no encephalomalacia that was significantly seen on the CT of the head. Chest x-ray shows left upper lobe known. Higher lung mass, mildly decreased from 01/13/2020 chest radiograph, and likely similar to the CT chest on 03/02/2020 given the difference in technique. Emphysematous change. EKG was reported as normal sinus rhythm. Ventricular rate of 67. Rightward axis. Borderline EKG. Of note the patient had PET scan (skull to thigh) on 01/2019 and it was reported as approximately 4.8 cm mass of the medial left upper lobe compatible with biopsy-proven squamous cell carcinoma has hypo-metabolic uptake with a maximum SUV currently 11.62. No enhancing pathological mediastinal adenopathy nor supraclavicular adenopathy or infarct diaphragmatic metastasis at this time. Focal Stephen uptake of the ascending colon, see comment and the terminal ileum wi th a maximum SUV of 7.3, concerning for neoplasm. She had repeated PET scan on 2019 and was reported as interval localized progression from most recent Pap/CT of the normal lumbar sided lung cancer is confirmed. Patient follows up with the doctor Brandy, and an patient had CT guided FNA of the left upper lobe mass in January 2019 and diagnosed with the squamous cell lung cancer. According to the patient that she stated that the she had 2 rounds of radiation and the last one was about 2 month ago according to her. She follows up with oncologist as an outpatient. She is a former smoker she said that she smoked for about 60 years. 1 pack of cigarettes would last for about 3 days to 1 week. She said that she quit about the 6 month ago. Review of Systems Review of system: The 12 point system was reviewed and apparent positive and negative per HPI. Past Medical History Past Medical History: Cancer, COPD, Renal Disease Additional Past Medical History / Comment(s): Lung CA History of Any Multi-Drug Resistant Organisms: None Reported Past Surgical History: Appendectomy, Bariatric Surgery, Bowel Resection, Hysterectomy, Orthopedic Surgery Additional Past Surgical History / Comment(s): Prolapsed bowel with colostomy and reversal, bariatric surgery; broke bilateral legs with repair Past Anesthesia/Blood Transfusion Reactions: No Reported Reaction Past Psychological History: No Psychological Hx Reported Smoking Status: Former smoker Past Alcohol Use History: None Reported Additional Past Alcohol Use History / Comment(s): Quit Jul 08, 2019 Past Drug Use History: None Reported - Past Family History Mother History Unknown: Yes Family Medical History: Unable to Obtain Additional Family Medical History / Comment(s): The patient is unaware of any significant family history Medications and Allergies Home Medications Medication Instructions Recorded Confirmed Type Glycopyrrolate/Formoterol Fum 2 puff INHALATION RT-BID 08/10/17 03/19/20 History [Bevespi Aerosphere Inhaler] Albuterol Sulfate [Ventolin HFA] 2 puff INHALATION RT-Q4H PRN 11/15/19 03/19/20 History Albuterol Nebulized [Ventolin 2.5 mg INHALATION RT-TID PRN 01/11/20 03/19/20 History Nebulized] Magnesium Oxide [Mag-Ox] 400 mg PO TID 30 Days #90 tab 01/15/20 03/19/20 Rx Spironolactone 25 mg PO DAILY #0 01/15/20 03/19/20 Rx Levothyroxine Sodium [Synthroid] 100 mcg PO DAILY 03/19/20 03/19/20 History Allergies Allergy/AdvReac Type Severity Reaction Status Date / Time amoxicillin Allergy Swelling Verified 03/19/20 18:58 aspirin Allergy Swelling Verified 03/19/20 18:58 codeine Allergy Anaphylaxis Verified 03/19/20 18:58 hydrocodone [From Vicodin] Allergy Anaphylaxis Verified 03/19/20 18:58 Penicillins Allergy Swelling Verified 03/19/20 18:58 sulfamethoxazole Allergy Swelling Verified 03/19/20 18:58 [From Bactrim] tramadol AdvReac DOES NOT Verified 03/19/20 18:58 WORK steroids Allergy Swelling Uncoded 03/19/20 16:54 Physical Examination - Vital Signs Vital Signs: Vital Signs Temp Pulse Pulse Resp BP BP Pulse Ox 03/20/20 07:00 97.8 F 73 22 101/55 98 03/20/20 02:35 98.0 F 66 16 90/52 97 03/20/20 00:00 65 16 03/19/20 21:45 97.8 F 65 16 93/52 97 03/19/20 20:46 64 03/19/20 20:38 61 03/19/20 20:29 67 22 102/61 98 03/19/20 20:20 65 16 03/19/20 19:00 67 18 97/55 98 03/19/20 18:10 62 18 92/55 90 L 03/19/20 16:47 97.7 F 66 18 100/55 100 Intake and Output 03/19/20 03/20/20 03/20/20 22:59 06:59 14:59 Intake Total 500 Balance 500 Intake: Intake, IV Titration 200 Amount Sodium Chloride 0.9% 1, 200 000 ml @ 100 mls/hr IV . Q10H VERÓNICA Rx#:[id number] Oral 300 Other: Voiding Method Toilet Toilet # Voids 3 Weight 56.245 kg GENERAL: The patient is lying in bed and is not in acute distress. CHEST: The heart rate is regular rate rhythm. No murmurs to auscultation. LUNG: Clear to auscultation bilaterally no wheezing noted throughout. Not labored breathing. ABDOMEN/GI: Bowel sounds present in all 4 quadrants. No tenderness to palpation throughout. NEUROLOGICAL: Higher mental function: The patient is awake, alert, oriented to self, place and time. Patient is following commands. No aphasia and no neglect. Cranial nerves: The pupils are round, equal (4mm) and reactive to light and accommodation. Visual simon: right homonymous hemianopia to confrontation. Extraocular movement is intact no nystagmus is noted. Facial sensation is normal to touch throughout. The facial strength is normal throughout. Hearing is normal bilaterally to hand rub. Tongue is midline and moved [id number] without any difficulty. No dysarthria is noted. Shoulder shrug is normal bilaterally. Motor: Gait is defered. The strength is 5 over 5 throughout. Normal tone and bulk. Cerebellum: Normal finger to nose heel bilaterally. Sensation: Sensation is normal to touch throughout. Reflexes (right/left): 2+ throughout except patellare are 3+ bilaterally. Plantars are downgoing bilaterally. Results MCV of 105.9. Hemoglobin of 9.8 and hematocrit of 32.8. AST of 27, ALP of 16. Prognosis study: PT of 9.5, INR 0.9 and PTT of 23.7. Urinalysis was negative for UTI. 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 CT head shows left occipital vagosgenic edema 1. Left occipital lesion with vasogenic edema 2. Right homonymous hemianopsia due to above 3. Brain metastases and likely primary source is like lung cancer 4. Cephalgia due to #1 5. Left squamous cell Lung cancer s/p radiation (FNA of the left upper lobe mass in January 2019 and PET scan) 6. Acute COPD exacerbation 7. X tobacco use 8. History of hypothyroidism Plan: Continue Decadron 4 mg every 6 hours. Ordered MRI of the brain with and without gadolinium. Regarding the patient the history of lung cancer and the metastatic brain lesion oncology is consulted. Regarding the patient the COPD exacerbation we'll defer to the primary as well as the pulmonary team. There is no neurosurgery in our facility. Will get MRI Brain first. Regarding the patient's COPD exacerbation I'll defer that to the pulmonary team. Upon discharge the patient needs to follow-up with a neurosurgeon regarding brain metastasis. Thank you for the consultation. Eliu Ennis MD Neuro-Hospitalist Time with Patient: Greater than 30
--- NOTE | 2020-03-20 15:01 | P.CNPUL ---
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 Her most recent PET scan from 11/30/2019 showed progression of her lung cancer with interval localized progression of known left-sided lung cancer. Patient follows with Dr. Horne in the pulmonary office for her history of COPD, patient is under the care of Dr. Naik who is planning on radiation treatments. On 03/19/2020 patient presented to the emergency department for evaluation of severe throbbing, aching and sometimes sharp headache involving her left temporal area, sometimes associated with nausea.. Denied any other symptoms, denied any increased shortness of breath cough or congestion. She states she does not feel well, the headache continues to worsen. In addition patient developed some worsening lower extremity edema. Chest x-ray was taken showing a left upper lobe perihilar lung mass, mildly decreased from her last chest x-ray on a background of emphysematous changes. Brain CT showed a significant a new white matter vasogenic edema of the left parietal and occipital lobes, the primary differential consideration for metastatic brain lesion, with the recommendation of MRI follow-up. No acute intracranial hemorrhage or midline shift was identified. Lab work showed no leukocytosis, with little, is 8.1, hemoglobin is 9.8, INR 0.9, sodium was 136, chloride is 96, CO2 is 27, B1 is 30, creatinine 0.70. Troponin was negative, proBNP was 138, urinalysis was negative, LFTs were within normal limits. Patient has been afebrile, hemodynamically stable, she is on 3 L of oxygen and pulse ox 98%, her breathing seems to be at her baseline, no significant cough or congestion. Patient was started on oral Decadron for possibility of brain metastasis. She is refusing MRI of the brain citing that extreme anxiety. We will consult neurology. Review of Systems All systems: negative Constitutional: Denies chills, Denies fever Eyes: denies blurred vision, denies pain Ears, nose, mouth and throat: Denies headache, Denies sore throat Cardiovascular: Reports edema, Denies chest pain, Denies shortness of breath Respiratory: Denies cough Gastrointestinal: Denies abdominal pain, Denies diarrhea, Denies nausea, Denies vomiting Genitourinary: Denies dysuria, Denies hematuria Musculoskeletal: Denies myalgias Integumentary: Denies pruritus, Denies rash Neurological: Reports as per HPI, Reports headaches, Denies numbness, Denies weakness Psychiatric: Denies anxiety, Denies depression Endocrine: Denies fatigue, Denies weight change Past Medical History Past Medical History: Cancer, COPD, Renal Disease Additional Past Medical History / Comment(s): Lung CA History of Any Multi-Drug Resistant Organisms: None Reported Past Surgical History: Appendectomy, Bariatric Surgery, Bowel Resection, Hysterectomy, Orthopedic Surgery Additional Past Surgical History / Comment(s): Prolapsed bowel with colostomy and reversal, bariatric surgery; broke bilateral legs with repair Past Anesthesia/Blood Transfusion Reactions: No Reported Reaction Past Psychological History: No Psychological Hx Reported Smoking Status: Former smoker Past Alcohol Use History: None Reported Additional Past Alcohol Use History / Comment(s): Quit Jul 08, 2019 Past Drug Use History: None Reported - Past Family History Mother History Unknown: Yes Family Medical History: Unable to Obtain Additional Family Medical History / Comment(s): The patient is unaware of any significant family history Medications and Allergies Home Medications Medication Instructions Recorded Confirmed Type Glycopyrrolate/Formoterol Fum 2 puff INHALATION RT-BID 08/10/17 03/19/20 History [Bevespi Aerosphere Inhaler] Albuterol Sulfate [Ventolin HFA] 2 puff INHALATION RT-Q4H PRN 11/15/19 03/19/20 History Albuterol Nebulized [Ventolin 2.5 mg INHALATION RT-TID PRN 01/11/20 03/19/20 History Nebulized] Magnesium Oxide [Mag-Ox] 400 mg PO TID 30 Days #90 tab 01/15/20 03/19/20 Rx Spironolactone 25 mg PO DAILY #0 01/15/20 03/19/20 Rx Levothyroxine Sodium [Synthroid] 100 mcg PO DAILY 03/19/20 03/19/20 History Allergies Allergy/AdvReac Type Severity Reaction Status Date / Time amoxicillin Allergy Swelling Verified 03/19/20 18:58 aspirin Allergy Swelling Verified 03/19/20 18:58 codeine Allergy Anaphylaxis Verified 03/19/20 18:58 hydrocodone [From Vicodin] Allergy Anaphylaxis Verified 03/19/20 18:58 Penicillins Allergy Swelling Verified 03/19/20 18:58 sulfamethoxazole Allergy Swelling Verified 03/19/20 18:58 [From Bactrim] tramadol AdvReac DOES NOT Verified 03/19/20 18:58 WORK steroids Allergy Swelling Uncoded 03/19/20 16:54 Physical Exam Vitals: Vital Signs Temp Pulse Pulse Resp BP BP Pulse Ox 03/20/20 12:00 68 03/20/20 11:50 60 03/20/20 07:00 97.8 F 73 22 101/55 98 03/20/20 02:35 98.0 F 66 16 90/52 97 03/20/20 00:00 65 16 03/19/20 21:45 97.8 F 65 16 93/52 97 03/19/20 20:46 64 03/19/20 20:38 61 03/19/20 20:29 67 22 102/61 98 03/19/20 20:20 65 16 03/19/20 19:00 67 18 97/55 98 03/19/20 18:10 62 18 92/55 90 L 03/19/20 16:47 97.7 F 66 18 100/55 100 Intake and Output 03/19/20 03/20/20 03/20/20 22:59 06:59 14:59 Intake Total 500 Balance 500 Intake: Intake, IV Titration 200 Amount Sodium Chloride 0.9% 1, 200 000 ml @ 100 mls/hr IV . Q10H [facility] Rx#:[id number] Oral 300 Other: Voiding Method Toilet Toilet # Voids 3 Weight 56.245 kg GENERAL EXAM: Alert, very pleasant, 74-year-old white female, frail looking, chronically ill-looking, currently on 3 L of oxygen a pulse ox of 90%, she is oriented 3, complaining of a left temporal headache, comfortable in no apparent distress. HEAD: Normocephalic/atraumatic. EYES: Normal reaction of pupils, equal size. Conjunctiva pink, sclera white. NOSE: Clear with pink turbinates. THROAT: No erythema or exudates. NECK: No masses, no JVD, no thyroid enlargement, no adenopathy. CHEST: No chest wall deformity. Symmetrical expansion. LUNGS: Equal air entry with no crackles, wheeze, rhonchi or dullness. CVS: Regular rate and rhythm, normal S1 and S2, no gallops, no murmurs, no rubs ABDOMEN: Soft, nontender. No hepatosplenomegaly, normal bowel sounds, no guarding or rigidity. EXTREMITIES: No clubbing, 1+ pretibial ankle and pedal edema, no cyanosis, 2+ pulses and upper and lower extremities. MUSCULOSKELETAL: Muscle strength and tone normal. SPINE: No scoliosis or deformity SKIN: No rashes CENTRAL NERVOUS SYSTEM: Alert and oriented -3. No focal deficits, tone is normal in all 4 extremities. PSYCHIATRIC: Alert and oriented -3. Appropriate affect. Intact judgment and insight. Results - Laboratory Findings CBC and BMP: 03/19/20 17:11 03/19/20 17:11 PT/INR, D-dimer PT 9.5 sec (9.0-12.0) 03/19/20 17:11 INR 0.9 (<1.2) 03/19/20 17:11 Abnormal lab findings: Abnormal Labs 03/19/20 03/19/20 17:11 17:11 RBC 3.10 L Hgb 9.8 L Hct 32.8 L MCV 105.9 H MCHC 30.0 L Lymphocytes # 0.8 L Sodium 136 L Chloride 96 L Carbon Dioxide 37 H BUN 31 H - Diagnostic Findings Chest x-ray: report reviewed, image reviewed Additional studies: Brain CT, EKG reviewed Assessment and Plan Plan: Assessment: #1. Severe throbbing left temporal headache associated with nausea, likely related to brain metastasis related to known history of squamous cell lung cancer. CT of the brain showed a significant new white matter vasogenic edema of the left parietal and occipital lobes with concern for metastatic brain lesion, MRI of the brain was recommended for further characterization. She was started on oral Decadron, neurology has been consulted, medical oncology has been consulted #2. History of metastatic squamous cell lung cancer, with a PET scan in February 2019 showing increased uptake in the left upper lobe as well as asccending colon, treated with external beam radiation therapy only, completing treatment in March 2019. Most recent PET scan from November 2019 showing progression of lung cancer #3. Severe COPD, with the baseline FEV1 of 0.86 L or 32% of predicted, hypoxic respiratory failure #4. History of smoking #5. History of gastric bypass in 1975 #6. History of bowel resection related to adhesions, with reversal of colostomy #7. Chronic diarrhea #8. Poor baseline functional performance #9. Hypothyroidism Plan: We'll consult neurology for evaluation of headaches and possibility of metastatic disease to the brain. Patient is absolutely refusing MRI of the brain stating extreme anxiety. Continue oral steroids, continue with bronchod ilators, a pulmonary perspective patient is not too far off her baseline, vital signs are stable. Medical oncology evaluation is pending, her most recent PET scan showed progression of lung cancer. Continue with nebulized bronchodilators. Her prognosis is guarded in view of patient's functional p erformance and poor underlying lung function. We will await recommendations from medical oncology team I performed a history & physical examination of the patient and discussed their management with my nurse practitioner, Kandice Thomas. I reviewed the nurse practitioner's note and agree with the documented findings and plan of care. Lung sounds are positive for diminished breath sounds. The findings and the impression was discussed with the patient. I attest to the documentation by the nurse practitioner. Time with Patient: Greater than 30
--- NOTE | 2020-03-20 16:13 | P.CONS ---
History of Present Illness - Reason for Consult Consult date: 03/20/20 Metastatic cancer brain Requesting physician: Samuel Morin - Chief Complaint Headache - History of Present Illness Ms Ramsey this is a pleasant white female, initially seen in consult at [facility] on 11/17/19. 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 Biopsy was performed on 01/24/29. PET scan on 01/31/19 showed a 3.1 x 3.2 x 4.8 cm medial pleural-based mass extending to the mediastinum, increased in size versus 2.8 x 2.1 x 4.[address] from 09/29. The patient has a known history of advanced COPD and very poor lung function. She was not felt to be a candidate for surgery and is re ferred for radiation. She had SBRT completing that in 03/31. biomarker testing on her biopsy from 01/29 was negative. She had follow-up scans in 05/31 which showed no evidence of recurrence. The patient was admitted this time with increasing shortness of breath. She required aggressive support including BiPAP. Imaging done during this admission revealed evidence of recurrence with multicentric masslike density the left upper lobe. This included encasement of the left upper lobe pulmonary artery and narrowing of the lumen. A prior centimeter infiltrative area adjacent to the pleura was now 3.[address] of the brain was negative. The patient was quite borderline during this admission, but managed to improve and be discharged with aggressive treatment for COPD exacerbation and po ssible pneumonia. She had a PET scan on 11/30/19, showing anterior pleural-based mass 3.6 x 2.6 cm. New larger lobulated mass posterior and superior to this measuring 5 x 3.1 cm, with another suprahilar mass posterior and superior measuring 4.6 x 3.3 cm. These were all hypermetabolic with SUV in the 6-7+ range. There appeared to be an additional anterior left hilar mass or adenopathy with SUV less than 2.5 but still felt to be suspicious. There was no evidence of disease elsewhere. There was moderate to advance underlying emphysematous change. The patient was seen for first office visit on 12/18/19. She is on 3-4.5 L of oxygen, [id number]. Even on oxygen performance status is very poor with endurance limited to only a few feet at a time the patient was not felt to be a candidate for concurrent treatment. Based on her performance status. It was also not clear if she will be able to tolerate conventional chemotherapy. She was in any case, but is reluctant for the same. She therefore continued on radiation alone. Her initial biomarker testing on her biopsy had been negative., With PD1 less than 1%. She had repeat biomarker testing with the [place] [id number] which was negative for any actionable mutations for lung cancers. the patient therefore proceeded to irradiation which she completed in late 01/30. She presented with COPD exacerbation and Headaches. CT head revealed metastatic disease to the brain with evidence of vasogenic edema. Radiation oncology has been consulted and case was discussed with Dr. Naik. IV dexamethasone 4mg q6 and PPI is being administered. Review of Systems All systems: negative Constitutional: Reports as per HPI Past Medical History Past Medical History: Cancer, COPD, Renal Disease Additional Past Medical History / Comment(s): Lung CA History of Any Multi-Drug Resistant Organisms: None Reported Past Surgical History: Appendectomy, Bariatric Surgery, Bowel Resection, Hysterectomy, Orthopedic Surgery Additional Past Surgical History / Comment(s): Prolapsed bowel with colostomy and reversal, bariatric surgery; broke bilateral legs with repair Past Anesthesia/Blood Transfusion Reactions: No Reported Reaction Past Psychological History: No Psychological Hx Reported Smoking Status: Former smoker Past Alcohol Use History: None Reported Additional Past Alcohol Use History / Comment(s): Quit Jul 08, 2019 Past Drug Use History: None Reported - Past Family History Mother History Unknown: Yes Family Medical History: Unable to Obtain Additional Family Medical History / Comment(s): The patient is unaware of any significant family history Medications and Allergies Home Medications Medication Instructions Recorded Confirmed Type Glycopyrrolate/Formoterol Fum 2 puff INHALATION RT-BID 08/10/17 03/19/20 History [Bevespi Aerosphere Inhaler] Albuterol Sulfate [Ventolin HFA] 2 puff INHALATION RT-Q4H PRN 11/15/19 03/19/20 History Albuterol Nebulized [Ventolin 2.5 mg INHALATION RT-TID PRN 01/11/20 03/19/20 History Nebulized] Magnesium Oxide [Mag-Ox] 400 mg PO TID 30 Days #90 tab 01/15/20 03/19/20 Rx Spironolactone 25 mg PO DAILY #0 01/15/20 03/19/20 Rx Levothyroxine Sodium [Synthroid] 100 mcg PO DAILY 03/19/20 03/19/20 History Allergies Allergy/AdvReac Type Severity Reaction Status Date / Time amoxicillin Allergy Swelling Verified 03/19/20 18:58 aspirin Allergy Swelling Verified 03/19/20 18:58 codeine Allergy Anaphylaxis Verified 03/19/20 18:58 hydrocodone [From Vicodin] Allergy Anaphylaxis Verified 03/19/20 18:58 Penicillins Allergy Swelling Verified 03/19/20 18:58 sulfamethoxazole Allergy Swelling Verified 03/19/20 18:58 [From Bactrim] tramadol AdvReac DOES NOT Verified 03/19/20 18:58 WORK steroids Allergy Swelling Uncoded 03/19/20 16:54 Physical Exam Vitals: Vital Signs Temp Pulse Pulse Resp BP BP Pulse Ox 03/20/20 12:00 68 03/20/20 11:50 60 03/20/20 07:00 97.8 F 73 22 101/55 98 03/20/20 02:35 98.0 F 66 16 90/52 97 03/20/20 00:00 65 16 03/19/20 21:45 97.8 F 65 16 93/52 97 03/19/20 20:46 64 03/19/20 20:38 61 03/19/20 20:29 67 22 102/61 98 03/19/20 20:20 65 16 03/19/20 19:00 67 18 97/55 98 03/19/20 18:10 62 18 92/55 90 L 03/19/20 16:47 97.7 F 66 18 100/55 100 Intake and Output 03/19/20 03/20/20 03/20/20 22:59 06:59 14:59 Intake Total 500 Balance 500 Intake: Intake, IV Titration 200 Amount Sodium Chloride 0.9% 1, 200 000 ml @ 100 mls/hr IV . Q10H [facility] Rx#:[id number] Oral 300 Other: Voiding Method Toilet Toilet # Voids 3 Weight 56.245 kg GENER: Alert but in obvious pain and she is holding head HEAD: Normocephalic/atraumatic. EYES: Normal reaction of pupils, equal size. NECK: No masses, no adenopathy. CHEST: No chest wall deformity. LUNGS: CTA B CVS: Regular rate and rhythm, normal S1 and S2, ABDOMEN: Soft, nontender. EXTREMITIES: 1+ ankle and pedal edema, SKIN: No rashes PSYCHIATRIC: Alert and oriented x3 Results CBC & Chem 7: 03/19/20 17:11 03/19/20 17:11 Labs: Abnormal Lab Results - Last 24 Hours (Table) 03/19/20 03/19/20 Range/Units 17:11 17:11 RBC 3.10 L (3.80-5.40) m/uL Hgb 9.8 L (11.4-16.0) gm/dL Hct 32.8 L (34.0-46.0) % MCV 105.9 H (80.0-100.0) fL MCHC 30.0 L (31.0-37.0) g/dL Lymphocytes # 0.8 L (1.0-4.8) k/uL Sodium 136 L (137-145) mmol/L Chloride 96 L (98-107) mmol/L Carbon Dioxide 37 H (22-30) mmol/L BUN 31 H (7-17) mg/dL CT Scan - head: report reviewed Assessment and Plan (1) Cephalalgia Current Visit: Yes Status: Acute Code(s): R51.9 - SNOMED Code(s): 25659346 (2) Metastatic cancer to brain Current Visit: Yes Status: Acute Code(s): C79.31 - SECONDARY MALIGNANT NEOPL ASM OF BRAIN SNOMED Code(s): 69507624 (3) Squamous cell lung cancer Current Visit: Yes Status: Chronic Priority: High Code(s): C34.90 - MALIGNANT NEOPLASM OF UNSP PART OF UNSP BRONCHUS OR LUNG SNOMED Code(s): 876080528 Plan: 1. New metastatic disease to Brain with evidence of vasogenic edema: - Dex 4mg q6 with PPI - Radiation oncology on consult 2. Severe Headache secondary to number one - COntinue supportive care and dex 3. NSCLCA - Squamous Lung Ca: - Progression - Treatment goal palliative 4. COPD: - Pulm following Physician Attest: I have completed the full history and physical and agrree with above dictation, dictated as a scribe
[2020-03-20] MEDS: MAGNESIUM OXIDE 400 MG TAB PO SCH ×2 (17:08→20:40)
[2020-03-20] MEDS: FORMOTEROL FUMARATE 20 MCG/2 ML NEBU INHALATION SCH ×2 (19:58→20:06)
[2020-03-20] MEDS: IPRATROPIUM-ALBUTEROL 3 ML NEB INHALATION SCH (19:58)
[2020-03-21] MEDS: DEXAMETHASONE SOD PHOSPHATE 4 MG/ML 1 ML VIAL IV SCH ×5 (00:21→23:04)
[2020-03-21] MEDS: HYDROmorphone 0.5 MG/0.5 ML SYRINGE IVP PRN ×6 (00:21→23:04)
[2020-03-21] MEDS: IPRATROPIUM-ALBUTEROL 3 ML NEB INHALATION SCH ×5 (07:19→20:13)
[2020-03-21] MEDS: FORMOTEROL FUMARATE 20 MCG/2 ML NEBU INHALATION SCH ×3 (07:19→20:13)
[2020-03-21] MEDS: ALBUTEROL NEBULIZED 2.5 MG/3 ML INHALATION PRN ×2 (07:29→10:57)
[2020-03-21] MEDS: MAGNESIUM OXIDE 400 MG TAB PO SCH ×3 (08:14→23:04)
[2020-03-21] MEDS: ENOXAPARIN 40 MG/0.4 ML SYRINGE SQ SCH (08:14)
[2020-03-21] MEDS: PANTOPRAZOLE 40 MG TABLET PO SCH (08:14)
[2020-03-21] MEDS: LEVOTHYROXINE 100 MCG TAB PO SCH (08:21)
[2020-03-21] MEDS ORDERED: LORazepam 2 MG/ML INJ IV STA (09:44)
--- NOTE | 2020-03-21 11:21 | MR ---
EXAMINATION TYPE: MR brain wo/w con DATE OF EXAM: 03/21/2020 COMPARISON: CT brain 2 days ago. HISTORY: brain mets (hx of lung cancer). Recent abnormal CT. TECHNIQUE: Multiplanar, multisequence images of the brain and brainstem is performed without and with IV contras t, utilizing 5.5 mL intravenous Gadavist . FINDINGS: Diffusion weighted images demonstrate no evidence of a recent infarct or other diffusion ab normality. There is no worrisome extra-axial fluid collection. Mild ventricular and sulcal prominenc e redemonstrated. A few scattered foci of T2 hyperintensity are noted throughout the white matter. Midline structures demonstrate normal morphology. The craniocervical junction appears within normal limits. Corresponding to CT there is abnormal rim-enhancing mass measuring 3.0 x 2.8 cm axial image 17 series 601 by 3.6 cm cranial caudal dimension coronal image 30. Lesion shows adjacent T2 hyperintensity thr oughout the left parietal occipital white matter. Is lesion is low T1 and increased T2 signal with mo re solid component along the medial aspect of the lesion. Local mass effect is present with sulcal ef facement. Fast brain protocol utilized limiting evaluation for subcentimeter masses. No additional en hancing lesions clearly seen. Visualized sinuses are clear and the globes are intact. Normal draining screening sinuses noted. IMPRESSION: Confirmation of 3.6 cm left occipital cystic intraparenchymal enhancing mass consistent w ith neoplasm. Metastatic lesion favored over primary brain tumor but the latter is not excluded.
[2020-03-21] MEDS ORDERED: FUROSEMIDE 10 MG/ML 4 ML VIAL IV STA (11:27)
--- NOTE | 2020-03-21 12:55 | P.PN ---
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 Her most recent PET scan from 11/30/2019 showed progression of her lung cancer with interval localized progression of known left-sided lung cancer. Patient follows with Dr. Horne in the pulmonary office for her history of COPD, patient is under the care of Dr. Naik who is planning on radiation treatments. On 03/19/2020 patient presented to the emergency department for evaluation of severe throbbing, aching and sometimes sharp headache involving her left temporal area, sometimes associated with nausea.. Denied any other symptoms, denied any increased shortness of breath cough or congestion. She states she does not feel well, the headache continues to worsen. In addition patient developed some worsening lower extremity edema. Chest x-ray was taken showing a left upper lobe perihilar lung mass, mildly decreased from her last chest x-ray on a background of emphysematous changes. Brain CT showed a significant a new white matter vasogenic edema of the left parietal and occipital lobes, the primary differential consideration for metastatic brain lesion, with the recommendation of MRI follow-up. No acute intracranial hemorrhage or midline shift was identified. Lab work showed no leukocytosis, with little, is 8.1, hemoglobin is 9.8, INR 0.9, sodium was 136, chloride is 96, CO2 is 27, B1 is 30, creatinine 0.70. Troponin was negative, proBNP was 138, urinalysis was negative, LFTs were within normal limits. Patient has been afebrile, hemodynamically stable, she is on 3 L of oxygen and pulse ox 98%, her breathing seems to be at her baseline, no significant cough or congestion. Patient was started on oral Decadron for possibility of brain metastasis. She is refusing MRI of the brain citing that extreme anxiety. We will consult neurology. Patient is seen today 03/21/2020 in follow-up on the regular medical floor. She is currently resting fairly comfortably in bed. Awake and alert in no acute distress. Maintaining O2 saturations in the 90s on 2 L/m per nasal cannula. Blood culture reveals no growth to date. She remains on bronchodilators. Still some crackles in the posterior bases. MRI of the brain revealed confirmation of a 3.6 cm left occipital cystic in nature. Small enhancing mass consistent with neoplasm. Metastatic lesion favored over primary brain tumor. Radiation oncology consulted. Continued on Decadron. Objective - Vital Signs Vital signs: Vital Signs Temp 98.2 F 03/21/20 07:00 Pulse 64 03/21/20 11:09 Resp 18 03/21/20 01:30 BP 104/50 03/21/20 07:00 Pulse Ox 96 03/21/20 07:00 Intake & Output 03/20/20 03/21/20 03/21/20 18:59 06:59 18:59 Intake Total 1500 Balance 1500 Intake: Intake, IV Titration 1200 Amount Sodium Chloride 0.9% 1, 1200 000 ml @ 100 mls/hr IV . Q10H VERÓNICA Rx#:[id number] Oral 300 Other: Voiding Method Toilet # Voids 2 3 - Exam GENERAL EXAM: Alert, very pleasant, 74-year-old female patient, frail looking, chronically ill-looking, currently on 2 L of oxygen a pulse ox of 96%, she is oriented 3, complaining of a left temporal headache, comfortable in no apparent distress. HEAD: Normocephalic/atraumatic. EYES: Normal reaction of pupils, equal size. Conjunctiva pink, sclera white. NOSE: Clear with pink turbinates. THROAT: No erythema or exudates. NECK: No masses, no JVD, no thyroid enlargement, no adenopathy. CHEST: No chest wall deformity. Symmetrical expansion. LUNGS: Equal air entry with crackles in the bilateral posterior bases. CVS: Regular rate and rhythm, normal S1 and S2, no gallops, no murmurs, no rubs ABDOMEN: Soft, nontender. No hepatosplenomegaly, normal bowel sounds, no guarding or rigidity. EXTREMITIES: No clubbing, 1+ pretibial ankle and pedal edema, no cyanosis, 2+ pulses and upper and lower extremities. MUSCULOSKELETAL: Muscle strength and tone normal. SPINE: No scoliosis or deformity SKIN: No rashes CENTRAL NERVOUS SYSTEM: No focal deficits, tone is normal in all 4 extremities. PSYCHIATRIC: Alert and oriented -3. Appropriate affect. Intact judgment and insight. - Labs CBC & Chem 7: 03/19/20 17:11 03/19/20 17:11 Labs: Microbiology - Last 24 Hours (Table) 03/19/20 20:21 Blood Culture - Preliminary Blood No Growth after 24 hours Assessment and Plan Assessment: #1. Severe throbbing left temporal headache associated with nausea, likely related to brain metastasis related to known history of squamous cell lung cancer. CT of the brain showed a significant new white matter vasogenic edema of the left parietal and occipital lobes with concern for metastatic brain lesion, MRI of the brain confirmed a 3.6 cm metastatic lesion in the left occipital lobe, She was started on oral Decadron, neurology has been consulted, medical and radiation oncology has been consulted #2. History of metastatic squamous cell lung cancer, with a PET scan in February 2019 showing increased uptake in the left upper lobe as well as asccending colon, treated with external beam radiation therapy only, completing treatment in March 2019. Most recent PET scan from November 2019 showing progression of lung cancer #3. Severe COPD, with the baseline FEV1 of 0.86 L or 32% of predicted, hypoxic respiratory failure #4. History of smoking #5. History of gastric bypass in 1975 #6. History of bowel resection related to adhesions, with reversal of colostomy #7. Chronic diarrhea #8. Poor baseline functional performance #9. Hypothyroidism Plan: The patient was seen and evaluated by Dr. Obrien We'll give Lasix 40 mg IVP 1 today Continue Decadron Radiation oncology consulted regarding brain metastasis We'll continue to follow I, the cosigning physician, performed a history & physical examination of the patient. Lungs sounds with crackles in the posterior bases. Maintaining good O2 saturations in the 90s on 2 L/m per nasal cannula. I discussed the assessment and plan of care with my nurse practitioner, Megan Rdz. I attest to the above note as dictated by her.
[2020-03-21] MEDS ORDERED: KETOROLAC 15 MG/ML 1 ML VIAL IVP PRN (13:39)
--- NOTE | 2020-03-21 15:10 | P.PN ---
Subjective Progress Note Date: 03/21/20 History of Present Illness 74-year-old female with known history of lung cancer as per the patient is in remission came in with comments of severe headache and shortness of breath c ough. Patient chest x-ray did not show any pneumonia patient does have history of COPD usually uses 2 L of onset presently on 3 L. Does have some wheezing patient was also having severe 10/10 headache mostly in the left periapical area, CT of the head was obtained which showed significant vasogenic edema in the left parietal and occipital lobes. MRA is being obtained at this time and patient was started on Decadron. Patient is still complaining of severe pain and patient says she is ALLERGIC to codeine and doesn't want to take and this aids. Patient is also having some nausea and abdominal discomfort for which she she was started on Protonix and Zofran. Patient denied any significant visual problems or any focal neurological deficits at this time denied any vomiting 03/21/2020 Patient seen on follow-up, still complaining of headache, states she is occasionally requiring Dilaudid which has been effective. Does have some expiratory wheezing, states he uses control and inhaler at home which is not receiving. Encouraged her to use NSAIDs including Toradol, patient states these are ineffective, blood pressure is marginal, this appears to be her baseline she is. Consistently between 90-100 systolic. On room air saturating above 90%. REVIEW OF SYSTEMS: CONSTITUTIONAL: No fever, no malaise, no fatigue. HEENT: No recent visual problems or hearing problems. Denied any sore throat. CARDIOVASCULAR: No chest pain, orthopnea, PND, no palpitations, no syncope. PULMONARY: no hemoptysis. GASTROINTESTINAL: No diarrhea, no vomiting, no abdominal pain. NEUROLOGICAL: no weakness, no numbness. HEMATOLOGICAL: Denies any bleeding or petechiae. GENITOURINARY: Denies any burning micturition, frequency, or urgency. MUSCULOSKELETAL/RHEUMATOLOGICAL: Denies any joint pain, swelling, or any muscle pain. ENDOCRINE: Denies any polyuria or polydipsia. The rest of the 14-point review of systems is negative. Objective - Vital Signs Vital signs: Vital Signs Temp 98.2 F 03/21/20 07:00 Pulse 64 03/21/20 11:09 Resp 18 03/21/20 01:30 BP 104/50 03/21/20 07:00 Pulse Ox 96 03/21/20 07:00 Intake & Output 03/20/20 03/21/20 03/21/20 18:59 06:59 18:59 Intake Total 1500 Balance 1500 Intake: Intake, IV Titration 1200 Amount Sodium Chloride 0.9% 1, 1200 000 ml @ 100 mls/hr IV . Q10H VERÓNICA Rx#:[id number] Oral 300 Other: Voiding Method Toilet # Voids 2 3 - Exam GENERAL: The patient is alert and oriented x3, not in any acute distress. Well developed, well nourished. HEENT: Pupils are round and equally reacting to light. EOMI. No scleral icterus. No conjunctival pallor. Normocephalic, atraumatic. No pharyngeal erythema. No thyromegaly. CARDIOVASCULAR: S1 and S2 present. No murmurs, rubs, or gallops. PULMONARY: Expiratory wheeze to auscultation bilaterally ABDOMEN: Soft, nontender, nondistended, normoactive bowel sounds. No palpable organomegaly. MUSCULOSKELETAL: No joint swelling or deformity. EXTREMITIES: No cyanosis, clubbing, or pedal edema. NEUROLOGICAL: Gross neurological examination did not reveal any focal deficits. SKIN: No rashes. - Labs CBC & Chem 7: 03/19/20 17:11 03/19/20 17:11 Labs: Microbiology - Last 24 Hours (Table) 03/19/20 20:21 Blood Culture - Preliminary Blood No Growth after 24 hours Assessment and Plan Plan: Plan: -Headache: Secondary to possible metastatic disease to brain patient has primary lung cancer. Continue with Decadron oncology was consulted MRI is being obtained. Toradol also noted, however patient states this is ineffective, she was encouraged to limit narcotic use if able to control pain adequatel. -Shortness of breath most probably secondary to mild COPD exacerbation patient is acute on chronic hypercapnic respiratory failure continue with inhalational treatments patient is already on systemic steroids for headache and vasogenic edema. -Nausea: Secondary to steroids are gases revealed reflux disease or brain metastasis symptomatically treatment along with GI prophylaxis -Lung cancer -Hypothyroidism DVT prophylaxis prophylaxis with Lovenox. Prophylaxis with Protonix
--- NOTE | 2020-03-21 15:38 | P.PN ---
<Basia Couch - Last Filed: 03/21/20 15:37> Subjective Progress Note Date: 03/21/20 Principal diagnosis: Brain Mets Lethargic easy to awaken, headache better Objective - Vital Signs Vital signs: Vital Signs Temp 98.4 F 03/21/20 15:00 Pulse 66 03/21/20 15:00 Resp 18 03/21/20 01:30 BP 95/56 03/21/20 15:00 Pulse Ox 93 L 03/21/20 15:00 Intake & Output 03/20/20 03/21/20 03/21/20 18:59 06:59 18:59 Intake Total 1500 Balance 1500 Intake: Intake, IV Titration 1200 Amount Sodium Chloride 0.9% 1, 1200 000 ml @ 100 mls/hr IV . Q10H VERÓNICA Rx#:[id number] Oral 300 Other: Voiding Method Toilet # Voids 2 3 2 - Exam GENER: Alert but in obvious pain and she is holding head HEAD: Normocephalic/atraumatic. EYES: Normal reaction of pupils, equal size. NECK: No masses, no adenopathy. CHEST: No chest wall deformity. LUNGS: CTA B CVS: Regular rate and rhythm, normal S1 and S2, ABDOMEN: Soft, nontender. EXTREMITIES: 1+ ankle and pedal edema, SKIN: No rashes PSYCHIATRIC: Alert and oriented x3 - Labs CBC & Chem 7: 03/19/20 17:11 03/19/20 17:11 Labs: Microbiology - Last 24 Hours (Table) 03/19/20 20:21 Blood Culture - Preliminary Blood No Growth after 24 hours Assessment and Plan (1) Cephalalgia Current Visit: Yes Status: Acute Code(s): R51.9 - SNOMED Code(s): 04277133 (2) Metastatic cancer to brain Current Visit: Yes Status: Acute Code(s): C79.31 - SECONDARY MALIGNANT NEOPLASM OF BRAIN SNOMED Code(s): 10340237 (3) Squamous cell lung cancer Current Visit: Yes Status: Chronic Priority: High Code(s): C34.90 - MALIGNANT NEOPLASM OF UNSP PART OF UNSP BRONCHUS OR LUNG SNOMED Code(s): 373225097 Plan: 1. New metastatic disease to Brain with evidence of vasogenic edema: - Dex 4mg q6 with PPI - Radiation oncology on consult 2. Severe Headache secondary to number one - COntinue supportive care and dex 3. NSCLCA - Squamous Lung Ca: - Progression - Treatment goal palliative 4. COPD: - Pulm following Discussed case with radaition oncology today, continue the same defer xrt initation to Radiation Physician Attest: I have completed the full history and physical and agrree with above dictation, dictated as a scribe <Inocente Crowell - Last Filed: 03/23/20 12:28> Objective - Vital Signs Vital signs: Vital Signs Temp 97.5 F L 03/23/20 07:00 Pulse 88 03/23/20 11:01 Resp 19 03/23/20 07:00 BP 101/53 03/23/20 07:00 Pulse Ox 91 L 03/23/20 07:00 Intake & Output 03/22/20 03/23/20 03/23/20 18:59 06:59 18:59 Intake Total 540 Balance 540 Intake: Oral 540 Other: Voiding Method Toilet Toilet # Voids 2 1 - Labs CBC & Chem 7: 03/22/20 06:00 03/22/20 06:00 Labs: Microbiology - Last 24 Hours (Table) 03/19/20 20:21 Blood Culture - Preliminary Blood No Growth after 72 hours Assessment and Plan Plan: As above. D/W Rad Onc. They will do restaging CT s after RT. If there is progression at other sites, pt will likely choose comfort care. She again reiterated she did not want systemic chemo
--- NOTE | 2020-03-21 18:37 | P.PN ---
Subjective Progress Note Date: 03/21/20 Patient was seen at bedside early in the morning and the she feels about the same as yesterday. She continues to have some headaches over the left frontal region stated it somewhat better compared to yesterday. Has mild photophobia denies photophobia. Denies any nausea, vomiting. Objective - Vital Signs Vital signs: Vital Signs Temp 98.4 F 03/21/20 15:00 Pulse 68 03/21/20 16:08 Resp 18 03/21/20 01:30 BP 95/56 03/21/20 15:00 Pulse Ox 93 L 03/21/20 15:00 Intake & Output 03/20/20 03/21/20 03/21/20 18:59 06:59 18:59 Intake Total 1500 Balance 1500 Intake: Intake, IV Titration 1200 Amount Sodium Chloride 0.9% 1, 1200 000 ml @ 100 mls/hr IV . Q10H VERÓNICA Rx#:[id number] Oral 300 Other: Voiding Method Toilet # Voids 2 3 2 - Exam GENERAL: The patient is lying in bed and is not in acute distress. CHEST: The heart rate is regular rate rhythm. No murmurs to auscultation. LUNG: Clear to auscultation bilaterally no wheezing noted throughout. Not labored breathing. ABDOMEN/GI: Bowel sounds present in all 4 quadrants. No tenderness to palpation throughout. NEUROLOGICAL: Higher mental function: The patient is awake, alert, oriented to self, place and time. Patient is following commands. No aphasia and no neglect. Cranial nerves: The pupils are round, equal (4mm) and reactive to light and ac commodation. Visual simon: right homonymous hemianopia to confrontation. Extraocular movement is intact no nystagmus is noted. Facial sensation is normal to touch throughout. The facial strength is normal throughout. Hearing is normal bilaterally to hand rub. Tongue is midline and moved [id number] without any difficulty. No dysarthria is noted. Shoulder shrug is normal bilaterally. Motor: Gait is defered. The strength is 5 over 5 throughout. Normal tone and bulk. Cerebellum: Normal finger to nose heel bilaterally. Sensation: Sensation is normal to touch throughout. Reflexes (right/left): 2+ throughout except patellare are 3+ bilaterally. Plantars are downgoing bilaterally. - Labs CBC & Chem 7: 03/19/20 17:11 03/19/20 17:11 Labs: Microbiology - Last 24 Hours (Table) 03/19/20 20:21 Blood Culture - Preliminary Blood No Growth after 24 hours Assessment and Plan Assessment: 74-year-old woman with medical history of squamous cell left lung cancer s/p radiation, ex tobacco who presented to the emergency department on 03/19/2020 for left frontal headache and shortness of breath. CT head shows left occipital vagosgenic edema 1. New Left occipital mass with vasogenic edema (likely source is lung) 2. Right homonymous hemianopsia due to above 3. Cephalgia due to #1 4. Left squamous cell Lung cancer s/p radiation (FNA of the left upper lobe mass in January 2019 and PET scan) 5. Acute COPD exacerbation 6. X tobacco use 7. History of hypothyroidism Plan: Continue Decadron 4 mg every 6 hours. MRI of the brain: Reported as confirmation of 3.6 cm left occipital cystic intraparenchymal enhancing mass consistent with neoplasm. Metastatic lesion favored over primary brain tumor but the latter is not excluded. Regarding the patient history of lung cancer and the metastatic brain lesion oncology is on board. Regarding the patient the COPD exacerbation we'll defer to the primary as well as the pulmonary team. There is no neurosurgery in our facility. Patient was notified of the finding and she was notified that there is no neurosurgery in the hospital. She is in agreement that she'll follow-up with him as an outpatient. Upon discharge the patient needs to follow-up with neurology and neurosurgeon regarding brain metastasis. The plan was discussed with the patient as well as the primary team. Eliu Ennis MD Neuro-Hospitalist Time with Patient: Less than 30
[2020-03-21] MEDS: ONDANSETRON 4 MG/2 ML VIAL IVP PRN (19:27)
[2020-03-21] MEDS: BUDESONIDE 0.5 MG/2 ML NEBU INHALATION SCH (20:13)
[2020-03-22] MEDS: HYDROmorphone 0.5 MG/0.5 ML SYRINGE IVP PRN ×6 (02:02→23:17)
[2020-03-22] MEDS: LEVOTHYROXINE 100 MCG TAB PO SCH (06:19)
[2020-03-22] MEDS: DEXAMETHASONE SOD PHOSPHATE 4 MG/ML 1 ML VIAL IV SCH ×4 (06:19→23:17)
[2020-03-22 07:20] LABS: HCT 30.7 % (34.0-46.0); HGB 9.1 gm/dL (11.4-16.0); Hypochromasia Marked; MCH 33.2 pg (25.0-35.0); MCHC 29.6 g/dL (31.0-37.0); Macrocytosis Marked; Mean Platelet Volume 6.9; Platelet Count 293 k/uL (150-450); RBC 2.74 m/uL (3.80-5.40); RDW 14.1 % (11.5-15.5); WBC 7.4 k/uL (3.8-10.6)
[2020-03-22 07:31] LABS: MCV 111.9 fL (80.0-100.0)
[2020-03-22] MEDS: FORMOTEROL FUMARATE 20 MCG/2 ML NEBU INHALATION SCH ×2 (07:59→20:31)
[2020-03-22] MEDS: IPRATROPIUM-ALBUTEROL 3 ML NEB INHALATION SCH ×4 (07:59→20:30)
[2020-03-22] MEDS: BUDESONIDE 0.5 MG/2 ML NEBU INHALATION SCH ×2 (07:59→20:31)
[2020-03-22] MEDS: PANTOPRAZOLE 40 MG TABLET PO SCH (09:06)
[2020-03-22] MEDS: ENOXAPARIN 40 MG/0.4 ML SYRINGE SQ SCH (09:06)
[2020-03-22] MEDS: MAGNESIUM OXIDE 400 MG TAB PO SCH ×3 (09:06→20:59)
[2020-03-22 09:55] LABS: African American GFR (CKD) 85.4 (60.0-200.0); Anion Gap 5.2 mmol/L (4.00-12.00); Calcium 8.4 mg/dL (8.7-10.3); Carbon Dioxide 35.8 mmol/L (21.6-31.8); Non-African American GFR(CKD) 73.7 (60.0-200.0); Potassium 4.7 mmol/L (3.5-5.5)
--- NOTE | 2020-03-22 10:43 | P.CONS ---
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 She was medically inoperable and underwent SBRT finishing on 03/13/2019. She unfortunately presented with evidence of local-regional recurrence without distant disease and underwent radiotherapy finishing on 01/15/2020. Most recent CT Chest from 03/10/20 shows improvement in thoracic disease. She now presents with evidence of a single brain metastasis. The patient was admitted to the ER on 03/19/20 complaining of headache and dyspnea. When speaking with the patient she is a bit fatigued as she was given anxiety medication prior to her MRI. She reports a headache over the past week that she felt deep to the left eye. She underwent a CT of the head without and this showed a new area of edema in the left parietal/occipital region. No midline shift noted. She then underwent MRI of the brain on 03/21/20 which revealed a 3.6 cm cystic metastasis in the left occipital area without elsewhere disease. She has been started on decadron. She admits at this time to having still a mild headache and some chest discomfort. Review of Systems Constitutional: Denies chills, Denies fever Eyes: bilateral blurred vision (states needs her eyedrops) Ears, nose, mouth and throat: Reports headache Cardiovascular: Reports chest pain, Reports edema Respiratory: Reports dyspnea, Reports home oxygen, Reports wheezing Gastrointestinal: Denies abdominal pain Genitourinary: Denies flank pain Musculoskeletal: Denies hot joints Integumentary: Denies pruritus, Denies rash Neurological: Reports headaches, Denies aphasia, Denies ataxia, Denies change in speech, Denies confusion, Denies double vision, Denies motor disturbance, Denies numbness, Denies paresthesias Psychiatric: Reports anxiety Past Medical History Past Medical History: Cancer, COPD, Renal Disease Additional Past Medical History / Comment(s): Lung CA History of Any Multi-Drug Resistant Organisms: None Reported Past Surgical History: Appendectomy, Bariatric Surgery, Bowel Resection, Hysterectomy, Orthopedic Surgery Additional Past Surgical History / Comment(s): Prolapsed bowel with colostomy and reversal, bariatric surgery; broke bilateral legs with repair Past Anesthesia/Blood Transfusion Reactions: No Reported Reaction Past Psychological History: No Psychological Hx Reported Smoking Status: Former smoker Past Alcohol Use History: None Reported Additional Past Alcohol Use History / Comment(s): Quit Jul 08, 2019 Past Drug Use History: None Reported - Past Family History Mother History Unknown: Yes Family Medical History: Unable to Obtain Additional Family Medical History / Comment(s): The patient is unaware of any significant family history Medications and Allergies Home Medications Medication Instructions Recorded Confirmed Type Glycopyrrolate/Formoterol Fum 2 puff INHALATION RT-BID 08/10/17 03/19/20 History [Bevespi Aerosphere Inhaler] Albuterol Sulfate [Ventolin HFA] 2 puff INHALATION RT-Q4H PRN 11/15/19 03/19/20 History Albuterol Nebulized [Ventolin 2.5 mg INHALATION RT-TID PRN 01/11/20 03/19/20 History Nebulized] Magnesium Oxide [Mag-Ox] 400 mg PO TID 30 Days #90 tab 01/15/20 03/19/20 Rx Spironolactone 25 mg PO DAILY #0 01/15/20 03/19/20 Rx Levothyroxine Sodium [Synthroid] 100 mcg PO DAILY 03/19/20 03/19/20 History Allergies Allergy/AdvReac Type Severity Reaction Status Date / Time amoxicillin Allergy Swelling Verified 03/19/20 18:58 aspirin Allergy Swelling Verified 03/19/20 18:58 codeine Allergy Anaphylaxis Verified 03/19/20 18:58 hydrocodone [From Vicodin] Allergy Anaphylaxis Verified 03/19/20 18:58 Penicillins Allergy Swelling Verified 03/19/20 18:58 sulfamethoxazole Allergy Swelling Verified 03/19/20 18:58 [From Bactrim] tramadol AdvReac DOES NOT Verified 03/19/20 18:58 WORK steroids Allergy Swelling Uncoded 03/19/20 16:54 Physical Exam Vitals: Vital Signs Temp Pulse Pulse Resp BP Pulse Ox 03/22/20 08:21 76 03/22/20 08:10 78 03/22/20 08:00 76 03/22/20 07:00 97.8 F 68 18 95/52 91 L 03/22/20 01:34 74 18 100/58 92 L 10/09/20 23:37 73 18 03/21/20 20:32 73 03/21/20 20:27 73 03/21/20 20:13 73 03/21/20 19:35 73 18 03/21/20 19:00 98.2 F 73 18 122/52 91 L 03/21/20 16:08 68 03/21/20 15:00 98.4 F 66 95/56 93 L 03/21/20 11:09 64 03/21/20 10:58 64 Intake and Output 03/21/20 03/22/20 03/22/20 22:59 06:59 14:59 Other: Voiding Method Toilet Toilet Toilet # Voids 1 1 - Constitutional General appearance: thin - EENT Eyes: EOMI, PERRLA ENT: hearing grossly normal - Neck Neck: no lymphadenopathy - Respiratory Respiratory: bilateral: wheezing - Cardiovascular Rhythm: regular - Gastrointestinal General gastrointestinal: no tenderness - Integumentary Integumentary: pale - Neurologic Neurologic: CNII-XII intact - Musculoskeletal Musculoskeletal: strength equal bilaterally - Psychiatric Psychiatric: A&O x's 3 (Patient is fatigued however during our discussion) Results CBC & Chem 7: 03/22/20 06:00 03/22/20 06:00 Labs: Abnormal Lab Results - Last 24 Hours (Table) 03/22/20 03/22/20 Range/Units 06:00 06:00 RBC 2.74 L (3.80-5.40) m/uL Hgb 9.1 L (11.4-16.0) gm/dL Hct 30.7 L (34.0-46.0) % MCV 111.9 H D (80.0-100.0) fL MCHC 29.6 L (31.0-37.0) g/dL Macrocytosis Marked A Carbon Dioxide 35.8 H (21.6-31.8) mmol/L BUN/Creatinine Ratio 30.00 H (12.00-20.00) Ratio Calcium 8.4 L (8.7-10.3) mg/dL Microbiology - Last 24 Hours (Table) 03/19/20 20:21 Blood Culture - Preliminary Blood No Growth after [address] scan - chest: report reviewed, image reviewed MRI - head: report reviewed, image reviewed Assessment and Plan Plan: The patient is a 74-year-old female with a history of oxygen dependent COPD presenting with history of a stage IIA (cT2b, cN0, M0) 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 She was medically inoperable and underwent SBRT finishing on 03/13/2019. She unfortunately presented with evidence of local-regional recurrence without distant disease and underwent radiotherapy with plans for sequential chemotherapy finishing on 01/15/2020. 1. Single left occipital brain metastases: This is a larger lesion (3.6 cm) and is likely the cause of her headaches. She states some improvement since decadron. I discussed with the patient that this would typically be managed with radiosurgery. It does not require emergent treatment today, but we can certainly do her planning early next week. Even if the patient decides to switch to palliative care/hospice, may still be reasonable to consider radiation for symptomatic relief. 2. Non-small cell lung cancer: Most recent CT Chest from 03/10 actually showed improvement in thoracic disease after RT. However, she now has evidence of distant metastasis in the brain. She should undergo imaging of the abdomen/pelvis as well (can be done outpatient if needed) to rule out elsewhere disease spread. The patient has previously declined chemotherapy (or at times felt to be of too poor performance status). IF she has elsewhere non-brain disease, and she opts for no further therapy, hospice/palliative care would be quite appropriate. She has a baseline poor performance status due to advanced COPD and medical debility. 3. COPD: Patient with significant wheezing on exam today, continue supportive care - likely acute exacerbation of her chronic COPD. Time with Patient: Greater than 30
--- NOTE | 2020-03-22 11:49 | P.PN ---
Subjective Progress Note Date: 03/22/20 Principal diagnosis: Severe headache in the left temporal area 74-year-old white female patient with a known history of severe COPD, with the baseline FEV1 of 32% of predicted, known history of squamous cell carcinoma of the left lung diagnosed in January 2019, with metastasis in the descending colon, status post radiation treatments. Her most recent PET scan from 11/30/2019 showed progression of her lung cancer with interval localized progression of known left-sided lung cancer. Patient follows with Dr. Horne in the pulmonary office for her history of COPD, patient is under the care of Dr. Naik who is planning on radiation treatments. On 03/19/2020 patient presented to the emergency department for evaluation of severe throbbing, aching and sometimes sharp headache involving her left temporal area, sometimes associated with nausea.. Denied any other symptoms, denied any increased shortness of breath cough or congestion. She states she does not feel well, the headache continues to worsen. In addition patient developed some worsening lower extremity edema. Chest x-ray was taken showing a left upper lobe perihilar lung mass, mildly decreased from her last chest x-ray on a background of emphysematous changes. Brain CT showed a significant a new white matter vasogenic edema of the left parietal and occipital lobes, the primary differential consideration for metastatic brain lesion, with the recommendation of MRI follow-up. No acute intracranial hemorrhage or midline shift was identified. Lab work showed no leukocytosis, with little, is 8.1, hemoglobin is 9.8, INR 0.9, sodium was 136, chloride is 96, CO2 is 27, B1 is 30, creatinine 0.70. Troponin was negative, proBNP was 138, urinalysis was negative, LFTs were within normal limits. Patient has been afebrile, hemodynamically stable, she is on 3 L of oxygen and pulse ox 98%, her breathing seems to be at her baseline, no significant cough or congestion. Patient was started on oral Decadron for possibility of brain metastasis. She is refusing MRI of the brain citing that extreme anxiety. We will consult neurology. Patient is seen today 03/21/2020 in follow-up on the regular medical floor. She is currently resting fairly comfortably in bed. Awake and alert in no acute distress. Maintaining O2 saturations in the 90s on 2 L/m per nasal cannula. Blood culture reveals no growth to date. She remains on bronchodilators. Still some crackles in the posterior bases. MRI of the brain revealed confirmation of a 3.6 cm left occipital cystic in nature. Small enhancing mass consistent with neoplasm. Metastatic lesion favored over primary brain tumor. Radiation oncology consulted. Continued on Decadron. The patient is seen today 03/22/2020 in follow-up on the regular medical floor. She is awake and alert in no acute distress. She is still having some left eye pressure. She is noted to have a 3.6 cm left occipital lesions suspicious for metastatic disease. Radiation oncology is on the case. She is continued on Decadron. No worsening shortness of breath, cough or congestion. Maintaining O2 saturations in the 90s on 3 L/m per nasal cannula. White count 7.4. H emoglobin 9.1. Sodium 140. Potassium 4.7. Creatinine 0.8. Remains on DuoNeb inhalations, Pulmicort and Perforomist inhalations Objective - Vital Signs Vital signs: Vital Signs Temp 97.8 F 03/22/20 07:00 Pulse 76 03/22/20 08:21 Resp 18 03/22/20 07:00 BP 95/52 03/22/20 07:00 Pulse Ox 91 L 03/22/20 07:00 Intake & Output 03/21/20 03/22/20 03/22/20 18:59 06:59 18:59 Other: Voiding Method Toilet Toilet # Voids 2 1 - Exam GENERAL EXAM: Alert, very pleasant, 74-year-old female patient, frail looking, chronically ill-looking, currently on 3 L of oxygen a pulse ox of 91%, she is oriented 3, complaining of a left temporal headache, comfortable in no apparent distress. HEAD: Normocephalic/atraumatic. EYES: Normal reaction of pupils, equal size. Conjunctiva pink, sclera white. Pain behind her left eye NOSE: Clear with pink turbinates. THROAT: No erythema or exudates. NECK: No masses, no JVD, no thyroid enlargement, no adenopathy. CHEST: No chest wall deformity. Symmetrical expansion. LUNGS: Equal air entry with crackles in the bilateral posterior bases. CVS: Regular rate and rhythm, normal S1 and S2, no gallops, no murmurs, no rubs ABDOMEN: Soft, nontender. No hepatosplenomegaly, normal bowel sounds, no guarding or rigidity. EXTREMITIES: No clubbing, 1+ pretibial ankle and pedal edema, no cyanosis, 2+ pulses and upper and lower extremities. MUSCULOSKELETAL: Muscle strength and tone normal. SPINE: No scoliosis or deformity SKIN: No rashes CENTRAL NERVOUS SYSTEM: No focal deficits, tone is normal in all 4 extremities. PSYCHIATRIC: Alert and oriented -3. Appropriate affect. Intact judgment and insight. - Labs CBC & Chem 7: 03/22/20 06:00 03/22/20 06:00 Labs: Abnormal Lab Results - Last 24 Hours (Table) 03/22/20 03/22/20 Range/Units 06:00 06:00 RBC 2.74 L (3.80-5.40) m/uL Hgb 9.1 L (11.4-16.0) gm/dL Hct 30.7 L (34.0-46.0) % MCV 111.9 H D (80.0-100.0) fL MCHC 29.6 L (31.0-37.0) g/dL Macrocytosis Marked A Carbon Dioxide 35.8 H (21.6-31.8) mmol/L BUN/Creatinine Ratio 30.00 H (12.00-20.00) Ratio Calcium 8.4 L (8.7-10.3) mg/dL Microbiology - Last 24 Hours (Table) 03/19/20 20:21 Blood Culture - Preliminary Blood No Growth after 48 hours Assessment and Plan Assessment: #1. Severe throbbing left temporal headache associated with nausea, likely related to brain metastasis related to known history of squamous cell lung cancer. CT of the brain showed a significant new white matter vasogenic edema of the left parietal and occipital lobes with concern for metastatic brain lesion, MRI of the brain confirmed a 3.6 cm metastatic lesion in the left occipital lobe, She was started on oral Decadron. #2. History of metastatic squamous cell lung cancer, with a PET scan in February 2019 showing increased uptake in the left upper lobe as well as asccending colon, treated with external beam radiation therapy only, completing treatment in March 2019. Most recent PET scan from November 2019 showing progression of lung cancer #3. Severe COPD, with the baseline FEV1 of 0.86 L or 32% of predicted, hypoxic respiratory failure #4. History of smoking #5. History of gastric bypass in 1975 #6. History of bowel resection related to adhesions, with reversal of colostomy #7. Chronic diarrhea #8. Poor baseline functional performance #9. Hypothyroidism Plan: The patient was seen and evaluated by Dr. Micah Londono Decadron Continue bronchodilators Radiation oncology has been consulted and is planning for radiosurgery We'll continue to follow and make further recommendations based on her clinical status I, the cosigning physician, performed a history & physical examination of the patient. Lungs sounds with crackles in the posterior bases. Maintaining good O2 saturations in the 90s on 3 L/m per nasal cannula. I discussed the assessment and plan of care with my nurse practitioner, Megan Rdz. I attest to the above note as dictated by her.
--- NOTE | 2020-03-22 15:02 | P.PN ---
Subjective Progress Note Date: 03/22/20 History of Present Illness 74-year-old female with known history of lung cancer as per the patient is in remission came in with comments of severe headache and shortness of breath c ough. Patient chest x-ray did not show any pneumonia patient does have history of COPD usually uses 2 L of onset presently on 3 L. Does have some wheezing patient was also having severe 03/22 headache mostly in the left periapical area, CT of the head was obtained which showed significant vasogenic edema in the left parietal and occipital lobes. MRA is being obtained at this time and patient was started on Decadron. Patient is still complaining of severe pain and patient says she is ALLERGIC to codeine and doesn't want to take and this aids. Patient is also having some nausea and abdominal discomfort for which she she was started on Protonix and Zofran. Patient denied any significant visual problems or any focal neurological deficits at this time denied any vomiting 03/21/2020 Patient seen on follow-up, still complaining of headache, states she is occasionally requiring Dilaudid which has been effective. Does have some expiratory wheezing, states he uses control and inhaler at home which is not receiving. Encouraged her to use NSAIDs including Toradol, patient states these are ineffective, blood pressure is marginal, this appears to be her baseline she is. Consistently between 90-100 systolic. On room air saturating above 90%. 03/22/20 Reports headache is severe, using IV Dilaudid to manage pain. Still having expiratory wheezing, using nebulized bronchodilators, is on 3 L nasal cannula. Blood pressure remains marginal, she is not on any antihypertensives. MRI showing confirmation 3.6 cm left occipital mass consistent with neoplasm. REVIEW OF SYSTEMS: CONSTITUTIONAL: No fever, no malaise, no fatigue. HEENT: No recent visual problems or hearing problems. Denied any sore throat. CARDIOVASCULAR: No chest pain, orthopnea, PND, no palpitations, no syncope. PULMONARY: no hemoptysis. GASTROINTESTINAL: No diarrhea, no vomiting, no abdominal pain. NEUROLOGICAL: no weakness, no numbness. HEMATOLOGICAL: Denies any bleeding or petechiae. GENITOURINARY: Denies any burning micturition, frequency, or urgency. MUSCULOSKELETAL/RHEUMATOLOGICAL: Denies any joint pain, swelling, or any muscle pain. ENDOCRINE: Denies any polyuria or polydipsia. The rest of the 14-point review of systems is negative. Objective - Vital Signs Vital signs: Vital Signs Temp 97.8 F 03/22/20 07:00 Pulse 84 03/22/20 12:00 Resp 18 03/22/20 07:00 BP 95/52 03/22/20 07:00 Pulse Ox 91 L 03/22/20 07:00 Intake & Output 03/21/20 03/22/20 03/22/20 18:59 06:59 18:59 Intake Total 540 Balance 540 Intake: Oral 540 Other: Voiding Method Toilet Toilet # Voids 2 1 2 - Exam GENERAL: The patient is alert and oriented x3, not in any acute distress. Well developed, well nourished. HEENT: Pupils are round and equally reacting to light. EOMI. No scleral icterus. No conjunctival pallor. Normocephalic, atraumatic. No pharyngeal erythema. No thyromegaly. CARDIOVASCULAR: S1 and S2 present. No murmurs, rubs, or gallops. PULMONARY: Expiratory wheeze to auscultation bilaterally ABDOMEN: Soft, nontender, nondistended, normoactive bowel sounds. No palpable organomegaly. MUSCULOSKELETAL: No joint swelling or deformity. EXTREMITIES: No cyanosis, clubbing, or pedal edema. NEUROLOGICAL: Gross neurological examination did not reveal any focal deficits. SKIN: No rashes. - Labs CBC & Chem 7: 03/22/20 06:00 03/22/20 06:00 Labs: Abnormal Lab Results - Last 24 Hours (Table) 03/22/20 03/22/20 Range/Units 06:00 06:00 RBC 2.74 L (3.80-5.40) m/uL Hgb 9.1 L (11.4-16.0) gm/dL Hct 30.7 L (34.0-46.0) % MCV 111.9 H D (80.0-100.0) fL MCHC 29.6 L (31.0-37.0) g/dL Macrocytosis Marked A Carbon Dioxide 35.8 H (21.6-31.8) mmol/L BUN/Creatinine Ratio 30.00 H (12.00-20.00) Ratio Calcium 8.4 L (8.7-10.3) mg/dL Microbiology - Last 24 Hours (Table) 03/19/20 20:21 Blood Culture - Preliminary Blood No Growth after 48 hours Assessment and Plan Plan: Plan: -Headache: Secondary to possible metastatic disease to brain patient has primary lung cancer. Continue with Decadron oncology. Management confirmation 3.6 cm left occipital mass. Toradol was ordered, patient encouraged to use NSAIDs if possible. May be candidate for radiosurgery, however not urgently. -acute on chronic hypercapnic respiratory failure secondary to mild COPD exacerbation continue with inhalational treatments patient is already on system ic steroids for headache and vasogenic edema. -Nausea: Secondary to steroids are gases revealed reflux disease or brain metastasis symptomatically treatment along with GI prophylaxis -Lung cancer -Hypothyroidism DVT prophylaxis prophylaxis with Lovenox. Prophylaxis with Protonix
[2020-03-22] MEDS: ONDANSETRON 4 MG/2 ML VIAL IVP PRN (17:24)
[2020-03-23] MEDS: HYDROmorphone 0.5 MG/0.5 ML SYRINGE IVP PRN ×6 (03:00→23:21)
[2020-03-23] MEDS: DEXAMETHASONE SOD PHOSPHATE 4 MG/ML 1 ML VIAL IV SCH ×4 (06:06→23:22)
[2020-03-23] MEDS: LEVOTHYROXINE 100 MCG TAB PO SCH (06:06)
[2020-03-23] MEDS: FORMOTEROL FUMARATE 20 MCG/2 ML NEBU INHALATION SCH ×2 (07:11→19:46)
[2020-03-23] MEDS: IPRATROPIUM-ALBUTEROL 3 ML NEB INHALATION SCH ×4 (07:11→19:46)
[2020-03-23] MEDS: BUDESONIDE 0.5 MG/2 ML NEBU INHALATION SCH ×2 (07:12→19:46)
[2020-03-23] MEDS: MAGNESIUM OXIDE 400 MG TAB PO SCH ×3 (07:37→20:43)
[2020-03-23] MEDS: PANTOPRAZOLE 40 MG TABLET PO SCH (07:37)
[2020-03-23] MEDS: ENOXAPARIN 40 MG/0.4 ML SYRINGE SQ SCH (07:37)
[2020-03-23] MEDS ORDERED: polyethylene glycoL 3350 17 GM POWD.PACK PO PRN (11:09)
[2020-03-23] MEDS ORDERED: MINERAL OIL-WHITE PETROLATUM 120 GM JAR TOPICAL PRN (11:10)
--- NOTE | 2020-03-23 11:16 | P.PN ---
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 Her most recent PET scan from 11/30/2019 showed progression of her lung cancer with interval localized progression of known left-sided lung cancer. Patient follows with Dr. Horne in the pulmonary office for her history of COPD, patient is under the care of Dr. Naik who is planning on radiation treatments. On 03/19/2020 patient presented to the emergency department for evaluation of severe throbbing, aching and sometimes sharp headache involving her left temporal area, sometimes associated with nausea.. Denied any other symptoms, denied any increased shortness of breath cough or congestion. She states she does not feel well, the headache continues to worsen. In addition patient developed some worsening lower extremity edema. Chest x-ray was taken showing a left upper lobe perihilar lung mass, mildly decreased from her last chest x-ray on a background of emphysematous changes. Brain CT showed a significant a new white matter vasogenic edema of the left parietal and occipital lobes, the primary differential consideration for metastatic brain lesion, with the recommendation of MRI follow-up. No acute intracranial hemorrhage or midline shift was identified. Lab work showed no leukocytosis, with little, is 8.1, hemoglobin is 9.8, INR 0.9, sodium was 136, chloride is 96, CO2 is 27, B1 is 30, creatinine 0.70. Troponin was negative, proBNP was 138, urinalysis was negative, LFTs were within normal limits. Patient has been afebrile, hemodynamically stable, she is on 3 L of oxygen and pulse ox 98%, her breathing seems to be at her baseline, no significant cough or congestion. Patient was started on oral Decadron for possibility of brain metastasis. She is refusing MRI of the brain citing that extreme anxiety. We will consult neurology. Patient is seen today 03/21/2020 in follow-up on the regular medical floor. She is currently resting fairly comfortably in bed. Awake and alert in no acute distress. Maintaining O2 saturations in the 90s on 2 L/m per nasal cannula. Blood culture reveals no growth to date. She remains on bronchodilators. Still some crackles in the posterior bases. MRI of the brain revealed confirmation of a 3.6 cm left occipital cystic in nature. Small enhancing mass consistent with neoplasm. Metastatic lesion favored over primary brain tumor. Radiation oncology consulted. Continued on Decadron. The patient is seen today 03/22/2020 in follow-up on the regular medical floor. She is awake and alert in no acute distress. She is still having some left eye pressure. She is noted to have a 3.6 cm left occipital lesions suspicious for metastatic disease. Radiation oncology is on the case. She is continued on Decadron. No worsening shortness of breath, cough or congestion. Maintaining O2 saturations in the 90s on 3 L/m per nasal cannula. White count 7.4. H emoglobin 9.1. Sodium 140. Potassium 4.7. Creatinine 0.8. Remains on DuoNeb inhalations, Pulmicort and Perforomist inhalations Patient is seen today 03/23/2020 in follow-up on the regular medical floor. She is resting in bed. Awake and alert in no acute distress. Bit less pressure behind her left eye. She remains on Decadron. Plan is for possible radiation to the brain lesion. Continue bronchodilators for now. No worsening shortness of breath, cough or congestion. She is maintaining good O2 saturations in the 90s on 3 L/m per nasal cannula. Objective - Vital Signs Vital signs: Vital Signs Temp 97.5 F L 03/23/20 07:00 Pulse 88 03/23/20 11:01 Resp 19 03/23/20 07:00 BP 101/53 03/23/20 07:00 Pulse Ox 91 L 03/23/20 07:00 Intake & Output 03/22/20 03/23/20 03/23/20 18:59 06:59 18:59 Intake Total 540 Balance 540 Intake: Oral 540 Other: Voiding Method Toilet Toilet # Voids 2 1 - Exam GENERAL EXAM: Alert, 74-year-old female patient, appears older than stated age, chronically ill-looking, currently on 3 L of oxygen a pulse ox of 91%, she is oriented 3, complaining of a left temporal headache HEAD: Normocephalic/atraumatic. EYES: Normal reaction of pupils, equal size. Conjunctiva pink, sclera white. Pain behind her left eye NOSE: Clear with pink turbinates. THROAT: No erythema or exudates. NECK: No masses, no JVD, no thyroid enlargement, no adenopathy. CHEST: No chest wall deformity. Symmetrical expansion. LUNGS: Equal air entry with crackles in the bilateral posterior bases. CVS: Regular rate and rhythm, normal S1 and S2, no gallops, no murmurs, no rubs ABDOMEN: Soft, nontender. No hepatosplenomegaly, normal bowel sounds, no guarding or rigidity. EXTREMITIES: No clubbing, 1+ pretibial ankle and pedal edema, no cyanosis, 2+ pulses and upper and lower extremities. MUSCULOSKELETAL: Muscle strength and tone normal. SPINE: No scoliosis or deformity SKIN: No rashes CENTRAL NERVOUS SYSTEM: No focal deficits, tone is normal in all 4 extremities. PSYCHIATRIC: Alert and oriented -3. Appropriate affect. Intact judgment and insight. - Labs CBC & Chem 7: 03/22/20 06:00 03/22/20 06:00 Labs: Microbiology - Last 24 Hours (Table) 03/19/20 20:21 Blood Culture - Preliminary Blood No Growth after 72 hours Assessment and Plan Assessment: #1. Severe throbbing left temporal headache associated with nausea, likely related to brain metastasis related to known history of squamous cell lung cancer. CT of the brain showed a significant new white matter vasogenic edema of the left parietal and occipital lobes with concern for metastatic brain lesion, MRI of the brain confirmed a 3.6 cm metastatic lesion in the left occipital lobe, She remains on Decadron. #2. History of metastatic squamous cell lung cancer, with a PET scan in February 2019 showing increased uptake in the left upper lobe as well as asccending colon, treated with external beam radiation therapy only, completing treatment in March 2019. Most recent PET scan from November 2019 showing progression of lung cancer #3. Severe COPD, with the baseline FEV1 of 0.86 L or 32% of predicted, hypoxic respiratory failure #4. History of smoking #5. History of gastric bypass in 1975 #6. History of bowel resection related to adhesions, with reversal of colostomy #7. Chronic diarrhea #8. Poor baseline functional performance #9. Hypothyroidism Plan: The patient was seen and evaluated by Dr. Obrien Continue the current treatment plan Radiation oncology is planning for possible radiosurgery We'll continue to follow and make further recommendations based on her clinical status I, the cosigning physician, performed a history & physical examination of the patient. Lungs sounds with crackles in the posterior bases. Maintaining good O2 saturations in the 90s on 3 L/m per nasal cannula. I discussed the assessment and plan of care with my nurse practitioner, Megan Rdz. I attest to the above note as dictated by her.
--- NOTE | 2020-03-23 12:32 | P.PN ---
Subjective History of Present Illness 74-year-old female with known history of lung cancer as per the patient is in remission came in with comments of severe headache and shortness of breath cough. Patient chest x-ray did not show any pneumonia patient does have history of COPD usually uses 2 L of onset presently on 3 L. Does have some wheezing patient was also having severe 03/22 headache mostly in the left periapical area, CT of the head was obtained which showed significant vasogenic edema in the left parietal and occipital lobes. MRA is being obtained at this time and patient was started on Decadron. Patient is still complaining of severe pain and patient says she is ALLERGIC to codeine and doesn't want to take and this aids. Patient is also having some nausea and abdominal discomfort for which she she was started on Protonix and Zofran. Patient denied any significant visual problems or any focal neurological deficits at this time denied any vomiting 03/21/2020 Patient seen on follow-up, still complaining of headache, states she is occasionally requiring Dilaudid which has been effective. Does have some expiratory wheezing, states he uses control and inhaler at home which is not receiving. Encouraged her to use NSAIDs including Toradol, patient states these are ineffective, blood pressure is marginal, this appears to be her baseline she is. Consistently between 90-100 systolic. On room air saturating above 90%. 03/22/20 Reports headache is severe, using IV Dilaudid to manage pain. Still having expiratory wheezing, using nebulized bronchodilators, is on 3 L nasal cannula. Blood pressure remains marginal, she is not on any antihypertensives. MRI showing confirmation 3.6 cm left occipital mass consistent with neoplasm. 03/23/20 Patient seen on follow-up, still wheezy and tight today denies shortness of breath, cough, remains on 3 L nasal cannula. Using bronchodilators, inhaled steroids.. On systemic steroids of Decadron. Complaining of headache, using Dilaudid for pain, states Toradol isn't effective. REVIEW OF SYSTEMS: CONSTITUTIONAL: No fever, no malaise, no fatigue. HEENT: No recent visual problems or hearing problems. Denied any sore throat. CARDIOVASCULAR: No chest pain, orthopnea, PND, no palpitations, no syncope. PULMONARY: no hemoptysis. GASTROINTESTINAL: No diarrhea, no vomiting, no abdominal pain. NEUROLOGICAL: no weakness, no numbness. HEMATOLOGICAL: Denies any bleeding or petechiae. GENITOURINARY: Denies any burning micturition, frequency, or urgency. MUSCULOSKELETAL/RHEUMATOLOGICAL: Denies any joint pain, swelling, or any muscle pain. ENDOCRINE: Denies any polyuria or polydipsia. The rest of the 14-point review of systems is negative. Objective - Vital Signs Vital signs: Vital Signs Temp 97.5 F L 03/23/20 07:00 Pulse 88 03/23/20 11:01 Resp 19 03/23/20 07:00 BP 101/53 03/23/20 07:00 Pulse Ox 91 L 03/23/20 07:00 Intake & Output 03/22/20 03/23/20 03/23/20 18:59 06:59 18:59 Intake Total 540 Balance 540 Intake: Oral 540 Other: Voiding Method Toilet Toilet # Voids 2 1 - Exam GENERAL: The patient is alert and oriented x3, not in any acute distress. Well developed, well nourished. HEENT: Pupils are round and equally reacting to light. EOMI. No scleral icterus. No conjunctival pallor. Normocephalic, atraumatic. No pharyngeal erythema. No thyromegaly. CARDIOVASCULAR: S1 and S2 present. No murmurs, rubs, or gallops. PULMONARY: Expiratory wheeze to auscultation bilaterally ABDOMEN: Soft, nontender, nondistended, normoactive bowel sounds. No palpable organomegaly. MUSCULOSKELETAL: No joint swelling or deformity. EXTREMITIES: No cyanosis, clubbing, or pedal edema. NEUROLOGICAL: Gross neurological examination did not reveal any focal deficits. SKIN: No rashes. - Labs CBC & Chem 7: 03/22/20 06:00 03/22/20 06:00 Labs: Microbiology - Last 24 Hours (Table) 03/19/20 20:21 Blood Culture - Preliminary Blood No Growth after 72 hours Assessment and Plan Plan: Plan: -Headache: Secondary to possible metastatic disease to brain, MRI showing 3.6 cm left occipital mass patient has primary lung cancer. Continue with Decadron oncology. May be candidate for radiosurgery. Symptomatic treatment Dilaudid, Toradol. -acute on chronic hypercapnic respiratory failure secondary to mild COPD exacerbation continue with inhalational treatments patient is already on syst emic steroids for headache and vasogenic edema. -Nausea: Secondary to steroids are gases revealed reflux disease or brain metastasis symptomatically treatment along with GI prophylaxis -Lung cancer -Hypothyroidism DVT prophylaxis prophylaxis with Lovenox. Prophylaxis with Protonix
[2020-03-24] MEDS: HYDROmorphone 0.5 MG/0.5 ML SYRINGE IVP PRN ×5 (03:01→18:21)
[2020-03-24] MEDS: DEXAMETHASONE SOD PHOSPHATE 4 MG/ML 1 ML VIAL IV SCH ×3 (05:46→17:30)
[2020-03-24] MEDS: LEVOTHYROXINE 100 MCG TAB PO SCH (05:46)
[2020-03-24] MEDS: ENOXAPARIN 40 MG/0.4 ML SYRINGE SQ SCH (07:49)
[2020-03-24] MEDS: MAGNESIUM OXIDE 400 MG TAB PO SCH ×3 (07:50→21:30)
[2020-03-24] MEDS: PANTOPRAZOLE 40 MG TABLET PO SCH (07:50)
[2020-03-24] MEDS: FORMOTEROL FUMARATE 20 MCG/2 ML NEBU INHALATION SCH ×2 (08:32→20:04)
[2020-03-24] MEDS: BUDESONIDE 0.5 MG/2 ML NEBU INHALATION SCH ×2 (08:32→20:05)
[2020-03-24] MEDS: IPRATROPIUM-ALBUTEROL 3 ML NEB INHALATION SCH ×4 (08:32→20:04)
[2020-03-24] MEDS ORDERED: ALBUTEROL NEBULIZED 2.5 MG/3 ML INHALATION PRN (11:25)
--- NOTE | 2020-03-24 13:06 | P.PN ---
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 Her most recent PET scan from 11/30/2019 showed progression of her lung cancer with interval localized progression of known left-sided lung cancer. Patient follows with Dr. Horne in the pulmonary office for her history of COPD, patient is under the care of Dr. Naik who is planning on radiation treatments. On 03/19/2020 patient presented to the emergency department for evaluation of severe throbbing, aching and sometimes sharp headache involving her left temporal area, sometimes associated with nausea.. Denied any other symptoms, denied any increased shortness of breath cough or congestion. She states she does not feel well, the headache continues to worsen. In addition patient developed some worsening lower extremity edema. Chest x-ray was taken showing a left upper lobe perihilar lung mass, mildly decreased from her last chest x-ray on a background of emphysematous changes. Brain CT showed a significant a new white matter vasogenic edema of the left parietal and occipital lobes, the primary differential consideration for metastatic brain lesion, with the recommendation of MRI follow-up. No acute intracranial hemorrhage or midline shift was identified. Lab work showed no leukocytosis, with little, is 8.1, hemoglobin is 9.8, INR 0.9, sodium was 136, chloride is 96, CO2 is 27, B1 is 30, creatinine 0.70. Troponin was negative, proBNP was 138, urinalysis was negative, LFTs were within normal limits. Patient has been afebrile, hemodynamically stable, she is on 3 L of oxygen and pulse ox 98%, her breathing seems to be at her baseline, no significant cough or congestion. Patient was started on oral Decadron for possibility of brain metastasis. She is refusing MRI of the brain citing that extreme anxiety. We will consult neurology. Patient is seen today 03/21/2020 in follow-up on the regular medical floor. She is currently resting fairly comfortably in bed. Awake and alert in no acute distress. Maintaining O2 saturations in the 90s on 2 L/m per nasal cannula. Blood culture reveals no growth to date. She remains on bronchodilators. Still some crackles in the posterior bases. MRI of the brain revealed confirmation of a 3.6 cm left occipital cystic in nature. Small enhancing mass consistent with neoplasm. Metastatic lesion favored over primary brain tumor. Radiation oncology consulted. Continued on Decadron. The patient is seen today 03/22/2020 in follow-up on the regular medical floor. She is awake and alert in no acute distress. She is still having some left eye pressure. She is noted to have a 3.6 cm left occipital lesions suspicious for metastatic disease. Radiation oncology is on the case. She is continued on Decadron. No worsening shortness of breath, cough or congestion. Maintaining O2 saturations in the 90s on 3 L/m per nasal cannula. White count 7.4. Hemogl obin 9.1. Sodium 140. Potassium 4.7. Creatinine 0.8. Remains on DuoNeb inhalations, Pulmicort and Perforomist inhalations Patient is seen today 03/23/2020 in follow-up on the regular medical floor. She is resting in bed. Awake and alert in no acute distress. Bit less pressure behind her left eye. She remains on Decadron. Plan is for possible radiation to the brain lesion. Continue bronchodilators for now. No worsening shortness of breath, cough or congestion. She is maintaining good O2 saturations in the 90s on 3 L/m per nasal cannula. On 03/24/2020 patient seen in follow-up on the general medical surgical floor, she is resting comfortably in the chair, she is on 3 L of oxygen with a pulse ox of 90-92%, lung sounds are diminished, her breathing has been stable, she continues on bronchodilators, she is on oral Decadron for metastatic lesions in her brain, she's been seen by radiation oncology, who was planning on following up with the patient early next week, the headaches have improved, no acute events overnight, breathing is at the baseline, no significant dyspnea cough or congestion. Objective - Vital Signs Vital signs: Vital Signs Temp 98.2 F 03/24/20 07:00 Pulse 84 03/24/20 12:12 Resp 18 03/24/20 07:00 BP 104/58 03/24/20 07:00 Pulse Ox 90 L 03/24/20 07:00 Intake & Output 03/23/20 03/24/20 03/24/20 18:59 06:59 18:59 Intake Total 592 Balance 592 Intake: Oral 592 Other: Voiding Method Toilet Toilet Toilet # Voids 1 1 # Bowel Movements 1 - Exam GENERAL EXAM: Alert, 74-year-old female patient, appears older than stated age, chronically ill-looking, currently on 3 L of oxygen a pulse ox of 92%, she is oriented 3 HEAD: Normocephalic/atraumatic. EYES: Normal reaction of pupils, equal size. Conjunctiva pink, sclera white. Pain behind her left eye NOSE: Clear with pink turbinates. THROAT: No erythema or exudates. NECK: No masses, no JVD, no thyroid enlargement, no adenopathy. CHEST: No chest wall deformity. Symmetrical expansion. LUNGS: Equal air entry with crackles in the bilateral posterior bases. CVS: Regular rate and rhythm, normal S1 and S2, no gallops, no murmurs, no rubs ABDOMEN: Soft, nontender. No hepatosplenomegaly, normal bowel sounds, no guarding or rigidity. EXTREMITIES: No clubbing, 1+ pretibial ankle and pedal edema, no cyanosis, 2+ pulses and upper and lower extremities. MUSCULOSKELETAL: Muscle strength and tone normal. SPINE: No scoliosis or deformity SKIN: No rashes CENTRAL NERVOUS SYSTEM: No focal deficits, tone is normal in all 4 extremities. PSYCHIATRIC: Alert and oriented -3. Appropriate affect. Intact judgment and insight. - Labs CBC & Chem 7: 03/22/20 06:00 03/22/20 06:00 Labs: Microbiology - Last 24 Hours (Table) 03/19/20 20:21 Blood Culture - Preliminary Blood No Growth after 96 hours Assessment and Plan Plan: Assessment: #1. Severe throbbing left temporal headache associated with nausea, likely related to brain metastasis related to known history of squamous cell lung cancer. CT of the brain showed a significant new white matter vasogenic edema of the left parietal and occipital lobes with concern for metastatic brain lesion, MRI of the brain confirmed a 3.6 cm metastatic lesion in the left occipital lobe, patient has been on Decadron with improvement of her symptoms of headaches #2. History of metastatic squamous cell lung cancer, with a PET scan in February 2019 showing increased uptake in the left upper lobe as well as asccending colon, treated with external beam radiation therapy only, completing treatment in March 2019. Most recent PET scan from November 2019 showing progression of lung cancer #3. Severe COPD, with the baseline FEV1 of 0.86 L or 32% of predicted, hypoxic respiratory failure #4. History of smoking #5. History of gastric bypass in 1975 #6. History of bowel resection related to adhesions, with reversal of colostomy #7. Chronic diarrhea #8. Poor baseline functional performance #9. Hypothyroidism Plan: Continue current medical treatment, from pulmonary perspective her breathing is at the baseline, continue nebulized bronchodilators, patient is ready on oral Decadron, her headaches are improved. Will await further recommendations from medical oncology and radiation oncology. I performed a history & physical examination of the patient and discussed their management with my nurse practitioner, Kandice Thomas. I reviewed the nurse practitioner's note and agree with the documented findings and plan of care. Lung sounds are positive for diminished breath sounds. The findings and the impression was discussed with the patient. I attest to the documentation by the nurse practitioner. Time with Patient: Less than 30
[2020-03-24] MEDS ORDERED: oxyCODONE-APAP 7.5-325MG 1 EACH TAB PO PRN (15:07)
--- NOTE | 2020-03-24 16:08 | P.PN ---
Subjective Progress Note Date: 03/24/20 History of Present Illness 74-year-old female with known history of lung cancer as per the patient is in remission came in with comments of severe headache and shortness of breath c ough. Patient chest x-ray did not show any pneumonia patient does have history of COPD usually uses 2 L of onset presently on 3 L. Does have some wheezing patient was also having severe 03/22 headache mostly in the left periapical area, CT of the head was obtained which showed significant vasogenic edema in the left parietal and occipital lobes. MRA is being obtained at this time and patient was started on Decadron. Patient is still complaining of severe pain and patient says she is ALLERGIC to codeine and doesn't want to take and this aids. Patient is also having some nausea and abdominal discomfort for which she she was started on Protonix and Zofran. Patient denied any significant visual problems or any focal neurological deficits at this time denied any vomiting 03/21/2020 Patient seen on follow-up, still complaining of headache, states she is occasionally requiring Dilaudid which has been effective. Does have some expiratory wheezing, states he uses control and inhaler at home which is not receiving. Encouraged her to use NSAIDs including Toradol, patient states these are ineffective, blood pressure is marginal, this appears to be her baseline she is. Consistently between 90-100 systolic. On room air saturating above 90%. 03/22/20 Reports headache is severe, using IV Dilaudid to manage pain. Still having expiratory wheezing, using nebulized bronchodilators, is on 3 L nasal cannula. Blood pressure remains marginal, she is not on any antihypertensives. MRI showing confirmation 3.6 cm left occipital mass consistent with neoplasm. 03/23/20 Patient seen on follow-up, still wheezy and tight today denies shortness of breath, cough, remains on 3 L nasal cannula. Using bronchodilators, inhaled steroids.. On systemic steroids of Decadron. Complaining of headache, using Dilaudid for pain, states Toradol isn't effective. 03/24/2020 Percocet was ordered an attempt to transition to oral analgesics, patient has history of codeine ALLERGY, does not want to take Percocet as she believes this will have him affect is codeine. Patient was educated on this topic, frequency of Dilaudid was decreased in anticipation of possible discharge in the next 24 hours. on 3 L saturating above 90%, no shortness of breath at rest. REVIEW OF SYSTEMS: CONSTITUTIONAL: No fever, no malaise, no fatigue. HEENT: No recent visual problems or hearing problems. Denied any sore throat. CARDIOVASCULAR: No chest pain, orthopnea, PND, no palpitations, no syncope. PULMONARY: no hemoptysis. GASTROINTESTINAL: No diarrhea, no vomiting, no abdominal pain. NEUROLOGICAL: no weakness, no numbness. HEMATOLOGICAL: Denies any bleeding or petechiae. GENITOURINARY: Denies any burning micturition, frequency, or urgency. MUSCULOSKELETAL/RHEUMATOLOGICAL: Denies any joint pain, swelling, or any muscle pain. ENDOCRINE: Denies any polyuria or polydipsia. The rest of the 14-point review of systems is negative. Objective - Vital Signs Vital signs: Vital Signs Temp 97.9 F 03/24/20 14:52 Pulse 67 03/24/20 14:52 Resp 18 03/24/20 14:52 BP 104/62 03/24/20 14:52 Pulse Ox 96 03/24/20 14:52 Intake & Output 03/23/20 03/24/20 03/24/20 18:59 06:59 18:59 Intake Total 592 Balance 592 Intake: Oral 592 Other: Voiding Method Toilet Toilet Toilet # Voids 1 1 2 # Bowel Movements 1 - Exam GENERAL: The patient is alert and oriented x3, not in any acute distress. Well developed, well nourished. HEENT: Pupils are round and equally reacting to light. EOMI. No scleral icterus. No conjunctival pallor. Normocephalic, atraumatic. No pharyngeal erythema. No thyromegaly. CARDIOVASCULAR: S1 and S2 present. No murmurs, rubs, or gallops. PULMONARY: clear to auscultation bilaterally ABDOMEN: Soft, nontender, nondistended, normoactive bowel sounds. No palpable organomegaly. MUSCULOSKELETAL: No joint swelling or deformity. EXTREMITIES: No cyanosis, clubbing, or pedal edema. NEUROLOGICAL: Gross neurological examination did not reveal any focal deficits. SKIN: No rashes. - Labs CBC & Chem 7: 03/22/20 06:00 03/22/20 06:00 Labs: Microbiology - Last 24 Hours (Table) 03/19/20 20:21 Blood Culture - Preliminary Blood No Growth after 96 hours Assessment and Plan Plan: Plan: -Headache: Secondary to possible metastatic disease to brain, MRI showing 3.6 cm left occipital mass patient has primary lung cancer. Continue with Decadron oncology. May be candidate for radiosurgery. Percocet, Dilaudid as needed. -acute on chronic hypercapnic respiratory failure secondary to mild COPD exac erbation. Improving, we will continue with inhalational treatments patient is already on systemic steroids for headache and vasogenic edema. -Nausea: Secondary to steroids are gases revealed reflux disease or brain metastasis symptomatically treatment along with GI prophylaxis -Lung cancer -Hypothyroidism DVT prophylaxis prophylaxis with Lovenox. Prophylaxis with Protonix
[2020-03-24] MEDS ORDERED: BUTALB/APAP/CAFF 50-325-40MG TAB PO PRN (20:35)
--- NOTE | 2020-03-24 20:36 | P.PN ---
Subjective Progress Note Date: 03/24/20 Patient was seen for follow-up. Patient was seen by Dr. Juan Ennis on 03/20/2020. 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 Patient admitted on 03/19/2020 for left frontal headache and shortness of breath. CT and MRI of the brain revealed left occipital metastatic deposit with vasogenic edema. Patient states her headaches have improved. With pain medications headache is 6/10 minutes without pain medication goes up to 9.5/10. Her dizziness has improved. She uses eyedrops. Patient states that she does follow up with Dr. Webb as outpatient for tremors. Objective - Vital Signs Vital signs: Vital Signs Temp 97.9 F 03/24/20 14:52 Pulse 76 03/24/20 20:05 Resp 18 03/24/20 14:52 BP 104/62 03/24/20 14:52 Pulse Ox 96 03/24/20 14:52 Intake & Output 03/24/20 03/24/20 03/25/20 06:59 18:59 06:59 Other: Voiding Method Toilet Toilet # Voids 1 2 # Bowel Movements 1 - Exam Patient's mental status, speech and language functions are normal. Patient appears slightly delirious. Patient knows it is 03/24/2020 and that she is in [facility]. Speech and language functions are normal. Visual simon reveal homonymous right lower quadrantanopia. Face is symmetric and tongue protrudes to the midline. Muscle strength is normal. No pronator drift. No ataxia. - Labs CBC & Chem 7: 03/22/20 06:00 03/22/20 06:00 Labs: Microbiology - Last 24 Hours (Table) 03/19/20 20:21 Blood Culture - Preliminary Blood No Growth after 96 hours Assessment and Plan Assessment: * Metastatic lung cancer with brain metastasis. * Right-sided visual field deficits due to brain metastasis. * Cephalgia due to above. * COPD. Plan: * Patient seen by radiation oncologist Dr. Naik, recommending radiation therapy to the cerebral metastasis as outpatient. Patient currently on Decadron 4 mg IV every 6 hours. Patient on Dilaudid, Percocet and Toradol for pain. Her headaches have improved. Patient will need imaging of the abdomen and pelvis as outpatient, as per radiation oncology recommendations. * Supportive care. * Patient currently not on any antiepileptic medication. Recommend Keppra if she has any breakthrough seizures. * We will start Fioricet as needed. * Please call neurology if any other concerns.
[2020-03-25] MEDS: DEXAMETHASONE SOD PHOSPHATE 4 MG/ML 1 ML VIAL IV SCH ×3 (00:02→11:08)
[2020-03-25] MEDS: HYDROmorphone 0.5 MG/0.5 ML SYRINGE IVP PRN ×4 (00:02→16:02)
[2020-03-25] MEDS: LEVOTHYROXINE 100 MCG TAB PO SCH (05:41)
[2020-03-25] MEDS: PANTOPRAZOLE 40 MG TABLET PO SCH (08:49)
[2020-03-25] MEDS: MAGNESIUM OXIDE 400 MG TAB PO SCH ×2 (08:49→16:01)
[2020-03-25] MEDS: ENOXAPARIN 40 MG/0.4 ML SYRINGE SQ SCH (08:50)
[2020-03-25] MEDS: IPRATROPIUM-ALBUTEROL 3 ML NEB INHALATION SCH ×2 (08:55→12:48)
[2020-03-25] MEDS: BUDESONIDE 0.5 MG/2 ML NEBU INHALATION SCH (08:55)
[2020-03-25] MEDS: FORMOTEROL FUMARATE 20 MCG/2 ML NEBU INHALATION SCH (08:55)
--- NOTE | 2020-03-25 12:21 | P.PN ---
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 Her most recent PET scan from 11/30/2019 showed progression of her lung cancer with interval localized progression of known left-sided lung cancer. Patient follows with Dr. Horne in the pulmonary office for her history of COPD, patient is under the care of Dr. Naik who is planning on radiation treatments. On 03/19/2020 patient presented to the emergency department for evaluation of severe throbbing, aching and sometimes sharp headache involving her left temporal area, sometimes associated with nausea.. Denied any other symptoms, denied any increased shortness of breath cough or congestion. She states she does not feel well, the headache continues to worsen. In addition patient developed some worsening lower extremity edema. Chest x-ray was taken showing a left upper lobe perihilar lung mass, mildly decreased from her last chest x-ray on a background of emphysematous changes. Brain CT showed a significant a new white matter vasogenic edema of the left parietal and occipital lobes, the primary differential consideration for metastatic brain lesion, with the recommendation of MRI follow-up. No acute intracranial hemorrhage or midline shift was identified. Lab work showed no leukocytosis, with little, is 8.1, hemoglobin is 9.8, INR 0.9, sodium was 136, chloride is 96, CO2 is 27, B1 is 30, creatinine 0.70. Troponin was negative, proBNP was 138, urinalysis was negative, LFTs were within normal limits. Patient has been afebrile, hemodynamically stable, she is on 3 L of oxygen and pulse ox 98%, her breathing seems to be at her baseline, no significant cough or congestion. Patient was started on oral Decadron for possibility of brain metastasis. She is refusing MRI of the brain citing that extreme anxiety. We will consult neurology. Patient is seen today 03/21/2020 in follow-up on the regular medical floor. She is currently resting fairly comfortably in bed. Awake and alert in no acute distress. Maintaining O2 saturations in the 90s on 2 L/m per nasal cannula. Blood culture reveals no growth to date. She remains on bronchodilators. Still some crackles in the posterior bases. MRI of the brain revealed confirmation of a 3.6 cm left occipital cystic in nature. Small enhancing mass consistent with neoplasm. Metastatic lesion favored over primary brain tumor. Radiation oncology consulted. Continued on Decadron. The patient is seen today 03/22/2020 in follow-up on the regular medical floor. She is awake and alert in no acute distress. She is still having some left eye pressure. She is noted to have a 3.6 cm left occipital lesions suspicious for metastatic disease. Radiation oncology is on the case. She is continued on Decadron. No worsening shortness of breath, cough or congestion. Maintaining O2 saturations in the 90s on 3 L/m per nasal cannula. White count 7.4. Hemogl obin 9.1. Sodium 140. Potassium 4.7. Creatinine 0.8. Remains on DuoNeb inhalations, Pulmicort and Perforomist inhalations Patient is seen today 03/23/2020 in follow-up on the regular medical floor. She is resting in bed. Awake and alert in no acute distress. Bit less pressure behind her left eye. She remains on Decadron. Plan is for possible radiation to the brain lesion. Continue bronchodilators for now. No worsening shortness of breath, cough or congestion. She is maintaining good O2 saturations in the 90s on 3 L/m per nasal cannula. On 03/24/2020 patient seen in follow-up on the general medical surgical floor, she is resting comfortably in the chair, she is on 3 L of oxygen with a pulse ox of 90-92%, lung sounds are diminished, her breathing has been stable, she continues on bronchodilators, she is on oral Decadron for metastatic lesions in her brain, she's been seen by radiation oncology, who was planning on following up with the patient early next week, the headaches have improved, no acute events overnight, breathing is at the baseline, no significant dyspnea cough or congestion. On 03/25/2020 patient seen in follow-up on the general medical surgical floor, she is resting in bed, she states she has some generalized aches and pains, some in her chest wall, she is receiving Toradol, Percocet, and IV Dilaudid. Denies any worsening dyspnea, does have some mild wheezes on today's exam, she is on 3 L, her pulse ox is 90-93%, she has started on Fioricet for headaches, she states her headaches have improved, no seizure activity, neurology is following. Patient is not on any antiseizure medications right now unless she develops breakthrough seizures, she remains on oral Decadron, she is on breathing treatments. There has been no acute events overnight. She was seen by radiation oncology and the plan is for discharge home with outpatient follow-up to schedule radiation therapy for metastatic brain lesions. Objective - Vital Signs Vital signs: Vital Signs Temp 97.8 F 03/25/20 07:19 Pulse 64 03/25/20 09:25 Resp 17 03/25/20 07:19 BP 111/66 03/25/20 07:19 Pulse Ox 90 L 03/25/20 07:19 Intake & Output 03/24/20 03/25/20 03/25/20 18:59 06:59 18:59 Other: Voiding Method Toilet Toilet Toilet # Voids 2 2 - Exam GENERAL EXAM: Alert, 74-year-old female patient, appears older than stated age, chronically ill-looking, currently on 3 L of oxygen a pulse ox of 92%, she is oriented 3 HEAD: Normocephalic/atraumatic. EYES: Normal reaction of pupils, equal size. Conjunctiva pink, sclera white. Pain behind her left eye NOSE: Clear with pink turbinates. THROAT: No erythema or exudates. NECK: No masses, no JVD, no thyroid enlargement, no adenopathy. CHEST: No chest wall deformity. Symmetrical expansion. LUNGS: Equal air entry with crackles in the bilateral posterior bases. CVS: Regular rate and rhythm, normal S1 and S2, no gallops, no murmurs, no rubs ABDOMEN: Soft, nontender. No hepatosplenomegaly, normal bowel sounds, no guarding or rigidity. EXTREMITIES: No clubbing, 1+ pretibial ankle and pedal edema, no cyanosis, 2+ pulses and upper and lower extremities. MUSCULOSKELETAL: Muscle strength and tone normal. SPINE: No scoliosis or deformity SKIN: No rashes CENTRAL NERVOUS SYSTEM: No focal deficits, tone is normal in all 4 extremities. PSYCHIATRIC: Alert and oriented -3. Appropriate affect. Intact judgment and insight. - Labs CBC & Chem 7: 03/22/20 06:00 03/22/20 06:00 Labs: Microbiology - Last 24 Hours (Table) 03/19/20 20:21 Blood Culture - Preliminary Blood No Growth after 120 hours Assessment and Plan Plan: Assessment: #1. Severe throbbing left temporal headache associated with nausea, likely related to brain metastasis related to known history of squamous cell lung cancer. CT of the brain showed a significant new white matter vasogenic edema of the left parietal and occipital lobes with concern for metastatic brain lesion, MRI of the brain confirmed a 3.6 cm metastatic lesion in the left occipital lobe, patient has been on Decadron with improvement of her symptoms of headaches #2. History of metastatic squamous cell lung cancer, with a PET scan in February 2019 showing increased uptake in the left upper lobe as well as asccending colon, treated with external beam radiation therapy only, completing treatment in March 2019. Most recent PET scan from November 2019 showing progression of lung cancer #3. Severe COPD, with the baseline FEV1 of 0.86 L or 32% of predicted, hypoxic respiratory failure #4. History of smoking #5. History of gastric bypass in 1975 #6. History of bowel resection related to adhesions, with reversal of colostomy #7. Chronic diarrhea #8. Poor baseline functional performance #9. Hypothyroidism Plan: Continue current medical treatment, oral Decadron, Fioricet, pain medications, headaches have improved since admission, no seizure activity, patient's breathing is stable, is close to her baseline, increase activity as tolerated, from pulmonary perspective patient can be considered for discharge home, and the plan is for her to follow-up with radiation oncology for initiation of radiation therapy for metastatic brain lesions. I performed a history & physical examination of the patient and discussed their management with my nurse practitioner, Kandice Thomas. I reviewed the nurse practitioner's note and agree with the documented findings and plan of care. Lung sounds are positive for diminished breath sounds. The findings and the impression was discussed with the patient. I attest to the documentation by the nurse practitioner. Time with Patient: Less than 30
--- NOTE | 2020-03-25 12:53 | CDI ---
Documentation Clarification Form Date: 03/25/2020 12:38:35 PM From: Kristan GarciaPowellPAULA, CCDS Admit Date: 03/19/2020 07:06:00 PM Patient Name: Augustina Ramsey Visit Number: [id number] Discharge Date: ATTENTION: The Clinical Documentation Specialists (CDI) and [facility] Coding Staff appreciate your assistance in clarifying documentation. Please respond to the clarification below the line at the bottom and electronically sign. The CDI & [facility] Coding staff will review the response and follow-up if needed. Please note: Queries are made part of the Legal Health Record. If you have any questions, please contact the author of this message via ITS. Dr. Yoanna Erazo: The patient presented with the following: Left Frontal Headaches, radiation to Temporal Region & Anterior Temporal Region, Throbbing Headache, Nausea, one episode of vomiting, Also complaining of SOB & cough. History/Risk Factors: Lung Cancer, COPD, Renal Disease, Bariatric Surgery, Bowel Resection, Former smoker >60 years. O2 dependent 2Lnc. Clinical Indicators: Admitted with Left occipital lesion with Vasogenic Edema, Right homonymous hemianopsia, Brain metastases likely secondary to primary Lung Cancer, Acute Exacerbation COPD. RAD: 03/19 CT Brain: New white matter vasogenic edema of the left parietal and occipital lobes. Given vasogenic edema & history of lung cancer, primary differential consideration is metastatic brain lesion, No acute intracranial hemorrhage or midline shift. 03/21 MRI Brain: Confirmation of 3.6 cm left occipital cystic intraparenchymal enhancing mass consistent with neoplasm. Metastatic lesion favored over primary brain tumor but the latter is not excluded. Treatment: IV Morphine Sulfate, IV fluid bolus, IV Zofran, IV Dilaudid, IV Dacadron. Consults: Neurology, Pulmonary, Oncology, Radiation Oncology In your professional opinion, can you please clarify if the following is present: Brain compression Other, please specify Unable to determine (Last Revision: September 2017) Localized mass effect on the adjacent brain parenchyma in the left occipital lobe, but no compression otherwise of other major structures. MD NICOLE DelacruzD
[2020-03-25 15:38] VITALS: BP 103/59; PULSE 67; RESP 16; TEMP 97.5
--- NOTE | 2020-03-25 15:44 | P.PN ---
Subjective 74-year-old female with known history of lung cancer as per the patient is in remission came in with comments of severe headache and shortness of breath cough. Patient chest x-ray did not show any pneumonia patient does have history of COPD usually uses 2 L of onset presently on 3 L. Does have some wheezing patient was also having severe 03/22 headache mostly in the left periapical area, CT of the head was obtained which showed significant vasogenic edema in the left parietal and occipital lobes. MRA is being obtained at this time and patient was started on Decadron. Patient is still complaining of severe pain and patient says she is ALLERGIC to codeine and doesn't want to take and this aids. Patient is also having some nausea and abdominal discomfort for which she she was started on Protonix and Zofran. Patient denied any significant visual problems or any focal neurological deficits at this time denied any vomiting 03/21/2020 Patient seen on follow-up, still complaining of headache, states she is occasionally requiring Dilaudid which has been effective. Does have some expiratory wheezing, states he uses control and inhaler at home which is not receiving. Encouraged her to use NSAIDs including Toradol, patient states these are ineffective, blood pressure is marginal, this appears to be her baseline she is. Consistently between 90-100 systolic. On room air saturating above 90%. 03/22/20 Reports headache is severe, using IV Dilaudid to manage pain. Still having expiratory wheezing, using nebulized bronchodilators, is on 3 L nasal cannula. Blood pressure remains marginal, she is not on any antihypertensives. MRI showing confirmation 3.6 cm left occipital mass consistent with neoplasm. 03/23/20 Patient seen on follow-up, still wheezy and tight today denies shortness of breath, cough, remains on 3 L nasal cannula. Using bronchodilators, inhaled steroids.. On systemic steroids of Decadron. Complaining of headache, using Dilaudid for pain, states Toradol isn't effective. 03/24/2020 Percocet was ordered an attempt to transition to oral analgesics, patient has history of codeine ALLERGY, does not want to take Percocet as she believes this will have him affect is codeine. Patient was educated on this topic, frequency of Dilaudid was decreased in anticipation of possible discharge in the next 24 hours. on 3 L saturating above 90%, no shortness of breath at rest. 03/25/2020 Patient will be discharged respiratory status improved significantly patient doesn't have much of wheezing patient will be discharged on Fioricet for headache as recommended by neurology. Patient will undergo radiation therapy as an outpatient and patient will be discharged on Decadronwith taper. - Exam GENERAL: The patient is alert and oriented x3, not in any acute distress. Well developed, well nourished. HEENT: Pupils are round and equally reacting to light. EOMI. No scleral icterus. No conjunctival pallor. Normocephalic, atraumatic. No pharyngeal erythema. No thyromegaly. CARDIOVASCULAR: S1 and S2 present. No murmurs, rubs, or gallops. PULMONARY: clear to auscultation bilaterallyexcept for minimal expiratory wheezing ABDOMEN: Soft, nontender, nondistended, normoactive bowel sounds. No palpable organomegaly. MUSCULOSKELETAL: No joint swelling or deformity. EXTREMITIES: No cyanosis, clubbing, or pedal edema. NEUROLOGICAL: Gross neurological examination did not reveal any focal deficits. SKIN: No rashes. Assessment and Plan Plan: Plan: -Headache: Secondary to metastatic disease to brain, MRI showing 3.6 cm left occipital mass patient has primary lung cancer. patient will undergo radiation therapy which will be discharged on Decadron and patient will be given prescription for Fioricet as it, and with urology. -acute on chronic hypercapnic respiratory failure secondary to mild COPD exacerbation. Improving, we will continue with inhalational treatments patient is already on systemic steroids for headache and vasogenic edema. -Lung cancer -Hypothyroidism Objective - Vital Signs Vital signs: Vital Signs Temp 97.5 F L 03/25/20 14:37 Pulse 67 03/25/20 14:37 Resp 16 03/25/20 14:37 BP 103/59 03/25/20 14:37 Pulse Ox 95 03/25/20 14:37 Intake & Output 03/24/20 03/25/20 03/25/20 18:59 06:59 18:59 Other: Voiding Method Toilet Toilet Toilet # Voids 2 2 2 # Bowel Movements 1 - Labs CBC & Chem 7: 03/22/20 06:00 03/22/20 06:00 Labs: Microbiology - Last 24 Hours (Table) 03/19/20 20:21 Blood Culture - Preliminary Blood No Growth after 120 hours
== END 2020-03-25 16:29 | disposition home or self-care (01) | DRG 54 ==
LOC: EC 16:45 → 4SSUR 19:06
PROVIDERS: ADMIT Hospitalist; ATTEND Hospitalist
DX: C79.31 Secondary malignant neoplasm of brain (principal); G93.6 Cerebral edema; J96.21 Acute and chronic respiratory failure with hypoxia; J96.22 Acute and chronic respiratory failure with hypercapnia; J44.1 Chronic obstructive pulmonary disease with (acute) exacerbation; C34.92 Malignant neoplasm of unspecified part of left bronchus or lung; E03.9 Hypothyroidism, unspecified; F17.210 Nicotine dependence, cigarettes, uncomplicated; K21.9 Gastro-esophageal reflux disease without esophagitis; H53.461 Homonymous bilateral field defects, right side; Z79.890 Hormone replacement therapy; Z79.899 Other long term (current) drug therapy; Z88.6 Allergy status to analgesic agent; Z88.1 Allergy status to other antibiotic agents; Z88.5 Allergy status to narcotic agent; Z88.0 Allergy status to penicillin; Z88.2 Allergy status to sulfonamides; Z90.49 Acquired absence of other specified parts of digestive tract; Z98.84 Bariatric surgery status; Z90.710 Acquired absence of both cervix and uterus; Z92.3 Personal history of irradiation
CPT/HCPCS: 36415; 70450; 70553; 71046; 80048; 80053; 81003; 83735; 83880; 84100; 84443; 84484; 85025; 85027; 85610; 85730; 87040; 93005; 94640; 96361; 96374; 96375; 99285

== ENCOUNTER 2020-04-11 02:05 | Inpatient (IN) | payer MEDICARE, OTHER ==
[2020-04-11] MEDS ORDERED: MORPHINE SULFATE 4 MG/ML SYRINGE IV STA (02:23)
[2020-04-11] MEDS ORDERED: SODIUM CHLORIDE 0.9% 1,000 ML IV STA ×2 (02:23→04:50)
--- NOTE | 2020-04-11 02:31 | ED ---
Abdominal Pain HPI - General Chief Complaint: Abdominal Pain Stated Complaint: Abdominal pain Time Seen by Provider: 04/11/20 02:08 Source: patient, EMS, RN notes reviewed, old records reviewed Mode of arrival: EMS Limitations: no limitations - History of Present Illness MD Complaint: abdominal pain, other -: days(s) Location: diffuse Radiation: epigastric, suprapubic Migration to: no migration Severity: moderate Severity scale (1-10): 4 Quality: aching Consistency: constant Improves With: nothing Worsens With: nothing Associated Symptoms: nausea, vomiting - Related Data Home Medications Medication Instructions Recorded Confirmed Glycopyrrolate/Formoterol Fum 2 puff INHALATION RT-BID 08/10/17 04/11/20 [Bevespi Aerosphere Inhaler] Albuterol Sulfate [Ventolin HFA] 2 puff INHALATION RT-Q4H PRN 11/15/19 04/11/20 Levothyroxine Sodium [Synthroid] 100 mcg PO DAILY 03/19/20 04/11/20 Butalb/APAP/Caff 50-325-40Mg 1 tab PO Q4HR PRN 04/11/20 04/11/20 [Fioricet 50-325-40] Dexamethasone [Decadron] See Taper PO DIRECTED 04/11/20 04/11/20 Ipratropium-Albuterol Nebulize 3 ml INHALATION RT-QID PRN 04/11/20 04/11/20 [Duoneb 0.5 mg-3 mg/3 ml Soln] Omeprazole [PriLOSEC] 20 mg PO DAILY 04/11/20 04/11/20 Spironolactone 25 mg PO BID 04/11/20 04/11/20 Previous Rx's Medication Instructions Recorded Magnesium Oxide [Mag-Ox] 400 mg PO TID 30 Days #90 tab 01/15/20 Allergies Allergy/AdvReac Type Severity Reaction Status Date / Time amoxicillin Allergy Swelling Verified 04/11/20 07:00 aspirin Allergy Swelling Verified 04/11/20 07:00 codeine Allergy Anaphylaxis Verified 04/11/20 07:00 hydrocodone [From Vicodin] Allergy Anaphylaxis Verified 04/11/20 07:00 Penicillins Allergy Swelling Verified 04/11/20 07:00 sulfamethoxazole Allergy Swelling Verified 04/11/20 07:00 [From Bactrim] tramadol AdvReac DOES NOT Verified 04/11/20 07:00 WORK steroids Allergy Swelling Uncoded 04/11/20 07:01 Review of Systems ROS Statement: Those systems with pertinent positive or pertinent negative responses have been documented in the HPI. ROS Other: All systems not noted in ROS Statement are negative. 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 History of Any Multi-Drug Resistant Organisms: None Reported Past Surgical History: Appendectomy, Bariatric Surgery, Bowel Resection, Hysterectomy, Orthopedic Surgery Additional Past Surgical History / Comment(s): Prolapsed bowel with colostomy and reversal, bariatric surgery; broke bilateral legs with repair Past Anesthesia/Blood Transfusion Reactions: No Reported Reaction Past Psychological History: No Psychological Hx Reported Smoking Status: Current some day smoker Past Alcohol Use History: None Reported Past Drug Use History: None Reported - Past Family History Mother History Unknown: Yes Family Medical History: Unable to Obtain Additional Family Medical History / Comment(s): The patient is unaware of any significant family history Father Family Medical History: No Reported History Additional Family Medical History / Comment(s): Father is healthy. General Exam Limitations: no limitations General appearance: alert, in no apparent distress, anxious Head exam: Present: atraumatic, normocephalic, normal inspection Eye exam: Present: normal appearance, PERRL, EOMI. Absent: scleral icterus, conjunctival injection, periorbital swelling ENT exam: Present: normal exam, mucous membranes moist Neck exam: Present: normal inspection. Absent: tenderness, meningismus, lymphadenopathy Respiratory exam: Present: normal lung sounds bilaterally. Absent: respiratory distress, wheezes, rales, rhonchi, stridor Cardiovascular Exam: Present: normal rhythm, tachycardia, normal heart sounds. Absent: systolic murmur, diastolic murmur, rubs, gallop, clicks GI/Abdominal exam: Present: soft, normal bowel sounds. Absent: distended, tenderness, guarding, rebound, rigid Extremities exam: Present: normal inspection, full ROM, normal capillary refill. Absent: tenderness, pedal edema, joint swelling, calf tenderness Back exam: Present: normal inspection Neurological exam: Present: alert, oriented X3, CN II-XII intact Psychiatric exam: Present: normal affect, normal mood Skin exam: Present: warm, dry, intact, normal color. Absent: rash Course Vital Signs 04/11/20 04/11/20 04/11/20 02:22 04:52 07:00 Temperature 97.4 F L 97.4 F L Pulse Rate 66 68 Pulse Rate [ 58 L Pulse Oximetery ] Respiratory 16 19 19 Rate Blood Pressure 126/64 115/69 Blood Pressure 111/61 [Right Arm] O2 Sat by Pulse 84 L 94 L 98 Oximetry Medical Decision Making - Lab Data Result diagrams: 04/11/20 02:49 04/11/20 02:49 Lab Results 04/11/20 04/11/20 04/11/20 Range/Units 02:49 02:49 02:49 WBC 7.7 (3.8-10.6) k/uL RBC 3.18 L (3.80-5.40) m/uL Hgb 10.4 L (11.4-16.0) gm/dL Hct 36.0 (34.0-46.0) % MCV 113.1 H (80.0-100.0) fL MCH 32.6 (25.0-35.0) pg MCHC 28.9 L (31.0-37.0) g/dL RDW 15.0 (11.5-15.5) % Plt Count 311 (150-450) k/uL Neutrophils % 91 % Lymphocytes % 5 % Monocytes % 4 % Eosinophils % 1 % Basophils % 0 % Neutrophils # 6.9 (1.3-7.7) k/uL Lymphocytes # 0.4 L (1.0-4.8) k/uL Monocytes # 0.3 (0-1.0) k/uL Eosinophils # 0.0 (0-0.7) k/uL Basophils # 0.0 (0-0.2) k/uL Manual Slide Review Performed Polychromasia Present Hypochromasia Marked Anisocytosis (manual) Present Macrocytosis Marked A Sodium 140 (137-145) mmol/L Potassium 4.6 (3.5-5.1) mmol/L Chloride 107 (98-107) mmol/L Carbon Dioxide 28 (22-30) mmol/L Anion Gap 5 mmol/L BUN 36 H (7-17) mg/dL Creatinine 0.83 (0.52-1.04) mg/dL Est GFR (CKD-EPI)AfAm 82 (>60 ml/min/1.73 sqM) Est GFR (CKD-EPI)NonAf 71 (>60 ml/min/1.73 sqM) Glucose 132 H (74-99) mg/dL Plasma Lactic Acid Samuel (0.7-2.0) mmol/L Calcium 8.4 (8.4-10.2) mg/dL Magnesium (1.6-2.3) mg/dL Total Bilirubin 0.3 (0.2-1.3) mg/dL AST 38 H (14-36) U/L ALT 85 H (4-34) U/L Alkaline Phosphatase 73 (38-126) U/L Creatine Kinase 39 (30-135) U/L Troponin I (0.000-0.034) ng/mL Total Protein 6.0 L (6.3-8.2) g/dL Albumin 3.6 (3.5-5.0) g/dL Amylase 75 (30-110) U/L Lipase 202 (23-300) U/L Urine Color Light Yellow Urine Appearance Clear (Clear) Urine pH 6.5 (5.0-8.0) Ur Specific [place] 1.022 (1.001-1.035) Urine Protein Trace H (Negative) Urine Glucose (UA) Negative (Negative) Urine Ketones Negative (Negative) Urine Blood Negative (Negative) Urine Nitrite Negative (Negative) Urine Bilirubin Negative (Negative) Urine Urobilinogen <2.0 (<2.0) mg/dL Ur Leukocyte Esterase Negative (Negative) 04/11/20 04/11/20 04/11/20 Range/Units 02:49 02:49 02:49 WBC (3.8-10.6) k/uL RBC (3.80-5.40) m/uL Hgb (11.4-16.0) gm/dL Hct (34.0-46.0) % MCV (80.0-100.0) fL MCH (25.0-35.0) pg MCHC (31.0-37.0) g/dL RDW (11.5-15.5) % Plt Count (150-450) k/uL Neutrophils % % Lymphocytes % % Monocytes % % Eosinophils % % Basophils % % Neutrophils # (1.3-7.7) k/uL Lymphocytes # (1.0-4.8) k/uL Monocytes # (0-1.0) k/uL Eosinophils # (0-0.7) k/uL Basophils # (0-0.2) k/uL Manual Slide Review Polychromasia Hypochromasia Anisocytosis (manual) Macrocytosis Sodium (137-145) mmol/L Potassium (3.5-5.1) mmol/L Chloride (98-107) mmol/L Carbon Dioxide (22-30) mmol/L Anion Gap mmol/L BUN (7-17) mg/dL Creatinine (0.52-1.04) mg/dL Est GFR (CKD-EPI)AfAm (>60 ml/min/1.73 sqM) Est GFR (CKD-EPI)NonAf (>60 ml/min/1.73 sqM) Glucose (74-99) mg/dL Plasma Lactic Acid Samuel 1.0 (0.7-2.0) mmol/L Calcium (8.4-10.2) mg/dL Magnesium 1.7 (1.6-2.3) mg/dL Total Bilirubin (0.2-1.3) mg/dL AST (14-36) U/L ALT (4-34) U/L Alkaline Phosphatase (38-126) U/L Creatine Kinase (30-135) U/L Troponin I <0.012 (0.000-0.034) ng/mL Total Protein (6.3-8.2) g/dL Albumin (3.5-5.0) g/dL Amylase (30-110) U/L Lipase (23-300) U/L Urine Color Urine Appearance (Clear) Urine pH (5.0-8.0) Ur Specific [place] (1.001-1.035) Urine Protein (Negative) Urine Glucose (UA) (Negative) Urine Ketones (Negative) Urine Blood (Negative) Urine Nitrite (Negative) Urine Bilirubin (Negative) Urine Urobilinogen (<2.0) mg/dL Ur Leukocyte Esterase (Negative) - EKG Data -: EKG Interpreted by Me (EKG is sinus bradycardia 53 [place] 180 QRS 74 QTc 384) Disposition Clinical Impression: Left ureteral calculus Disposition: ADMITTED IP TO THIS [facility] Condition: Fair Is patient prescribed a controlled substance at d/c from ED?: No
[2020-04-11] MEDS ORDERED: ONDANSETRON 4 MG/2 ML VIAL IVP STA (02:51)
[2020-04-11 03:22] LABS: Albumin 3.6 g/dL (3.5-5.0); Calcium 8.4 mg/dL (8.4-10.2); Potassium 4.6 mmol/L (3.5-5.1); Total Bilirubin 0.3 mg/dL (0.2-1.3)
[2020-04-11 03:45] LABS: Basophils % (A) 0 %; Eosinophils % (A) 1 %; HGB 10.4 gm/dL (11.4-16.0); Hypochromasia Marked; Lymphocytes # (A) 0.4 k/uL (1.0-4.8); Lymphocytes % (A) 5 %; MCH 32.6 pg (25.0-35.0); MCHC 28.9 g/dL (31.0-37.0); MCV 113.1 fL (80.0-100.0); Macrocytosis Marked; Mean Platelet Volume 6.9; Monocytes # (A) 0.3 k/uL (0-1.0); Monocytes % (A) 4 %; Neutrophils # (A) 6.9 k/uL (1.3-7.7); Neutrophils % (A) 91 %; Platelet Count 311 k/uL (150-450); RBC 3.18 m/uL (3.80-5.40); WBC 7.7 k/uL (3.8-10.6)
[2020-04-11 04:09] LABS: Anisocytosis (M) Present
[2020-04-11 04:10] LABS: Polychromasia Present
--- NOTE | 2020-04-11 04:49 | CT ---
EXAM: CT Abdomen and Pelvis With Intravenous Contrast CLINICAL HISTORY: ITS.REASON CT Reason: pain TECHNIQUE: Axial computed tomography images of the abdomen and pelvis with intravenous contrast. CTDI is 19.57 mGy and DLP is 836.8 mGy-cm. This CT exam was performed using one or more of the following dose reduction techniques: automated exposure control, adjustment of the mA and/or kV according to patient size, and/or use of iterative reconstruction technique. COMPARISON: 11/30/2019 FINDINGS: Lung bases: Partially visualized mass in the left upper lobe. ABDOMEN: Liver: Unremarkable. Gallbladder and bile ducts: Unremarkable. Pancreas: Unremarkable. Spleen: Unremarkable. Adrenals: Unremarkable. Kidneys and ureters: 5 mm nonobstructive stone in the right kidney. 6 mm and 7 mm nonobstructive stones in the left kidney. Moderate left hydroureteronephrosis secondary to a 6 mm stone in the UVJ. Stomach and bowel: No bowel obstruction. No bowel wall thickening. Copious amounts of stool throughout the colon. Prior bowel surgery. PELVIS: Appendix: No evidence of appendicitis. Bladder: Unremarkable. Reproductive: Unremarkable. ABDOMEN and PELVIS: Intraperitoneal space: Unremarkable. Bones/joints: No acute fractures. Soft tissues: Unchanged postsurgical changes along the right anterior abdominal wall.. Vasculature: No abdominal aortic aneurysm. Lymph nodes: No enlarged lymph nodes. IMPRESSION: 1. Moderate left hydroureteronephrosis secondary to a 6 mm stone in the UVJ. 2. Mild obstructive nephrolithiasis bilaterally. 3. Partially visualized known left lung mass. 4. Large amounts of stool throughout the colon, with distention of the proximal to mid segments.
[2020-04-11] MEDS ORDERED: KETOROLAC 15 MG/ML 1 ML VIAL IVP STA (04:50)
[2020-04-11] MEDS ORDERED: MORPHINE SULFATE 4 MG/ML SYRINGE IVP STA (04:50)
[2020-04-11] MEDS ORDERED: SODIUM CHLORIDE 0.9% 1,000 ML IV ONE (04:55)
[2020-04-11 06:40] LABS: Appearance,Urine Clear (Clear); Bilirubin,Urine Negative (Negative); Blood,Urine Negative (Negative); Color,Urine Light Yellow; Glucose,Urine (UA) Negative (Negative); Ketones,Urine Negative (Negative); Leukocyte Esterase,Urine Negative (Negative); Nitrite,Urine Negative (Negative); PH, Urine 6.5 (5.0-8.0); Protein,Urine Trace (Negative); Specific Gravity,Urine 1.022 (1.001-1.035); Urobilinogen,Urine <2.0 mg/dL (<2.0)
[2020-04-11] MEDS ORDERED: Magnesium Replacement Protocol 1 EACH MISC MISCELLANE PRN (08:13)
[2020-04-11] MEDS ORDERED: Potassium Replacement Protocol 1 EACH MISC MISCELLANE PRN (08:13)
--- NOTE | 2020-04-11 08:46 | P.HPIM ---
History of Present Illness H&P Date: 04/11/20 Chief Complaint: Abdominal pain 74-year-old female presented to the emergency room with left lower quadrant pain radiating to left flank for duration of 4 hours with associated symptoms of chills, and nausea. Patient reports dark-colored urine for duration of 1 week, denies dysuria. Patient's extensive workup for abdominal pain with diagnostic labs and imaging revealed moderate left Hydroureternephrosis secondary to a 6 mm stone in the UVJ. Urology consulted. Review of Systems Constitutional: Reports chills, Reports poor appetite, Reports weakness, Reports weight loss Ears: bilateral: decreased hearing Cardiovascular: Reports dyspnea on exertion, Reports shortness of breath Respiratory: Reports dyspnea, Reports home oxygen Gastrointestinal: Reports abdominal pain, Reports change in bowel habits, Reports nausea Genitourinary: Reports flank pain, Reports hematuria, Reports kidney stones Musculoskeletal: Reports muscle weakness (Generalized) Integumentary: Reports dryness Neurological: Reports balance difficulties, Reports headaches, Reports weakness Psychiatric: Reports anxiety, Reports insomnia 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 History of Any Multi-Drug Resistant Organisms: None Reported Past Surgical History: Appendectomy, Bariatric Surgery, Bowel Resection, Hysterectomy, Orthopedic Surgery Additional Past Surgical History / Comment(s): Prolapsed bowel with colostomy and reversal, bariatric surgery; broke bilateral legs with repair Past Anesthesia/Blood Transfusion Reactions: No Reported Reaction Past Psychological History: No Psychological Hx Reported Smoking Status: Current some day smoker Past Alcohol Use History: None Reported Past Drug Use History: None Reported - Past Family History Mother History Unknown: Yes Family Medical History: Unable to Obtain Additional Family Medical History / Comment(s): The patient is unaware of any significant family history Medications and Allergies Home Medications and Allergies Comment(s): Medications and ALLERGIES reviewed Home Medications Medication Instructions Recorded Confirmed Type Glycopyrrolate/Formoterol Fum 2 puff INHALATION RT-BID 08/10/17 04/11/20 History [Bevespi Aerosphere Inhaler] Albuterol Sulfate [Ventolin HFA] 2 puff INHALATION RT-Q4H PRN 11/15/19 04/11/20 History Magnesium Oxide [Mag-Ox] 400 mg PO TID 30 Days #90 tab 01/15/20 04/11/20 Rx Levothyroxine Sodium [Synthroid] 100 mcg PO DAILY 03/19/20 04/11/20 History Butalb/APAP/Caff 50-325-40Mg 1 tab PO Q4HR PRN 04/11/20 04/11/20 History [Fioricet 50-325-40] Dexamethasone [Decadron] See Taper PO DIRECTED 04/11/20 04/11/20 History Ipratropium-Albuterol Nebulize 3 ml INHALATION RT-QID PRN 04/11/20 04/11/20 History [Duoneb 0.5 mg-3 mg/3 ml Soln] Omeprazole [PriLOSEC] 20 mg PO DAILY 04/11/20 04/11/20 History Spironolactone 25 mg PO BID 04/11/20 04/11/20 History Allergies Allergy/AdvReac Type Severity Reaction Status Date / Time amoxicillin Allergy Swelling Verified 04/11/20 07:00 aspirin Allergy Swelling Verified 04/11/20 07:00 codeine Allergy Anaphylaxis Verified 04/11/20 07:00 hydrocodone [From Vicodin] Allergy Anaphylaxis Verified 04/11/20 07:00 Penicillins Allergy Swelling Verified 04/11/20 07:00 sulfamethoxazole Allergy Swelling Verified 04/11/20 07:00 [From Bactrim] tramadol AdvReac DOES NOT Verified 04/11/20 07:00 WORK steroids Allergy Swelling Uncoded 04/11/20 07:01 Physical Exam Vitals: Vital Signs Temp Pulse Pulse Resp BP BP Pulse Ox 04/11/20 07:00 97.4 F L 58 L 19 111/61 98 04/11/20 04:52 68 19 115/69 94 L 04/11/20 02:22 97.4 F L 66 16 126/64 84 L Intake and Output 04/10/20 04/11/20 04/11/20 22:59 06:59 14:59 Other: Weight 56.245 kg - Constitutional General appearance: cooperative - EENT Eyes: PERRLA Ears: bilateral: normal - Neck Carotids: bilateral: upstroke normal Thyroid: bilateral: normal size - Respiratory Respiratory: bilateral: wheezing (Anterior and posterior) - Cardiovascular Normal sinus rhythm with no acute changes Heart rate: 74 Rhythm: regular Heart sounds: normal: S1, S2 - Gastrointestinal General gastrointestinal: tenderness (Left lower quadrant radiating to left f lank) - Integumentary Integumentary: pale - Neurologic Neurologic: CNII-XII intact - Musculoskeletal Musculoskeletal: generalized weakness - Psychiatric Psychiatric: A&O x's 3, appropriate affect, intact judgment & insight Results CBC & Chem 7: 04/11/20 02:49 04/11/20 02:49 Labs: Abnormal Lab Results - Last 24 Hours (Table) 04/11/20 04/11/20 04/11/20 Range/Units 02:49 02:49 02:49 RBC 3.18 L (3.80-5.40) m/uL Hgb 10.4 L (11.4-16.0) gm/dL MCV 113.1 H (80.0-100.0) fL MCHC 28.9 L (31.0-37.0) g/dL Lymphocytes # 0.4 L (1.0-4.8) k/uL Macrocytosis Marked A BUN 36 H (7-17) mg/dL Glucose 132 H (74-99) mg/dL AST 38 H (14-36) U/L ALT 85 H (4-34) U/L Total Protein 6.0 L (6.3-8.2) g/dL Urine Protein Trace H (Negative) CT scan - abdomen: report reviewed Thrombosis Risk Factor Assmnt - Choose All That Apply Each Factor Represents 1 point: Abnormal pulmonary function (COPD) Each Risk Factor Represents 2 Points: Age 61-74 years, Malignancy Thrombosis Risk Factor Assessment Total Risk Factor Score: 5 Thrombosis Risk Factor Assessment Level: High Risk Assessment and Plan Assessment: Renal calculi with moderate left hydroureternephrosis secondary to 6 mm stone in the UVJ 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
--- NOTE | 2020-04-11 09:17 | P.GSCN ---
History of Present Illness Consult date: 04/11/20 Reason for Consult: Left ureteral calculus Requesting physician: Adryan Lopez History of present illness: The patient is a 74-year-old white female being treated for lung cancer. She has a history of kidney stones. She states that she has passed the stones in the past, and has never required surgery for kidney stones. Around midnight, she began to experience acute onset of left-sided abdominal pain, associated wi th nausea and vomiting. A computed tomography scan shows bilateral renal calculi, as well as moderate left hydroureteronephrosis due to a 6 mm left ureterovesical junction calculus. 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 History of Any Multi-Drug Resistant Organisms: None Reported Past Surgical History: Appendectomy, Bariatric Surgery, Bowel Resection, Hysterectomy, Orthopedic Surgery Additional Past Surgical History / Comment(s): Prolapsed bowel with colostomy and reversal, bariatric surgery; broke bilateral legs with repair Past Anesthesia/Blood Transfusion Reactions: No Reported Reaction Past Psychological History: No Psychological Hx Reported Smoking Status: Current some day smoker Past Alcohol Use History: None Reported Past Drug Use History: None Reported - Past Family History Mother History Unknown: Yes Family Medical History: Unable to Obtain Additional Family Medical History / Comment(s): The patient is unaware of any significant family history Medications and Allergies Home Medications Medication Instructions Recorded Confirmed Type Glycopyrrolate/Formoterol Fum 2 puff INHALATION RT-BID 08/10/17 04/11/20 History [Bevespi Aerosphere Inhaler] Albuterol Sulfate [Ventolin HFA] 2 puff INHALATION RT-Q4H PRN 11/15/19 04/11/20 History Magnesium Oxide [Mag-Ox] 400 mg PO TID 30 Days #90 tab 01/15/20 04/11/20 Rx Levothyroxine Sodium [Synthroid] 100 mcg PO DAILY 03/19/20 04/11/20 History Butalb/APAP/Caff 50-325-40Mg 1 tab PO Q4HR PRN 04/11/20 04/11/20 History [Fioricet 50-325-40] Dexamethasone [Decadron] See Taper PO DIRECTED 04/11/20 04/11/20 History Ipratropium-Albuterol Nebulize 3 ml INHALATION RT-QID PRN 04/11/20 04/11/20 History [Duoneb 0.5 mg-3 mg/3 ml Soln] Omeprazole [PriLOSEC] 20 mg PO DAILY 04/11/20 04/11/20 History Spironolactone 25 mg PO BID 04/11/20 04/11/20 History Allergies Allergy/AdvReac Type Severity Reaction Status Date / Time amoxicillin Allergy Swelling Verified 04/11/20 07:00 aspirin Allergy Swelling Verified 04/11/20 07:00 codeine Allergy Anaphylaxis Verified 04/11/20 07:00 hydrocodone [From Vicodin] Allergy Anaphylaxis Verified 04/11/20 07:00 Penicillins Allergy Swelling Verified 04/11/20 07:00 sulfamethoxazole Allergy Swelling Verified 04/11/20 07:00 [From Bactrim] tramadol AdvReac DOES NOT Verified 04/11/20 07:00 WORK steroids Allergy Swelling Uncoded 04/11/20 07:01 Surgical - Exam Vital Signs Temp Pulse Resp BP Pulse Ox 97.4 F L 66 16 126/64 84 L 04/11/20 02:22 04/11/20 02:22 04/11/20 02:22 04/11/20 02:22 04/11/20 02:22 - General well developed, moderate distress, cachectic - Neck no masses, trachea midline - Respiratory normal respiratory effort - Abdomen Abdomen: soft, tender (Mild left lower quadrant tenderness), no masses, no rigid, no rebound, no distended - Psychiatric oriented to time, oriented to person, oriented to place, speech is normal, memory intact Results - Labs 04/11/20 02:49 04/11/20 02:49 Abnormal Lab Results - Last 24 Hours (Table) 04/11/20 04/11/20 04/11/20 Range/Units 02:49 02:49 02:49 RBC 3.18 L (3.80-5.40) m/uL Hgb 10.4 L (11.4-16.0) gm/dL MCV 113.1 H (80.0-100.0) fL MCHC 28.9 L (31.0-37.0) g/dL Lymphocytes # 0.4 L (1.0-4.8) k/uL Macrocytosis Marked A BUN 36 H (7-17) mg/dL Glucose 132 H (74-99) mg/dL AST 38 H (14-36) U/L ALT 85 H (4-34) U/L Total Protein 6.0 L (6.3-8.2) g/dL Urine Protein Trace H (Negative) Diabetes panel 04/11/20 Range/Units 02:49 Sodium 140 (137-145) mmol/L Potassium 4.6 (3.5-5.1) mmol/L Chloride 107 (98-107) mmol/L Carbon Dioxide 28 (22-30) mmol/L BUN 36 H (7-17) mg/dL Creatinine 0.83 (0.52-1.04) mg/dL Glucose 132 H (74-99) mg/dL Calcium 8.4 (8.4-10.2) mg/dL AST 38 H (14-36) U/L ALT 85 H (4-34) U/L Alkaline Phosphatase 73 (38-126) U/L Total Protein 6.0 L (6.3-8.2) g/dL Albumin 3.6 (3.5-5.0) g/dL Calcium panel 04/11/20 Range/Units 02:49 Calcium 8.4 (8.4-10.2) mg/dL Albumin 3.6 (3.5-5.0) g/dL Pituitary panel 04/11/20 Range/Units 02:49 Sodium 140 (137-145) mmol/L Potassium 4.6 (3.5-5.1) mmol/L Chloride 107 (98-107) mmol/L Carbon Dioxide 28 (22-30) mmol/L BUN 36 H (7-17) mg/dL Creatinine 0.83 (0.52-1.04) mg/dL Glucose 132 H (74-99) mg/dL Calcium 8.4 (8.4-10.2) mg/dL Adrenal panel 04/11/20 Range/Units 02:49 Sodium 140 (137-145) mmol/L Potassium 4.6 (3.5-5.1) mmol/L Chloride 107 (98-107) mmol/L Carbon Dioxide 28 (22-30) mmol/L BUN 36 H (7-17) mg/dL Creatinine 0.83 (0.52-1.04) mg/dL Glucose 132 H (74-99) mg/dL Calcium 8.4 (8.4-10.2) mg/dL Total Bilirubin 0.3 (0.2-1.3) mg/dL AST 38 H (14-36) U/L ALT 85 H (4-34) U/L Alkaline Phosphatase 73 (38-126) U/L Total Protein 6.0 L (6.3-8.2) g/dL Albumin 3.6 (3.5-5.0) g/dL - Imaging CT scan - abdomen: report reviewed, image reviewed Assessment and Plan (1) Calculus of kidney Current Visit: Yes Status: Acute Code(s): N20.0 - CALCULUS OF KIDNEY SNOMED Code(s): 06230661 (2) Left ureteral calculus Current Visit: Yes Status: Acute Code(s): N20.1 - CALCULUS OF URETER SNOMED Code(s): 55007887 (3) Hydronephrosis with renal and ureteral calculous obstruction Current Visit: Yes Status: Acute Code(s): N13.2 - HYDRONEPHROSIS WITH RENAL AND URETERAL CALCULOUS OBSTRUCTION SNOMED Code(s): 350743258 Plan: I had a lengthy discussion with the patient regarding her 6 mm left UVJ ca lculus. The calculus has a high likelihood of spontaneous passage. We discussed ureteroscopic removal of the calculus, which could be performed during this hospitalization. She prefers medical expulsion therapy, as she is currently feeling somewhat better. In view of this, I have prescribed tams ulosin and her urine will continue to be strained. She may be discharged home on oral analgesics and follow up with me as an outpatient. She will undergo ureteroscopic removal of the calculus if she develops intractable symptoms. Please notify me if I can be of any further assistance. Time with Patient: Greater than 30
[2020-04-11] MEDS: SPIRONOLACTONE 25 MG TAB PO SCH (09:26)
[2020-04-11] MEDS: ALPRAZolam 0.25 MG TAB PO SCH ×3 (09:26→21:53)
[2020-04-11] MEDS: TAMSULOSIN 0.4 MG CAP.ER.24H PO SCH (09:26)
[2020-04-11] MEDS: FUROSEMIDE 20 MG TAB PO SCH (09:26)
[2020-04-11] MEDS: IPRATROPIUM-ALBUTEROL 3 ML NEB INHALATION SCH ×3 (10:50→19:57)
[2020-04-11] MEDS: BUDESONIDE 0.5 MG/2 ML NEBU INHALATION SCH ×2 (10:51→19:57)
[2020-04-11] MEDS: hydrOXYzine pamoate 25 MG CAP PO SCH ×2 (12:50→17:14)
--- NOTE | 2020-04-11 13:57 | P.CONS ---
History of Present Illness - Reason for Consult Consult date: 04/11/20 Metastatic Lung Cancer Requesting physician: Nirav Romero - Chief Complaint Nausea and vomiting, Renal stones - History of Present Illness Ms Ramsey this is a pleasant white female, initially seen in consult at [facility] on 11/17/19. 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 Biopsy was performed on 01/24/29. PET scan on 01/31/19 showed a 3.1 x 3.2 x 4.8 cm medial pleural- based mass extending to the mediastinum, increased in size versus 2.8 x 2.1 x 4.[address] from 09/29. The patient has a known history of advanced COPD and very poor lung function. She was not felt to be a candidate for surgery and is referred for radiation. She had SBRT completing that in 03/31. biomarker testing on her biopsy from 01/29 was negative. She had follow-up scans in 05/31 which showed no evidence of recurrence. The patient was admitted this time with increasing shortness of breath. She required aggressive support including BiPAP. Imaging done during this admission revealed evidence of recurrence with multicentric masslike density the left upper lobe. This included encasement of the left upper lobe pulmonary artery and narrowing of the lumen. A prior centimeter infiltrative area adjacent to the pleura was now 3.[address] of the brain was negative. The patient was quite borderline during this admission, but managed to improve and be discharged with aggressive treatment for COPD exacerbation and possible pneumonia. he had a PET scan on 11/30/19, showing anterior pleural-based mass 3.6 x 2.6 cm. New larger lobulated mass posterior and superior to this measuring 5 x 3.1 cm, with another suprahilar mass posterior and superior measuring 4.6 x 3.3 cm. These were all hypermetabolic with SUV in the 6-7+ range. There appeared to be an additional anterior left hilar mass or adenopathy with SUV less than 2.5 but still felt to be suspicious. There was no evidence of disease elsewhere. There was moderate to advance underlying emphysematous change. The patient was seen for first office visit on 12/18/19. She is on 3-4.5 L of oxygen, [id number]. Even on oxygen performance status is very poor with endurance limited to only a few feet at a time the patient was not felt to be a candidate for concurrent treatment. Based on her performance status. It was also not clear if she will be able to tolerate conventional chemotherapy. She was in any case, but is reluctant for the same. She therefore continued on radiation alone. Her initial biomarker testing on her biopsy had been negative., With PD1 less than 1%. She had repeat biomarker testing with the [place] [id number] which was negative for any actionable mutations for lung cancers. the patient therefore proceeded to irradiation which she completed in late 01/30. she denied any fevers/chills/nausea/vomiting. She continues to have significant shortness of breath and continues to be oxygen dependent. She is able to perform basic ADLs such as going to the bathroom, dressing herself, showering and feeding herself. She was able to walk from the parking lot into the office . Lower extremity swelling is persistent , with some weeping from the lower extremities. The patient has completed radiation. home O2. Last office visit on 02/04/20 and again discussed treatment options with her. Ideally the patient should have systemic chemotherapy. She was advised that even if she achieves some remission with radiation and is unlikely to be durable. However, she remained a suboptimal candidate for systemic chemotherapy with high risk of adverse effects due to her other medical problems and poor performance status. Another option would be observation post radiation with consideration of systemic therapy as and when progression occurs. However, it is unlikely in that situation that her performance status would improve significantly. In fact that progression, it may actually diminished. Comfort care was also discussed. - At that time the patient is not sure about the exact course. She remained very apprehensive about taking systemic chemotherapy, justifiably. She stated that she will consider her options and call us back in about 2-3 days. She opted out of chemotherapy. Therefore placed on observation, shewas to be seen in [address] scans prior to that visit. 02/06/20, 03/18/20, 04/04/20 she did not show for scheduled appointments Earlier this month she presented with headaches and mental status changes and was found to have single brain met. She was seen by Dr. Naik and underwent radiation therapy. Review of Systems All systems: negative Constitutional: Reports as per HPI Past Medical History Past Medical History: Cancer, COPD, Renal Disease Additional Past Medical History / Comment(s): Pt recently admitted to [facility] on 03/19/20 with cephalgia/L lung cancer with mets to brain/vasogenic edema. Other hx: 01/2019 L upper lobe squamous cell lung cancer/treated with radiation, home oxygen ATC, hiatal hernia, umbilical hernia, gastric ulcer, diverticular disease, prolapsed bowel with surgery, anemia, gastric bypass, murmur, kidney stones which pt passed, thyroid nodules with surgery, eczema, sinus problems. History of Any Multi-Drug Resistant Organisms: None Reported Past Surgical History: Appendectomy, Bariatric Surgery, Bladder Surgery, Bowel Resection, Cholecystectomy, Hysterectomy, Orthopedic Surgery Additional Past Surgical History / Comment(s): L lung biopsy, gastric bypass, bowel resection d/t prolapsed bowel/temporary colostomy, colonoscopies, bladder sling, bunionectomies bilateral feet, p-artial thyroidectomy Past Anesthesia/Blood Transfusion Reactions: No Reported Reaction Additional Past Anesthesia/Blood Transfusion Reaction / Comm: Pt has received blood in past without reaction. Smoking Status: Former smoker - Past Family History Mother History Unknown: Yes Family Medical History: Cancer, Diabetes Mellitus Additional Family Medical History / Comment(s): Ovarian cancer. Father Family Medical History: No Reported History Additional Family Medical History / Comment(s): Father is healthy. Medications and Allergies Home Medications Medication Instructions Recorded Confirmed Type Glycopyrrolate/Formoterol Fum 2 puff INHALATION RT-BID 08/10/17 04/11/20 History [Bevespi Aerosphere Inhaler] Albuterol Sulfate [Ventolin HFA] 2 puff INHALATION RT-Q4H PRN 11/15/19 04/11/20 History Magnesium Oxide [Mag-Ox] 400 mg PO TID 30 Days #90 tab 01/15/20 04/11/20 Rx Levothyroxine Sodium [Synthroid] 100 mcg PO DAILY 03/19/20 04/11/20 History Butalb/APAP/Caff 50-325-40Mg 1 tab PO Q4HR PRN 04/11/20 04/11/20 History [Fioricet 50-325-40] Dexamethasone [Decadron] See Taper PO DIRECTED 04/11/20 04/11/20 History Ipratropium-Albuterol Nebulize 3 ml INHALATION RT-QID PRN 04/11/20 04/11/20 History [Duoneb 0.5 mg-3 mg/3 ml Soln] Omeprazole [PriLOSEC] 20 mg PO DAILY 04/11/20 04/11/20 History Spironolactone 25 mg PO BID 04/11/20 04/11/20 History Allergies Allergy/AdvReac Type Severity Reaction Status Date / Time amoxicillin Allergy Swelling Verified 04/11/20 07:00 aspirin Allergy Swelling Verified 04/11/20 07:00 codeine Allergy Anaphylaxis Verified 04/11/20 07:00 hydrocodone [From Vicodin] Allergy Anaphylaxis Verified 04/11/20 07:00 Penicillins Allergy Swelling Verified 04/11/20 07:00 sulfamethoxazole Allergy Swelling Verified 04/11/20 07:00 [From Bactrim] tramadol AdvReac DOES NOT Verified 04/11/20 07:00 WORK steroids Allergy Swelling Uncoded 04/11/20 07:01 Physical Exam Vitals: Vital Signs Temp Pulse Pulse Resp BP BP Pulse Ox 04/11/20 13:25 97.4 F L 59 L 18 104/62 100 04/11/20 11:10 68 04/11/20 10:53 60 04/11/20 07:00 97.4 F L 58 L 19 111/61 98 04/11/20 04:52 68 19 115/69 94 L 04/11/20 02:22 97.4 F L 66 16 126/64 84 L Intake and Output 04/10/20 04/11/20 04/11/20 22:59 06:59 14:59 Other: Weight 56.245 kg 56.245 kg Results CBC & Chem 7: 04/11/20 02:49 04/11/20 02:49 Labs: Abnormal Lab Results - Last 24 Hours (Table) 04/11/20 04/11/20 04/11/20 Range/Units 02:49 02:49 02:49 RBC 3.18 L (3.80-5.40) m/uL Hgb 10.4 L (11.4-16.0) gm/dL MCV 113.1 H (80.0-100.0) fL MCHC 28.9 L (31.0-37.0) g/dL Lymphocytes # 0.4 L (1.0-4.8) k/uL Macrocytosis Marked A BUN 36 H (7-17) mg/dL Glucose 132 H (74-99) mg/dL AST 38 H (14-36) U/L ALT 85 H (4-34) U/L Total Protein 6.0 L (6.3-8.2) g/dL Urine Protein Trace H (Negative) Assessment and Plan Plan: The patient is a 74-year-old female with a history of oxygen dependent COPD presenting with history of a stage IIA (cT2b, cN0, M0) 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 She was medically inoperable and underwent SBRT finishing on 03/13/2019. She unfortunately presented in December 2019 with evidence of local-regional recurrence without distant disease and underwent radiotherapy with plans for sequential chemotherapy finishing on 01/15/2020. Then in March of this year she presented for Headaches and mental status changes and unfortunetly a single left occipital brain met (larger than 3.6cm) was identified. She was discharged at that time for plan to undergo SRS treatment with Dr. Naik. Moderate Left Hydronephrosis: Secondary to Renal Stone: - Dr. Mason is following Single left occipital brain metastases: - This was a larger lesion (3.6 cm) and is likely the cause of her headaches. - Status Post one of three treatments, second due today have discussed with Dr. Naik and will consult Tuesday if patient still inpatient - Continue Dexamethasone TID and PPI. Non-small cell lung cancer: - Most recent CT Chest from 03/10 actually showed improvement in thoracic disease after RT. - However, she now has evidence of distant metastasis in the brain. - CT of abdomen/pelvis this admission did not reveal any other definitive metastatic disease COPD: Oxygen Dependent at home Physician Attest: I have completed the full history andphysical and agree with above dictation dictated as a scribe
[2020-04-11] MEDS: dexAMETHasone 4 MG TAB PO SCH ×2 (17:14→21:05)
[2020-04-12] MEDS: hydrOXYzine pamoate 25 MG CAP PO SCH ×4 (00:06→17:49)
[2020-04-12] MEDS: IPRATROPIUM-ALBUTEROL 3 ML NEB INHALATION SCH ×7 (00:08→23:23)
[2020-04-12 06:02] LABS: Basophils % (A) 0 %; Eosinophils # (A) 0.1 k/uL (0-0.7); Eosinophils % (A) 1 %; HCT 37.1 % (34.0-46.0); HGB 10.4 gm/dL (11.4-16.0); Hypochromasia Marked; Lymphocytes # (A) 0.3 k/uL (1.0-4.8); Lymphocytes % (A) 3 %; MCH 32.1 pg (25.0-35.0); MCHC 27.9 g/dL (31.0-37.0); Macrocytosis Marked; Monocytes # (A) 0.4 k/uL (0-1.0); Monocytes % (A) 5 %; Neutrophils % (A) 90 %; Platelet Count 253 k/uL (150-450); RBC 3.23 m/uL (3.80-5.40); RDW 14.6 % (11.5-15.5); WBC 8.9 k/uL (3.8-10.6)
[2020-04-12 06:04] LABS: MCV 114.7 fL (80.0-100.0)
[2020-04-12] MEDS: LEVOTHYROXINE 100 MCG TAB PO SCH (06:28)
[2020-04-12] MEDS ORDERED: ACETAMINOPHEN TAB 325 MG TAB PO PRN (07:46)
[2020-04-12] MEDS: BUDESONIDE 0.5 MG/2 ML NEBU INHALATION SCH ×2 (07:58→19:33)
--- NOTE | 2020-04-12 08:17 | XR ---
EXAMINATION TYPE: XR chest 1V portable DATE OF EXAM: 04/12/2020 CLINICAL HISTORY: Difficulty breathing progress study. History of left-sided lung cancer. TECHNIQUE: Single AP portable upright view of the chest is obtained. COMPARISON: Chest x-ray from March 19, [address] chest March 10, 2020. PET/CT November 30, 2019 FINDINGS: Background chronic emphysematous change with persistent left hilar masslike consolidation and basilar spiculated opacity. Right lung remains clear. Cardiac silhouette size is stable and withi n normal limits. Surgical changes right upper quadrant redemonstrated. Osseous structures are intact. IMPRESSION: Moderate to advanced underlying emphysematous change with stable left hilar spiculated ne oplasm and left basilar volume loss with suspected left basilar scarring and/or atelectasis. No signi ficant change from most recent x-ray.
[2020-04-12] MEDS: TAMSULOSIN 0.4 MG CAP.ER.24H PO SCH (08:27)
[2020-04-12] MEDS: SPIRONOLACTONE 25 MG TAB PO SCH (08:27)
[2020-04-12] MEDS: dexAMETHasone 4 MG TAB PO SCH ×3 (08:28→21:09)
[2020-04-12] MEDS: PANTOPRAZOLE 40 MG TABLET PO SCH (08:28)
[2020-04-12] MEDS: FUROSEMIDE 20 MG TAB PO SCH (08:28)
[2020-04-12] MEDS: METOCLOPRAMIDE 5 MG/ML 2 ML VIAL IVP PRN ×2 (08:34→19:14)
[2020-04-12] MEDS: HYDROmorphone 0.5 MG/0.5 ML SYRINGE IVP PRN ×4 (08:34→22:03)
[2020-04-12 09:04] LABS: ALT 153 U/L (4-34); AST 71 U/L (14-36); African American GFR (CKD) 72 (>60 ml/min/1.73 sqM); Albumin 3.1 g/dL (3.5-5.0); Albumin/Globulin Ratio 1.3; Alkaline Phosphatase 67 U/L (38-126); Anion Gap 4 mmol/L; Blood Urea Nitrogen 36 mg/dL (7-17); Calcium 7.3 mg/dL (8.4-10.2); Carbon Dioxide 27 mmol/L (22-30); Chloride 108 mmol/L (98-107); Globulin 2.3 g/dL; Glucose 90 mg/dL (74-99); Magnesium 1.6 mg/dL (1.6-2.3); Non-African American GFR(CKD) 62 (>60 ml/min/1.73 sqM); Sodium 139 mmol/L (137-145); Total Bilirubin 0.6 mg/dL (0.2-1.3); Total Protein 5.4 g/dL (6.3-8.2)
[2020-04-12 09:16] LABS: Potassium 5.3 mmol/L (3.5-5.1)
[2020-04-12] MEDS: ALPRAZolam 0.25 MG TAB PO SCH ×3 (10:24→21:09)
[2020-04-12 10:44] VITALS: BMI 19.4
--- NOTE | 2020-04-12 13:08 | P.PN ---
Progress Note - Text Progress Note Date: 04/12/20 Mrs. Ramsey remains afebrile with stable vital signs. Her renal colic has persisted. We discussed ureteroscopic removal of the calculus, which she hopes to avoid. She will continue to receive tamsulosin, and I'm hopeful that her calculus will pass or that her pain can be controlled to the extent that she may be discharged home. If not, she will have no choice but to undergo ureteroscopic removal of the calculus.
[2020-04-13] MEDS: hydrOXYzine pamoate 25 MG CAP PO SCH ×5 (01:14→23:25)
[2020-04-13] MEDS: HYDROmorphone 0.5 MG/0.5 ML SYRINGE IVP PRN ×6 (03:00→23:25)
[2020-04-13] MEDS: IPRATROPIUM-ALBUTEROL 3 ML NEB INHALATION SCH ×5 (04:07→21:26)
[2020-04-13] MEDS: LEVOTHYROXINE 100 MCG TAB PO SCH (05:06)
[2020-04-13 05:49] LABS: Basophils % (A) 0 %; Eosinophils # (A) 0.1 k/uL (0-0.7); Eosinophils % (A) 1 %; HCT 37.3 % (34.0-46.0); HGB 10.9 gm/dL (11.4-16.0); Hypochromasia Marked; Lymphocytes # (A) 0.3 k/uL (1.0-4.8); Lymphocytes % (A) 3 %; MCH 33.6 pg (25.0-35.0); MCHC 29.1 g/dL (31.0-37.0); Macrocytosis Marked; Mean Platelet Volume 6.8; Monocytes # (A) 0.5 k/uL (0-1.0); Monocytes % (A) 5 %; Neutrophils # (A) 9.7 k/uL (1.3-7.7); Neutrophils % (A) 91 %; Platelet Count 219 k/uL (150-450); RBC 3.23 m/uL (3.80-5.40); RDW 14.4 % (11.5-15.5); WBC 10.6 k/uL (3.8-10.6)
[2020-04-13 05:51] LABS: MCV 115.6 fL (80.0-100.0)
[2020-04-13] MEDS: BUDESONIDE 0.5 MG/2 ML NEBU INHALATION SCH ×2 (07:38→21:26)
[2020-04-13] MEDS: SPIRONOLACTONE 25 MG TAB PO SCH (08:06)
[2020-04-13] MEDS: ALPRAZolam 0.25 MG TAB PO SCH ×3 (08:06→22:00)
[2020-04-13] MEDS: FUROSEMIDE 20 MG TAB PO SCH (08:06)
[2020-04-13] MEDS: TAMSULOSIN 0.4 MG CAP.ER.24H PO SCH (08:06)
[2020-04-13] MEDS: PANTOPRAZOLE 40 MG TABLET PO SCH (08:07)
[2020-04-13] MEDS: dexAMETHasone 4 MG TAB PO SCH ×3 (08:07→22:00)
[2020-04-13 10:32] LABS: African American GFR (CKD) 65.2 (60.0-200.0); Anion Gap 7.4 mmol/L (4.00-12.00); Calcium 7.7 mg/dL (8.7-10.3); Carbon Dioxide 23.6 mmol/L (21.6-31.8); Non-African American GFR(CKD) 56.2 (60.0-200.0); Potassium 4.4 mmol/L (3.5-5.5)
--- NOTE | 2020-04-13 10:37 | P.PN ---
Progress Note - Text Progress Note Date: 04/13/20 Mrs. Ramsey remains afebrile with stable vital signs. Her renal colic has persisted. She continues to decline ureteroscopic removal of the calculus. She will continue to receive tamsulosin. However, if her calculus fails to pass soon and she cannot be discharged home on oral analgesics, she understands that she will require ureteroscopic removal of the calculus.
--- NOTE | 2020-04-13 22:48 | P.PN ---
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 presented to the emergency room with left lower quadrant pain radiating to left flank for duration of 4 hours with associated symptoms of chills, and nausea. Patient reports dark-colored urine for duration of 1 week, denies dysuria. Patient's extensive workup for abdominal pain with diagnostic labs and imaging revealed moderate left Hydroureternephrosis secondary to a 6 mm stone in the UVJ. Urology consulted. 04/12/2020 Patient is still complaining of left flank pain. Patient is being continued on tamsulosin and currently does not want any procedures like cystoscopy and stone removal. Patient is being continued on Dilaudid for pain control. With the p atient is still having pain she will need ureteroscopic removal of the calculus. Patient has been afebrile. No chest pain or shortness of breath. Patient is on home oxygen. WBC 8.9, hemoglobin 10.4 and platelets 253 Potassium 5.3 BUN 36 and creatinine 0.93 and calcium 7.3 albumin 3.1 Current medications reviewed. Objective - Vital Signs Vital signs: Vital Signs Temp 98.1 F 04/12/20 21:00 Pulse 82 04/12/20 21:00 Resp 18 04/12/20 21:00 BP 104/61 04/12/20 21:00 Pulse Ox 92 L 04/12/20 21:00 Intake & Output 04/12/20 04/12/20 04/13/20 06:59 18:59 05:59 Weight 56.245 kg Other: Voiding Method Bedside Commode # Voids 1 4 - Exam PHYSICAL EXAMINATION: Patient is lying in the bed comfortably, no acute distress, awake alert and oriented.. HEENT: Normocephalic. Neck is supple. Pupils reactive. Nostrils clear. Oral cavity is moist. Ears reveal no drainage. Neck reveals no JVD, carotid bruits, or thyromegaly. CHEST EXAMINATION: Trachea is central. Symmetrical expansion. Bilateral expiratory wheezing and scattered rhonchi.. CARDIAC: Normal S1, S2 with no gallops. No murmurs ABDOMEN: Soft. Bowel sounds normal. No organomegaly. No abdominal bruits. Left flank tenderness. Extremities: reveal no edema. No clubbing or cyanosis Neurologically awake, alert, oriented x3 with well-coordinated movements. No focal deficits noted Skin: No rash or skin lesions. Psychiatric: Coperative. Nonsuicidal Musculoskeletal: No joint swelling or deformity. Normal range of motion. - Labs CBC & Chem 7: 04/13/20 05:21 04/13/20 05:21 Labs: Abnormal Lab Results - Last 24 Hours (Table) 04/12/20 04/12/20 Range/Units 05:35 05:35 RBC 3.23 L (3.80-5.40) m/uL Hgb 10.4 L (11.4-16.0) gm/dL MCV 114.7 H (80.0-100.0) fL MCHC 27.9 L (31.0-37.0) g/dL Neutrophils # 8.0 H (1.3-7.7) k/uL Lymphocytes # 0.3 L (1.0-4.8) k/uL Macrocytosis Marked A Potassium 5.3 H (3.5-5.1) mmol/L Chloride 108 H (98-107) mmol/L BUN 36 H (7-17) mg/dL Calcium 7.3 L (8.4-10.2) mg/dL AST 71 H (14-36) U/L ALT 153 H (4-34) U/L Total Protein 5.4 L (6.3-8.2) g/dL Albumin 3.1 L (3.5-5.0) g/dL Assessment and Plan Assessment: Renal calculi with moderate left hydroureternephrosis secondary to 6 mm stone in the UVJ Lung CA with metastases to the brain 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 Urology is following. Recommends ureteroscopic stone removal. Continue medical management Time with Patient: Greater than 30
--- NOTE | 2020-04-13 22:50 | P.PN ---
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 presented to the emergency room with left lower quadrant pain radiating to left flank for duration of 4 hours with associated symptoms of chills, and nausea. Patient reports dark-colored urine for duration of 1 week, denies dysuria. Patient's extensive workup for abdominal pain with diagnostic labs and imaging revealed moderate left Hydroureternephrosis secondary to a 6 mm stone in the UVJ. Urology consulted. 04/12/2020 Patient is still complaining of left flank pain. Patient is being continued on tamsulosin and currently does not want any procedures like cystoscopy and stone removal. Patient is being continued on Dilaudid for pain control. With the p atient is still having pain she will need ureteroscopic removal of the calculus. Patient has been afebrile. No chest pain or shortness of breath. Patient is on home oxygen. WBC 8.9, hemoglobin 10.4 and platelets 253 Potassium 5.3 BUN 36 and creatinine 0.93 and calcium 7.3 albumin 3.1 04/13/2020 Patient is currently lying in the bed comfortably. Patient still having left flank pain. Currently being continued on pain management and IV fluids. Urology is planning for ureteroscopic stone removal likely on Tuesday. Patient denied any complaints of shortness of breath. No nausea vomiting or a bdominal pain or diarrhea. No dysuria or hematuria. No fever no chills. Current medications reviewed. Objective - Vital Signs Vital signs: Vital Signs Temp 98.2 F 04/13/20 21:00 Pulse 66 04/13/20 21:41 Resp 16 04/13/20 21:00 BP 99/58 04/13/20 21:00 Pulse Ox 96 04/13/20 21:00 Intake & Output 04/13/20 04/13/20 04/14/20 06:59 18:59 06:59 Intake Total 800 590 Balance 800 590 Intake: Intake, IV Titration 800 Amount Sodium Chloride 0.9% 1, 800 000 ml @ 100 mls/hr IV . Q10H ONE Rx#:[id number] Oral 590 Other: Voiding Method Bedside Commode # Voids 2 - Exam PHYSICAL EXAMINATION: Patient is lying in the bed comfortably, no acute distress, awake alert and oriented.. HEENT: Normocephalic. Neck is supple. Pupils reactive. Nostrils clear. Oral cavity is moist. Ears reveal no drainage. Neck reveals no JVD, carotid bruits, or thyromegaly. CHEST EXAMINATION: Trachea is central. Symmetrical expansion. Bilateral expiratory wheezing and scattered rhonchi.. CARDIAC: Normal S1, S2 with no gallops. No murmurs ABDOMEN: Soft. Bowel sounds normal. No organomegaly. No abdominal bruits. Left flank tenderness. Extremities: reveal no edema. No clubbing or cyanosis Neurologically awake, alert, oriented x3 with well-coordinated movements. No focal deficits noted Skin: No rash or skin lesions. Psychiatric: Coperative. Nonsuicidal Musculoskeletal: No joint swelling or deformity. Normal range of motion. - Labs CBC & Chem 7: 04/13/20 05:21 04/13/20 05:21 Labs: Abnormal Lab Results - Last 24 Hours (Table) 04/13/20 04/13/20 Range/Units 05:21 05:21 RBC 3.23 L (3.80-5.40) m/uL Hgb 10.9 L (11.4-16.0) gm/dL MCV 115.6 H (80.0-100.0) fL MCHC 29.1 L (31.0-37.0) g/dL Neutrophils # 9.7 H (1.3-7.7) k/uL Lymphocytes # 0.3 L (1.0-4.8) k/uL Macrocytosis Marked A Chloride 110 H (96-109) mmol/L BUN 30.0 H (9.0-27.0) mg/dL Est GFR (CKD-EPI)NonAf 56.2 L (60.0-200.0) BUN/Creatinine Ratio 30.00 H (12.00-20.00) Ratio Glucose 115 H (70-110) mg/dL Calcium 7.7 L (8.7-10.3) mg/dL Assessment and Plan Assessment: Renal calculi with moderate left hydroureternephrosis secondary to 6 mm stone in the UVJ Lung CA with metastases to the brain 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 Urology is following. Recommends ureteroscopic stone removal. Continue medical management Time with Patient: Greater than 30
[2020-04-14] MEDS: IPRATROPIUM-ALBUTEROL 3 ML NEB INHALATION SCH ×6 (00:53→19:52)
[2020-04-14] MEDS: HYDROmorphone 0.5 MG/0.5 ML SYRINGE IVP PRN ×7 (02:30→20:50)
[2020-04-14 05:12] LABS: Basophils % (A) 0 %; Eosinophils # (A) 0.1 k/uL (0-0.7); Eosinophils % (A) 0 %; HCT 34.8 % (34.0-46.0); HGB 9.9 gm/dL (11.4-16.0); Hypochromasia Marked; Lymphocytes # (A) 0.3 k/uL (1.0-4.8); Lymphocytes % (A) 3 %; MCH 32.3 pg (25.0-35.0); MCHC 28.5 g/dL (31.0-37.0); Macrocytosis Marked; Mean Platelet Volume 7.1; Monocytes # (A) 0.5 k/uL (0-1.0); Monocytes % (A) 4 %; Neutrophils # (A) 10.7 k/uL (1.3-7.7); Neutrophils % (A) 92 %; Platelet Count 247 k/uL (150-450); RBC 3.06 m/uL (3.80-5.40); RDW 14.6 % (11.5-15.5); WBC 11.6 k/uL (3.8-10.6)
[2020-04-14] MEDS: hydrOXYzine pamoate 25 MG CAP PO SCH ×4 (05:34→23:19)
[2020-04-14] MEDS: LEVOTHYROXINE 100 MCG TAB PO SCH (05:35)
[2020-04-14 05:40] LABS: MCV 113.5 fL (80.0-100.0)
[2020-04-14] MEDS: BUDESONIDE 0.5 MG/2 ML NEBU INHALATION SCH ×2 (07:27→19:52)
--- NOTE | 2020-04-14 08:19 | P.PN ---
Progress Note - Text Progress Note Date: 04/14/20 Ms. Ramsey continues to experience severe left flank pain. She is afebrile with stable vital signs. Given that her symptoms cannot be controlled effectively to allow discharge home, she is now agreeable to ureteroscopic removal of her left distal ureteral calculus. I'm hopeful that this can be performed tomorrow. She understands the rationale for the procedure, and the procedure was reviewed in detail with her. She is aware of potential risks, which include anesthesia, bleeding, infection, and ureteral injury. She hopes to avoid placement of a ureteral stent, but understands that this may be necessary.
[2020-04-14] MEDS: ALPRAZolam 0.25 MG TAB PO SCH ×3 (08:23→21:40)
[2020-04-14] MEDS: dexAMETHasone 4 MG TAB PO SCH ×3 (08:23→21:40)
[2020-04-14] MEDS: TAMSULOSIN 0.4 MG CAP.ER.24H PO SCH (08:23)
[2020-04-14] MEDS: SPIRONOLACTONE 25 MG TAB PO SCH (08:23)
[2020-04-14] MEDS: PANTOPRAZOLE 40 MG TABLET PO SCH (08:23)
[2020-04-14] MEDS: FUROSEMIDE 20 MG TAB PO SCH (08:23)
[2020-04-14 09:25] LABS: African American GFR (CKD) 65.2 (60.0-200.0); Anion Gap 6.1 mmol/L (4.00-12.00); Calcium 7.8 mg/dL (8.7-10.3); Carbon Dioxide 27.9 mmol/L (21.6-31.8); Non-African American GFR(CKD) 56.2 (60.0-200.0); Potassium 4.2 mmol/L (3.5-5.5)
--- NOTE | 2020-04-14 12:59 | P.PN ---
Subjective Progress Note Date: 04/14/20 Objective - Vital Signs Vital signs: Vital Signs Temp 97.5 F L 04/14/20 11:22 Pulse 67 04/14/20 11:22 Resp 16 04/14/20 11:22 BP 106/63 04/14/20 11:22 Pulse Ox 94 L 04/14/20 11:22 Intake & Output 04/13/20 04/14/20 04/14/20 18:59 06:59 18:59 Intake Total 800 1180 Balance 800 1180 Intake: Intake, IV Titration 800 Amount Sodium Chloride 0.9% 1, 800 000 ml @ 100 mls/hr IV . Q10H ONE Rx#:[id number] Oral 1180 Other: Voiding Method Bedside Commode Bedside Commode Bedside Commode # Voids 3 1 - Constitutional General appearance: Present: cooperative, no acute distress - EENT Eyes: Present: EOMI, poor dentition ENT: Present: hard of hearing, NA/AT - Neck Neck: Present: normal ROM - Respiratory Respiratory: bilateral: diminished, rhonchi - Cardiovascular Rhythm: regular - Gastrointestinal General gastrointestinal: Present: soft - Integumentary Integumentary: Present: pale - Neurologic Neurologic: Present: CNII-XII intact - Musculoskeletal Musculoskeletal: Present: gait normal, generalized weakness - Psychiatric Psychiatric Comment(s): Poor Historian, mild confusion, easily re-oriented Psychiatric: Present: appropriate affect - Labs CBC & Chem 7: 04/14/20 04:24 04/14/20 04:24 Labs: Abnormal Lab Results - Last 24 Hours (Table) 04/14/20 04/14/20 Range/Units 04:24 04:24 WBC 11.6 H (3.8-10.6) k/uL RBC 3.06 L (3.80-5.40) m/uL Hgb 9.9 L (11.4-16.0) gm/dL MCV 113.5 H (80.0-100.0) fL MCHC 28.5 L (31.0-37.0) g/dL Neutrophils # 10.7 H (1.3-7.7) k/uL Lymphocytes # 0.3 L (1.0-4.8) k/uL Macrocytosis Marked A BUN 31.0 H (9.0-27.0) mg/dL Est GFR (CKD-EPI)NonAf 56.2 L (60.0-200.0) BUN/Creatinine Ratio 31.00 H (12.00-20.00) Ratio Glucose 114 H (70-110) mg/dL Calcium 7.8 L (8.7-10.3) mg/dL Assessment and Plan Plan: The patient is a 74-year-old female with a history of oxygen dependent COPD p resenting with history of a stage IIA (cT2b, cN0, M0) 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 She was medically inoperable and underwent SBRT finishing on 03/13/2019. She unfortunately presented in December 2019 with evidence of local-regional recurrence without distant disease and underwent radiotherapy with plans for sequential chemotherapy finishing on 01/15/2020. Then in March of this year she presented for Headaches and mental status changes and unfortunetly a single left occipital brain met (larger than 3.6cm) was identified. She was discharged at that time for plan to undergo SRS treatment with Dr. Naik. Moderate Left Hydronephrosis: Secondary to Renal Stone: - Dr. Mason is following Single left occipital brain metastases: - This was a larger lesion (3.6 cm) and is likely the cause of her headaches. - Status Post one of three treatments, second due today have discussed with Dr. Naik and will consult Tuesday if patient still inpatient - Continue Dexamethasone TID and PPI. Non-small cell lung cancer: - Most recent CT Chest from 03/10 actually showed improvement in thoracic disease after RT. - However, she now has evidence of distant metastasis in the brain. - CT of abdomen/pelvis this admission did not reveal any other definitive metastatic disease COPD: Oxygen Dependent at home Continue support of primary care and other specialties at this time. Patient will follow with radiation oncology after discharge for options of palliation if needed, not a candidate for further systemic chemo or treatment due to other co- mmorbidites and performance status
--- NOTE | 2020-04-15 00:26 | P.PN ---
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 presented to the emergency room with left lower quadrant pain radiating to left flank for duration of 4 hours with associated symptoms of chills, and nausea. Patient reports dark-colored urine for duration of 1 week, denies dysuria. Patient's extensive workup for abdominal pain with diagnostic labs and imaging revealed moderate left Hydroureternephrosis secondary to a 6 mm stone in the UVJ. Urology consulted. 04/12/2020 Patient is still complaining of left flank pain. Patient is being continued on tamsulosin and currently does not want any procedures like cystoscopy and stone removal. Patient is being continued on Dilaudid for pain control. With the p atient is still having pain she will need ureteroscopic removal of the calculus. Patient has been afebrile. No chest pain or shortness of breath. Patient is on home oxygen. WBC 8.9, hemoglobin 10.4 and platelets 253 Potassium 5.3 BUN 36 and creatinine 0.93 and calcium 7.3 albumin 3.1 04/13/2020 Patient is currently lying in the bed comfortably. Patient still having left flank pain. Currently being continued on pain management and IV fluids. Urology is planning for ureteroscopic stone removal likely on Tuesday. Patient denied any complaints of shortness of breath. No nausea vomiting or a bdominal pain or diarrhea. No dysuria or hematuria. No fever no chills. 04/14/2020 Patient is currently resting in the bed still complains of left flank pain. Patient is agreeable for ureteroscopic stone removal which is scheduled for tomorrow. Otherwise patient has been afebrile. No nausea vomiting or abdominal pain. No diarrhea or dysuria. Laboratory data reviewed. Current medications reviewed. Objective - Vital Signs Vital signs: Vital Signs Temp 97.4 F L 04/14/20 20:18 Pulse 72 04/14/20 20:18 Resp 16 04/14/20 20:18 BP 105/56 04/14/20 20:18 Pulse Ox 95 04/14/20 20:18 Intake & Output 04/14/20 04/14/20 04/15/20 06:59 18:59 06:59 Intake Total 1180 800 Balance 1180 800 Intake: Intake, IV Titration 800 Amount Sodium Chloride 0.9% 1, 800 000 ml @ 100 mls/hr IV . Q10H ONE Rx#:[id number] Oral 1180 Other: Voiding Method Bedside Commode Bedside Commode # Voids 3 1 1 - Exam PHYSICAL EXAMINATION: Patient is lying in the bed comfortably, no acute distress, awake alert and oriented.. HEENT: Normocephalic. Neck is supple. Pupils reactive. Nostrils clear. Oral cavity is moist. Ears reveal no drainage. Neck reveals no JVD, carotid bruits, or thyromegaly. CHEST EXAMINATION: Trachea is central. Symmetrical expansion. Bilateral expiratory wheezing and scattered rhonchi.. CARDIAC: Normal S1, S2 with no gallops. No murmurs ABDOMEN: Soft. Bowel sounds normal. No organomegaly. No abdominal bruits. Left flank tenderness. Extremities: reveal no edema. No clubbing or cyanosis Neurologically awake, alert, oriented x3 with well-coordinated movements. No focal deficits noted Skin: No rash or skin lesions. Psychiatric: Coperative. Nonsuicidal Musculoskeletal: No joint swelling or deformity. Normal range of motion. - Labs CBC & Chem 7: 04/14/20 04:24 04/14/20 04:24 Labs: Abnormal Lab Results - Last 24 Hours (Table) 04/14/20 04/14/20 Range/Units 04:24 04:24 WBC 11.6 H (3.8-10.6) k/uL RBC 3.06 L (3.80-5.40) m/uL Hgb 9.9 L (11.4-16.0) gm/dL MCV 113.5 H (80.0-100.0) fL MCHC 28.5 L (31.0-37.0) g/dL Neutrophils # 10.7 H (1.3-7.7) k/uL Lymphocytes # 0.3 L (1.0-4.8) k/uL Macrocytosis Marked A BUN 31.0 H (9.0-27.0) mg/dL Est GFR (CKD-EPI)NonAf 56.2 L (60.0-200.0) BUN/Creatinine Ratio 31.00 H (12.00-20.00) Ratio Glucose 114 H (70-110) mg/dL Calcium 7.8 L (8.7-10.3) mg/dL Assessment and Plan Assessment: Renal calculi with moderate left hydroureternephrosis secondary to 6 mm stone in the UVJ Lung CA with metastases to the brain 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 Urology is following. Recommends ureteroscopic stone removal. Continue medical management Time with Patient: Greater than 30
[2020-04-15] MEDS: HYDROmorphone 0.5 MG/0.5 ML SYRINGE IVP PRN ×6 (00:37→22:48)
[2020-04-15] MEDS: IPRATROPIUM-ALBUTEROL 3 ML NEB INHALATION SCH ×6 (02:19→20:06)
[2020-04-15] MEDS: hydrOXYzine pamoate 25 MG CAP PO SCH ×4 (05:04→23:35)
[2020-04-15] MEDS: LEVOTHYROXINE 100 MCG TAB PO SCH (05:05)
[2020-04-15] MEDS: BUDESONIDE 0.5 MG/2 ML NEBU INHALATION SCH ×2 (07:33→20:06)
[2020-04-15] MEDS: FUROSEMIDE 20 MG TAB PO SCH (08:23)
[2020-04-15] MEDS: TAMSULOSIN 0.4 MG CAP.ER.24H PO SCH (08:23)
[2020-04-15] MEDS: SPIRONOLACTONE 25 MG TAB PO SCH (08:23)
[2020-04-15] MEDS: dexAMETHasone 4 MG TAB PO SCH ×3 (08:23→21:23)
[2020-04-15] MEDS: PANTOPRAZOLE 40 MG TABLET PO SCH (08:23)
[2020-04-15] MEDS: ALPRAZolam 0.25 MG TAB PO SCH ×3 (08:23→21:23)
--- NOTE | 2020-04-15 08:56 | P.PN ---
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 She was medically inoperable and underwent SBRT finishing on 03/13/2019. She unfortunately presented with evidence of local-regional recurrence without distant disease and underwent radiotherapy finishing on 01/15/2020. She unfortunately was found to have a 3.6 cm left occipital brain metastasis in 03/2020. She started radiosurgery finishing 1/3 fractions prior to being hospitalized with a kidney stone. The patient was seen on 04/14/20 in the AM. States she is still having left sided abdominal discomfort in upper quadrant. Notes good relief from Dilaudid, but states she can tell when the 3 hour window is up for her next dose as pain is returning. She is planning to procedure on 04/15/[address] Mason to remove stone as this has not passed. The patient would like to hold off on finishing her brain radiotherapy (has 2 more treatments) until after the procedure. She denies headaches, nausea or confusion at this time. Objective - Vital Signs Vital signs: Vital Signs Temp 98.0 F 04/15/20 04:55 Pulse 68 04/15/20 07:48 Resp 16 04/15/20 04:55 BP 102/61 04/15/20 05:02 Pulse Ox 95 04/15/20 04:55 Intake & Output 04/14/20 04/15/20 04/15/20 18:59 06:59 18:59 Intake Total 800 Balance 800 Intake: Intake, IV Titration 800 Amount Sodium Chloride 0.9% 1, 800 000 ml @ 100 mls/hr IV . Q10H ONE Rx#:[id number] Other: Voiding Method Bedside Commode Bedside Commode # Voids 1 1 - Constitutional General appearance: Present: no acute distress - EENT Eyes: Present: EOMI, PERRLA - Neck Neck: Absent: lymphadenopathy - Respiratory Respiratory: bilateral: CTA - Cardiovascular Rhythm: regular - Gastrointestinal General gastrointestinal: Present: tenderness (left upper abdomen) - Neurologic Neurologic: Present: CNII-XII intact - Psychiatric Psychiatric: Present: A&O x's 3, appropriate affect, intact judgment & insight - Labs CBC & Chem 7: 04/14/20 04:24 04/14/20 04:24 Labs: Abnormal Lab Results - Last 24 Hours (Table) 04/14/20 Range/Units 04:24 BUN 31.0 H (9.0-27.0) mg/dL Est GFR (CKD-EPI)NonAf 56.2 L (60.0-200.0) BUN/Creatinine Ratio 31.00 H (12.00-20.00) Ratio Glucose 114 H (70-110) mg/dL Calcium 7.8 L (8.7-10.3) mg/dL Assessment and Plan Assessment: The patient is a 74-year-old female with a history of oxygen dependent COPD presenting with history of a stage IIA (cT2b, cN0, M0) 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 She was medically inoperable and underwent SBRT finishing on 03/13/2019. She unfortunately presented with evidence of local-regional recurrence without distant disease and underwent radiotherapy finishing on 01/15/2020. She unfortunately was found to have a 3.6 cm left occipital brain metastasis in 03/2020. She started radiosurgery finishing 1/3 fractions prior to being hospitalized with a kidney stone. Plan: 1. Left kidney stone: Plan for procedure 04/15/2020 to remove. 2. Brain metastasis: Patient has finished 1 of 3 planned RT treatments for this lesion. Continue dexamethasone; will re-evaluate patient on 04/16/20 regarding resuming radiotherapy. Patient did not feel up to undergoing a treatment on 04/14/20. Time with Patient: Less than 30
--- NOTE | 2020-04-15 09:53 | XR ---
EXAMINATION TYPE: XR abdomen 2V DATE OF EXAM: 04/15/2020 CLINICAL DATA: 74-year-old female with abdominal pain, postop patient, [facility] COMPARISON: Correlation CT 04/11/2020 FINDINGS: There is large stool burden throughout the colon. Multiple surgical clips, staple lines, and skin sta ples throughout. No dilated small bowel or air-fluid levels are seen. No evidence for free intraperit rasmussen air. IMPRESSION: Large stool burden throughout. Correlate for constipation. If indicated, consider a cleansing enema. No evidence for small bowel obstruction or free air.
[2020-04-15 10:42] LABS: Basophils # (A) 0.1 k/uL (0-0.2); Basophils % (A) 1 %; Eosinophils # (A) 0.1 k/uL (0-0.7); Eosinophils % (A) 1 %; HCT 35.7 % (34.0-46.0); HGB 10.6 gm/dL (11.4-16.0); Hypochromasia Marked; Lymphocytes # (A) 0.2 k/uL (1.0-4.8); Lymphocytes % (A) 2 %; MCH 33.3 pg (25.0-35.0); MCHC 29.6 g/dL (31.0-37.0); MCV 112.2 fL (80.0-100.0); Macrocytosis Marked; Mean Platelet Volume 7.4; Monocytes # (A) 0.5 k/uL (0-1.0); Monocytes % (A) 5 %; Neutrophils # (A) 9.2 k/uL (1.3-7.7); Neutrophils % (A) 90 %; Platelet Count 246 k/uL (150-450); RBC 3.18 m/uL (3.80-5.40); RDW 14.4 % (11.5-15.5); WBC 10.2 k/uL (3.8-10.6)
[2020-04-15 10:44] LABS: INR 0.9 (<1.2); Prothrombin Time 9.4 sec (9.0-12.0)
[2020-04-15 10:50] LABS: Partial Thromboplastin Time 19.8 sec (22.0-30.0)
[2020-04-15 11:18] LABS: ALT 66 U/L (4-34); AST 24 U/L (14-36); African American GFR (CKD) 88 (>60 ml/min/1.73 sqM); Albumin 3.1 g/dL (3.5-5.0); Albumin/Globulin Ratio 1.2; Alkaline Phosphatase 56 U/L (38-126); Anion Gap 5 mmol/L; Blood Urea Nitrogen 35 mg/dL (7-17); Carbon Dioxide 26 mmol/L (22-30); Chloride 110 mmol/L (98-107); Globulin 2.5 g/dL; Glucose 93 mg/dL (74-99); Non-African American GFR(CKD) 77 (>60 ml/min/1.73 sqM); Sodium 141 mmol/L (137-145); Total Bilirubin 0.5 mg/dL (0.2-1.3); Total Protein 5.6 g/dL (6.3-8.2)
[2020-04-15 11:26] LABS: Potassium 4.6 mmol/L (3.5-5.1)
[2020-04-15 11:39] LABS: Poikilocytosis (M) Present
[2020-04-15] MEDS: METOCLOPRAMIDE 5 MG/ML 2 ML VIAL IVP PRN (12:27)
[2020-04-15] MEDS ORDERED: IV FLUID CONTINUATION 1,000 ML IV ONE (15:21)
[2020-04-15] MEDS ORDERED: LACTATED RINGERS 1,000 ML IV ONE (17:06)
[2020-04-15] MEDS ORDERED: ePHEDrine SULFATE/0.9% NACL/PF 50 MG/5 ML SYRINGE IV ONE (17:08)
[2020-04-15] MEDS ORDERED: fentaNYL (PF) 50 MCG/ML 2 ML AMP ONE (17:08)
[2020-04-15] MEDS ORDERED: MIDAZOLAM 2 MG/2 ML VIAL ONE (17:08)
--- NOTE | 2020-04-15 18:05 | P.OP ---
Date of Procedure: 04/15/20 Preoperative Diagnosis: Left ureteral calculus Postoperative Diagnosis: Same Procedure(s) Performed: Cystoscopy, left ureteroscopy with Holmium laser lithotripsy and stone basketing Anesthesia: spinal Surgeon: Jose De Jesus Mason Estimated Blood Loss (ml): 0 IV fluids (ml): 200 Pathology: other (Calculus fragments, sent for chemical analysis) Condition: stable Disposition: PACU Indications for Procedure: The patient is a 74-year-old white female admitted with the left renal colic due to a 6 mm left UVJ calculus. She has failed conservative therapy and will thus undergo ureteroscopic removal of the calculus. Operative Findings: Left distal ureteral calculus, fragmented and removed completely. Description of Procedure: The patient was taken to the operating room and placed in the dorsolithotomy position, with legs supported in [place] stirrups. The external genitalia was prepped and draped sterilely. The 30 lens was used to introduce the 21-Romanian Pascual cystoscopic sheath through the urethra and into the bladder under direct vision. The bladder was examined in its entirety. Both ureteral orifices were normal anatomic location and configuration, and clear urine effluxed from both. No tumors or foreign bodies were seen. The Pascual semirigid ureteroscope was advanced into the bladder, and the left ureteral orifice was cannulated. The calculus was identified at the orifice. The 272 micron Holmium laser probe was passed through the ureteroscope, and lithotripsy was performed. The calculus was very dense, likely composed of calcium oxalate monohydrate. A 1.9-Romanian nitinol basket was used to remove all calculus fragments. The ureter was inspected. There was no evidence of ureteral perforation. The bladder was emptied and the cystoscope removed. The patient tolerated the procedure well and was taken to the recovery room in stable condition. iFlex[employer] Report: Procedure Acuity: Urgent Stone Size and Location: 6 mm, left UVJ Ureteral Dilation: No Ureteral Access Sheath Used: No Stone Sent for Analysis: Yes All Stones/Fragments Were Removed with a Basket: Yes Complications: No Preoperative Antibiotics Given: No Stent Placed: No
--- NOTE | 2020-04-15 19:18 | P.PN ---
Subjective Progress Note Date: 04/15/20 Principal diagnosis: Renal calculi with moderate left hydroureternephrosis contender to 6 mm stone in the UVJ 74-year-old female with a history of oxygen dependent COPD with a history of IIA orally differentiated squamous cell carcinoma of left upper lung. Patient was admitted to the emergency department for outer left hydroureternephrosis secondary to 6 mm stone in the UVJ. Patient required IV analgesic pain and discomfort possibly related to 6 mm stone; patient scheduled ureteroscope stone removal. Patient continues to be dyspnea on exertion related to end-stage COPD and lung CA. Objective - Vital Signs Vital signs: Vital Signs Temp 96.9 F L 04/15/20 18:04 Pulse 52 L 04/15/20 18:45 Resp 16 04/15/20 18:45 BP 104/55 04/15/20 18:45 Pulse Ox 96 04/15/20 18:45 Intake & Output 04/15/20 04/15/20 04/16/20 06:59 18:59 06:59 Intake Total 850 Balance 850 Weight 56.245 kg Intake: IV 850 Other: Voiding Method Bedside Commode Bedside Commode # Voids 1 3 - Constitutional General appearance: Present: mild distress, thin - EENT Eyes: Present: PERRLA, poor dentition ENT: Present: hard of hearing, pharyngeal erythema Ears: bilateral: normal - Respiratory Respiratory: bilateral: prolonged expiration (Anterior and posterior), prolonged inspiration (Anterior and posterior) - Cardiovascular Details: Normal sinus rhythm Heart rate: 65 Rhythm: regular - Gastrointestinal General gastrointestinal: Present: decreased bowel sounds Localized gastrointestinal: tender: diffuse - Integumentary Integumentary: Present: pale - Neurologic Neurologic: Present: CNII-XII intact - Musculoskeletal Musculoskeletal: Present: generalized weakness - Psychiatric Psychiatric: Present: A&O x's 3, appropriate affect - Labs CBC & Chem 7: 04/15/20 09:58 04/15/20 09:58 Labs: Abnormal Lab Results - Last 24 Hours (Table) 04/15/20 04/15/20 04/15/20 Range/Units 09:58 09:58 09:58 RBC 3.18 L (3.80-5.40) m/uL Hgb 10.6 L (11.4-16.0) gm/dL MCV 112.2 H (80.0-100.0) fL MCHC 29.6 L (31.0-37.0) g/dL Neutrophils # 9.2 H (1.3-7.7) k/uL Lymphocytes # 0.2 L (1.0-4.8) k/uL Macrocytosis Marked A APTT 19.8 L (22.0-30.0) sec Chloride 110 H (98-107) mmol/L BUN 35 H (7-17) mg/dL Calcium 8.0 L (8.4-10.2) mg/dL ALT 66 H (4-34) U/L Total Protein 5.6 L (6.3-8.2) g/dL Albumin 3.1 L (3.5-5.0) g/dL - Imaging and Cardiology Abdominal x-ray: report reviewed CT scan - pelvis: report reviewed Assessment and Plan Assessment: Renal calculi with moderate left hydroureternephrosis secondary to 6 mm stone in the UVJ Lung CA with metastases to the brain 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 GERD Hypothyroidism (1) Calculus of kidney Narrative/Plan: Awaiting ureteroscope stone removal Current Visit: Yes Status: Acute Code(s): N20.0 - CALCULUS OF KIDNEY SNOMED Code(s): 53827688 (2) Hydronephrosis with renal and ureteral calculous obstruction Narrative/Plan: Awaiting ureteroscope for stone removal Current Visit: Yes Status: Acute Code(s): N13.2 - HYDRONEPHROSIS WITH RENAL AND URETERAL CALCULOUS OBSTRUCTION SNOMED Code(s): 546568679 Plan: IV hydration with isotonic fluid Renal calculiurology procedure for ureteroscope for stone removal Continue consultation with oncology Continue medical management Time with Patient: Greater than 30
[2020-04-16] MEDS: IPRATROPIUM-ALBUTEROL 3 ML NEB INHALATION SCH ×5 (00:50→20:38)
[2020-04-16] MEDS ORDERED: IPRATROPIUM-ALBUTEROL 3 ML NEB INHALATION PRN (01:15)
[2020-04-16] MEDS: HYDROmorphone 0.5 MG/0.5 ML SYRINGE IVP PRN ×5 (02:23→16:20)
[2020-04-16] MEDS: hydrOXYzine pamoate 25 MG CAP PO SCH ×4 (05:40→18:14)
[2020-04-16] MEDS: LEVOTHYROXINE 100 MCG TAB PO SCH (05:41)
[2020-04-16 05:50] LABS: Basophils % (A) 0 %; Eosinophils # (A) 0.1 k/uL (0-0.7); Eosinophils % (A) 1 %; HCT 34.5 % (34.0-46.0); HGB 9.7 gm/dL (11.4-16.0); Hypochromasia Marked; Lymphocytes # (A) 0.2 k/uL (1.0-4.8); Lymphocytes % (A) 3 %; MCH 32.6 pg (25.0-35.0); MCHC 28.2 g/dL (31.0-37.0); MCV 115.6 fL (80.0-100.0); Macrocytosis Marked; Mean Platelet Volume 7.4; Monocytes # (A) 0.5 k/uL (0-1.0); Monocytes % (A) 6 %; Neutrophils # (A) 6.9 k/uL (1.3-7.7); Neutrophils % (A) 89 %; Platelet Count 250 k/uL (150-450); RBC 2.99 m/uL (3.80-5.40); RDW 15.3 % (11.5-15.5); WBC 7.7 k/uL (3.8-10.6)
[2020-04-16] MEDS: BUDESONIDE 0.5 MG/2 ML NEBU INHALATION SCH ×2 (06:19→20:38)
[2020-04-16] MEDS: PANTOPRAZOLE 40 MG TABLET PO SCH (07:48)
[2020-04-16] MEDS: FUROSEMIDE 20 MG TAB PO SCH (07:48)
[2020-04-16] MEDS: TAMSULOSIN 0.4 MG CAP.ER.24H PO SCH (07:48)
[2020-04-16] MEDS: SPIRONOLACTONE 25 MG TAB PO SCH (07:48)
[2020-04-16] MEDS: dexAMETHasone 4 MG TAB PO SCH ×3 (07:48→21:57)
[2020-04-16] MEDS: ALPRAZolam 0.25 MG TAB PO SCH ×3 (07:48→22:27)
--- NOTE | 2020-04-16 08:32 | P.PN ---
Progress Note - Text Progress Note Date: 04/16/20 The patient underwent successful removal of her left distal ureteral calculus yesterday. Her pain has resolved. She had a bowel movement this morning and is feeling very good. She is tolerating breakfast. She is urologically stable for discharge and will follow up with me as needed.
--- NOTE | 2020-04-16 09:12 | P.PN ---
Subjective Progress Note Date: 04/16/20 Principal diagnosis: Renal calculi with moderate left hydroureternephrosis contender to 6 mm stone in the UVJ 74-year-old female with a history of oxygen dependent COPD with a history of IIA orally differentiated squamous cell carcinoma of left upper lung. Urology performed a scope for stone removal of left hydroureternephrosis secondary to 6 mm stone in the UVJ. Patient continues to be dyspnea on exertion related to end-stage COPD and lung CA. patient resting in bed comfortably, patient denies any complaints at this time Objective - Vital Signs Vital signs: Vital Signs Temp 97.5 F L 04/16/20 04:20 Pulse 75 04/16/20 06:16 Resp 16 04/16/20 04:20 BP 100/57 04/16/20 04:20 Pulse Ox 96 04/16/20 04:20 Intake & Output 04/15/20 04/16/20 04/16/20 18:59 06:59 18:59 Intake Total 1050 820 Output Total 600 Balance 1050 820 -600 Weight 56.245 kg Intake: IV 1050 100 Oral 720 Output: Urine 600 Other: Voiding Method Bedside Commode Bedside Commode # Voids 3 2 - Constitutional General appearance: Present: thin - EENT Eyes: Present: EOMI, PERRLA Ears: bilateral: normal - Respiratory Respiratory: bilateral: prolonged expiration (Anterior and posterior), prolonged inspiration (Anterior and posterior) - Cardiovascular Details: Normal sinus rhythm Heart rate: 72 Rhythm: regular Heart sounds: normal: S1, S2 - Gastrointestinal General gastrointestinal: Present: normal bowel sounds - Integumentary Integumentary: Present: decreased turgor, pale - Neurologic Neurologic: Present: CNII-XII intact - Musculoskeletal Musculoskeletal: Present: generalized weakness - Allied health notes Allied health notes reviewed: case management - Labs CBC & Chem 7: 04/16/20 05:18 04/15/20 09:58 Labs: Abnormal Lab Results - Last 24 Hours (Table) 04/15/20 04/15/20 04/15/20 Range/Units 09:58 09:58 09:58 RBC 3.18 L (3.80-5.40) m/uL Hgb 10.6 L (11.4-16.0) gm/dL MCV 112.2 H (80.0-100.0) fL MCHC 29.6 L (31.0-37.0) g/dL Neutrophils # 9.2 H (1.3-7.7) k/uL Lymphocytes # 0.2 L (1.0-4.8) k/uL Macrocytosis Marked A APTT 19.8 L (22.0-30.0) sec Chloride 110 H (98-107) mmol/L BUN 35 H (7-17) mg/dL Calcium 8.0 L (8.4-10.2) mg/dL ALT 66 H (4-34) U/L Total Protein 5.6 L (6.3-8.2) g/dL Albumin 3.1 L (3.5-5.0) g/dL 04/16/20 Range/Units 05:18 RBC 2.99 L (3.80-5.40) m/uL Hgb 9.7 L (11.4-16.0) gm/dL MCV 115.6 H (80.0-100.0) fL MCHC 28.2 L (31.0-37.0) g/dL Neutrophils # (1.3-7.7) k/uL Lymphocytes # 0.2 L (1.0-4.8) k/uL Macrocytosis Marked A APTT (22.0-30.0) sec Chloride (98-107) mmol/L BUN (7-17) mg/dL Calcium (8.4-10.2) mg/dL ALT (4-34) U/L Total Protein (6.3-8.2) g/dL Albumin (3.5-5.0) g/dL - Imaging and Cardiology Abdominal x-ray: report reviewed Assessment and Plan Assessment: Renal calculi with moderate left hydroureternephrosis secondary to 6 mm stone in the UVJ Lung CA with metastases to the brain 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 Lockwood Current Visit: Yes Status: Acute Code(s): N20.0 - CALCULUS OF KIDNEY SNOMED Code(s): 41282488 (2) Hydronephrosis with renal and ureteral calculous obstruction Narrative/Plan: lUreteroscope stone removal see operative note from Dr. Lockwood Current Visit: Yes Status: Acute Code(s): N13.2 - HYDRONEPHROSIS WITH RENAL AND URETERAL CALCULOUS OBSTRUCTION SNOMED Code(s): 825115101 Plan: IV hydration with isotonic fluid Renal calculiurology procedure for ureteroscope for stone removed Continue consultation with oncologyfor lung CA Continue medical management Time with Patient: Less than 30
[2020-04-16 10:13] LABS: African American GFR (CKD) 85.4 (60.0-200.0); Albumin 3.3 g/dL (3.80-4.90); Albumin/Globulin Ratio 2.54 (1.60-3.17); BUN/Creat Ratio 36.25 Ratio (12.00-20.00); Globulin 1.3 g/dL (1.6-3.3); Non-African American GFR(CKD) 73.7 (60.0-200.0); Potassium 4.3 mmol/L (3.5-5.5); Total Bilirubin 0.2 mg/dL (0.3-1.2); Total Protein 4.6 g/dL (6.2-8.2)
[2020-04-16] MEDS: SODIUM CHLORIDE 0.9% 1,000 ML IV SCH ×2 (13:33→21:51)
[2020-04-16] MEDS ORDERED: HYDROmorphone 0.5 MG/0.5 ML SYRINGE IVP ONE (19:00)
--- NOTE | 2020-04-16 21:01 | P.PN ---
Progress Note - Text Progress Note Date: 04/16/20 Patient resting in bed. Patient complaint of intermittent abdominal discomfort. Informed patient of attempt to discontinue IV pain medication, and use oral pain medication for discomfort. Patient continues to require supplemental IV hydration for mild dehydration. Patient will continue medical management, with oncology recommendations. Will reassess oral pain medication for discomfort within the next 24 hours. Hopeful discharge within 24 hours.
[2020-04-17] MEDS: hydrOXYzine pamoate 25 MG CAP PO SCH ×3 (00:05→12:54)
[2020-04-17 01:46] VITALS: RESP 18
[2020-04-17] MEDS ORDERED: LEVOTHYROXINE 112 MCG TAB PO SCH (06:30)
[2020-04-17] MEDS: ALPRAZolam 0.25 MG TAB PO SCH ×2 (08:25→15:28)
[2020-04-17] MEDS: TAMSULOSIN 0.4 MG CAP.ER.24H PO SCH (08:30)
[2020-04-17] MEDS: PANTOPRAZOLE 40 MG TABLET PO SCH (08:32)
[2020-04-17] MEDS: SPIRONOLACTONE 25 MG TAB PO SCH (08:33)
[2020-04-17] MEDS: FUROSEMIDE 20 MG TAB PO SCH (08:33)
[2020-04-17] MEDS: dexAMETHasone 4 MG TAB PO SCH ×2 (08:33→15:28)
--- NOTE | 2020-04-17 08:49 | P.PN ---
Subjective Progress Note Date: 04/17/20 Principal diagnosis: Renal calculi with moderate left hydroureternephrosis secondary to 6 mm stone in the UVJ 74-year-old female with a history of oxygen dependent COPD with a history of IIA poorly differentiated squamous cell carcinoma of left upper lung. Urology performed a scope for stone removal of left hydroureternephrosis secondary to 6 mm stone in the UVJ. Patient continues to be dyspnea on exertion related to end-stage COPD and lung CA. patient resting in bed comfortably. Patient complained of intermittent abdominal discomfort Objective - Vital Signs Vital signs: Vital Signs Temp 97.2 F L 04/17/20 08:35 Pulse 76 04/17/20 08:35 Resp 18 04/17/20 08:35 BP 110/63 04/17/20 08:35 Pulse Ox 96 04/17/20 08:35 Intake & Output 04/16/20 04/17/20 04/17/20 18:59 06:59 18:59 Intake Total 600 600 Output Total 600 Balance 0 600 Weight 56.245 kg Intake: Intake, IV Titration 600 600 Amount Sodium Chloride 0.9% 1, 600 600 000 ml @ 75 mls/hr IV . [id number] VERÓNICA Rx#:[id number] Output: Urine 600 Other: Voiding Method Toilet Toilet # Voids 1 # Bowel Movements 2 - Constitutional General appearance: Present: thin - EENT Eyes: Present: edentulous, PERRLA Ears: bilateral: normal - Neck Carotids: bilateral: upstroke normal Thyroid: bilateral: normal size - Respiratory Respiratory: bilateral: diminished (Anterior lung simon), wheezing (Posterior lung ismon) - Cardiovascular Details: Normal sinus rhythm Heart rate: 76 Rhythm: regular - Gastrointestinal General gastrointestinal: Present: soft Localized gastrointestinal: tender: LLQ - Integumentary Integumentary: Present: normal turgor, pale (Mild lower extremity dependent edema) - Neurologic Neurologic: Present: CNII-XII intact - Musculoskeletal Musculoskeletal: Present: generalized weakness - Psychiatric Psychiatric: Present: A&O x's 3 - Allied health notes Allied health notes reviewed: nursing - Labs CBC & Chem 7: 04/16/20 05:18 04/16/20 05:18 Labs: Abnormal Lab Results - Last 24 Hours (Table) 04/16/20 04/16/20 Range/Units 05:18 05:18 BUN 29.0 H (9.0-27.0) mg/dL BUN/Creatinine Ratio 36.25 H (12.00-20.00) Ratio Calcium 8.0 L (8.7-10.3) mg/dL Total Bilirubin 0.2 L (0.3-1.2) mg/dL ALT 64 H (8-44) U/L Total Protein 4.6 L (6.2-8.2) g/dL Albumin 3.30 L (3.80-4.90) g/dL Globulin 1.3 L (1.6-3.3) g/dL TSH 5.950 H (0.350-5.500) uIU/mL Assessment and Plan Assessment: Renal calculi with moderate left hydroureternephrosis secondary to 6 mm stone in the UVJ Lung CA with metastases to the brain 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 Lockwood Current Visit: Yes Status: Acute Code(s): N20.0 - CALCULUS OF KIDNEY SNOMED Code(s): 64442691 (2) Hydronephrosis with renal and ureteral calculous obstruction Narrative/Plan: lUreteroscope stone removal see operative note from Dr. Lockwood Current Visit: Yes Status: Acute Code(s): N13.2 - HYDRONEPHROSIS WITH RENAL AND URETERAL CALCULOUS OBSTRUCTION SNOMED Code(s): 391892074 Plan: IV hydration with isotonic fluid Renal calculiurology procedure for ureteroscope for stone removed Continue consultation with oncologyfor lung CA Radiation treatment today will reevaluate tonight for possible discharge Continue medical management Time with Patient: Less than 30
[2020-04-17] MEDS: BUDESONIDE 0.5 MG/2 ML NEBU INHALATION SCH (08:58)
[2020-04-17] MEDS: IPRATROPIUM-ALBUTEROL 3 ML NEB INHALATION SCH ×3 (08:58→15:58)
[2020-04-17 15:14] VITALS: PULSE 76
[2020-04-17] MEDS: SODIUM CHLORIDE 0.9% 1,000 ML IV SCH (15:26)
[2020-04-17 15:51] VITALS: BP 118/66; TEMP 97.8
--- NOTE | 2020-04-18 08:41 | P.DS ---
Providers Date of admission: 04/11/20 04:56 Expected date of discharge: 04/17/20 Attending physician: Adryan Lopez Consults: 04/11/20 04:55 Consult Physician Routine Consulting Provider: Jose De Jesus Mason Consult Reason/Comments: stone Do you want consulting provider notified?: Yes 04/11/20 11:35 Consult Physician Routine Consulting Provider: Inocente rCowell Consult Reason/Comments: metastatic lung CA Do you want consulting provider notified?: Yes 04/11/20 11:36 Consult Physician Routine Consulting Provider: Arvind Naik Consult Reason/Comments: metastatic lung CA, pt known Do you want consulting provider notified?: Yes Primary care physician: Adryan Lopez - Discharge Diagnosis(es) (1) Calculus of kidney Ureteroscope performed by Dr. Lockwood to remove 6 mm stone in UVJ Status: Resolved (2) Hydronephrosis with renal and ureteral calculous obstruction Ureteroscope performed by Dr. Lockwood to remove obstructive stone 6 mm UVJ Status: Acute (3) Left ureteral calculus Radioscope performed by Dr. Lockwood removed 6 mm stone in UVJ Status: Acute (4) Lung mass Ongoing treatment with Dr. Naik for radiation therapy Status: Acute (5) Metastatic cancer to brain Ongoing treatment with Dr. Naik with radiation therapy Status: Acute (6) Weakness Encouraging high caloric intake of protein Status: Acute (7) Squamous cell lung cancer Following with Dr. Gumaro Crowell from oncology perspective Status: Chronic Priority: High Hospital Course: 72-year-old female presents emergency center with left lower quadrant pain radiation to left flank with associated nausea. Patient had extensive workup in the emergency roomrevealing a 6 mm left ureteral calculi in the UVJ obstructing with mild hydronephrosis. Urology was consulted, attempted L4 blockers to pass stone; she was unable to pass stone and continue pain intensity asked Dr. Lockwood performed ureter scope to remove the 6 mm stone. During the course of the hospital stay the patient received IV pain medication and IV hydration for the left ureteral calculus. Consulted oncology for recommendations of ongoing lung cancer with metastases. Patient had radiation treatment therapy during her hospital stay. She tolerated radiation treatment and recommendations from oncology patient was switched from IV pain medications to oral pain medications tolerated well with discharge home to family Assessment: Renal calculi with moderate left hydronephrosis and very to 6 mm stone in UVJresolved with ureteroscope by Dr. 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 GERD Hypothyroidism. Health Concerns: Health concerns with generalized weakness and intermittent episodes of confusion. Spoke with sisters in great depthfor monitoring and contacting office if period s of confusion. Pertinent Studies: Abdomen and pelvis CT Chest x-ray Abdominal x-ray Procedures: Ureteroscope were performed by Dr. Lockwood Patient Condition at Discharge: Fair Plan - Discharge Summary Discharge Rx Participant: Yes New Discharge Prescriptions: New Furosemide [Lasix] 20 mg PO DAILY tab Budesonide [Pulmicort] 0.5 mg INHALATION RT-BID ml hydrOXYzine pamoate [Vistaril] 50 mg PO Q6HR cap ALPRAZolam [Xanax] 0.25 mg PO TID tab oxyCODONE HCL [OxyIR] 5 mg PO Q4H PRN tab PRN Reason: Pain Levothyroxine Sodium [Synthroid] 112 mcg PO DAILY@0630 #60 tab Continue Glycopyrrolate/Formoterol Fum [Bevespi Aerosphere Inhaler] 2 puff INHALATION RT-BID Albuterol Sulfate [Ventolin HFA] 2 puff INHALATION RT-Q4H PRN PRN Reason: Shortness Of Breath Magnesium Oxide [Mag-Ox] 400 mg PO TID 30 Days #90 tab Ipratropium-Albuterol Nebulize [Duoneb 0.5 mg-3 mg/3 ml Soln] 3 ml INHALATION RT-QID PRN PRN Reason: Shortness Of Breath Omeprazole [PriLOSEC] 20 mg PO DAILY Dexamethasone [Decadron] See Taper PO DIRECTED Spironolactone 25 mg PO BID Discontinued Levothyroxine Sodium [Synthroid] 100 mcg PO DAILY Butalb/APAP/Caff 50-325-40Mg [Fioricet 50-325-40] 1 tab PO Q4HR PRN PRN Reason: Headache Discharge Medication List Glycopyrrolate/Formoterol Fum [Bevespi Aerosphere Inhaler] 2 puff INHALATION RT- BID 08/10/17 [History] Albuterol Sulfate [Ventolin HFA] 2 puff INHALATION RT-Q4H PRN 11/15/19 [History] Magnesium Oxide [Mag-Ox] 400 mg PO TID 30 Days #90 tab 01/15/20 [Rx] Dexamethasone [Decadron] See Taper PO DIRECTED 04/11/20 [History] Ipratropium-Albuterol Nebulize [Duoneb 0.5 mg-3 mg/3 ml Soln] 3 ml INHALATION RT-QID PRN 04/11/20 [History] Omeprazole [PriLOSEC] 20 mg PO DAILY 04/11/20 [History] Spironolactone 25 mg PO BID 04/11/20 [History] ALPRAZolam [Xanax] 0.25 mg PO TID tab 04/16/20 [Rx] Budesonide [Pulmicort] 0.5 mg INHALATION RT-BID ml 04/16/20 [Rx] Furosemide [Lasix] 20 mg PO DAILY tab 04/16/20 [Rx] hydrOXYzine pamoate [Vistaril] 50 mg PO Q6HR cap 04/16/20 [Rx] Levothyroxine Sodium [Synthroid] 112 mcg PO DAILY@0630 #60 tab 04/17/20 [Rx] oxyCODONE HCL [OxyIR] 5 mg PO Q4H PRN tab 04/17/20 [Rx] Follow up Appointment(s)/Referral(s): Adryan Lopez MD [Primary Care Provider] - 1-2 days Arvind Naik MD [STAFF PHYSICIAN] - 05/07/20 1:00 pm () [facility] Visiting Nurse, [NON-STAFF] - 1 Week Patient Instructions/Handouts: Levothyroxine (By mouth), Kidney Stones (DC) Activity/Diet/Wound Care/Special Instructions: Dr Naik gave pt for Decadron Tapering doses as follows: Decadron 4mg 3 times/day from 04/17/2020 to 04/18/2020 then 4mg 2 times/day from 04/19/2020 to 04/25/2020 then 4 mg 1 time/day from 04/26/2020 to 05/02/2020 then 2 mg 1 time/day from 05/03/2020 to 05/07/2020 then stop Discharge Disposition: HOME SELF-CARE
== END 2020-04-17 17:06 | disposition home or self-care (01) | DRG 669 ==
LOC: EC 02:05 → 6NMEDSUR 04:56 → 5NMEDONC 04-16 16:44
PROVIDERS: ADMIT Family Medicine; ATTEND Family Medicine
PROC: 0TC78ZZ Extirpation of Matter from Left Ureter, Via Natural or Artificial Opening Endoscopic (ICD-10-PCS; principal; 2020-04-15 16:15)
DX: N13.2 Hydronephrosis with renal and ureteral calculous obstruction (principal); C79.31 Secondary malignant neoplasm of brain; C34.90 Malignant neoplasm of unspecified part of unspecified bronchus or lung; K21.9 Gastro-esophageal reflux disease without esophagitis; F17.200 Nicotine dependence, unspecified, uncomplicated; E86.0 Dehydration; E89.0 Postprocedural hypothyroidism; J44.9 Chronic obstructive pulmonary disease, unspecified; Z99.81 Dependence on supplemental oxygen; Z98.84 Bariatric surgery status; Z92.3 Personal history of irradiation; Z90.710 Acquired absence of both cervix and uterus; Z87.442 Personal history of urinary calculi; Z87.11 Personal history of peptic ulcer disease; Z85.118 Personal history of other malignant neoplasm of bronchus and lung; Z83.3 Family history of diabetes mellitus; Z80.41 Family history of malignant neoplasm of ovary; Z79.899 Other long term (current) drug therapy; Z79.890 Hormone replacement therapy; Z88.6 Allergy status to analgesic agent; Z88.5 Allergy status to narcotic agent; Z88.0 Allergy status to penicillin; Z88.2 Allergy status to sulfonamides; Z88.8 Allergy status to other drugs, medicaments and biological substances; Z90.49 Acquired absence of other specified parts of digestive tract; Z98.890 Other specified postprocedural states
CPT/HCPCS: 36415; 71045; 74019; 74177; 77373; 80048; 80053; 81003; 82150; 82365; 82550; 83605; 83690; 83735; 83880; 84439; 84443; 84484; 85025; 85379; 85610; 85730; 87324; 93005; 94640; 94760; 96361; 96374; 96375; 96376; 99285

== ENCOUNTER 2020-04-18 12:36 | Inpatient (IN) | payer MEDICARE, OTHER ==
[2020-04-18] MEDS ORDERED: SODIUM CHLORIDE 0.9% 1,000 ML IV STA ×3 (13:00→13:03)
[2020-04-18] MEDS ORDERED: DEXAMETHASONE SOD PHOSPHATE 10 MG/ML 1 ML VIAL IV STA (13:04)
--- NOTE | 2020-04-18 13:33 | ED ---
Altered Mental Status HPI - General Chief Complaint: Neuro Symptoms/Deficit Stated Complaint: Stroke Time Seen by Provider: 04/18/20 12:59 Source: patient, RN notes reviewed, old records reviewed Mode of arrival: EMS Limitations: no limitations - History of Present Illness Initial Comments: This is a 72-year-old female unable to provide history coming in for evaluation of unresponsiveness. Patient unable to provide history family unable to give accurate history patient was found not be acting appropriately by home care nurse who called EMS and sent patient to ER MD Complaint: altered mental status, confusion, decreased responsiveness -: unknown Severity: severe Consistency of Symptoms: constant Context: cancer Associated Symptoms: denies other symptoms - Related Data Home Medications Medication Instructions Recorded Confirmed Glycopyrrolate/Formoterol Fum 2 puff INHALATION RT-BID 08/10/17 04/18/20 [Bevespi Aerosphere Inhaler] Albuterol Sulfate [Ventolin HFA] 2 puff INHALATION RT-Q4H PRN 11/15/19 04/18/20 Dexamethasone [Decadron] See Taper PO DIRECTED 04/11/20 04/18/20 Ipratropium-Albuterol Nebulize 3 ml INHALATION RT-QID PRN 04/11/20 04/18/20 [Duoneb 0.5 mg-3 mg/3 ml Soln] Omeprazole [PriLOSEC] 20 mg PO DAILY 04/11/20 04/18/20 Spironolactone 25 mg PO BID 04/11/20 04/18/20 Previous Rx's Medication Instructions Recorded Magnesium Oxide [Mag-Ox] 400 mg PO TID 30 Days #90 tab 01/15/20 ALPRAZolam [Xanax] 0.25 mg PO TID tab 04/16/20 Budesonide [Pulmicort] 0.5 mg INHALATION RT-BID ml 04/16/20 Furosemide [Lasix] 20 mg PO DAILY tab 04/16/20 hydrOXYzine pamoate [Vistaril] 50 mg PO Q6HR cap 04/16/20 Levothyroxine Sodium [Synthroid] 112 mcg PO DAILY@0630 #60 tab 04/17/20 oxyCODONE HCL [OxyIR] 5 mg PO Q4H PRN tab 04/17/20 Allergies Allergy/AdvReac Type Severity Reaction Status Date / Time amoxicillin Allergy Swelling Verified 04/18/20 13:27 aspirin Allergy Swelling Verified 04/18/20 13:27 codeine Allergy Anaphylaxis Verified 04/18/20 13:27 hydrocodone [From Vicodin] Allergy Anaphylaxis Verified 04/18/20 13:27 Penicillins Allergy Swelling Verified 04/18/20 13:27 sulfamethoxazole Allergy Swelling Verified 04/18/20 13:27 [From Bactrim] tramadol AdvReac DOES NOT Verified 04/18/20 13:27 WORK steroids Allergy Swelling Uncoded 04/18/20 13:27 Review of Systems ROS Statement: Those systems with pertinent positive or pertinent negative responses have been documented in the HPI. ROS Other: All systems not noted in ROS Statement are negative. 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 History of Any Multi-Drug Resistant Organisms: None Reported Past Surgical History: Appendectomy, Bariatric Surgery, Bowel Resection, Hys terectomy, Orthopedic Surgery Additional Past Surgical History / Comment(s): Prolapsed bowel with colostomy and reversal, bariatric surgery; broke bilateral legs with repair Past Anesthesia/Blood Transfusion Reactions: No Reported Reaction Additional Past Anesthesia/Blood Transfusion Reaction / Comment(s): Pt has received blood in past without reaction. Past Psychological History: No Psychological Hx Reported Smoking Status: Current some day smoker Past Alcohol Use History: None Reported Past Drug Use History: None Reported - Past Family History Mother History Unknown: Yes Family Medical History: Unable to Obtain Additional Family Medical History / Comment(s): The patient is unaware of any significant family history Father Family Medical History: No Reported History Additional Family Medical History / Comment(s): Father is healthy. General Exam Limitations: altered mental status General appearance: lethargic, in distress, cachectic Head exam: Present: atraumatic, normocephalic, normal inspection Eye exam: Present: normal appearance, PERRL, EOMI. Absent: scleral icterus, conjunctival injection, periorbital swelling ENT exam: Present: normal exam, mucous membranes moist Neck exam: Present: normal inspection. Absent: tenderness, meningismus, lymphadenopathy Respiratory exam: Present: accessory muscle use, decreased breath sounds. Absent: respiratory distress, wheezes, rales, rhonchi, stridor Cardiovascular Exam: Present: normal rhythm, tachycardia, normal heart sounds. Absent: systolic murmur, diastolic murmur, rubs, gallop, clicks GI/Abdominal exam: Present: soft, normal bowel sounds. Absent: distended, tenderness, guarding, rebound, rigid Extremities exam: Present: normal inspection, full ROM, normal capillary refill. Absent: tenderness, pedal edema, joint swelling, calf tenderness Back exam: Present: normal inspection Neurological exam: Present: alert, oriented X3, CN II-XII intact Psychiatric exam: Present: normal affect, normal mood Skin exam: Present: warm, dry, intact, normal color. Absent: rash Course Vital Signs 04/18/20 04/18/20 04/18/20 12:38 13:00 13:15 Temperature 97.4 F L Pulse Rate 110 H 100 Respiratory 16 18 18 Rate Blood Pressure 161/82 158/81 156/70 O2 Sat by Pulse 92 L 96 Oximetry 04/18/20 04/18/20 04/18/20 13:31 13:45 13:50 Temperature Pulse Rate 106 H 102 H Respiratory 18 18 Rate Blood Pressure 145/60 141/69 O2 Sat by Pulse 97 95 79 L Oximetry 04/18/20 04/18/20 04/18/20 14:00 14:58 15:24 Temperature Pulse Rate 103 H 98 103 H Respiratory 18 18 18 Rate Blood Pressure 138/61 112/76 152/66 O2 Sat by Pulse 94 L 97 97 Oximetry 04/18/20 15:42 Temperature Pulse Rate 95 Respiratory 16 Rate Blood Pressure 130/59 O2 Sat by Pulse 97 Oximetry - Reevaluation(s) Reevaluation #1: 04/18/20 16:05 medical records reviewed Reevaluation #2: 04/18/20 16:05 spoke with family members regarding findings, questions are answered Reevaluation #3: 04/18/20 16:05 atient did have recurrent seizure here in the ER given Ativan - Consultations Consultation #1: spoke w Dr Nava, Dr Ennis, and [facility] regarding ICU admision, agreeable Medical Decision Making - Medical Decision Making 74 female DF for evaluation patient Dese for evaluation regards torecurrent seizure MENTAL status here in the ER status epilepticus. Patient did have seizure here in the ER she did return to facility between seizures. Seizure related to brain metastasis with vasogenic edema. - Lab Data Result diagrams: 04/18/20 13:26 11/06/20 13:26 Lab Results 04/18/20 04/18/20 04/18/20 Range/Units 13:26 13:26 13:26 WBC 12.7 H (3.8-10.6) k/uL RBC 3.29 L (3.80-5.40) m/uL Hgb 10.8 L (11.4-16.0) gm/dL Hct 35.3 (34.0-46.0) % MCV 107.4 H D (80.0-100.0) fL MCH 32.7 (25.0-35.0) pg MCHC 30.5 L (31.0-37.0) g/dL RDW 14.7 (11.5-15.5) % Plt Count 387 (150-450) k/uL Neutrophils % 71 % Lymphocytes % 18 % Monocytes % 8 % Eosinophils % 2 % Basophils % 0 % Neutrophils # 9.0 H (1.3-7.7) k/uL Lymphocytes # 2.3 (1.0-4.8) k/uL Monocytes # 1.1 H (0-1.0) k/uL Eosinophils # 0.2 (0-0.7) k/uL Basophils # 0.0 (0-0.2) k/uL Hypochromasia Moderate Macrocytosis Moderate PT 10.0 (9.0-12.0) sec INR 1.0 (<1.2) APTT 19.0 L (22.0-30.0) sec Sodium 139 (137-145) mmol/L Potassium 4.0 (3.5-5.1) mmol/L Chloride 105 (98-107) mmol/L Carbon Dioxide 26 (22-30) mmol/L Anion Gap 8 mmol/L BUN 31 H (7-17) mg/dL Creatinine 0.91 (0.52-1.04) mg/dL Est GFR (CKD-EPI)AfAm 73 (>60 ml/min/1.73 sqM) Est GFR (CKD-EPI)NonAf 63 (>60 ml/min/1.73 sqM) Glucose 139 H (74-99) mg/dL Calcium 7.6 L (8.4-10.2) mg/dL Phosphorus 2.3 L (2.5-4.5) mg/dL Magnesium 0.8 L* (1.6-2.3) mg/dL Total Bilirubin 0.6 (0.2-1.3) mg/dL AST 26 (14-36) U/L ALT 55 H (4-34) U/L Alkaline Phosphatase 61 (38-126) U/L Creatine Kinase 36 (30-135) U/L Troponin I (0.000-0.034) ng/mL Total Protein 5.8 L (6.3-8.2) g/dL Albumin 3.3 L (3.5-5.0) g/dL 04/18/20 Range/Units 13:26 WBC (3.8-10.6) k/uL RBC (3.80-5.40) m/uL Hgb (11.4-16.0) gm/dL Hct (34.0-46.0) % MCV (80.0-100.0) fL MCH (25.0-35.0) pg MCHC (31.0-37.0) g/dL RDW (11.5-15.5) % Plt Count (150-450) k/uL Neutrophils % % Lymphocytes % % Monocytes % % Eosinophils % % Basophils % % Neutrophils # (1.3-7.7) k/uL Lymphocytes # (1.0-4.8) k/uL Monocytes # (0-1.0) k/uL Eosinophils # (0-0.7) k/uL Basophils # (0-0.2) k/uL Hypochromasia Macrocytosis PT (9.0-12.0) sec INR (<1.2) APTT (22.0-30.0) sec Sodium (137-145) mmol/L Potassium (3.5-5.1) mmol/L Chloride (98-107) mmol/L Carbon Dioxide (22-30) mmol/L Anion Gap mmol/L BUN (7-17) mg/dL Creatinine (0.52-1.04) mg/dL Est GFR (CKD-EPI)AfAm (>60 ml/min/1.73 sqM) Est GFR (CKD-EPI)NonAf (>60 ml/min/1.73 sqM) Glucose (74-99) mg/dL Calcium (8.4-10.2) mg/dL Phosphorus (2.5-4.5) mg/dL Magnesium (1.6-2.3) mg/dL Total Bilirubin (0.2-1.3) mg/dL AST (14-36) U/L ALT (4-34) U/L Alkaline Phosphatase (38-126) U/L Creatine Kinase (30-135) U/L Troponin I <0.012 (0.000-0.034) ng/mL Total Protein (6.3-8.2) g/dL Albumin (3.5-5.0) g/dL - EKG Data -: EKG Interpreted by Me (EKG shows nsr rate 101 NM 180 QRS 90 QTC 420) - Radiology Data Radiology results: report reviewed (CT brain does show metastasis), image reviewed Critical Care Time Critical Care Time: Yes Total Critical Care Time: 31 Disposition Clinical Impression: Metastatic cancer to brain, Weakness, Vasogenic edema, New onset seizure Disposition: ADMITTED IP TO THIS [facility] Condition: Fair Is patient prescribed a controlled substance at d/c from ED?: No Referrals: Adryan Lopez MD [Primary Care Provider] - 1-2 days
--- NOTE | 2020-04-18 13:49 | CT ---
EXAMINATION TYPE: CT brain wo con for TPA DATE OF EXAM: 04/18/2020 COMPARISON: 03/19/2020 INDICATION: stroke DLP: 1340.5 mGycm, Automated exposure control for dose reduction was used. CONTRAST: None CT of the brain is performed utilizing 3 mm thick sections through the posterior fossa and 3 mm thick sections through the remaining calvarium. Study is performed within 24 hours of arrival to the hosp ital. No abnormal hyperdensity is present to suggest an acute intracranial hemorrhage. r there is a 2.4 cm hypodensity within the left occipital lobe. Vasogenic edema is in the trilobar re gion. This is greater in volume from the comparison study. No midline shift is evident. There is some effacement and displacement of the left lateral ventricle occipital horn. Some mild effacement of ad jacent sulci may be present. No acute infarcts are evident. Ventricles and sulci are otherwise appropriate for the patient age. Paranasal sinuses and mastoid air cells within the [id number] are clear. IMPRESSIONS: 1. Hypodensity with vasogenic edema within the left parietal-occipital region. Workup for metastati c disease is recommended. Findings appear mildly progressive from the comparison. MRI with contrast r ecommended.
[2020-04-18 13:55] LABS: Albumin 3.3 g/dL (3.5-5.0); Calcium 7.6 mg/dL (8.4-10.2); Phosphorus 2.3 mg/dL (2.5-4.5); Total Bilirubin 0.6 mg/dL (0.2-1.3); Total Protein 5.8 g/dL (6.3-8.2)
[2020-04-18 13:57] LABS: Basophils % (A) 0 %; Eosinophils # (A) 0.2 k/uL (0-0.7); Eosinophils % (A) 2 %; HCT 35.3 % (34.0-46.0); HGB 10.8 gm/dL (11.4-16.0); Hypochromasia Moderate; Lymphocytes # (A) 2.3 k/uL (1.0-4.8); Lymphocytes % (A) 18 %; MCH 32.7 pg (25.0-35.0); MCHC 30.5 g/dL (31.0-37.0); Macrocytosis Moderate; Mean Platelet Volume 7.6; Monocytes # (A) 1.1 k/uL (0-1.0); Monocytes % (A) 8 %; Neutrophils % (A) 71 %; Platelet Count 387 k/uL (150-450); RBC 3.29 m/uL (3.80-5.40); RDW 14.7 % (11.5-15.5); WBC 12.7 k/uL (3.8-10.6)
[2020-04-18 13:59] LABS: MCV 107.4 fL (80.0-100.0)
[2020-04-18 14:16] LABS: Magnesium 0.8 mg/dL (1.6-2.3)
--- NOTE | 2020-04-18 14:18 | CT ---
EXAMINATION TYPE: CT angio head neck DATE OF EXAM: 04/18/2020 HISTORY: stroke COMPARISON: MRI brain 03/21/2020. CT brain 04/18/2020. History of lung cancer. CT DLP: 1340.5 mGycm. Automated Exposure Control for Dose Reduction was Utilized. TECHNIQUE: CTA scan of the neck is performed with IV Contrast, patient injected with 65 mL of Isovue 370, axial images are obtained, coronal and sagittal reformatted images are reviewed. Three-D recons tructed images are created on an independent workstation and reviewed. Stenosis calculated utilizing NASCET criteria. FINDINGS: Carotid/Vascular Structures: Classic branching pattern of the aortic arch. No evidence of clinically significant stenosis, occlusion, aneurysm, or dissection of the arteries of the neck. Cervical of Clarke: Vertebral basilar system is right-sided dominant. Posterior cerebral vasculature is unremarkable. Right internal carotid artery bifurcates normally into A1 and M1 segments. At the bi furcation of the left internal carotid artery into A1 and M1 segments, there is a 4 mm aneurysm (505: 19, 507:18). A2 segments are normal. The anterior communicating artery is patent. Left Posterior comm unicating artery is diminutive versus absent. Right posterior communicating artery is patent. Other: Within the left occipital lobe there is a redemonstrated approximately 2.9 x 2.6 cm hypodense lesion with rim enhancement which was better appreciated on 03/21/2020 MRI comparison. Incompletely vi sualized left hilar mass (501:1). IMPRESSION: 1. No flow-limiting stenosis or occlusion of the arteries of the head and neck. 2. 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 3. Redemonstrated known left occipital peripherally enhancing cystic mass, similar in size to 03/21/20 MRI comparison. Findings more likely represent metastatic disease, however primary brain neoplasm is included in differential. 4. Incompletely visualized known left hilar lung mass.
[2020-04-18] MEDS ORDERED: levETIRAcetam IV 1,000 MG in SALINE 1 100ML.BAG IVPB STA (14:19)
--- NOTE | 2020-04-18 15:15 | XR ---
EXAMINATION TYPE: XR chest 1V DATE OF EXAM: 04/18/2020 CLINICAL HISTORY: sob. Lung cancer. TECHNIQUE: Portable frontal view of the chest. COMPARISON: 04/12/[address] chest 03/10/2020 FINDINGS: The cardiomediastinal silhouette is within normal limits for size. Redemonstrated left hil ar masslike opacity and left basilar atelectasis and/or airspace opacity. No pleural effusion, or pne umothorax seen. Chronic interstitial emphysematous change. The osseous structures are intact. IMPRESSION: 1. Redemonstrated left hilar spiculated lung mass and left basilar atelectasis and/or airspace opacit ies. 2. Emphysema.
[2020-04-18] MEDS ORDERED: LORazepam 2 MG/ML INJ IV STA (15:23)
[2020-04-18] MEDS: MAGNESIUM SULFATE-D5W PMX 1 GM in DEXTROSE/WATER 1 100ML.BAG IVPB SCH ×4 (15:38→23:42)
[2020-04-18] MEDS ORDERED: IPRATROPIUM-ALBUTEROL 3 ML NEB INHALATION PRN (15:55)
[2020-04-18] MEDS ORDERED: NALOXONE 0.4 MG/ML 1 ML VIAL IV PRN (15:55)
--- NOTE | 2020-04-18 19:57 | CT ---
EXAMINATION TYPE: CT brain wo con DATE OF EXAM: 04/18/2020 COMPARISON: Today HISTORY: decreased mental status. CT DLP: 1188.4 mGycm Automated exposure control for dose reduction was used. Exam performed without contrast. There is 2.5 cm rounded area of fluid density in the left posterior parietal lobe guerra-white matter j unction. There is surrounding area of slight increased density. There is white matter edema anteriorl y and inferiorly. There is no midline shift. There is no sign of intracranial hemorrhage. Calvarium i s intact. IMPRESSION: Left posterior parietal occipital rounded low-density lesion with surrounding edema. This could be ne crotic tumor and surrounding edema increased compared to old CT scan of 03/19/2020. No change compared to exam earlier today.
[2020-04-18] MEDS: DEXAMETHASONE SOD PHOSPHATE 4 MG/ML 1 ML VIAL IV SCH (21:20)
[2020-04-18] MEDS ORDERED: levETIRAcetam IV 500 MG in SODIUM CHLORIDE 0.9% 100 ML IVPB STA (22:09)
[2020-04-18] MEDS: levETIRAcetam IV 1,000 MG in SALINE 1 100ML.BAG IVPB SCH (23:07)
--- NOTE | 2020-04-18 23:22 | HP ---
HISTORY AND PHYSICAL DATE OF SERVICE: 04/18/2020 CHIEF COMPLAINTS: Change in mental status, seizures. HISTORY OF PRESENT ILLNESS: This 74-year-old woman with a past medical history of multiple medical problems, including COPD, history of lung cancer with metastases to the brain, history of bariatric surgery, history of bowel resection, being followed by Dr. Adryan Lopez in the outpatient setting, recently was receiving radiation therapy from [place]. The patient apparently was unconscious and the family also found the patient to be acting inappropriately. Patient had a seizure in the ER and the patient was admitted for further evaluation and treatment. Currently the patient is sedated and unable to give a coherent history. Most of the history is taken from discussion with my staff and discussion with the family at the bedside as well as ER physician and review of the chart. Apparently there is neurology coverage over the weekend, but the family opted not to be referred because of the significant nature of the patient's illness and grave prognosis. CT scan of the brain showed multiple hypodense areas and vasogenic edema in the left parieto-occipital region which could be the cause of the seizures. Otherwise, there is no history of any trauma. No history of fever, rigor or chills at this time. PAST MEDICAL HISTORY: History of lung cancer with metastases to the brain, history of COPD, history of renal disease, appendectomy, bariatric surgery. HOME MEDICATIONS: Oxycodone, Vistaril, Aldactone, Prilosec, magnesium oxide, Synthroid, DuoNeb, glycopyrrolate, Lasix, Decadron, Pulmicort, Ventolin, Xanax. ALLERGIES: AMOXICILLIN, ASPIRIN, CODEINE, HYDROCODONE, PENICILLIN, SULFA, ULTRAM, STEROIDS. Family history, social history, review of systems could not be taken because of the change in mental status. Smoking per chart. PHYSICAL EXAMINATION: Patient is unresponsive. Pulse 71, blood pressure 97/49, respiration 18, temperature normal, pulse ox 99% on 50% non-rebreather mask. HEENT: Conjunctivae normal. Oral mucosa moist. NECK: No jugular venous distention. No carotid bruit. No lymph node enlargement. CARDIOVASCULAR SYSTEM: S1, S2 muffled. RESPIRATORY SYSTEM: Breath sounds diminished at the bases. A few scattered rhonchi. ABDOMEN: Soft, non-tender. LEGS: No edema. No swelling. NERVOUS SYSTEM: The patient is unresponsive. SKIN: No ulcer, rash, bleeding. JOINTS: No active deforming arthropathy. LYMPHATICS: No lymph node palpable in neck, axillae or groin. LABS/IMAGING: WBC 12.6, hemoglobin 10.8, and magnesium is 0.8. The chest x-ray, which was personally reviewed, showed evidence of left hilar spiculated lung mass with left base atelectasis, airspace opacities and emphysema. ASSESSMENT: 1. Change in mental status, acute toxic metabolic encephalopathy secondary to seizures. 2. Seizures secondary to cerebral metastases and vasogenic edema. 3. Lung cancer with metastases. 4. Chronic obstructive pulmonary disease, acute exacerbation, with acute hypoxic respiratory failure. 5. Change in mental status, metabolic encephalopathy, multifactorial. 6. History of renal disease. 7. History of appendectomy. 8. History of bariatric surgery. 9. History of bowel resection. 10.History of continued ongoing nicotine dependence. 11.Increased white count. 12.Anemia, macrocytic. 13.Hypomagnesemia. 14.Hypocalcemia. 15.Hypoalbuminemia with mild protein-calorie malnutrition. 16.NO CODE NO CPR NO VENT. RECOMMENDATIONS AND DISCUSSION: In this 74-year-old woman who presented with multiple complex medical issues, at this time we will continue the current medications. I would recommend IV Keppra, p.r.n. Ativan or Valium. Resume the home medication, bronchodilators. Consult Dr. Nava and Dr. Crowell. The prognosis is extremely guarded, which I discussed at length with the family, and the family would like to consider hospice also at this time. Will continue to monitor. Further recommendations to follow. MMODL / IJN: [id number] /
[2020-04-19] MEDS: DEXAMETHASONE SOD PHOSPHATE 4 MG/ML 1 ML VIAL IV SCH ×4 (00:59→20:06)
[2020-04-19] MEDS: levETIRAcetam IV 1,000 MG in SALINE 1 100ML.BAG IVPB SCH ×2 (07:48→19:57)
[2020-04-19 09:55] LABS: Basophils # (A) 0.1 k/uL (0-0.2); Basophils % (A) 1 %; Eosinophils % (A) 0 %; HCT 39.4 % (34.0-46.0); HGB 11.3 gm/dL (11.4-16.0); Hypochromasia Marked; Lymphocytes # (A) 0.3 k/uL (1.0-4.8); Lymphocytes % (A) 2 %; MCH 33.4 pg (25.0-35.0); MCHC 28.7 g/dL (31.0-37.0); Macrocytosis Marked; Monocytes # (A) 0.8 k/uL (0-1.0); Monocytes % (A) 5 %; Neutrophils # (A) 15.6 k/uL (1.3-7.7); Neutrophils % (A) 93 %; Platelet Count 354 k/uL (150-450); RBC 3.37 m/uL (3.80-5.40); RDW 14.1 % (11.5-15.5); WBC 16.9 k/uL (3.8-10.6)
[2020-04-19 10:04] LABS: MCV 116.7 fL (80.0-100.0)
[2020-04-19 11:33] LABS: African American GFR (CKD) 47.5 (60.0-200.0); Albumin 3.6 g/dL (3.80-4.90); Anion Gap 9.4 mmol/L (4.00-12.00); BUN/Creat Ratio 32.31 Ratio (12.00-20.00); Carbon Dioxide 28.6 mmol/L (21.6-31.8); Globulin 1.8 g/dL (1.6-3.3); Phosphorus 7.7 mg/dL (2.4-5.1); Potassium 4.8 mmol/L (3.5-5.5); Total Bilirubin 0.2 mg/dL (0.2-1.2); Total Protein 5.4 g/dL (6.2-8.2)
[2020-04-19 13:07] LABS: Poikilocytosis (M) Present
[2020-04-19] MEDS ORDERED: MORPHINE SULFATE 2 MG/ML SYRINGE IV PRN (15:22)
[2020-04-19] MEDS ORDERED: SCOPOLAMINE 1.5MG/72HR PATCH TRANSDERM SCH (16:00)
[2020-04-19] MEDS ORDERED: DEXAMETHASONE SOD PHOSPHATE 4 MG/ML 1 ML VIAL IV PRN ×2 (17:09→17:16)
[2020-04-19] MEDS: INSULIN ASPART (NovoLOG) 100 UNIT/ML VIAL SQ SCH ×2 (18:54→21:55)
--- NOTE | 2020-04-19 19:19 | PN ---
PROGRESS NOTE DATE OF SERVICE: 04/19/2020 This 74-year-old woman was admitted with change in mental status and seizures, had change in mental status also. The patient was started on Decadron, however, the patient continues to be unresponsive and the family wanted to go with the route of hospice care. The family apparently refused to transfer her elsewhere, but however today the patient's sensorium is slightly improved. The patient is being closely monitored. PAST MEDICAL HISTORY: Reviewed. REVIEW OF SYSTEM: Could not be taken, the patient is still confused. CURRENT MEDICATIONS: Reviewed include DuoNeb, Decadron, NovoLog, Ativan Narcan. PHYSICAL EXAM: Patient is conscious, confused. Pulse is 71, blood pressure 100/57, respiration 16, temperature 97 degrees, pulse ox 98% on 15 L nasal cannula. HEENT: Conjunctivae normal. Oral mucosa moist. NECK: No jugular venous distention. No lymph node enlargement. CARDIOVASCULAR: S1, S2, muffled. No S3, no S4, RESPIRATORY: Diminished breath sounds at the bases. A few scattered rhonchi and crackles. ABDOMEN: Soft, nontender. LEGS: No edema, no swelling. NERVOUS SYSTEM: No focal motor or sensory deficits. LABS: WBC 16.2, hemoglobin 11.3, calcium 6.2. Other labs are noted. ASSESSMENT: 1. Change in mental status acute toxic metabolic encephalopathy secondary to seizures. 2. 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 3. Lung cancer with metastases. 4. Chronic obstructive pulmonary disease acute exacerbation with acute hypoxic respiratory failure and acute purulent tracheobronchitis. 5. History of renal disease, chronic. 6. History of appendectomy. 7. History of bariatric surgery. 8. History of bowel resection. 9. Continued ongoing nicotine dependence. 10.Increased WBC. 11.Anemia, macrocytic. 12.Hypomagnesemia. 13.Hypocalcemia. 14.Hypoalbuminemia with mild protein-calorie malnutrition. 15.NO CODE, NO CPR, NO VENT. RECOMMENDATIONS AND DISCUSSION: I recommend to continue current medications, continue symptomatic treatment, continue steroids. Otherwise, Social Work and Case Management to arrange for outpatient hospice. Prognosis extremely guarded. Discussed with two sisters at the bedside. Guarded prognosis. Further recommendations to follow. MMODL / IJN: [id number] /
[2020-04-19] MEDS: LORazepam 2 MG/ML INJ IV PRN (19:57)
[2020-04-19 20:52] LABS: Glucose,Whole Blood 82 mg/dL (75-99)
[2020-04-20 07:43] LABS: Glucose,Whole Blood 84 mg/dL (75-99)
[2020-04-20] MEDS: INSULIN ASPART (NovoLOG) 100 UNIT/ML VIAL SQ SCH ×4 (10:13→20:37)
[2020-04-20] MEDS: levETIRAcetam IV 1,000 MG in SALINE 1 100ML.BAG IVPB SCH ×2 (10:17→20:40)
[2020-04-20] MEDS: DEXAMETHASONE SOD PHOSPHATE 4 MG/ML 1 ML VIAL IV SCH ×3 (10:17→23:11)
[2020-04-20 11:23] LABS: Glucose,Whole Blood 98 mg/dL (75-99)
[2020-04-20 17:13] LABS: Glucose,Whole Blood 99 mg/dL (75-99)
[2020-04-20 20:24] LABS: Glucose,Whole Blood 125 mg/dL (75-99)
--- NOTE | 2020-04-20 23:14 | PN ---
PROGRESS NOTE DATE OF SERVICE: 04/20/2020 HISTORY OF PRESENT ILLNESS: This 74-year-old woman was admitted with change in mental status and acute seizures with multiple brain mets, also had significant vasogenic edema around the brain lesions. The patient was unresponsive yesterday. The patient was on hospice care, but today the patient's sensorium improved and the patient is conscious but confused, unable to give any history. Most of the history taken by my discussion with staff and as well as review of chart and discussion with the two sisters at the bedside. PAST MEDICAL HISTORY: Reviewed. REVIEW OF SYSTEMS: Could not be taken because of the above mentioned . PHYSICAL EXAMINATION: Pulse is 71, blood pressure 100/57, respiration 16, temperature normal, pulse ox 99% on 15 L. HEENT: Conjunctivae normal. NECK: No jugular venous distention. CARDIOVASCULAR: S1, S2 muffled. RESPIRATORY: Breath sounds diminished at the bases. Bilateral scattered rhonchi and crackles. ABDOMEN: Soft. NERVOUS SYSTEM: Diffusely weak. LABS: Labs are noted. ASSESSMENT: 1. Change in mental status with acute toxic encephalopathy secondary to seizures and brain metastasis. 2. 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 3. Lung cancer with metastases. 4. Chronic obstructive pulmonary disease acute exacerbation with acute hypoxic respiratory failure with acute purulent tracheobronchitis. 5. History of renal disease, chronic. 6. History of appendectomy. 7. History of brain surgery. 8. History of bowel resection. 9. Continued ongoing nicotine dependence. 10.Increased WBC. 11.Anemia, macrocytic. 12.Hypomagnesemia. 13.Hypocalcemia. 14.Hypoalbuminemia with mild protein calorie malnutrition. 15.NO CODE, NO CPR, NO VENT. RECOMMENDATIONS AND DISCUSSION: Recommend to continue current medications, continue with monitoring and symptomatic treatment Otherwise, continue with Keppra. Continue with dexamethasone, monitor sugars closely. Would recommend child welfare caseworker to evaluate with Hospice and continue to monitor. Further recommendations to follow. MMODL / IJN: [id number] / MTDD
[2020-04-21] MEDS: DEXAMETHASONE SOD PHOSPHATE 4 MG/ML 1 ML VIAL IV SCH ×4 (05:11→23:41)
[2020-04-21 07:16] LABS: Glucose,Whole Blood 131 mg/dL (75-99)
[2020-04-21 07:34] LABS: Calcium 6.2 mg/dL (8.7-10.3)
[2020-04-21] MEDS: INSULIN ASPART (NovoLOG) 100 UNIT/ML VIAL SQ SCH (07:58)
[2020-04-21] MEDS: FUROSEMIDE 20 MG TAB PO SCH (08:58)
[2020-04-21] MEDS: levETIRAcetam IV 1,000 MG in SALINE 1 100ML.BAG IVPB SCH ×2 (08:58→20:15)
[2020-04-21 09:08] VITALS: BP 112/66; PULSE 72; RESP 20; TEMP 98.6
--- NOTE | 2020-04-21 11:24 | CDI ---
Documentation Clarification Form Date: 04/21/2020 11:13:58 AM From: Kristan PowellPAULA gutierrez, CCDS Admit Date: 04/18/2020 03:55:00 PM Patient Name: Augustina Ramsey Visit Number: [id number] Discharge Date: ATTENTION: The Clinical Documentation Specialists (CDI) and [facility] Coding Staff appreciate your assistance in clarifying documentation. Please respond to the clarification below the line at the bottom and electronically sign. The CDI & [facility] Coding staff will review the response and follow-up if needed. Please note: Queries are made part of the Legal Health Record. If you have any questions, please contact the author of this message via ITS. Dr. Mona Ambriz: Per the 04/18 ED note, the 04/18 History & Physical and subsequent Progress Notes: History of chronic renal disease is documented without further specificity. History/Risk Factors: Lung Cancer with Mets to the Brain, COPD, Bariatric Bowel Surgery, Bowel Resection with Colostomy & Reversal. Smoker. Clinical Indicators: Presented to the ED 04/18 with Altered Mental Status via EMS, sent by Home Care Nurse for possible Stroke. In the ED, recurrent Seizures with Status Epilepticus, Seizures related to Brain Metastasis with Vasogenic Edema. LAB 04/18: WBC 12.7^, Neut 9.0^, BUN 31^, Cr (0.91), GFR 63), Glucose 139^, Calcium 7.6*, Phosphorus 2.3*, Magnesium 0.8, ALT 55^, Total Protein 5.8*, Albumin 3.3*. LAB: 04/19: BUN 42.0^, Cr (1.3), GFR 41.0*. GFR on 08/11/2017: >60 Treatment 04/18:IV Fluid bolus: 1,000 mls @ 999 mls/hr x2, IV fluid 1,000 mls @ 100 mls/hr q10, IV Decadron, IV Keppra, IV MagSulfate, IV Ativan Consults: Neurology, Pulmonary/Critical Care, Oncology & Rad Oncology Nephrology is not consulted. In order to capture the severity of condition, please clarify if the labs/clinical indicators signify: CKD Stage 2 (GFR 60-89) CKD Stage 3 (GFR 30-59) Other, please specify Unable to determine (Last Revision: July 2019) none MTDD
--- NOTE | 2020-04-21 18:31 | PN ---
PROGRESS NOTE DATE OF SERVICE: 04/21/2020 This 74-year-old woman was admitted with change in mental status and acute seizures, multiple brain metastases. The patient has significant vasogenic edema. Patient was given Hexadrol. The sensorium is definitely improved today compared to yesterday. The patient is conscious but still continues to be confused but talkative. The social work msw and Case Management are following the patient for possible hospice placement at this time. Past medical history reviewed. Review of systems could not be taken. CURRENT MEDICATIONS: Reviewed. They include DuoNeb, Decadron, Lasix, morphine, scopolamine patch. PHYSICAL EXAMINATION: Patient is conscious, confused. Pulse 72, blood pressure 112/60, respiration 20, temperature 98.6, pulse ox 94% on 3 L. HEENT: Conjunctivae normal. NECK: No jugular venous distention. CARDIOVASCULAR SYSTEM: S1, S2 muffled. RESPIRATORY SYSTEM: Breath sounds diminished at the bases. Bilateral scattered rhonchi and crackles. ABDOMEN: Soft. NERVOUS SYSTEM: Diffusely weak. LABS: Reviewed. ASSESSMENT: 1. Change in mental status with acute toxic encephalopathy secondary to seizures and brain metastases. 2. Acute seizure disorder secondary to cerebellar mental status and vasogenic edema. 3. Lung cancer with metastases. 4. Chronic obstructive pulmonary disease, acute exacerbation, with acute hypoxic respiratory failure with acute purulent tracheobronchitis. 5. History of renal disease, chronic. 6. History of appendectomy. 7. History of brain surgery. 8. History of bowel resection. 9. Continued ongoing nicotine dependence. 10.Increased white count. 11.Anemia, macrocytic. 12.Hypomagnesemia. 13.Hypocalcemia. 14.Hypoalbuminemia with mild protein-calorie malnutrition. 15.NO CODE, NO CPR, NO VENT. 16.Hospice care. RECOMMENDATIONS AND DISCUSSION: I recommend to continue current medications, continue with the monitoring, symptomatic treatment. Continue with the bronchodilators and Keppra and other medications. Hexadrol. Prognosis extremely guarded. Hospice evaluation. Further recommendations to follow. Discussed with the family at length. MMODL / IJN: [id number] /
[2020-04-21] MEDS: LORazepam 2 MG/ML INJ IV PRN (19:02)
[2020-04-22] MEDS: DEXAMETHASONE SOD PHOSPHATE 4 MG/ML 1 ML VIAL IV SCH (05:36)
--- NOTE | 2020-04-22 07:40 | P.DS ---
Providers Date of admission: 04/18/20 15:55 Expected date of discharge: 04/22/20 Attending physician: Adryan Lopez Consults: 04/18/20 15:55 Consult Physician Routine Consulting Provider: Sean Obrien Consult Reason/Comments: icu Do you want consulting provider notified?: Yes Consult Physician Routine Consulting Provider: Inocente Crowell Consult Reason/Comments: known Do you want consulting provider notified?: Yes Consult Physician Urgent Consulting Provider: Eliu Ennis Consult Reason/Comments: seizure Do you want consulting provider notified?: Yes 04/21/20 08:43 Consult Physician Routine Consulting Provider: Arvind Naik Consult Reason/Comments: seizure, brain met Do you want consulting provider notified?: Yes Primary care physician: Adryan Lopez Hospital Course: 74-year-old female presented to the emergency room with altered mental status with associated seizure activity. Significant medical history of lung cancer metastatic to the brain and extensive emergency room workup vasogenic edema was identified she was altered transferred to the ICU. She was started on Keppra for seizures. remained in ICU with altered mental status for an acute duration was transferred to medical oncology where her mentation improved during hospital stay. patient and family made a medical decision for hospice due to extensive metastatic lung cancer. she will be transferred to [facility] Assessment: Change in mentation status with acute toxic encephalopathy secondary to seizures with brain metastasis Acute seizure disorder secondary to Celebrex or mentation with vasogenic edema Lung Cancer with metastasis COPD endstage dependent on 3 L of oxygen Anemia Nicotine dependence History of renal disease Leukocytosis Acute on chronic hypomagnesemia Acute on chronic hypocalcemia Hospice care Health Concerns: Mentation status Pertinent Studies: CTA of the brain Chest x-ray Procedures: None noted Patient Condition at Discharge: Fair Plan - Discharge Summary Discharge Rx Participant: No New Discharge Prescriptions: New dexAMETHasone [Dexamethasone] 4 mg PO CONTINUOUS #42 tablet levETIRAcetam [Keppra] 500 mg PO BID #60 tab Scopolamine 1.5MG/72Hr Patch [TransDerm Scop] 1 patch TRANSDERM Q72H #5 patch Continue Omeprazole [PriLOSEC] 20 mg PO DAILY Furosemide [Lasix] 20 mg PO DAILY tab Ipratropium-Albuterol Nebulize [Duoneb 0.5 mg-3 mg/3 ml Soln] 3 ml INHALATION RT-QID PRN #120 neb PRN Reason: Shortness Of Breath Discontinued Glycopyrrolate/Formoterol Fum [Bevespi Aerosphere Inhaler] 2 puff INHALATION RT-BID Albuterol Sulfate [Ventolin HFA] 2 puff INHALATION RT-Q4H PRN PRN Reason: Shortness Of Breath Magnesium Oxide [Mag-Ox] 400 mg PO TID 30 Days #90 tab Dexamethasone [Decadron] See Taper PO DIRECTED Spironolactone 25 mg PO BID Budesonide [Pulmicort] 0.5 mg INHALATION RT-BID ml hydrOXYzine pamoate [Vistaril] 50 mg PO Q6HR cap ALPRAZolam [Xanax] 0.25 mg PO TID tab oxyCODONE HCL [OxyIR] 5 mg PO Q4H PRN tab PRN Reason: Pain Levothyroxine Sodium [Synthroid] 112 mcg PO DAILY@0630 #60 tab Discharge Medication List Omeprazole [PriLOSEC] 20 mg PO DAILY 04/11/20 [History] Furosemide [Lasix] 20 mg PO DAILY tab 04/16/20 [Rx] Ipratropium-Albuterol Nebulize [Duoneb 0.5 mg-3 mg/3 ml Soln] 3 ml INHALATION RT-QID PRN #120 neb 04/21/20 [Rx] Scopolamine 1.5MG/72Hr Patch [TransDerm Scop] 1 patch TRANSDERM Q72H #5 patch 04/21/20 [Rx] dexAMETHasone [Dexamethasone] 4 mg PO CONTINUOUS #42 tablet 04/21/20 [Rx] levETIRAcetam [Keppra] 500 mg PO BID #60 tab 04/21/20 [Rx] Follow up Appointment(s)/Referral(s): Adryan Lopez MD [Primary Care Provider] - 1-2 days [facility] Boothe [NON-STAFF] - As Needed Discharge Disposition: HOME WITH HOSPICE
[2020-04-22] MEDS: FUROSEMIDE 20 MG TAB PO SCH (08:02)
[2020-04-22] MEDS: levETIRAcetam IV 1,000 MG in SALINE 1 100ML.BAG IVPB SCH (08:02)
== END 2020-04-22 08:22 | disposition hospice, home (50) | DRG 54 ==
LOC: EC 12:36 → 2SICU 15:55 → 5NMEDONC 20:37
PROVIDERS: ADMIT Family Medicine; ATTEND Family Medicine
DX: C79.31 Secondary malignant neoplasm of brain (principal); G92 Toxic encephalopathy; G93.6 Cerebral edema; J96.01 Acute respiratory failure with hypoxia; J44.1 Chronic obstructive pulmonary disease with (acute) exacerbation; E44.1 Mild protein-calorie malnutrition; C34.90 Malignant neoplasm of unspecified part of unspecified bronchus or lung; E83.42 Hypomagnesemia; F17.200 Nicotine dependence, unspecified, uncomplicated; E83.51 Hypocalcemia; D72.829 Elevated white blood cell count, unspecified; D53.9 Nutritional anemia, unspecified; Z51.5 Encounter for palliative care; Z66 Do not resuscitate; G40.901 Epilepsy, unspecified, not intractable, with status epilepticus; Z90.710 Acquired absence of both cervix and uterus; Z99.81 Dependence on supplemental oxygen; Z98.84 Bariatric surgery status; Z90.49 Acquired absence of other specified parts of digestive tract; Z85.118 Personal history of other malignant neoplasm of bronchus and lung; Z79.890 Hormone replacement therapy; Z68.27 Body mass index [BMI] 27.0-27.9, adult; Z79.899 Other long term (current) drug therapy; Z88.6 Allergy status to analgesic agent; Z88.1 Allergy status to other antibiotic agents; Z88.5 Allergy status to narcotic agent; Z88.0 Allergy status to penicillin; Z88.2 Allergy status to sulfonamides; Z88.8 Allergy status to other drugs, medicaments and biological substances; Z98.890 Other specified postprocedural states
CPT/HCPCS: 36415; 51702; 70450; 70496; 70498; 71045; 80053; 82550; 83690; 83735; 84100; 84484; 85025; 85610; 85730; 93005; 96361; 96365; 96375; 96376; 99291